=== PATIENT | male | born 1935 | race Caucasian/White ===

== ENCOUNTER 2017-02-03 14:49 | Inpatient (IN) | payer BC, OTHER ==
[~2017-02-03] VITALS: Ht 185.4 cm; Wt 78.0 kg
[2017-02-03] MEDS ORDERED: SODIUM CHLORIDE 0.9% 1000ML 1,000 ML IV STA (15:39)
[2017-02-03] MEDS ORDERED: SODIUM CHLORIDE 0.9% 500ML 500 ML IV STA (15:39)
[2017-02-03] MEDS ORDERED: SIMV20TA2 PO (16:30)
[2017-02-03] MEDS ORDERED: DABI150C PO (16:30)
[2017-02-03] MEDS ORDERED: ASPI-232 PO (16:30)
--- NOTE | 2017-02-03 16:38 | EMERGENCY ROOM VISIT NOTE ---
History Report prepared by David: Cee Caban Under the Supervision of: Dr. Meek Rodrigez M.D. First contact with patient: 15:35 Chief Complaint: RECTAL BLEEDING Stated Complaint: NEED REHYDRATION; Nursing Triage Summary: having rectal bleeding for the past 2 months. sent here from dr pettit's office for hydration History of Present Illness The patient is a 81 year old male who presents to the Emergency Room with complaints of persistent rectal bleeding which started 2 months ago. He reports that it is a small amount when he passes gas and with each bowel movement. The blood comes separately from the stool and is present on the toilet tissue. He has been experiencing occasional abdominal pain. He denies any pain with bowel movement, fever, cough, nausea, or vomiting. He has lost 4-5 pounds in the last couple of months, which he attributes to decreased food intake. He denies any history of abdominal surgery. He is on Pradaxa. He was referred to the ED after blood work showed that he has a high calcium level and might be dehydrated. Source of History: patient Onset: 2 months ago Position: other (rectum) Quality: other (bleeding) Timing: other (persistent) Associated Symptoms: No cough, No fevers, No nausea, No vomiting Note: He denies any pain with bowel movements. Review of Systems See HPI for pertinent positives & negatives. A total of 10 systems reviewed and were otherwise negative. Past Medical & Surgical Medical Problems: (1) ATRIAL FIBRILLATION (2) DIAB OBDULIA WO COMPL, TYPE II OR UNSPEC TYPE, NOT UNCNTRLD (3) DIVERTICULOSIS COLON (W/O MENT OF HEMORRHAGE) (4) Gout (5) Hypercalcemia (6) HYPERLIPIDEMIA NEC/NOS (7) HYPERPLASIA OF PROSTATE Family History Noncontributory secondary to age. Social History Smoking Status: Never Smoker Alcohol Use: none Marital Status: Occupation Status: retired Current/Historical Medications Scheduled Aspirin (Aspir-81), 1 TAB PO DAILY Dabigatran Etexilate Mesylate (Pradaxa), 150 MG PO BID Metoprolol Succinate (Toprol Xl), 50 MG PO DAILY Simvastatin (Zocor), 20 MG PO QPM Allergies Coded Allergies: No Known Allergies (Verified , 02/03/17) Physical Exam Vital Signs Date Time Temp Pulse Resp B/P Pulse Ox O2 Delivery O2 Flow Rate FiO2 02/03/17 17:07 92 18 120/78 100 Room Air 02/03/17 14:53 95 18 122/82 100 Room Air Physical Exam GENERAL: Patient is in no acute distress. HEENT: No acute trauma, normocephalic atraumatic, mucous membranes moist, no nasal congestion, no scleral icterus. NECK: No stridor, no adenopathy, no meningismus, trachea is midline. LUNGS: Clear to auscultation bilaterally, no wheeze, no rhonchi, breath sounds equal. HEART: Without murmurs gallops or rubs, regular rate and rhythm. ABDOMEN: Soft, slightly tender left lower quadrant, bowel sounds positive, no hernias, no peritonitis. EXTREMITIES: No cyanosis or edema, full range of motion of all the joints without pain or difficulty, no signs for acute trauma. NEUROLOGIC: Oriented x 3, no acute motor or sensory deficits, no focal weakness. SKIN: No rash, no jaundice, no diaphoresis. RECTAL: Brown stool. No external source for bleeding. Digital exam reveals no mass. Stool tests heme positive. Medical Decision & Procedures ER Provider Diagnostic Interpretation: X ray results and stated below per my interpretation and radiologist interpretation. CT chest and CT abd/pelvis are pending. CHEST ONE VIEW PORTABLE HISTORY: Short of breath. COMPARISON: None. FINDINGS: The heart is top normal in size. Linear densities the left lung base favor subsegmental atelectasis or scarring. No focal lung consolidations to suggest pneumonia. No evidence for pulmonary edema. Small linear density within the right upper lobe. IMPRESSION: 1. Left basilar linear densities favor subsegmental atelectasis or scarring. 2. No acute process within the chest. 3. Small linear density within the right upper lobe may also represent an area of scarring. Electronically signed by: Masood Dupree M.D. 02/03/2017 4:36 PM Dictated Date/Time: 02/03/2017 4:34 PM Laboratory Results Test 02/03/17 15:55 02/03/17 16:20 02/03/17 16:40 02/03/17 17:16 Urine Color YELLOW Urine Appearance CLEAR (CLEAR) Urine pH 6.0 (4.5-7.5) Urine Specific [place] 1.012 (1.000-1.030) Urine Protein NEG (NEG) Urine Glucose (UA) NEG (NEG) Urine Ketones NEG (NEG) Urine Occult Blood NEG (NEG) Urine Nitrite NEG (NEG) Urine Bilirubin NEG (NEG) Urine Urobilinogen NEG (NEG) Urine Leukocyte Esterase NEG (NEG) Prothrombin Time 12.8 SECONDS (9.0-12.0) Prothromb Time International Ratio 1.2 (0.9-1.1) Activated Partial Thromboplast Time 34.3 SECONDS (21.0-31.0) Partial Thromboplastin Ratio 1.3 Calcium Level 13.3 mg/dl (8.5-10.1) Magnesium Level 2.2 mg/dl (1.8-2.4) Thyroid Stimulating Hormone (TSH) 2.630 uIu/ml (0.300-4.500) Ionized Calcium 1.76 mmol/l (1.12-1.32) Laboratory results reviewed by me. Medications Administered Medications (Trade) Dose Ordered Sig/Estevan Route Start Time Stop Time Status Last Admin Dose Admin Sodium Chloride 500 ml @ 999 mls/hr Q31M STAT IV 02/03/17 15:39 02/03/17 16:09 DC 02/03/17 16:05 999 MLS/HR Sodium Chloride (Nss 1000ml) 1,000 ml @ 200 mls/hr Q5H STAT IV 02/03/17 15:39 02/03/17 20:38 02/03/17 16:05 200 MLS/HR ECG Indication: other (hypercalcemia) Rate (beats per minute): 70 Rhythm: atrial fibrillation Findings: RBBB, no acute ischemic change, no ectopy ED Course 1538: The patient was evaluated in room C8. A complete history and physical exam was performed. 1539: NSS 1000 ml @ 200 mls/hr IV, NSS 500 ml @ 999 mls/hr IV. 1641: I discussed the patient's case with Dr. Matute, [facility] - hospitalist. He will be evaluated for further management. 1643: I discussed the results and treatment plan with him. He verbalized understanding and agreement. He will be evaluated for further management. Medical Decision Differential diagnoses: diverticulitis, malignancy, anemia, renal failure, electrolyte imbalance, infection, dehydration. I was able to review the laboratory values from earlier today. There was no leukocytosis or concerning anemia. Calcium was high at just over 13. No other significant electrolyte abnormality. His creatinine was elevated at 1.8, consistent with dehydration or mild acute renal failure. While here in the emergency room, some additional laboratory testing was ordered. His magnesium was normal. His thyroid appeared to be functioning normally. INR was mildly elevated at 1.2, likely from his Pradaxa. Urinalysis did not show evidence for infection. Chest x-ray did not show any obvious pneumonia or mass. EKG showed an A. fib with a right bundle branch block, no acute ischemia. Chest CT and abdominal and pelvis CT results are presently pending. The patient received IV saline. With the hypercalcemia, his renal failure and my concern for malignancy, I did think workup in the hospital was warranted. Of note, I did perform a rectal exam, the stool was dark brown in color and heme positive. No external source for bleeding was seen. I discussed my findings with the patient and case management. The on-call hospitalist was consulted. Consults Time Called: 1636 Consulting Physician: Dr. Matute, [facility] - hospitalist Returned Call: 1641 I discussed the patient's case with him. He will be evaluated for further management. Impression Primary Impression: Hypercalcemia Additional Impressions: GI bleeding Dehydration Scribe Attestation The scribe's documentation has been prepared under my direction and personally reviewed by me in its entirety. I confirm that the note above accurately reflects all work, treatment, procedures, and medical decision making performed by me. Departure Information Dispostion Being Evaluated By Hospitalist Referrals Juan Daniel Pettit M.D. (PCP) Patient Instructions My [facility] Problem Qualifiers
[2017-02-03 16:48] LABS: INR 1.2 (0.9-1.1); PARTIAL THROMBOPLASTIN RATIO 1.3; PROTHROMBIN TIME (PATIENT) 12.8 SECONDS (9.0-12.0)
[2017-02-03 16:53] LABS: URINE APPEARANCE CLEAR (CLEAR); URINE BILIRUBIN NEG (NEG); URINE COLOR YELLOW; URINE NITRITE NEG (NEG); URINE SPECIFIC GRAVITY 1.012 (1.000-1.030); UROBILINOGEN NEG (NEG)
[2017-02-03 17:04] LABS: MANUAL MICROSCOPIC REQUIRED? NO; REVIEW REQ? NO
[2017-02-03 17:06] LABS: CALCIUM 13.3 mg/dl (8.5-10.1); MAGNESIUM 2.2 mg/dl (1.8-2.4); THYROID STIMULATING HORMONE 2.63 uIu/ml (0.300-4.500)
[2017-02-03] MEDS: SODIUM CHLORIDE 0.9% 1000ML 1,000 ML IV SCH (17:16)
[2017-02-03] MEDS ORDERED: ACETAMINOPHEN 325 MG TAB PO PRN (17:30)
--- NOTE | 2017-02-03 17:47 | DIAGNOSTIC IMAGING REPORT ---
CT OF THE CHEST WITHOUT IV CONTRAST CLINICAL HISTORY: Possible mass. COMPARISON STUDY: Chest radiograph February 03, 2017. CT DOSE: 452.45 mGy.cm TECHNIQUE: Axial images of the chest were obtained without IV contrast. Images were reviewed in the axial, sagittal, and coronal planes. IV contrast was not administered for this examination. FINDINGS: The size of the heart is normal. There is no pericardial effusion. Note is made of a small hiatal hernia. There is also an enlarged distal paraesophageal lymph node that measures 2.1 x 1.3 cm. The central airways are patent. There is no consolidation to suggest pneumonia. Linear and groundglass opacities favor atelectasis. No suspicious osseous lesions are present. No suspicious pulmonary nodules are present. No significant abnormalities are identified within visualized portions of the upper abdomen with exception of mild left collecting system dilatation. This can be assessed on the abdominal CT. IMPRESSION: 1. Mildly enlarged distal paraesophageal lymph node. This lymph node is indeterminate and pathologically enlarged. Correlation with history of malignancy is recommended. 2. No consolidation to suggest pneumonia. 3. Mild left collecting system dilatation, partially imaged on this exam. 4. Small hiatal hernia. Electronically signed by: Luciano Owusu M.D. 02/03/2017 5:45 PM Dictated Date/Time: 02/03/2017 5:31 PM
--- NOTE | 2017-02-03 17:51 | History and Physical ---
History & Physical Date & Time of Service: Feb 03, 2017 at 17:24 Chief Complaint: Need Rehydration; Primary Care Physician: Juan Daniel Pettit M.D. History of Present Illness Source: patient, family This is a 81 yo M with PMHx of atrial fibrillation on pradaxa, HTN, DM, diverticulosis, recent GI bleed, gout and hyperlipidemia who has routine labs drawn and was sent to the ED for hypecalcemia and elevated creatinine. The patient reports he does not feel any different than normal. His is present with him today and notes that he has seemed a little more confused lately, stating he was unable to count cards the other day. His oral intake has been good, with about 6 cups of water daily, and drinks no caffeine. Pt reports intermittent rectal bleeding which started in November, and has been being worked up by his PCP. He is currently still on an anticoagulant for afib. He denies seeing [facility] recently, no black or tarry stools. Pt does complain of swelling in his lower legs x past 6 weeks, and recently had an ultrasound on 01/22 which was negative for DVT, he also had an echocardiogram done recently by Dr. Hope which was fairly normal per pt report. He admits to sob on exertion , but denies dyspnea at rest or orthopnea. Outpatient labs include hypercalcemia, Ca+ = 13.3, ANTONIA with Cr. 1.8. Checking a calcium, TSH, angiotensin converting enzyme, and Vit D 25 here now. EKG completed showing afib with RBBB. Past Medical/Surgical History Medical Problems: (1) ATRIAL FIBRILLATION Status: Chronic (2) DIAB OBDULIA WO COMPL, TYPE II OR UNSPEC TYPE, NOT UNCNTRLD Status: Chronic (3) DIVERTICULOSIS COLON (W/O MENT OF HEMORRHAGE) Status: Chronic (4) Gout Status: Chronic (5) HYPERLIPIDEMIA NEC/NOS Status: Chronic (6) HYPERPLASIA OF PROSTATE Status: Chronic Social History Smoking Status: Never Smoker Smokeless Tobacco Use: No Alcohol Use: none Drug Use: none Marital Status: Housing status: lives with significant other Occupational Status: retired Multi-Drug Resistant Organisms History of MDRO: No Allergies Coded Allergies: No Known Allergies (Verified , 02/03/17) Home Medications Scheduled Aspirin (Aspir-81), 1 TAB PO DAILY Dabigatran Etexilate Mesylate (Pradaxa), 150 MG PO BID Metoprolol Succinate (Toprol Xl), 50 MG PO DAILY Simvastatin (Zocor), 20 MG PO QPM Review of Systems Constitutional: + fatigue, No chills, No fever, No sweats Eyes: No problem reported ENT: No problem reported Respiratory: + dyspnea on exertion, + shortness of breath, No cough, No dyspnea at rest, No hemoptysis, No sputum Cardiovascular: No chest pain, No orthopnea, No palpitations Abdomen: + GI bleeding, No constipation, No diarrhea, No nausea, No pain, No vomiting Musculoskeletal: + swelling, No calf pain, No joint pain Genitourinary - Male: + urinary frequency, No dysuria, No hematuria, No urinary urgency Neurologic: No balance problems, No numbness/tingling, No paralysis Endocrine: + fatigue Integumentary: No itch, No rash Physical Exam Vital Signs Date Time Temp Pulse Resp B/P Pulse Ox O2 Delivery O2 Flow Rate FiO2 02/03/17 17:07 92 18 120/78 100 Room Air 02/03/17 14:53 95 18 122/82 100 Room Air General Appearance: WD/WN, no apparent distress, + thin Head: normocephalic, atraumatic Eyes: PERRL, EOMI ENT: hearing grossly normal, pharynx normal Neck: supple, no JVD Respiratory/Chest: chest non-tender, lungs clear, normal breath sounds, no respiratory distress, no accessory muscle use Cardiovascular: no JVD, normal peripheral pulses, + systolic murmur, + irregularly irregular Abdomen/GI: normal bowel sounds, non tender, soft, no organomegaly Back: normal inspection Extremities/Musculoskelatal: no calf tenderness, + pertinent finding (LLE: + pedal edema, cool skin to touch, dusky colored. RLE without edema or color changes, warm to touch. ) Neurologic/Psych: no motor/sensory deficits, alert, oriented x 3 Skin: normal color, warm/dry Diagnostics Laboratory Results Results Past 24 Hours Test 02/03/17 15:55 02/03/17 16:20 02/03/17 16:40 02/03/17 17:16 Range/Units Urine Color YELLOW Urine Appearance CLEAR CLEAR Urine pH 6.0 4.5-7.5 Urine Specific [place] 1.012 1.000-1.030 Urine Protein NEG NEG Urine Glucose (UA) NEG NEG Urine Ketones NEG NEG Urine Occult Blood NEG NEG Urine Nitrite NEG NEG Urine Bilirubin NEG NEG Urine Urobilinogen NEG NEG Urine Leukocyte Esterase NEG NEG Prothrombin Time 12.8 9.0-12.0 SECONDS Prothromb Time International Ratio 1.2 0.9-1.1 Activated Partial Thromboplast Time 34.3 21.0-31.0 SECONDS Partial Thromboplastin Ratio 1.3 Calcium Level 13.3 8.5-10.1 mg/dl Magnesium Level 2.2 1.8-2.4 mg/dl Thyroid Stimulating Hormone (TSH) 2.630 0.300-4.500 uIu/ml Ionized Calcium 1.76 1.12-1.32 mmol/l Diagnostic Radiology CHEST ONE VIEW PORTABLE HISTORY: Short of breath. COMPARISON: None. FINDINGS: The heart is top normal in size. Linear densities the left lung base favor subsegmental atelectasis or scarring. No focal lung consolidations to suggest pneumonia. No evidence for pulmonary edema. Small linear density within the right upper lobe. IMPRESSION: 1. Left basilar linear densities favor subsegmental atelectasis or scarring. 2. No acute process within the chest. 3. Small linear density within the right upper lobe may also represent an area of scarring. Electronically signed by: Masood Dupree M.D. 02/03/2017 4:36 PM Dictated Date/Time: 02/03/2017 4:34 PM The status of this report is Signed. EKG Vent. rate 70 BPM GA interval * ms QRS duration 140 ms QT/QTc 418/451 ms P-R-T axes * -64 -6 Atrial fibrillation with Right bundle branch block Impression Assessment and Plan This is a 81 yo M with PMHx of atrial fibrillation on pradaxa, HTN, DM, diverticulosis, recent GI bleed, gout and hyperlipidemia who has routine labs drawn and was sent to the ED for hypecalcemia and elevated creatinine. Hypercalcemia - Admit to tele - Rechecking TSH, Vit D-25, MARIANN, parathyroid hormone, - Checking CT chest to r/o any primary hormone secreting tumor with hypercalcemia, possible other diagnosis could include sarcoidosis. - Will administer NSS at 100 mL/hr - Give pamidronate 60 mg IV x 1 to reduce calcium - Follow am labs ANTONIA on CKD stage III - Cr. 1.8 with baseline of 1.3 - 1.4 - Continue IVFs as above - Hold nephrotoxins and nsaids - Follow PRP Atrial fibrillation - Cont anticoagulation on pradaxa - Recent ECHO completed on 01/28/17 with EF of 50-55%. right ventricle mild to moderate dilation, moderate MR, left atrium mildly dilated, mild to moderate TR , elavated ventricular systolic pressure at 40-5- mmHg. - DVT ultrasound was completed on 01/22 and negative. Will repeat with increased swelling and dusky red appearance of the LLE. - Has outpatient f/u with Dr. Macdonald scheduled on 02/20. Hyperlipidemia GI bleed - No current bleed, hemmocult in the ED negative. - Hgb stable at , VSS - Continue pradaxa for afib as above. DVT ppx: Teds, SCDs, cont pradaxa, no other chemical anticoagulation needed. Disposition: From home, discharge when medically stable. Level of Care Telemetry Resuscitation Status FULL RESUSCITATION VTE Prophylaxis VTE Risk Assessment Done? Y/N: Yes Risk Level: Low Given or contraindicated: T.EMarry Stockings, SCD's Assessment and Plan Attending Addendum: I have physically seen and examined this patient, have directed their medical care, have supervised the PA's activity, and agree with the H&P as noted above, with the following changes: The patient is awake, alert and oriented 3, appears thin, mildly renetta complexion, normocephalic and atraumatic, lying in bed and in no acute distress. HEENT--PERRL, EOMI, mucous membranes and oropharynx dry. Neck--supple, no JVD or bruits, thyroid normal, trachea midline, no adenopathy. Heart--irregularly irregular, systolic murmur, no rubs or gallops. Lungs--clear bilaterally with good air movement, no respiratory distress, no accessory muscle use. Abdomen--normal bowel sounds and soft, nontender and nondistended, no hernias or masses, no organomegaly. Extremities--left lower extremity-no cyanosis, clubbing or edema. There are good distal pulses b/l. Right lower extremity with 1+ edema and mildly red. Dermatologic--normal skin turgor, normal color, warm and dry, no abnormal lymph nodes, no rash. Changes as noted above. Neurologic--cranial nerves II through XII grossly intact, motor and sensory examination normal. Rheumatologic--normal range of motion, nontender, muscles and joints. Psychiatric--normal affect. Hypercalcemia--calcium upon entry labs was 13.3. Workup to include 25-hydroxy vitamin D level, ionized PTH, MARIANN level, CT of the chest and abdomen to look for possible malignancy. --Give a single dose of pamidronate 60 mg IV and follow serial laboratories. Acute on chronic renal insufficiency--creatinine upon entry labs was 1.8, with baseline in the 1.3-1.[address] on normal saline at 100 mils per hour, and repeat BMP serially. Atrial fibrillation/hypertension--continue metoprolol succinate 50 mg by mouth daily, aspirin 81 mg by mouth daily, and Pradaxa 100 mg by mouth twice a day. Hypercholesterolemia--continue simvastatin 20 mg by mouth every evening. Right lower extremity swelling--repeat venous Doppler.
[2017-02-03 18:20] VITALS: BP 143/83; PULSE 78; TEMP 36.6; O2SAT 97
[2017-02-03 18:27] VITALS: Ht 185.4 cm; Wt 78.0 kg
[2017-02-03] MEDS ORDERED: PAMIDRONATE DISODIUM IV INJ 60 MG in SODIUM CHLORIDE 0.9% 1000ML 1,000 ML IV SCH (18:30)
--- NOTE | 2017-02-03 18:43 | DIAGNOSTIC IMAGING REPORT ---
CT OF THE ABDOMEN AND PELVIS WITH ORAL CONTRAST ONLY CT DOSE: 366.30 mGy.cm CLINICAL HISTORY: Abdominal pain. TECHNIQUE: Axial images of the abdomen and pelvis were obtained without IV contrast. Oral contrast was administered. COMPARISON STUDY: None. FINDINGS: Note is made of a mildly enlarged distal paraesophageal lymph node that measures 2.3 x 1.2 cm. Evaluation of the abdomen and pelvis is suboptimal given the lack of IV contrast. Unenhanced images of liver, spleen, adrenal glands and pancreas are normal. There is a large suspected diverticulum arising from the second portion of the duodenum. There is no evidence for a bowel structure. This extensive left colon diverticulosis. There is mild pericolonic infiltration without convincing evidence for acute diverticulitis. There is mild left collecting system dilatation as well as dilatation of the left ureter to the level of the left ureterovesical junction. Note is made of numerous moderately enlarged para-aortic and bilateral iliac chain lymph nodes as well as left pelvic sidewall lymphadenopathy. There is also a left perirectal mass that measures approximately 7.3 x 4.8 cm. There is associated rectal wall thickening. Suspected adenopathy extends to the left ureterovesical junction. An index left external iliac lymph node measures 3.1 x 2.1 cm. An index left para-aortic conglomerate node measures 4.4 x 3 cm. There is mild bladder wall thickening. No suspicious osseous lesions are present. There is focal dilatation of the bilateral common iliac veins, left greater than right. IMPRESSION: 1. Extensive paraaortic, bilateral iliac chain and left pelvic sidewall lymphadenopathy in addition to a left perirectal mass with associated rectal wall thickening. Overall, the findings strongly suggest lymphoma. A rectal adenocarcinoma could appear similar although is considered much less likely. 2. Extensive left colon diverticulosis without convincing evidence for acute diverticulitis. 3. Mild left hydroureteronephrosis likely due to mass effect upon the distal left ureter by lymphadenopathy which extends to the left ureterovesical junction. Electronically signed by: Luciano Owusu M.D. 02/03/2017 6:41 PM Dictated Date/Time: 02/03/2017 6:31 PM
[2017-02-03] MEDS: DABIGATRAN ELEXILATE 75 MG CAP PO SCH (20:29)
[2017-02-03] MEDS: SIMVASTATIN 20 MG TAB PO SCH (20:29)
[2017-02-03 23:57] VITALS: BP 116/65; PULSE 72; TEMP 36.7; O2SAT 97
[2017-02-04] VITALS (8 sets, daily range): BP systolic 93–125; BP diastolic 55–82; PULSE 54–74; TEMP 36.5–37; O2SAT 91–97
--- NOTE | 2017-02-04 00:55 | Progress Note ---
Progress Note Date of Service Feb 04, 2017. Progress Note Called by JAMAR Oliva that pt has a DVT which is nonocclusive and in the common femoral and superficial femoral vein On r/v of records, pt is on Pradaxa and has been for a while. Received most recent dose at 8pm today. At this stage, am unable to tell if he has been noncompliant, but would have risk factors for bleeding if i gave him further anticoagulation, so will hold off for now Discussed with pharmacist as well Resident Tracking Resident Involvement: Operator Coverage Note Care Provided: Adult Hospital Medicine
[2017-02-04] MEDS: SODIUM CHLORIDE 0.9% 1000ML 1,000 ML IV SCH ×2 (05:45→13:17)
--- NOTE | 2017-02-04 06:20 | DIAGNOSTIC IMAGING REPORT ---
Venous Doppler left leg LEFT VENOUS DOPP LOWER EXT UNILAT CLINICAL HISTORY: R/o DVT pain. Edema. TECHNIQUE: Venous Doppler COMPARISON STUDY: None FINDINGS: Study is positive for acute deep venous thrombosis involving the left common femoral vein as well as proximal superficial femoral vein. Compressibility is compromise. IMPRESSION: Acute deep venous thrombosis involving the left leg involving the left common and superficial femoral veins Electronically signed by: Dillon Serrato M.D. 02/04/2017 6:18 AM Dictated Date/Time: 02/04/2017 6:17 AM
[2017-02-04 06:27] LABS: BASO % 0.6 %; BASO ABS # 0.03 K/uL (0-0.2); COMPLETE YES; IG% 0.2 %; LYMPH % 19.4 %; LYMPH ABS # 0.98 K/uL (1.2-3.4); MEAN CORPUSCULAR HEMOGLOBIN 28.9 pg (25-34); MEAN CORPUSCULAR HGB CONC 33.9 g/dl (32-36); MEAN PLATELET VOLUME 9.2 fL (7.4-10.4); MONO % 12.9 %; NEUT % 64.9 %; PLATELET COUNT 254 K/uL (130-400); RED BLOOD COUNT 4.47 M/uL (4.7-6.1); WHITE BLOOD COUNT 5.04 K/uL (4.8-10.8)
[2017-02-04 07:00] LABS: BUN/CREATININE RATIO 15.9 (10-20); CALCIUM 12.3 mg/dl (8.5-10.1); CREATININE 1.8 mg/dl (0.60-1.40)
[2017-02-04] MEDS: METOPROLOL SUCC 50MG EXT REL TAB PO SCH (07:39)
[2017-02-04] MEDS: DABIGATRAN ELEXILATE 75 MG CAP PO SCH (07:39)
[2017-02-04] MEDS ORDERED: ASPIRIN 81 MG ECTAB PO SCH (09:00)
--- NOTE | 2017-02-04 09:48 | Clinical Documentation Query ---
ROSE Staton : Please Document Present on Admission Status for - Acute deep venous thrombosis involving the left leg involving the left common and superficial femoral veins. Patient is an 81 year old male admitted for evaluation and treatment of hypercalcemia and ANTONIA on CKD stage 3. Ultrasound performed after admission demonstrated "Acute deep venous thrombosis involving the left leg involving the left common and superficial femoral veins". In order to eliminate electrical engineer uncertainty at time of discharge, please explicitly specify the present on admission status (POA) as appropriate. Thank you. ( x ) Acute deep venous thrombosis involving the left leg involving the left common and superficial femoral veins, POA ( ) Acute deep venous thrombosis involving the left leg involving the left common and superficial femoral veins, not POA Thank You, Roverto Cárdenas, RN [phone]
[2017-02-04 12:38] LABS: INR 1.4 (0.9-1.1); PARTIAL THROMBOPLASTIN RATIO 1.6; PROTHROMBIN TIME (PATIENT) 15.6 SECONDS (9.0-12.0)
--- NOTE | 2017-02-04 12:49 | Hospitalist Progress Note ---
Hospitalist Progress Note Date of Service Feb 04, 2017. (Mariam Centeno ., PA-C) Subjective Pt evaluation today including: conversation w/ patient, physical exam, chart review, lab review, review of studies, conversation w/ data virtualization consultant (spoke with Dr. Chávez and Dr. Ca), review of inpatient medication list Pain: None PO Intake: Tolerating PO diet, decreased appetite Voiding: no voiding problems The patient states that he has been feeling weak and fatigued for the last 4-5 weeks. He has not had much of an appetite or been sleeping well during this time. He reports a 2/10 dull pain in the lower abdomen that occurs after eating. He states that the duration of this pain varies, and this first started occurring about one week ago. He has had intermittent bright red blood per rectum since November. He states that this does not always occur just with bowel movements, but sometimes even passing gas will result in bright red blood. He has also been more constipated in the last week or so than normal. He reports seeing some blood this morning after passing gas. Per nursing, he later had a bloody bowel movement. The patient denies fevers, chills, sweats, chest pain, palpitations, claudication, cough, wheezing, shortness of breath, nausea, vomiting, dysuria, hematuria, urinary retention, paralysis, weakness, numbness and tingling. Additional Comments: See HPI for pertinent positives and negatives. All other systems reviewed and negative. (Mariam Centeno ., PA-C) Objective Vital Signs Date Time Temp Pulse Resp B/P Pulse Ox O2 Delivery O2 Flow Rate FiO2 02/04/17 11:28 36.5 66 16 108/63 95 02/04/17 08:00 Room Air 02/04/17 07:27 36.7 71 18 110/68 96 02/04/17 04:00 Room Air 02/04/17 03:41 36.8 74 18 125/82 96 Room Air 02/04/17 00:01 97 Room Air 02/03/17 23:57 36.7 72 18 116/65 97 Room Air 02/03/17 20:00 Room Air 02/03/17 18:27 Room Air 02/03/17 18:20 36.6 78 18 143/83 97 Room Air 02/03/17 17:57 36.6 92 18 120/78 100 02/03/17 17:56 92 18 120/78 100 Room Air 02/03/17 17:07 92 18 120/78 100 Room Air 02/03/17 14:53 95 18 122/82 100 Room Air (Mariam Centeno ., PA-C) Physical Exam General Appearance: WD/WN, no apparent distress Eyes: normal inspection, PERRL, EOMI ENT: normal ENT inspection, hearing grossly normal, pharynx normal Neck: supple, no JVD, trachea midline Respiratory/Chest: normal breath sounds, no respiratory distress, + decreased breath sounds (bases bilaterally), + crackles (right base) Cardiovascular: no gallop, no murmur, + irregularly irregular (rate controlled) Abdomen: normal bowel sounds, soft, + guarding (with palpation of suprapubic area), + tenderness (suprapubic area TTP), + mass (hard, bumpy mass felt in suprapubic area) Extremities: non-tender, + swelling (trace edema LLE), + pertinent finding ( LLE dusky) 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: alert, normal mood/affect, oriented x 3 Skin: normal color, warm/dry, no rash (Mariam Centeno ., PA-C) Laboratory Results Last 24 Hours Test 02/03/17 15:55 02/03/17 16:20 02/03/17 16:40 02/03/17 17:52 Urine Color YELLOW Urine Appearance CLEAR Urine pH 6.0 Urine Specific Marvell 1.012 Urine Protein NEG Urine Glucose (UA) NEG Urine Ketones NEG Urine Occult Blood NEG Urine Nitrite NEG Urine Bilirubin NEG Urine Urobilinogen NEG Urine Leukocyte Esterase NEG 25-Hydroxy Vitamin D Total 18.9 ng/ml Prothrombin Time 12.8 SECONDS Prothromb Time International Ratio 1.2 Activated Partial Thromboplast Time 34.3 SECONDS Partial Thromboplastin Ratio 1.3 Calcium Level 13.3 mg/dl Magnesium Level 2.2 mg/dl Thyroid Stimulating Hormone (TSH) 2.630 uIu/ml Ionized Calcium 1.76 mmol/l Parathyroid Hormone (Intact) < 5.5 pg/mL Test 02/04/17 06:19 02/04/17 12:02 White Blood Count 5.04 K/uL Red Blood Count 4.47 M/uL Hemoglobin 12.9 g/dL Hematocrit 38.0 % Mean Corpuscular Volume 85.0 fL Mean Corpuscular Hemoglobin 28.9 pg Mean Corpuscular Hemoglobin Concent 33.9 g/dl Platelet Count 254 K/uL Mean Platelet Volume 9.2 fL Neutrophils (%) (Auto) 64.9 % Lymphocytes (%) (Auto) 19.4 % Monocytes (%) (Auto) 12.9 % Eosinophils (%) (Auto) 2.0 % Basophils (%) (Auto) 0.6 % Neutrophils # (Auto) 3.27 K/uL Lymphocytes # (Auto) 0.98 K/uL Monocytes # (Auto) 0.65 K/uL Eosinophils # (Auto) 0.10 K/uL Basophils # (Auto) 0.03 K/uL RDW Standard Deviation 41.2 fL RDW Coefficient of Variation 13.5 % Immature Granulocyte % (Auto) 0.2 % Immature Granulocyte # (Auto) 0.01 K/uL Sodium Level 141 mmol/L Potassium Level 4.0 mmol/L Chloride Level 102 mmol/L Carbon Dioxide Level 29 mmol/L Anion Gap 10.0 mmol/L Blood Urea Nitrogen 29 mg/dl Creatinine 1.80 mg/dl Est Creatinine Clear Calc Drug Dose 32.4 ml/min Estimated GFR () 39.5 Estimated GFR (Non- 34.0 BUN/Creatinine Ratio 15.9 Random Glucose 102 mg/dl Calcium Level 12.3 mg/dl (Mariam Centeno PA-C) Diagnostic Results Reviewed the following studies and agree with interpretation as follows: Patient Name: ATTILA FIELD Unit Number: [id number] Dictated: 02/03/171830 Transcribed: 02/03/171830 JUDE Printed Date/Time: [~ rep prt dt]/[~ rep prt tm] [~ rep ct labl] - [~ rep ct ivnm] [facility] [place] [address] Dictated: 02/03/171830 Transcribed: 02/03/171830 JUDE Printed Date/Time: [~ rep prt dt]/[~ rep prt tm] [~ rep ct labl] - [~ rep ct ivnm] Patient: ATTILA FIELD Address1: [address] [place] [address] [address] Casarez Rec: [id number] Address2: Acct ID: [id number] [facility] Zip: [place] [address] Date: 1935 Sex: M Room/Bed: E217-1 Ref Phy: Juan Daniel Pettit M.D. SC: C.2T Att Phy: Bertin Matute M.D. Report #: [id number] Amy Phy: Juan Daniel Pettit M.D. Test: APWOR Admit Phy: Bertin Matute M.D. Collision Repairer: [email or web address] Interpreting Phy: Luciano Owusu MD Diagnosis: HYPERCALCEMIA Ordering Phy: Meek Rodrigez M.D. Service Date: 02/03/17 Admit Date: 02/03/1703/13/17 MNE: PWRSCRIBE CONF: DICTATED BY: Luciano Owusu MD]] CC: Meek Rodrigez M.D. Pasquariello, Rick D M.D. Pro, Jeffrey W., M.D. Endcc: [~ rep ct add3]] CT OF THE ABDOMEN AND PELVIS WITH ORAL CONTRAST ONLY CT DOSE: 366.30 mGy.cm CLINICAL HISTORY: Abdominal pain. TECHNIQUE: Axial images of the abdomen and pelvis were obtained without IV contrast. Oral contrast was administered. COMPARISON STUDY: None. FINDINGS: Note is made of a mildly enlarged distal paraesophageal lymph node that measures 2.3 x 1.2 cm. Evaluation of the abdomen and pelvis is suboptimal given the lack of IV contrast. Unenhanced images of liver, spleen, adrenal glands and pancreas are normal. There is a large suspected diverticulum arising from the second portion of the duodenum. There is no evidence for a bowel structure. This extensive left colon diverticulosis. There is mild pericolonic infiltration without convincing evidence for acute diverticulitis. There is mild left collecting system dilatation as well as dilatation of the left ureter to the level of the left ureterovesical junction. Note is made of numerous moderately enlarged para-aortic and bilateral iliac chain lymph nodes as well as left pelvic sidewall lymphadenopathy. There is also a left perirectal mass that measures approximately 7.3 x 4.8 cm. There is associated rectal wall thickening. Suspected adenopathy extends to the left ureterovesical junction. An index left external iliac lymph node measures 3.1 x 2.1 cm. An index left para-aortic conglomerate node measures 4.4 x 3 cm. There is mild bladder wall thickening. No suspicious osseous lesions are present. There is focal dilatation of the bilateral common iliac veins, left greater than right. IMPRESSION: 1. Extensive paraaortic, bilateral iliac chain and left pelvic sidewall lymphadenopathy in addition to a left perirectal mass with associated rectal wall thickening. Overall, the findings strongly suggest lymphoma. A rectal adenocarcinoma could appear similar although is considered much less likely. 2. Extensive left colon diverticulosis without convincing evidence for acute diverticulitis. 3. Mild left hydroureteronephrosis likely due to mass effect upon the distal left ureter by lymphadenopathy which extends to the left ureterovesical junction. Electronically signed by: Luciano Owusu M.D. 02/03/2017 6:41 PM Dictated Date/Time: 02/03/2017 6:31 PM The status of this report is Signed. Draft = Not yet reviewed or approved by Radiologist. Signed = Reviewed and approved by Radiologist. <AttendingPhy>Bertin Matute M.D.</AttendingPhy> <FamilyPhy>Juan Daniel Pettit M.D.</FamilyPhy> <PrimaryPhy>Juan Daniel Pettit M.D.</PrimaryPhy> <UnitNumber> [id number]</UnitNumber> <VisitNumber>[id number]</VisitNumber> <PatientName> ATTILA FIELD</PatientName> <DateOfBirth>1935</DateOfBirth> <Location> C.2T</Location> <ServiceDate>02/03/17</ServiceDate> <MNE>ESINDI</MNE> < OrderingPhy>Meek Rodrigez M.D.</OrderingPhy> <OrderingPhyMNE>f rep ord dr arce</ OrderingPhyMNE> <DictatingPhyMNE>f rep dict dr arce</DictatingPhyMNE> <CCListMNE> f rep ct claude</CCListMNE> <AdmittingPhyMNE>f pt admit dr arce</AdmittingPhyMNE> < AttendingPhyMNE>f pt attend dr arce</AttendingPhyMNE> <ConsultingPhyMNE>f pt consult dr arce</ConsultingPhyMNE> <FamilyPhyMNE>f pt fam dr arce</FamilyPhyMNE> <OtherPhyMNE>f pt other dr arce</OtherPhyMNE> < PrimaryPhyMNE>f pt prim care dr arce</PrimaryPhyMNE> <ReferringPhyMNE>f pt referring dr arce</ReferringPhyMNE> Patient Name: ATTILA FIELD Unit Number: [id number] Dictated: 02/03/171730 Transcribed: 02/03/171739 Printed Date/Time: [~ rep prt dt]/[~ rep prt tm] [~ rep ct labl] - [~ rep ct ivnm] [facility] [place] [address] Dictated: 02/03/171730 Transcribed: 02/03/171739 JA Printed Date/Time: [~ rep prt dt]/[~ rep prt tm] [~ rep ct labl] - [~ rep ct ivnm] Patient: ATTILA FIELD Address1: [address] [place] [address] Med Rec: [id number] Address2: Acct ID: [id number] [facility] Zip: [place] [address] Date: 1935 Sex: M Room/Bed: Ref Phy: Juan Daniel Pettit M.D. SC: GUIDO Att Phy: Report #: [id number] Amy Phy: Juan Daniel Pettit M.D. Test: CXWO Admit Phy: Collision Repairer: ROCAEL Interpreting Phy: Luciano Owusu MD Diagnosis: NEED REHYDRATION; Ordering Phy: Meek Rodrigez M.D. Service Date: 02/03/17 Admit Date: 02/03/17 MNE: PWRSCRIBE CONF: DICTATED BY: Luciano Owusu MD]] CC: Meek Rodrigez M.D. Pro, Jeffrey W., M.D. Endcc: [~ rep ct add3]] CT OF THE CHEST WITHOUT IV CONTRAST CLINICAL HISTORY: Possible mass. COMPARISON STUDY: Chest radiograph February 03, 2017. CT DOSE: 452.45 mGy.cm TECHNIQUE: Axial images of the chest were obtained without IV contrast. Images were reviewed in the axial, sagittal, and coronal planes. IV contrast was not administered for this examination. FINDINGS: The size of the heart is normal. There is no pericardial effusion. Note is made of a small hiatal hernia. There is also an enlarged distal paraesophageal lymph node that measures 2.1 x 1.3 cm. The central airways are patent. There is no consolidation to suggest pneumonia. Linear and groundglass opacities favor atelectasis. No suspicious osseous lesions are present. No suspicious pulmonary nodules are present. No significant abnormalities are identified within visualized portions of the upper abdomen with exception of mild left collecting system dilatation. This can be assessed on the abdominal CT. IMPRESSION: 1. Mildly enlarged distal paraesophageal lymph node. This lymph node is indeterminate and pathologically enlarged. Correlation with history of malignancy is recommended. 2. No consolidation to suggest pneumonia. 3. Mild left collecting system dilatation, partially imaged on this exam. 4. Small hiatal hernia. Electronically signed by: Luciano Owusu M.D. 02/03/2017 5:45 PM Dictated Date/Time: 02/03/2017 5:31 PM The status of this report is Signed. Draft = Not yet reviewed or approved by Radiologist. Signed = Reviewed and approved by Radiologist. <AttendingPhy></AttendingPhy> <FamilyPhy>Juan Daniel Pettit M.D.</FamilyPhy> < PrimaryPhy>Juan Daniel Pettit M.D.</PrimaryPhy> <UnitNumber>[id number]</UnitNumber > <VisitNumber>[id number]</VisitNumber> <PatientName>ATTILA FIELD</ PatientName> <DateOfBirth>1935</DateOfBirth> <Location>C.EDC</Location> < ServiceDate>02/03/17</ServiceDate> <MNE>ESINDI</MNE> <OrderingPhy>Meek Rodrigez M.D.</OrderingPhy> <OrderingPhyMNE>f rep ord dr arce</OrderingPhyMNE> < DictatingPhyMNE>f rep dict dr arce</DictatingPhyMNE> <CCListMNE>f rep ct mne</ CCListMNE> <AdmittingPhyMNE>f pt admit dr arce</AdmittingPhyMNE> <AttendingPhyMNE >f pt attend dr arce</AttendingPhyMNE> <ConsultingPhyMNE>f pt consult dr arce</ConsultingPhyMNE> <FamilyPhyMNE>f pt fam dr arce</FamilyPhyMNE> <OtherPhyMNE>f pt other dr arce</OtherPhyMNE> < PrimaryPhyMNE>f pt prim care dr arce</PrimaryPhyMNE> <ReferringPhyMNE>f pt referring dr arce</ReferringPhyMNE> Patient Name: ATTILA FIELD Unit Number: [id number] Dictated: 02/04/17616 Transcribed: 02/04/17616 MS Printed Date/Time: [~ rep prt dt]/[~ rep prt tm] [~ rep ct labl] - [~ rep ct ivnm] [facility] [place] [address] Dictated: 02/04/17616 Transcribed: 02/04/17616 MS Printed Date/Time: [~ rep prt dt]/[~ rep prt tm] [~ rep ct labl] - [~ rep ct ivnm] Patient: ATTILA FIELD Address1: [address] [place] [address] [facility] Rec: [id number] Address2: Acct ID: [id number] [facility] Zip: [place] [address] Date: 1935 Sex: M Room/Bed: [facility] Ref Phy: Juan Daniel Pettit M.D. SC: MaikT Att Phy: Bertin Matute M.D. Report #: [id number] Amy Phy: Juan Daniel Pettit M.D. Test: VDLEU Admit Phy: Bertin Matute M.D. Collision Repairer: ERICKA Interpreting Phy: Dillon Serrato M.D. Diagnosis: HYPERCALCEMIA Ordering Phy: Sherly Patel PA-C Service Date: 02/03/17 Admit Date: 02/03/1703/13/17 MNE: PWRSCRIBE CONF: DICTATED BY: Dillon Serrato M.D.]] CC: Sherly Patel PA-C Pasquariello, Rick D M.D. Pro, Jeffrey W., M.D. Endcc: [~ rep ct add3]] Venous Doppler left leg LEFT VENOUS DOPP LOWER EXT UNILAT CLINICAL HISTORY: R/o DVT pain. Edema. TECHNIQUE: Venous Doppler COMPARISON STUDY: None FINDINGS: Study is positive for acute deep venous thrombosis involving the left common femoral vein as well as proximal superficial femoral vein. Compressibility is compromise. IMPRESSION: Acute deep venous thrombosis involving the left leg involving the left common and superficial femoral veins Electronically signed by: Dillon Serrato M.D. 02/04/2017 6:18 AM Dictated Date/Time: 02/04/2017 6:17 AM The status of this report is Signed. Draft = Not yet reviewed or approved by Radiologist. Signed = Reviewed and approved by Radiologist. <AttendingPhy>Bertin Matute M.D.</AttendingPhy> <FamilyPhy>Juan Daniel Pettit M.D.</FamilyPhy> <PrimaryPhy>Juan Daniel Pettit M.D.</PrimaryPhy> <UnitNumber> [id number]</UnitNumber> <VisitNumber>[id number]</VisitNumber> <PatientName> ATTILA FIELD</PatientName> <DateOfBirth>1935</DateOfBirth> <Location> C.2T</Location> <ServiceDate>02/03/17</ServiceDate> <MNE>ESINDI</MNE> < OrderingPhy>Sherly Patel PA-C</OrderingPhy> <OrderingPhyMNE>f rep ord dr arce</OrderingPhyMNE> <DictatingPhyMNE>f rep dict dr arce</DictatingPhyMNE > <CCListMNE>f rep ct mne</CCListMNE> <AdmittingPhyMNE>f pt admit dr arce</ AdmittingPhyMNE> <AttendingPhyMNE>f pt attend dr arce</AttendingPhyMNE> <ConsultingPhyMNE>f pt consult dr arce</ConsultingPhyMNE> <FamilyPhyMNE>f pt fam dr arce</FamilyPhyMNE> <OtherPhyMNE>f pt other dr arce</OtherPhyMNE> < PrimaryPhyMNE>f pt prim care dr arce</PrimaryPhyMNE> <ReferringPhyMNE>f pt referring dr arce</ReferringPhyMNE> (Mariam Centeno ., CARL) Assessment and Plan 81 y/o male with a history of a-fib (on Pradaxa), HTN, DM II (managed off medications), CKD stage III, HLD, and recent GI bleeding who presents to ED after being found to be hypercalcemic in routine labs from his PCP. Pt also found to be in ANTONIA with elevated creatinine above baseline. Hypercalcemia--improving. Likely secondary to presumed malignancy. Radiology favors lymphoma over rectal adenocarcinoma, however given GI bleeding as below, this may represent invasion of adenocarcinoma -Admit to tele -Abdomen/pelvis CT: extensive paraaortic, bilateral iliac chain and left pelvic sidewall LAD, left 7.3 x 4.8 cm perirectal mass. Mild left hydroureteronephrosis likely due to mass effect of LAD. -CT of chest significant for enlarged, 2.1 x 1.3 cm distal paraesophageal lymph node -TSH within normal limits, PTH appropriately low at 5.5, vitamin D low at 18.9, MARIANN pending -Calcium improved to 12.3 this morning, will recheck with PRP at 1400 -Continue NSS at 100 mL/hr -Given pamidronate 60 mg IV x 1 to reduce calcium on 02/03 -Continue to monitor Active lower GI bleeding--patient had bloody bowel movement earlier this morning -Hemoglobin 12.9 upon arrival, with baseline around 14 -Recheck CBC at 1400 -GI consulted, spoke with Case: Colonoscopy with perirectal mass biopsy on 02/06 as there is concern of the mass invading into the rectal mucosa causing the bleeding. Patient will be kept on clear liquid diet today with bowel prep tomorrow. -Spoke with Dr. Ca regarding anticoagulation prior to procedure given a- fib and acute DVT: DC Pradaxa. Recommend holding off colonoscopy and biopsy until patient has held 4 doses of Pradaxa, which he received this morning. Recommend starting a weight-based low-dose [facility] to treat D[facility]. Stop heparin 2 hours prior to procedure. May resume heparin 4 hours after procedure if okay with Dr. Chávez depending on his findings. Given presumed malignancy, patient is not a good candidate for continued Pradaxa use in the long-term. Recommend long-term Lovenox or warfarin. -Pradaxa and ASA d/c'd Acute DVT in left lower extremity -LLE Doppler U/S positive for DVT in the left common femoral vein and proximal superficial femoral vein -Start low-dose heparin without bolus at [address] Ca's recommendations Left hydroureteronephrosis likely secondary to mass effect of extensive LAD -Consult urology for possible stent placement, especially given ANTONIA ANTONIA on CKD stage III--ongoing -Cr. 1.8 on arrival with baseline of 1.3 - 1.4 -Continue IVFs as above -Hold nephrotoxins and nsaids -PRP at 1400 Atrial fibrillation--rate controlled -No acute events overnight on telemetry. Patient remained in rate controlled A. fib with occasional PVCs. HR in 70s-80s -D/C Pradaxa -Recent ECHO (01/28/17) with EF of 50-55%. Right ventricle mild to moderate dilation, moderate MR, left atrium mildly dilated, mild to moderate TR, elevated ventricular systolic pressure at 40-50 mmHg. -Has outpatient f/u with Dr. Macdonald scheduled on 02/20 Hyperlipidemia -Continue simvastatin 20 mg PO qd Code Status -Level I, FULL RESUSCITATION STATUS (Mariam Centeno ., CARL) Reviewed: Pt Seen/Exam by Me (Ruth Denis MD) History Physician Sr. Payroll Manager Supervision Note: I interviewed and examined the patient. Discussed with LEONILA Centeno and agree with findings and plan as documented in the note. Any exceptions or clarifications are listed here: Pt with 5 lb weight loss over the last month, no night sweats, with fatigue, intermittent small amounts of rectal bleeding. Last colonoscopy in 2005. Repeat PRP shows radiological equipment specialist 1.9, Ca++ reduced further to 11.4, Hgb dropped slightly to 11.5 from 12.9. Reduced IVFs to 75. Vitals reviewed NAD, AAOx3 Irreg irreg no mgr CTAB no wcr breathing unlabored Abd +BS, soft, +TTP lower abd without guarding or rebound, rectal exam deferred Ext 1+ pitting edema left leg, 2+ DP pulses bilat Skin no rashes, left leg with slightly prominent venous stasis changes 81 yo male with hypercalcemia, extensive abd/pelvic and paraesophageal SONJA, rectal bleeding, perirectal mass, Acute LLE proximal DVT, and permanent A-fib. Plan outlined as per PA note and I personally spoke to GI Case as well about plan. -reduce IVFs to 75 mls/hr, follow calcium levels, renal function Renal function may be decreased due to left hydrpnephrosis from compressive SONJA- -> consult Urology to see if needs stent placement -heparin gtt to start tonight and watch carefully for bleeding -colonoscopy with hopeful for biopsy for Documented By: Ruth Denis (Ruth Denis MD)
[2017-02-04 14:15] LABS: HEMATOCRIT 34.5 % (42-52); MEAN CELL VOLUME 85.2 fL (80-100); MEAN CORPUSCULAR HEMOGLOBIN 28.4 pg (25-34); MEAN CORPUSCULAR HGB CONC 33.3 g/dl (32-36); MEAN PLATELET VOLUME 9.7 fL (7.4-10.4); PLATELET COUNT 250 K/uL (130-400); RED BLOOD COUNT 4.05 M/uL (4.7-6.1)
[2017-02-04 14:33] LABS: BUN/CREATININE RATIO 15.2 (10-20); CALCIUM 11.4 mg/dl (8.5-10.1); CREATININE 1.9 mg/dl (0.60-1.40); POTASSIUM 3.6 mmol/L (3.5-5.1)
[2017-02-04] MEDS: HEPARIN 25,000 UNIT/500ML D5W 500 ML IV PRN (21:58)
[2017-02-04] MEDS ORDERED: HEPARIN IV LOW DOSE NO BOLUS SCH (22:00)
[2017-02-04] MEDS: SIMVASTATIN 20 MG TAB PO SCH (22:03)
--- NOTE | 2017-02-04 22:55 | GASTROINTESTINAL CONSULTATION ---
DATE OF CONSULTATION: 02/04/2017 ATTENDING PHYSICIAN: Dr. Denis. CONSULTING PHYSICIAN: Dr. Chávez. REASON FOR CONSULTATION: Bright red blood per rectum and perirectal mass on CT scan. HISTORY OF PRESENT ILLNESS: Radha Reeder is an 81-year-old male who presented to the Department of Emergency Medicine on 02/03/2017 at the advice of his primary care physician after he was noted to have elevated calcium levels on an outpatient testing. He was also noted to have bright red blood per rectum on several occasions over the past 2 months and occasional abdominal pain for which he subsequently presented to the ER. Upon arrival to the Department of Emergency Medicine, he was noted to have an H\T\H of 12.9 and 38.0, his PT and INR were 12.8 and 1.0 respectively and his calcium level was noted to be 12.3, his PTH level was noted to be low at 5.5 and he was subsequently admitted. He did undergo imaging studies including an abdomen and pelvis CT at which time he was noted to have extensive periaortic bilateral iliac chain and left pelvic side wall lymphadenopathy in addition to a left perirectal mass with associated rectal wall thickening. The overall findings as read by Dr. Owusu, strongly suggested a lymphoma. He also had extensive left colon diverticulosis without evidence of diverticulitis and mild left hydroureteronephrosis, likely due to mass effect upon the left ureter by lymphadenopathy. A chest x-ray revealed a left basilar linear densities favoring subsegmental atelectasis. There was no acute process within the chest. I was consulted by Dr. Denis to see the patient. At the time that I saw the patient, he stated that he has undergone multiple colonoscopies in the past, though he states his colonoscopies were performed at [facility], I do not see any evidence of records in our EHR. When pressed for further details, he was unable to provide these. He does admit to having rectal bleeding occurring with each bowel movement over the past 2-3 months. He denies any abdominal pain, though he does have some increased gas and bloating. He states that he has not had any hematemesis nor melena and denies any fevers, chills, nausea, vomiting or history of jaundice, acholic stools, dark urine, or pruritus. He denies any family history of colorectal cancer and does state that he has had some recent weight loss, though he cannot give me an exact amount or timeframe. He denies any further complaints. PAST MEDICAL HISTORY: Significant for atrial fibrillation, hyperlipidemia, GI bleeding, chronic kidney disease stage III, hypercalcemia, diverticulosis, type 2 diabetes and benign prostatic hypertrophy. PAST SURGICAL HISTORY: None. ALLERGIES: None. MEDICATIONS: At present include metoprolol 50 mg p.o. daily, simvastatin 20 mg p.o. q.p.m., Tylenol 650 p.o. q. 4 p.r.n. pain or fever. He did receive pamidronate 60 mg IV x1. He had his Pradaxa and Ecotrin held. SOCIAL HISTORY: He denies any tobacco, alcohol or illicit drug use. He is and lives with his . FAMILY HISTORY: Negative for GI malignancy or inflammatory bowel disease or peptic ulcer disease. REVIEW OF SYSTEMS: Negative x12 system review other than pertinent positives listed in the HPI. PHYSICAL EXAMINATION: VITAL SIGNS: Temperature 36.7, pulse 71, respirations 18, blood pressure 110/68, pulse ox 96% on room air. GENERAL: He is awake, cooperative, chronic ill appearing, in no acute distress. HEAD: Normocephalic, atraumatic. EYES: Pupils equally round. Extraocular muscles are intact. ENT: External evaluation of ears and nose are normal. Oropharynx is clear. NECK: Soft and supple. CHEST: Decreased breath sounds at bilateral bases. CARDIOVASCULAR SYSTEM: He was noted to have an irregularly irregular rhythm with a systolic murmur. ABDOMEN: Soft, nontender, nondistended. Positive bowel sounds. EXTREMITIES: The left lower extremity was slightly larger than the right lower extremity with minimal edema. SKIN: Soft, pink. Good turgor. LABORATORY STUDIES AND RADIOGRAPHIC STUDIES: Were reviewed in the HPI. IMPRESSION: An 81-year-old male with history of atrial fibrillation, on Pradaxa and aspirin, who presented to the Emergency Room with hypercalcemia and acute blood loss anemia secondary to lower gastrointestinal bleeding with abnormal CT scan showing perirectal mass. PLAN: I discussed the case in detail with Dr. Denis. Decision was made to hold the patient's Pradaxa and aspirin therapy for at least 4 doses after she discussed the case in detail with Dr. Whitley. The patient was placed on a heparin drip. He will undergo a colonoscopy in 2 days' time following a bowel prep. The heparin will be stopped 2 hours prior to his colonoscopy and can be restarted 4 hours post-colonoscopy if biopsies are performed. The intention is obviously to try and get a tissue diagnosis, in regards to his abnormal CT findings. In the interim, he will be on a clear liquid diet, consideration could be given to performing a gastrin level as Charlotte-Rucker syndrome can present with hypercalcemia as well though much less likely and I would hold on this until all other more obvious sources of hypercalcemia are ruled out. If you have any further questions, please do not hesitate in contacting me. Once again, thank you for allowing me to participate in the care of this patient.
[2017-02-05] VITALS (7 sets, daily range): BP systolic 109–130; BP diastolic 64–82; PULSE 52–97; TEMP 36.7–37.1; O2SAT 94–97
[2017-02-05] MEDS: SODIUM CHLORIDE 0.9% 1000ML 1,000 ML IV SCH ×2 (00:45→13:24)
[2017-02-05 03:56] LABS: BASO % 0.9 %; BASO ABS # 0.03 K/uL (0-0.2); COMPLETE YES; EOS % 2.8 %; HEMATOCRIT 34.1 % (42-52); IG% 0.3 %; LYMPH % 21.4 %; LYMPH ABS # 0.75 K/uL (1.2-3.4); MEAN CELL VOLUME 83.2 fL (80-100); MEAN CORPUSCULAR HEMOGLOBIN 27.6 pg (25-34); MEAN CORPUSCULAR HGB CONC 33.1 g/dl (32-36); MEAN PLATELET VOLUME 9.3 fL (7.4-10.4); MONO % 13.1 %; NEUT % 61.5 %; PLATELET COUNT 246 K/uL (130-400); WHITE BLOOD COUNT 3.51 K/uL (4.8-10.8)
[2017-02-05 04:13] LABS: BUN/CREATININE RATIO 14.6 (10-20); CALCIUM 10.3 mg/dl (8.5-10.1); CREATININE 1.7 mg/dl (0.60-1.40); POTASSIUM 3.8 mmol/L (3.5-5.1)
[2017-02-05 04:18] LABS: PARTIAL THROMBOPLASTIN RATIO 2.1
--- NOTE | 2017-02-05 07:29 | Urology Consultation ---
History General Date of Service: Feb 05, 2017. Chief Complaint: ANTONIA, left hydro Primary Care Physician: Juan Daniel Pettit M.D. Pt seen a urologist before?: No History of Present Illness 81 yo male admitted to [facility] for hypercalcemia and elevated Cr. consulted for incidental finding of left hydro secondary to mass effect on the ureter. Pt with suspected lymphoma. He denies pain or n/v this morning. He does report some intermittent gross hematuria over the past few days. Denies dysuria. He has not seen a urologist in the past. Cr noted to be 1.7 this morning. Baseline of 1.4 last year. Imaging Imaging: CT Laboratory Last 24 Hours Test 02/04/17 12:16 02/04/17 13:53 02/05/17 03:45 02/05/17 07:09 Prothrombin Time 15.6 SECONDS Prothromb Time International Ratio 1.4 Activated Partial Thromboplast Time 42.7 SECONDS 54.4 SECONDS Partial Thromboplastin Ratio 1.6 2.1 White Blood Count 3.80 K/uL 3.51 K/uL Red Blood Count 4.05 M/uL 4.10 M/uL Hemoglobin 11.5 g/dL 11.3 g/dL Hematocrit 34.5 % 34.1 % Mean Corpuscular Volume 85.2 fL 83.2 fL Mean Corpuscular Hemoglobin 28.4 pg 27.6 pg Mean Corpuscular Hemoglobin Concent 33.3 g/dl 33.1 g/dl RDW Standard Deviation 42.2 fL 41.1 fL RDW Coefficient of Variation 13.6 % 13.5 % Platelet Count 250 K/uL 246 K/uL Mean Platelet Volume 9.7 fL 9.3 fL Sodium Level 141 mmol/L 140 mmol/L Potassium Level 3.6 mmol/L 3.8 mmol/L Chloride Level 103 mmol/L 105 mmol/L Carbon Dioxide Level 29 mmol/L 29 mmol/L Anion Gap 9.0 mmol/L 6.0 mmol/L Blood Urea Nitrogen 29 mg/dl 25 mg/dl Creatinine 1.90 mg/dl 1.70 mg/dl Est Creatinine Clear Calc Drug Dose 30.7 ml/min 34.3 ml/min Estimated GFR () 37.0 42.3 Estimated GFR (Non- 31.9 36.5 BUN/Creatinine Ratio 15.2 14.6 Random Glucose 154 mg/dl 96 mg/dl Calcium Level 11.4 mg/dl 10.3 mg/dl Neutrophils (%) (Auto) 61.5 % Lymphocytes (%) (Auto) 21.4 % Monocytes (%) (Auto) 13.1 % Eosinophils (%) (Auto) 2.8 % Basophils (%) (Auto) 0.9 % Neutrophils # (Auto) 2.16 K/uL Lymphocytes # (Auto) 0.75 K/uL Monocytes # (Auto) 0.46 K/uL Eosinophils # (Auto) 0.10 K/uL Basophils # (Auto) 0.03 K/uL Immature Granulocyte % (Auto) 0.3 % Immature Granulocyte # (Auto) 0.01 K/uL Problem List Medical Problems: (1) Dehydration Status: Acute (2) GI bleeding Status: Acute Past History A Fib, BPH, diabetes, diverticulosis, gout, high cholesterol Past Surgical History: no surgical history Family History Non-contributory Social History Hx Tobacco Use In Past Year?: No Smoking: non-smoker Alcohol: never Drug use: none Marital status: Housing status: lives with significant other Occupation status: retired History of MDRO No Allergies Coded Allergies: No Known Allergies (Verified , 02/03/17) Medications Home Medications: Home Meds and Scripts Medications Dose Route/Sig Max Daily Dose Days Date Category Zocor (Simvastatin) 20 Mg Tab 20 Mg PO QPM 02/03/17 Reported Toprol Xl (Metoprolol Succinate) 50 Mg Tabcr 50 Mg PO DAILY 02/03/17 Reported Pradaxa (Dabigatran Etexilate Mesylate) 150 Mg Cap 150 Mg PO BID 02/03/17 Reported Aspir-81 (Aspirin) 81 Mg Tab 1 Tab PO DAILY 02/03/17 Reported Inpatient Medications: Current Inpatient Medications Medications (Trade) Dose Ordered Sig/Estevan Route Start Time Stop Time Status Last Admin Dose Admin Sodium Chloride (Nss 1000ml) 1,000 ml @ 75 mls/hr [id number] IV 02/03/17 17:16 03/05/17 17:15 02/05/17 00:45 75 MLS/HR Acetaminophen (Tylenol Tab) 650 mg Q4H PRN PO 02/03/17 17:30 03/05/17 17:29 Metoprolol Succinate (Toprol Xl Tab) 50 mg DAILY PO 02/04/17 09:00 03/06/17 08:59 02/04/17 07:39 50 MG Simvastatin 20 mg 20 mg QPM PO 02/03/17 21:00 03/05/17 20:59 02/04/17 22:03 20 MG Heparin Sodium/ Dextrose (Heparin 25,000 Unit/500ml D5W) 500 ml @ 18 mls/hr Q24H PRN IV 02/04/17 22:00 03/06/17 21:59 02/04/17 21:58 18 MLS/HR Review of Systems Review of Systems Constitutional: No chills, No fever Eyes: No double vision Neurological: No dizzy Endocrine: No excessive thirst Gastrointestinal: No abdominal pain, No nausea, No vomiting Cardiovascular: No chest pain Respiratory: No shortness of breath Skin: No rash Musculoskeletal: + arthritis Male : + blood in urine, No painful urination Physical Exam Vital Signs: Vital Signs Past 12 Hours Date Time Temp Pulse Resp B/P Pulse Ox O2 Delivery O2 Flow Rate FiO2 02/05/17 04:00 Room Air 02/05/17 03:46 37.1 64 18 109/64 94 Room Air 02/04/17 23:59 Room Air 02/04/17 23:45 102/67 02/04/17 23:31 37.0 54 18 93/55 91 Room Air 02/04/17 20:00 Room Air 02/04/17 20:00 96 Room Air 02/04/17 19:21 37.0 60 18 125/70 96 Room Air Physical Exam: General Appearance: no apparent distress Eyes: bilateral eyes normal inspection ENT: hearing grossly normal Neck: no JVD Respiratory/Chest: no respiratory distress, no accessory muscle use Cardiovascular: no JVD Extremities: normal inspection 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: alert, normal mood/affect, oriented x 3 Skin: normal color Assessment & Plan Assessment & Plan Treatment Planned: cystoscopy w/ stent A/P: Left hydronephrosis secondary to mass effect, ANTONIA, hx of gross hematuria AFVSS. CT film reviewed with Dr. Patel this morning. Will tentatively plan for a cysto and left ureteral stent placement later this evening. Risks and benefits of the procedure discussed with the pt. All questions answered. Pt agrees to the procedure at this this time. Consent obtained. Will also check a UC&S and cytology d/t gross hematuria. Will provide him with breakfast this morning, and then he will be made NPO after for stent placement later today. Will also check bladder scans qshift to ensure his bladder is emptying appropriately. Thanks for the consult. Will continue to follow along with primary service at this time.
[2017-02-05] MEDS: METOPROLOL SUCC 50MG EXT REL TAB PO SCH (08:23)
--- NOTE | 2017-02-05 10:09 | Gastroenterology Progress Note ---
Progress Note Date of Service: Feb 05, 2017 Subjective Pt evaluation today including: conversation w/ patient, physical exam, chart review, lab review, review of inpatient medication list Patient remains NPO at present in anticipation for a cysto with left ureteral stent by urology later today. He denies any nausea or vomiting, abdominal pain or rectal bleeding overnight. CT imaging with suggestion of possible perirectal mass. Dr. Chávez discussed colonoscopy with the patient for tomorrow. He is agreeable to proceed with testing. Dr. Chávez would like to hold the patient's Heparin two hours prior to the procedure. He remains hemodynamically stable at present. Review of Systems Constitutional: No chills, No fever Respiratory: No problem reported Cardiac: No problem reported Abdomen: + see HPI Neuro: No problem reported Psych: No problem reported Medications Current Inpatient Medications Medications (Trade) Dose Ordered Sig/Estevan Route Start Time Stop Time Status Last Admin Dose Admin Sodium Chloride (Nss 1000ml) 1,000 ml @ 75 mls/hr [id number] IV 02/03/17 17:16 03/05/17 17:15 02/05/17 00:45 75 MLS/HR Acetaminophen (Tylenol Tab) 650 mg Q4H PRN PO 02/03/17 17:30 03/05/17 17:29 Metoprolol Succinate (Toprol Xl Tab) 50 mg DAILY PO 02/04/17 09:00 03/06/17 08:59 02/05/17 08:23 50 MG Simvastatin 20 mg 20 mg QPM PO 02/03/17 21:00 03/05/17 20:59 02/04/17 22:03 20 MG Heparin Sodium/ Dextrose (Heparin 25,000 Unit/500ml D5W) 500 ml @ 18 mls/hr Q24H PRN IV 02/04/17 22:00 03/06/17 21:59 02/04/17 21:58 18 MLS/HR Ciprofloxacin/ Dextrose (Cipro / D5w) 200 mg 1700 IV 02/05/17 17:00 02/06/17 09:00 Objective Vital Signs Date Time Temp Pulse Resp B/P Pulse Ox O2 Delivery O2 Flow Rate FiO2 02/05/17 08:29 62 02/05/17 08:00 Room Air 02/05/17 07:50 36.9 52 16 123/72 95 Room Air 02/05/17 04:00 Room Air 02/05/17 03:46 37.1 64 18 109/64 94 Room Air 02/04/17 23:59 Room Air 02/04/17 23:45 102/67 02/04/17 23:31 37.0 54 18 93/55 91 Room Air 02/04/17 20:00 Room Air 02/04/17 20:00 96 Room Air 02/04/17 19:21 37.0 60 18 125/70 96 Room Air 02/04/17 16:00 Room Air 02/04/17 12:20 Room Air 02/04/17 11:28 36.5 66 16 108/63 95 Physical Exam General Appearance: no apparent distress Eyes: EOMI ENT: hearing grossly normal Neck: supple Respiratory/Chest: lungs clear, normal breath sounds, no respiratory distress Cardiovascular: regular rate, rhythm, no gallop, no murmur Abdomen: normal bowel sounds, soft, + tenderness (bilateral lower quadrants) Extremities: no pedal edema Neurologic/Psych: alert, normal mood/affect, oriented x 3 Skin: warm/dry Laboratory Results Last 24 Hours Test 02/04/17 12:16 02/04/17 13:53 02/05/17 03:45 Prothrombin Time 15.6 SECONDS Prothromb Time International Ratio 1.4 Activated Partial Thromboplast Time 42.7 SECONDS 54.4 SECONDS Partial Thromboplastin Ratio 1.6 2.1 White Blood Count 3.80 K/uL 3.51 K/uL Red Blood Count 4.05 M/uL 4.10 M/uL Hemoglobin 11.5 g/dL 11.3 g/dL Hematocrit 34.5 % 34.1 % Mean Corpuscular Volume 85.2 fL 83.2 fL Mean Corpuscular Hemoglobin 28.4 pg 27.6 pg Mean Corpuscular Hemoglobin Concent 33.3 g/dl 33.1 g/dl RDW Standard Deviation 42.2 fL 41.1 fL RDW Coefficient of Variation 13.6 % 13.5 % Platelet Count 250 K/uL 246 K/uL Mean Platelet Volume 9.7 fL 9.3 fL Sodium Level 141 mmol/L 140 mmol/L Potassium Level 3.6 mmol/L 3.8 mmol/L Chloride Level 103 mmol/L 105 mmol/L Carbon Dioxide Level 29 mmol/L 29 mmol/L Anion Gap 9.0 mmol/L 6.0 mmol/L Blood Urea Nitrogen 29 mg/dl 25 mg/dl Creatinine 1.90 mg/dl 1.70 mg/dl Est Creatinine Clear Calc Drug Dose 30.7 ml/min 34.3 ml/min Estimated GFR () 37.0 42.3 Estimated GFR (Non- 31.9 36.5 BUN/Creatinine Ratio 15.2 14.6 Random Glucose 154 mg/dl 96 mg/dl Calcium Level 11.4 mg/dl 10.3 mg/dl Neutrophils (%) (Auto) 61.5 % Lymphocytes (%) (Auto) 21.4 % Monocytes (%) (Auto) 13.1 % Eosinophils (%) (Auto) 2.8 % Basophils (%) (Auto) 0.9 % Neutrophils # (Auto) 2.16 K/uL Lymphocytes # (Auto) 0.75 K/uL Monocytes # (Auto) 0.46 K/uL Eosinophils # (Auto) 0.10 K/uL Basophils # (Auto) 0.03 K/uL Immature Granulocyte % (Auto) 0.3 % Immature Granulocyte # (Auto) 0.01 K/uL Total Bilirubin 0.4 mg/dl Direct Bilirubin 0.1 mg/dl Aspartate Amino Transf (AST/SGOT) 37 U/L Alanine Aminotransferase (ALT/SGPT) 13 U/L Alkaline Phosphatase 65 U/L Total Protein 5.3 gm/dl Albumin 2.2 gm/dl Assessment and Plan Patient is a 81 year-old male admitted with hypercalcemia as well as acute blood loss anemia and abnormal CT imaging suggestive of perirectal mass. 1. GoLytely bowel prep to start this evening after urologic procedures when he able to take PO again. [place] to start the medication by 1999. 2. Clear liquid diet this evening after cysto. 3. NPO after completion of bowel prep. 4. Hold Heparin ggt 2 hours prior to procedure. 5. Colonoscopy with Dr. Chávez tomorrow at noon. 6. Additional recommendations pending results of testing. Agree with JUDY Escalona as above Abd: Soft, NT, ND, +BS Colonoscopy in the AM
--- NOTE | 2017-02-05 12:45 | Hospitalist Progress Note ---
Hospitalist Progress Note Date of Service Feb 05, 2017. (Mariam Centeno ., SAADIAC) Subjective Pt evaluation today including: conversation w/ patient, physical exam, chart review, lab review, review of inpatient medication list Pain: None PO Intake: NPO for cystoscopy this evening Voiding: no voiding problems Patient reports feeling well. He denies having any bloody bowel movements today. He states that he did pass some gas early this morning, which resulted in a small amount of bright red blood. He denies any abdominal pain today, even after eating breakfast. The patient is being kept NPO following breakfast for a cystoscopy later this evening. Patient is urinating without any difficulties. The patient denies fevers, chills, sweats, chest pain, palpitations, claudication, cough, wheezing, shortness of breath, nausea, vomiting, abdominal pain, dysuria, hematuria, urinary retention, paralysis, weakness, numbness and tingling. Additional Comments: See HPI for pertinent positives and negatives. All other systems reviewed and negative. (Mariam Centeno ., LEONILA-C) Objective Vital Signs Date Time Temp Pulse Resp B/P Pulse Ox O2 Delivery O2 Flow Rate FiO2 02/05/17 11:19 Room Air 02/05/17 10:32 36.8 64 16 119/72 96 Room Air 02/05/17 08:29 62 02/05/17 08:00 Room Air 02/05/17 07:50 36.9 52 16 123/72 95 Room Air 02/05/17 04:00 Room Air 02/05/17 03:46 37.1 64 18 109/64 94 Room Air 02/04/17 23:59 Room Air 02/04/17 23:45 102/67 02/04/17 23:31 37.0 54 18 93/55 91 Room Air 02/04/17 20:00 Room Air 02/04/17 20:00 96 Room Air 02/04/17 19:21 37.0 60 18 125/70 96 Room Air 02/04/17 16:00 Room Air 02/04/17 12:20 Room Air (Mariam Centeno, LEONILA-C) Physical Exam General Appearance: WD/WN, no apparent distress Eyes: normal inspection, PERRL, EOMI ENT: normal ENT inspection, hearing grossly normal, pharynx normal Neck: supple, no JVD, trachea midline Respiratory/Chest: lungs clear, normal breath sounds, no respiratory distress, + decreased breath sounds (bases bilaterally) Cardiovascular: no gallop, no murmur, + irregularly irregular (rate controlled) Abdomen: normal bowel sounds, soft (abdomen much softer today), + tenderness ( mild suprapubic tenderness without guarding), + mass (suprapubic area) Extremities: normal range of motion, + calf tenderness (LLE), + swelling (2+ pitting edema LLE), + pertinent finding (LLE dusky, varicose veins) 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: alert, normal mood/affect, oriented x 3 Skin: normal color, warm/dry, no rash (Mariam Centeno, CARL) Laboratory Results Last 24 Hours Test 02/04/17 13:53 02/05/17 03:45 White Blood Count 3.80 K/uL 3.51 K/uL Red Blood Count 4.05 M/uL 4.10 M/uL Hemoglobin 11.5 g/dL 11.3 g/dL Hematocrit 34.5 % 34.1 % Mean Corpuscular Volume 85.2 fL 83.2 fL Mean Corpuscular Hemoglobin 28.4 pg 27.6 pg Mean Corpuscular Hemoglobin Concent 33.3 g/dl 33.1 g/dl RDW Standard Deviation 42.2 fL 41.1 fL RDW Coefficient of Variation 13.6 % 13.5 % Platelet Count 250 K/uL 246 K/uL Mean Platelet Volume 9.7 fL 9.3 fL Sodium Level 141 mmol/L 140 mmol/L Potassium Level 3.6 mmol/L 3.8 mmol/L Chloride Level 103 mmol/L 105 mmol/L Carbon Dioxide Level 29 mmol/L 29 mmol/L Anion Gap 9.0 mmol/L 6.0 mmol/L Blood Urea Nitrogen 29 mg/dl 25 mg/dl Creatinine 1.90 mg/dl 1.70 mg/dl Est Creatinine Clear Calc Drug Dose 30.7 ml/min 34.3 ml/min Estimated GFR () 37.0 42.3 Estimated GFR (Non- 31.9 36.5 BUN/Creatinine Ratio 15.2 14.6 Random Glucose 154 mg/dl 96 mg/dl Calcium Level 11.4 mg/dl 10.3 mg/dl Neutrophils (%) (Auto) 61.5 % Lymphocytes (%) (Auto) 21.4 % Monocytes (%) (Auto) 13.1 % Eosinophils (%) (Auto) 2.8 % Basophils (%) (Auto) 0.9 % Neutrophils # (Auto) 2.16 K/uL Lymphocytes # (Auto) 0.75 K/uL Monocytes # (Auto) 0.46 K/uL Eosinophils # (Auto) 0.10 K/uL Basophils # (Auto) 0.03 K/uL Immature Granulocyte % (Auto) 0.3 % Immature Granulocyte # (Auto) 0.01 K/uL Activated Partial Thromboplast Time 54.4 SECONDS Partial Thromboplastin Ratio 2.1 Total Bilirubin 0.4 mg/dl Direct Bilirubin 0.1 mg/dl Aspartate Amino Transf (AST/SGOT) 37 U/L Alanine Aminotransferase (ALT/SGPT) 13 U/L Alkaline Phosphatase 65 U/L Total Protein 5.3 gm/dl Albumin 2.2 gm/dl (Mariam Centeno, CARL) Assessment and Plan 81 y/o male with a history of a-fib (on Pradaxa), HTN, DM II (managed off medications), CKD stage III, HLD, and recent GI bleeding who presents to ED after being found to be hypercalcemic in routine labs from his PCP. Pt also found to be in ANTONIA with elevated creatinine above baseline. Hypercalcemia--improving. Likely secondary to presumed malignancy. Radiology favors lymphoma over rectal adenocarcinoma, however given GI bleeding as below, this may represent invasion of adenocarcinoma -Admit to tele -Abdomen/pelvis CT: extensive paraaortic, bilateral iliac chain and left pelvic sidewall LAD, left 7.3 x 4.8 cm perirectal mass. Mild left hydroureteronephrosis likely due to mass effect of LAD. -CT of chest significant for enlarged, 2.1 x 1.3 cm distal paraesophageal lymph node -TSH within normal limits, PTH appropriately low at 5.5, vitamin D low at 18.9, MARIANN pending -Serum calcium improved to 10.3, however albumin low at 2.2. Corrected calcium 11.74. -Decrease NSS to 75 mL/hr -Given pamidronate 60 mg IV x 1 to reduce calcium on 02/03 -Continue to monitor Active lower GI bleeding--patient had bloody bowel movement earlier this morning -Hemoglobin 12.9 upon arrival, with baseline around 14 -Hgb 11.3 on 02/05, dilutional effect likely contributing, decrease IVF as above -GI consulted, appreciate recs: Colonoscopy with perirectal mass biopsy on as there is concern of the mass invading into the rectal mucosa causing the bleeding. Patient will start bowel prep after cystoscopy this evening, preferably start by 2000. NPO after completing bowel prep. Stop heparin 2 hours prior to colonoscopy. -Spoke with Dr. Ca regarding anticoagulation prior to procedure given a- fib and acute DVT: DC Pradaxa. Recommend holding off colonoscopy and biopsy until patient has held 4 doses of Pradaxa, which he received morning of 02/04. Recommend starting a weight-based low-dose heparin without bolus at 2200 tonight 02/04 to treat DVT. Stop heparin 2 hours prior to procedure. May resume heparin 4 hours after procedure if okay with Dr. Chávez depending on his findings. Given presumed malignancy, patient is not a good candidate for continued Pradaxa use in the long-term. Recommend long-term Lovenox or warfarin. -Pradaxa and ASA d/c'd Acute DVT in left lower extremity--present on admission -LLE Doppler U/S positive for DVT in the left common femoral vein and proximal superficial femoral vein -Continue low-dose heparin per protocol Left hydroureteronephrosis likely secondary to mass effect of extensive LAD -Consult urology, appreciate recs: patient will go for cystoscopy and left ureteral stent placement this evening at 1745. Check urine culture and sensitivities as well as urine cytology. Patient to be kept nothing by mouth after breakfast -Stop heparin drip 2 hours prior to procedure ANTONIA on CKD stage III--ongoing -Cr. 1.8 on arrival with baseline of 1.3 - 1.4 -Creatinine 1.7 on 02/05 -Continue IVFs as above -Hold nephrotoxins and nsaids Atrial fibrillation--rate controlled -No acute events overnight on telemetry. Patient remained in rate controlled A. fib with occasional PVCs. HR in 70s-80s -D/C Pradaxa -Recent ECHO (01/28/17) with EF of 50-55%. Right ventricle mild to moderate dilation, moderate MR, left atrium mildly dilated, mild to moderate TR, elevated ventricular systolic pressure at 40-50 mmHg. -Has outpatient f/u with Dr. Macdonald scheduled on 3/30 Hyperlipidemia -Continue simvastatin 20 mg PO qd Code Status -Level I, FULL RESUSCITATION STATUS (Mariam Centeno ., CARL) Reviewed: Pt Seen/Exam by Me (Ruth Denis MD) History Physician Line Maintenance Technician Supervision Note: I interviewed and examined the patient. Discussed with LEONILA Centeno and agree with findings and plan as documented in the note. Any exceptions or clarifications are listed here: Pt feels ok, had some blood per rectum today. Awaiting stent placement in ureter. Has c/o itchy rash on upper back today Vitals reviewed NAD, AAOx3 Irreg irreg no mgr CTAB no wcr breathing unlabored Abd +BS, soft, +TTP lower abd without guarding or rebound, rectal exam deferred Ext 1+ pitting edema left leg, 2+ DP pulses bilat Skin erythematous maculopapular rash upper mid back; left leg with slightly prominent venous stasis changes 81 yo male with hypercalcemia, extensive abd/pelvic and paraesophageal SONJA, rectal bleeding, perirectal mass, Acute LLE proximal DVT POA, and permanent A- fib. -Ureteral stent today for left hydronephrosis from compressive SONJA -continue IVFs to 75 mls/hr, follow calcium levels, renal function Renal function decreased due to left hydrpnephrosis --> hopefully will improve once stent placed -hold heparin gtt before procedure and restart 4 hrs later after ureteral stent and before/after colonoscopy tomorrow -rash could be from detergent on bedsheets/contact derm--> HC cream and prn benadryl Documented By: Ruth Denis (Ruth Denis MD)
[2017-02-05] MEDS ORDERED: HYDROCORTISONE 1% CR 30 GM TUBE EXT ONE (15:48)
[2017-02-05] MEDS ORDERED: LAVAGE SOLUTION 4000ML PO SCH (17:00)
[2017-02-05] MEDS ORDERED: CIPROFLOXACIN 200 MG / 100ML D5W IV SCH (17:00)
[2017-02-05] MEDS ORDERED: FENTANYL CITRATE INJ 50 MCG/1 ML 2 ML VIAL ONE (17:59)
[2017-02-05] MEDS ORDERED: LIDOCAINE HCL 2% 2 ML VIAL (20MG/ML) ONE (18:21)
[2017-02-05] MEDS ORDERED: PROPOFOL IV EMULSION 10 MG/ML 20 ML VIAL IV ONE (18:21)
[2017-02-05] MEDS ORDERED: BELLADONNA/OPIUM SUPP 60 MG SUPP PR ONE (18:30)
[2017-02-05] MEDS ORDERED: CONRAY 30% 150ML BOTTLE INSTIL ONE (18:46)
[2017-02-05] MEDS ORDERED: BELLADONNA/OPIUM 60 MG SUPP PR ONE (18:47)
--- NOTE | 2017-02-05 18:48 | [facility] Post Operative Brief Note ---
Immediate Operative Summary Operative Date Feb 05, 2017. Pre-Operative Diagnosis Left hydroneprosis, secondary to obstructing mass Post-Operative Diagnosis Same plus bladder outlet obstruction from prostate enlargement, bloody stool with rectal exam Procedure(s) Performed Cystoscopy, Retrograde pyleography, ureteral stent placement,Left Left bladder biospy and fulgeration , Bimanual exam under anesthesia Surgeon Dr Geovanna Patel Youth Care Professional Surgeon(s) none Estimated Blood Loss 5 ml Findings Moderate left hydro due to distal ureteral obstruction, no bladder masses, edematous L bladder / trigonal mucosa biopsied, stent in good position after completion, dense obstructive tissue at the level of distal ureter, palpable L pelvic mass on bimanual exam appears extrinsic to bladder and rectum, mobile, + grossly bloody stool on rectal exam Specimens A. Pre- ureteral biopsy left Drains 6 fr L multilength stent in place, 18 fr fatima 10 CC H2O Anesthesia GALMA Complication(s) None Disposition Recovery Room / PACU
--- NOTE | 2017-02-05 19:17 | OPERATIVE REPORT ---
DATE OF OPERATION: 02/05/2017 PREOPERATIVE DIAGNOSIS: Mild left-sided hydronephrosis with obstructing left pelvic mass. POSTOPERATIVE DIAGNOSIS: Moderate left-sided hydronephrosis with obstructing left pelvic mass, mobile on bimanual examination, bladder outlet obstruction at the level of the prostate. PROCEDURE: Cystoscopy, left retrograde pyelography, left ureteral stent placement, left-sided trigonal bladder biopsy and fulguration, bimanual examination under anesthesia. SURGEON: Dr. Osmar Patel. AIR CONDITIONING INSTALLER SUPERVISOR: None. ANESTHESIA: General anesthesia with laryngeal mask. COMPLICATIONS: Possible small retained guidewire fragment within the stent, not significant. SPECIMENS SENT TO PATHOLOGY: Left cold cup bladder biopsies x2. DRAINS LEFT IN PLACE: Include a 6-Italian multilength ureteral stent on the left hand side and an 18 Italian Valdez catheter to gravity drainage. FINDINGS: Left moderate hydronephrosis on retrograde pyelography with dense distal obstructing tissue, no evidence of bladder masses, mobile left pelvic mass palpable on bimanual exam and apparently extrinsic bladder and rectum, grossly bloody stool on examining rectal finger, edematous tissue at the level of the left ureteral orifice biopsied. ESTIMATED BLOOD LOSS: 5 mL. BRIEF HISTORY: Mr. Reeder is a pleasant 81-year-old male admitted for hypercalcemia and renal insufficiency, undergoing evaluation for suspected lymphoma. His renal function remains elevated above his baseline from last year and hydronephrosis was present on his CT scan. Stent is therefore planned acutely in the operating room today. Please see urology consultation for further details. Due to the possibility of bladder involvement of his disease process, possible bladder biopsy is also consented. Preoperative ciprofloxacin provided for antibiotic coverage. Informed consent reviewed in the chart with the patient today. SCDs used for DVT prophylaxis. PROCEDURE: The patient was properly identified and brought to the operative suite after identification of appropriate consent on the chart, general anesthesia with laryngeal mask was initiated. The patient was prepped and draped in standard fashion for this procedure. multimedia services coordinator-out procedure was followed. A 22-Italian rigid cystoscope was passed into the bladder under direct visualization. An obstructive and somewhat friable prostate gland with lateral lobe hypertrophy was appreciated and minimal median lobe enlargement. This was felt to be consistent with a relatively typical BPH. Grade 2-3 trabeculation of the bladder with early cellules was noted. No evidence of intravesical masses, papillary lesions or significant mucosal abnormalities suspicious for transitional cell malignancy was appreciated. Ureteral orifices were noted to be in relatively close location of the bladder neck. Left-sided ureteral orifice was cannulated using an open-ended catheter and retrograde pyelography was performed. This demonstrated moderate hydroureteronephrosis down to the level of the distal ureter with some mild J hooking. A sensor tip wire was advanced up to the level of the renal pelvis and with some difficulty in torquing a 6-Italian multilength ureteral stent was advanced with redundant coil present within the bladder and a full loop of coil present within the distal ureter. A nonnegligible amount of pushing was required to advance the stent in good position and an apparent small piece of the glide portion of the distal guidewire appeared to be lodged within the distal orifice of the ureteral stent. However, this was not sufficient to obstruct the distal portion of the stent, although it was felt to be well secured in place. Seeing the difficulties with stent passage this was not felt to be overly worrisome and left in place. The edematous tissue around the ureter was noted to be somewhat friable and bleeding. This was felt to be sufficiently abnormal seeing the patient's CT scan findings the 2 cold cup biopsies were taken of solar sales representative and assessor areas. Bugbee cautery was then used to obtain hemostasis at the at the level of the bleeding from the left trigone. Minimal prostatic bleeding and fulguration was required. Bladder was partially distended and cystoscope was removed. A 18-Italian Italian Valdez was in place with return of clear irrigant and 10 mL of sterile water in the balloon. Bimanual examination was performed under anesthesia. Left-sided pelvic mass was palpable. Prostate was noted to be nonindurated and not suspicious for malignancy. The patient's pelvic mass was noted to be somewhat mobile and did not appear to be clearly involving the bladder on cystoscopy or the rectum on exam. Bloody stool was appreciated on removal of the rectal finger. Belladonna and opium suppository was also provided for postoperative analgesia. Anesthesia was reversed. The patient was transferred to recovery room in stable condition. FOLLOW-UP CARE: The patient will be readmitted to the floor to continue his evaluation. My understanding is that he is pending colonoscopy tomorrow which certainly seems reasonable. Consider coverage with ciprofloxacin in the postoperative period depending on requirements of the primary service. Valdez catheter left in place seeing a history of renal insufficiency and evidence of bladder outlet obstruction. Trial of void can be attempted per the primary service when deemed appropriate. I attest to the content of the Intraoperative Record and any orders documented therein. Any exceptio ns are noted below.
--- NOTE | 2017-02-05 20:06 | Anesthesiology Progress Note ---
Anesthesia Post Op Note Date & Time Feb 05, 2017 at 20:06 Vital Signs Pain Intensity: 0 Vital Signs Past 12 Hours Date Time Temp Pulse Resp B/P Pulse Ox O2 Delivery O2 Flow Rate FiO2 02/05/17 19:25 36.4 61 16 126/81 93 Room Air 02/05/17 19:15 63 16 123/76 93 Room Air 02/05/17 19:05 64 20 135/87 99 Mask 10 02/05/17 18:55 70 20 128/74 99 Mask 10 02/05/17 18:46 37. 66 18 136/76 99 Mask 10 02/05/17 15:57 Room Air 02/05/17 15:40 36.8 65 16 125/75 96 Room Air 02/05/17 11:19 Room Air 02/05/17 10:32 36.8 64 16 119/72 96 Room Air 02/05/17 08:29 62 Notes Mental Status: alert / awake / arousable, participated in evaluation Pt Amnestic to Procedure: Yes Nausea / Vomiting: adequately controlled Pain: adequately controlled Airway Patency, RR, SpO2: stable & adequate BP & HR: stable & adequate Hydration State: stable & adequate Anesthetic Complications: no major complications apparent
[2017-02-05] MEDS ORDERED: EpHEDrine SULFATE INJ 50 MG/ML AMP IV PRN (20:15)
[2017-02-05] MEDS ORDERED: NURSING VERBAL MED ORDER STA (20:15)
[2017-02-05] MEDS ORDERED: ATROPINE SULFATE 0.1 MG/ML 5ML SYR IV PRN (20:15)
--- NOTE | 2017-02-05 20:43 | DIAGNOSTIC IMAGING REPORT ---
RETROGRADE INCLUDES KUB HISTORY: LT CYSTO/STENT FLUOROSCOPY TIME: 97 seconds. FINDINGS: 4 fluoroscopic spot images were submitted for review. Initial images demonstrate contrast injected into the dilated left ureter in a retrograde fashion. This is followed by placement of a left ureteral stent. Only the proximal portion is visualized. IMPRESSION: Fluoroscopy provided for left ureteral stent placement.. Electronically signed by: Masood Dupree M.D. 02/05/2017 8:41 PM Dictated Date/Time: 02/05/2017 8:41 PM
[2017-02-05] MEDS: SIMVASTATIN 20 MG TAB PO SCH (20:50)
[2017-02-05] MEDS: HYDROCORTISONE 1% CR 30 GM TUBE EXT SCH (20:51)
[2017-02-06] VITALS (12 sets, daily range): BP systolic 108–131; BP diastolic 55–84; PULSE 60–98; TEMP 36.3–36.9; O2SAT 93–96
[2017-02-06] MEDS: SODIUM CHLORIDE 0.9% 1000ML 1,000 ML IV SCH ×2 (04:20→16:08)
[2017-02-06 06:41] LABS: BASO % 0.3 %; BASO ABS # 0.02 K/uL (0-0.2); COMPLETE YES; EOS % 0.5 %; HEMATOCRIT 36.4 % (42-52); IG% 0.2 %; LYMPH % 12.4 %; LYMPH ABS # 0.74 K/uL (1.2-3.4); MEAN CELL VOLUME 83.9 fL (80-100); MEAN CORPUSCULAR HEMOGLOBIN 28.1 pg (25-34); MEAN CORPUSCULAR HGB CONC 33.5 g/dl (32-36); MEAN PLATELET VOLUME 9.5 fL (7.4-10.4); MONO % 10.9 %; NEUT % 75.7 %; PLATELET COUNT 262 K/uL (130-400); RED BLOOD COUNT 4.34 M/uL (4.7-6.1); WHITE BLOOD COUNT 5.95 K/uL (4.8-10.8)
[2017-02-06 06:52] LABS: PARTIAL THROMBOPLASTIN RATIO 1.7
[2017-02-06 07:12] LABS: BUN/CREATININE RATIO 14.9 (10-20); CALCIUM 9.7 mg/dl (8.5-10.1); CREATININE 1.4 mg/dl (0.60-1.40); POTASSIUM 3.5 mmol/L (3.5-5.1)
[2017-02-06] MEDS ORDERED: HEPARIN IV BOLUS 3,000 UNIT in SYRINGE 0 ML IV ONE (08:00)
[2017-02-06] MEDS: HYDROCORTISONE 1% CR 30 GM TUBE EXT SCH ×3 (09:00→20:02)
[2017-02-06] MEDS ORDERED: [UNRECOGNIZED DRUG - REMARK] ONE (10:00)
--- NOTE | 2017-02-06 10:29 | Anesthesiology Progress Note ---
Anesthesia Post Op Note Date & Time Feb 06, 2017 at 10:29 Vital Signs Vital Signs Past 12 Hours Date Time Temp Pulse Resp B/P Pulse Ox O2 Delivery O2 Flow Rate FiO2 02/06/17 08:42 36.8 81 18 119/70 95 Room Air 02/06/17 08:00 36.8 81 18 119/70 95 Room Air 02/06/17 08:00 Room Air 02/06/17 04:00 Room Air 02/06/17 03:43 36.3 82 18 125/78 95 Room Air 02/06/17 00:08 36.4 60 20 131/76 95 Room Air 02/06/17 00:00 95 Room Air Notes Mental Status: alert / awake / arousable, participated in evaluation Pt Amnestic to Procedure: Yes Nausea / Vomiting: adequately controlled Pain: adequately controlled Airway Patency, RR, SpO2: stable & adequate BP & HR: stable & adequate Hydration State: stable & adequate Anesthetic Complications: no major complications apparent
[2017-02-06] MEDS ORDERED: PROPOFOL IV EMULSION 10 MG/ML 20 ML VIAL IV ONE (12:12)
[2017-02-06] MEDS ORDERED: LIDOCAINE HCL 2% 2 ML VIAL (20MG/ML) ONE (12:12)
[2017-02-06] MEDS ORDERED: FENTANYL CITRATE INJ 50 MCG/1 ML 2 ML VIAL ONE (12:13)
--- NOTE | 2017-02-06 12:45 | GI REPORT ---
Procedure Date: 02/06/2017 12:14 PM Procedure: Colonoscopy Indications: Rectal bleeding, Abnormal CT of the GI tract Medicines: Monitored Anesthesia Care Complications: No immediate complications. Estimated Blood Loss: Estimated blood loss: none. Procedure: Pre-Anesthesia Assessment: - Prior to the procedure, a History and Physical was performed, and patient medications and allergies were reviewed. The patient's tolerance of previous anesthesia was also reviewed. The risks and benefits of the procedure and the sedation options and risks were discussed with the patient. All questions were answered, and informed consent was obtained. Prior Anticoagulants: The patient last took aspirin 4 days and Pradaxa (dabigatran) 4 days prior to the procedure and last took heparin on the day of the procedure. ASA Grade Assessment: III - A patient with severe systemic disease. After reviewing the risks and benefits, the patient was deemed in satisfactory condition to undergo the procedure. After I obtained informed consent, the scope was passed under direct vision. Throughout the procedure, the patient's blood pressure, pulse, and oxygen saturations were monitored continuously. The Scope was introduced through the anus and advanced to the cecum, identified by appendiceal orifice and ileocecal valve. The colonoscopy was performed without difficulty. The patient tolerated the procedure well. The quality of the bowel preparation was good. The ileocecal valve, appendiceal orifice, and rectum were photographed. Findings: Two sessile polyps were found in the cecum. The polyps were 5 to 8 mm in size. These polyps were removed with a hot snare. Resection and retrieval were complete. Scattered small-mouthed diverticula were found in the entire colon. An infiltrative and ulcerated non-obstructing large mass was found in the rectum. The mass was non-circumferential. The mass measured five cm in length. In addition, its diameter measured twenty-one mm. Oozing was present. This was biopsied with a cold forceps for histology. Impression: - Two 5 to 8 mm polyps in the cecum, removed with a hot snare. Resected and retrieved. - Diverticulosis in the entire examined colon. 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 Biopsied. Recommendation: - Return patient to [facility] for ongoing care. - Advance diet as tolerated. - Resume heparin at prior dose today. Refer to [facility] for further adjustment of therapy. - Await pathology results. Joselito Chávez DO 02/06/2017 12:44:41 PM This report has been signed electronically. Note Initiated On: 02/06/2017 12:14 PM I attest to the content of the Intraoperative Record and orders documented therein, exceptions below
--- NOTE | 2017-02-06 13:04 | Anesthesiology Progress Note ---
Anesthesia Post Op Note Date & Time Feb 06, 2017 at 13:04 Vital Signs Pain Intensity: 0.0 Vital Signs Past 12 Hours Date Time Temp Pulse Resp B/P Pulse Ox O2 Delivery O2 Flow Rate FiO2 02/06/17 13:00 82 16 115/65 93 Room Air 02/06/17 12:44 16 108/60 95 Room Air 02/06/17 11:50 37 81 20 129/79 96 Room Air 02/06/17 11:16 Room Air 02/06/17 08:42 36.8 81 18 119/70 95 Room Air 02/06/17 08:00 36.8 81 18 119/70 95 Room Air 02/06/17 08:00 Room Air 02/06/17 04:00 Room Air 02/06/17 03:43 36.3 82 18 125/78 95 Room Air Notes Mental Status: alert / awake / arousable, participated in evaluation Pt Amnestic to Procedure: Yes Nausea / Vomiting: adequately controlled Pain: adequately controlled Airway Patency, RR, SpO2: stable & adequate BP & HR: stable & adequate Hydration State: stable & adequate Anesthetic Complications: no major complications apparent
[2017-02-06] MEDS ORDERED: NURSING VERBAL MED ORDER ONE (13:45)
--- NOTE | 2017-02-06 13:48 | Hospitalist Progress Note ---
Hospitalist Progress Note Date of Service Feb 06, 2017. (Mariam Centeno ., PA-C) Subjective Pt evaluation today including: conversation w/ patient, physical exam, chart review, lab review, review of inpatient medication list Pain: None PO Intake: NPO for colonoscopy Voiding: no voiding problems Patient reports feeling well. He states that he does not have any abdominal pain this morning. He did note blood in his urine following his cystoscopy last evening. He denies any bowel movements today. He has not noticed much blood per rectum. He reports feeling weak and fatigued. The patient is being kept nothing by mouth for colonoscopy later today. The patient denies fevers, chills, sweats, chest pain, palpitations, claudication, cough, wheezing, shortness of breath, nausea, vomiting, abdominal pain, dysuria, hematuria, urinary retention, paralysis, numbness and tingling. Additional Comments: See HPI for pertinent positives and negatives. All other systems reviewed and negative. (Mariam Centeno ., PA-C) Objective Vital Signs Date Time Temp Pulse Resp B/P Pulse Ox O2 Delivery O2 Flow Rate FiO2 02/06/17 11:16 Room Air 02/06/17 08:42 36.8 81 18 119/70 95 Room Air 02/06/17 08:00 36.8 81 18 119/70 95 Room Air 02/06/17 08:00 Room Air 02/06/17 04:00 Room Air 02/06/17 03:43 36.3 82 18 125/78 95 Room Air 02/06/17 00:08 36.4 60 20 131/76 95 Room Air 02/06/17 00:00 95 Room Air 02/05/17 20:00 37.1 69 18 121/80 97 Room Air 02/05/17 20:00 97 Room Air 02/05/17 19:45 36.7 97 18 130/82 95 Room Air 02/05/17 19:25 36.4 61 16 126/81 93 Room Air 02/05/17 19:15 63 16 123/76 93 Room Air 02/05/17 19:05 64 20 135/87 99 Mask 10 02/05/17 18:55 70 20 128/74 99 Mask 10 02/05/17 18:46 37. 66 18 136/76 99 Mask 10 02/05/17 15:57 Room Air 02/05/17 15:40 36.8 65 16 125/75 96 Room Air (Mariam Centeno ., PA-C) Physical Exam General Appearance: WD/WN, no apparent distress Eyes: normal inspection, PERRL, EOMI ENT: normal ENT inspection, hearing grossly normal, pharynx normal Neck: supple, no JVD, trachea midline Respiratory/Chest: normal breath sounds, no respiratory distress, + decreased breath sounds Cardiovascular: no gallop, no murmur, + irregularly irregular (rate controlled) Abdomen: normal bowel sounds, non tender (no tenderness with palpation today), soft Extremities: normal range of motion, + swelling (1+ pitting edema LLE), + pertinent finding (L calf tenderness improved. LLE dusky, varicose veins.) 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: alert, normal mood/affect, oriented x 3 Skin: normal color, warm/dry, no rash (Mariam Centeno ., PA-C) Laboratory Results Last 24 Hours Test 02/06/17 06:20 White Blood Count 5.95 K/uL Red Blood Count 4.34 M/uL Hemoglobin 12.2 g/dL Hematocrit 36.4 % Mean Corpuscular Volume 83.9 fL Mean Corpuscular Hemoglobin 28.1 pg Mean Corpuscular Hemoglobin Concent 33.5 g/dl Platelet Count 262 K/uL Mean Platelet Volume 9.5 fL Neutrophils (%) (Auto) 75.7 % Lymphocytes (%) (Auto) 12.4 % Monocytes (%) (Auto) 10.9 % Eosinophils (%) (Auto) 0.5 % Basophils (%) (Auto) 0.3 % Neutrophils # (Auto) 4.50 K/uL Lymphocytes # (Auto) 0.74 K/uL Monocytes # (Auto) 0.65 K/uL Eosinophils # (Auto) 0.03 K/uL Basophils # (Auto) 0.02 K/uL RDW Standard Deviation 40.8 fL RDW Coefficient of Variation 13.4 % Immature Granulocyte % (Auto) 0.2 % Immature Granulocyte # (Auto) 0.01 K/uL Activated Partial Thromboplast Time 45.0 SECONDS Partial Thromboplastin Ratio 1.7 Sodium Level 141 mmol/L Potassium Level 3.5 mmol/L Chloride Level 104 mmol/L Carbon Dioxide Level 26 mmol/L Anion Gap 11.0 mmol/L Blood Urea Nitrogen 21 mg/dl Creatinine 1.40 mg/dl Est Creatinine Clear Calc Drug Dose 44.8 ml/min Estimated GFR () 53.5 Estimated GFR (Non- 46.1 BUN/Creatinine Ratio 14.9 Random Glucose 98 mg/dl Calcium Level 9.7 mg/dl (Mariam Centeno ., CARL) Assessment and Plan 81 y/o male with a history of a-fib (on Pradaxa), HTN, DM II (managed off medications), CKD stage III, HLD, and recent GI bleeding who presents to ED after being found to be hypercalcemic in routine labs from his PCP. Pt also found to be in ANTONIA with elevated creatinine above baseline. Hypercalcemia--improving. Likely secondary to presumed malignancy. Radiology favors lymphoma over rectal adenocarcinoma, however given GI bleeding as below, this may represent invasion of adenocarcinoma -Admit to tele -Abdomen/pelvis CT: extensive paraaortic, bilateral iliac chain and left pelvic sidewall LAD, left 7.3 x 4.8 cm perirectal mass. Mild left hydroureteronephrosis likely due to mass effect of LAD. -CT of chest significant for enlarged, 2.1 x 1.3 cm distal paraesophageal lymph node -TSH within normal limits, PTH appropriately low at 5.5, vitamin D low at 18.9, MARIANN pending -Serum calcium improved to 9.7, however albumin low at 2.5. Corrected calcium 10.90. -Decrease NSS to 75 mL/hr -Given pamidronate 60 mg IV x 1 to reduce calcium on 02/03 -Continue to monitor along with daily albumin Active lower GI bleeding--patient had bloody bowel movement earlier this morning -Hemoglobin 12.9 upon arrival, with baseline around 14 -Hgb 11.3 on 02/05, dilutional effect likely contributing, decreased IVF as above. Improved to 12.2 on 02/06 -GI consulted, appreciate recs: Colonoscopy with perirectal mass biopsy on as there is concern of the mass invading into the rectal mucosa causing the bleeding. Patient for colonoscopy today at 1200. -Spoke with Dr. Ca regarding anticoagulation prior to procedure given a- fib and acute DVT: DC Pradaxa. Recommend holding off colonoscopy and biopsy until patient has held 4 doses of Pradaxa, which he received morning of 02/04. Recommend starting a weight-based low-dose heparin without bolus at 2200 tonight 02/04 to treat DVT. Stop heparin 2 hours prior to procedure. May resume heparin 4 hours after procedure if okay with Dr. Chávez depending on his findings. Given presumed malignancy, patient is not a good candidate for continued Pradaxa use in the long-term. Recommend long-term Lovenox or warfarin. -Pradaxa and ASA d/c'd Acute DVT in left lower extremity--present on admission -LLE Doppler U/S positive for DVT in the left common femoral vein and proximal superficial femoral vein -Continue low-dose heparin per protocol Left hydroureteronephrosis likely secondary to mass effect of extensive LAD -Urology on board -Cystoscopy with left ureter stent placement on 02/05. Biopsy of bladder taken at the left ureteral orifice. Mobile left pelvic mass found on bimanual exam. Grossly bloody stool on rectal exam ANTONIA on CKD stage III--resolved -Cr. 1.8 on arrival with baseline of 1.3 - 1.4 -Creatinine 1.4 on 02/06 following stent placement -Continue IVFs as above -Hold nephrotoxins and nsaids Atrial fibrillation--rate controlled -No acute events overnight on telemetry. Patient has remained in a-fib with HR in 60s-70s -D/C Pradaxa -Recent ECHO (01/28/17) with EF of 50-55%. Right ventricle mild to moderate dilation, moderate MR, left atrium mildly dilated, mild to moderate TR, elevated ventricular systolic pressure at 40-50 mmHg. -Has outpatient f/u with Dr. Macdonald scheduled on 02/20 Hyperlipidemia -Continue simvastatin 20 mg PO qd Code Status -Level I, FULL RESUSCITATION STATUS (Mariam Centeno, CRAL) Reviewed: Pt Seen/Exam by Me (Ruth Denis MD) History Physician Sample Body Builder Supervision Note: I interviewed and examined the patient. Discussed with LEONILA Centeno and agree with findings and plan as documented in the note. Any exceptions or clarifications are listed here: Had colonoscopy today, some hematuria in Tam bag, otherwise feels ok. Ate and john food. Vitals reviewed NAD, AAOx3 Irreg irreg no mgr CTAB no wcr breathing unlabored Abd +BS, soft, +TTP lower abd without guarding or rebound, rectal exam deferred Ext 1+ pitting edema left leg, 2+ DP pulses bilat Skin erythematous maculopapular rash upper mid back; left leg with slightly prominent venous stasis changes 81 yo male with hypercalcemia, extensive abd/pelvic and paraesophageal SONJA, rectal bleeding, perirectal mass, Acute LLE proximal DVT POA, and permanent A- fib. urine cytology with atypical urothelial cells -Ureteral stent placed for left hydronephrosis from compressive SONJA and ANTONIA resolving -Calcium improving -continue IVFs to 75 mls/hr, follow calcium levels, renal function -continue heparin gtt and transition to Lovenox if bleeding stablized -await Pathology results from bladder and rectal biopsies Documented By: Ruth Denis (Ruth Denis MD)
[2017-02-06] MEDS: METOPROLOL SUCC 50MG EXT REL TAB PO SCH (16:08)
--- NOTE | 2017-02-06 17:17 | Progress Note ---
Subjective Date of Service: Feb 06, 2017. Subjective Pt evaluation today including: conversation w/ patient, chart review, lab review Voiding: fatima catheter in place (patent, draining dark, red urine) 81 yo male s/p left ureteral stent placement for left pelvic mass and hydro. Pt denies pain this afternoon. Denies n/v. Urine is dark red in drainage bag. H&H is stable at 12.2 and 36.4. Cr has improved to 1.4 today. UC&S is negative. Bladder biopsies pending. Problem List Medical Problems: (1) Dehydration Status: Acute (2) GI bleeding Status: Acute Review of Systems Constitutional: No chills, No fever Respiratory: No shortness of breath Cardiac: No chest pain Abdomen: No nausea, No pain, No vomiting Male : + hematuria Objective Vital Signs Date Time Temp Pulse Resp B/P Pulse Ox O2 Delivery O2 Flow Rate FiO2 02/06/17 16:00 Room Air 02/06/17 15:54 36.9 76 16 115/63 96 02/06/17 14:13 36.9 81 18 130/79 93 Room Air 02/06/17 13:17 82 18 119/69 94 Room Air 02/06/17 13:00 82 16 115/65 93 Room Air 02/06/17 12:44 16 108/60 95 Room Air 02/06/17 11:50 37 81 20 129/79 96 Room Air 02/06/17 11:16 Room Air 02/06/17 08:42 36.8 81 18 119/70 95 Room Air 02/06/17 08:00 36.8 81 18 119/70 95 Room Air 02/06/17 08:00 Room Air 02/06/17 04:00 Room Air 02/06/17 03:43 36.3 82 18 125/78 95 Room Air 02/06/17 00:08 36.4 60 20 131/76 95 Room Air 02/06/17 00:00 95 Room Air 02/05/17 20:00 37.1 69 18 121/80 97 Room Air 02/05/17 20:00 97 Room Air 02/05/17 19:45 36.7 97 18 130/82 95 Room Air 02/05/17 19:25 36.4 61 16 126/81 93 Room Air 02/05/17 19:15 63 16 123/76 93 Room Air 02/05/17 19:05 64 20 135/87 99 Mask 10 02/05/17 18:55 70 20 128/74 99 Mask 10 02/05/17 18:46 37. 66 18 136/76 99 Mask 10 Physical Exam General Appearance: no apparent distress Eyes: normal inspection ENT: hearing grossly normal Neck: no JVD Respiratory/Chest: no respiratory distress, no accessory muscle use Cardiovascular: no JVD Extremities: normal inspection 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: alert, normal mood/affect, oriented x 3 Skin: normal color Laboratory Results Last 24 Hours Test 02/06/17 06:20 White Blood Count 5.95 K/uL Red Blood Count 4.34 M/uL Hemoglobin 12.2 g/dL Hematocrit 36.4 % Mean Corpuscular Volume 83.9 fL Mean Corpuscular Hemoglobin 28.1 pg Mean Corpuscular Hemoglobin Concent 33.5 g/dl Platelet Count 262 K/uL Mean Platelet Volume 9.5 fL Neutrophils (%) (Auto) 75.7 % Lymphocytes (%) (Auto) 12.4 % Monocytes (%) (Auto) 10.9 % Eosinophils (%) (Auto) 0.5 % Basophils (%) (Auto) 0.3 % Neutrophils # (Auto) 4.50 K/uL Lymphocytes # (Auto) 0.74 K/uL Monocytes # (Auto) 0.65 K/uL Eosinophils # (Auto) 0.03 K/uL Basophils # (Auto) 0.02 K/uL RDW Standard Deviation 40.8 fL RDW Coefficient of Variation 13.4 % Immature Granulocyte % (Auto) 0.2 % Immature Granulocyte # (Auto) 0.01 K/uL Activated Partial Thromboplast Time 45.0 SECONDS Partial Thromboplastin Ratio 1.7 Sodium Level 141 mmol/L Potassium Level 3.5 mmol/L Chloride Level 104 mmol/L Carbon Dioxide Level 26 mmol/L Anion Gap 11.0 mmol/L Blood Urea Nitrogen 21 mg/dl Creatinine 1.40 mg/dl Est Creatinine Clear Calc Drug Dose 44.8 ml/min Estimated GFR () 53.5 Estimated GFR (Non- 46.1 BUN/Creatinine Ratio 14.9 Random Glucose 98 mg/dl Calcium Level 9.7 mg/dl Albumin 2.5 gm/dl Assessment and Plan A/P: Left hydro and ARF secondary to left pelvic mass; suspected lymphoma. POD # 1 s/p left ureteral stent placement AFVSS. Pt with BPH and incomplete bladder emptying noted during cysto. Will initiate Flomax and finasteride while inpatient. Will check for orthostasis while on Flomax. Trial of void per primary service prior to discharge. Suspect he will not need his stent correction if successfully treated for lymphoma. Will plan for outpatient f/u with Dr. Patel in 2 weeks. Will continue to follow along with primary service at this time.
[2017-02-06] MEDS: HEPARIN 25,000 UNIT/500ML D5W 500 ML IV PRN ×2 (17:51→20:54)
[2017-02-06] MEDS: SIMVASTATIN 20 MG TAB PO SCH (19:39)
[2017-02-06] MEDS: TAMSULOSIN HCL 0.4 MG CAP PO SCH (19:40)
[2017-02-07 00:05] LABS: PARTIAL THROMBOPLASTIN RATIO 1.9
[2017-02-07] MEDS: HEPARIN 25,000 UNIT/500ML D5W 500 ML IV PRN ×2 (01:06→07:06)
[2017-02-07 04:20] VITALS: BP 109/61; PULSE 70; TEMP 36.7; O2SAT 95
[2017-02-07 05:40] LABS: HEMATOCRIT 32.3 % (42-52); MEAN CELL VOLUME 84.8 fL (80-100); MEAN CORPUSCULAR HEMOGLOBIN 28.9 pg (25-34); MEAN CORPUSCULAR HGB CONC 34.1 g/dl (32-36); MEAN PLATELET VOLUME 9.1 fL (7.4-10.4); PLATELET COUNT 218 K/uL (130-400); RED BLOOD COUNT 3.81 M/uL (4.7-6.1); WHITE BLOOD COUNT 3.99 K/uL (4.8-10.8)
[2017-02-07 05:57] LABS: PARTIAL THROMBOPLASTIN RATIO 1.9
[2017-02-07 06:20] LABS: BUN/CREATININE RATIO 13.3 (10-20); CALCIUM 8.5 mg/dl (8.5-10.1); CREATININE 1.5 mg/dl (0.60-1.40); POTASSIUM 3.1 mmol/L (3.5-5.1)
[2017-02-07] MEDS ORDERED: POTASSIUM CHLORIDE 20 MEQ TABCR PO ONE (07:30)
[2017-02-07 07:53] VITALS: BP 118/96; PULSE 77; TEMP 36.8; O2SAT 95
[2017-02-07] MEDS: FINASTERIDE 5 MG TAB PO SCH (08:27)
[2017-02-07] MEDS: HYDROCORTISONE 1% CR 30 GM TUBE EXT SCH ×2 (08:27→20:38)
[2017-02-07] MEDS: SODIUM CHLORIDE 0.9% 1000ML 1,000 ML IV SCH (08:27)
[2017-02-07] MEDS: METOPROLOL SUCC 50MG EXT REL TAB PO SCH (08:27)
--- NOTE | 2017-02-07 09:49 | Gastroenterology Progress Note ---
Progress Note Date of Service: Feb 07, 2017 Subjective Pt evaluation today including: conversation w/ patient, physical exam, chart review, lab review, review of studies, review of inpatient medication list Patient reports resolved abdominal pain after colonoscopy yesterday. Findings of ulcerated rectal mass. Histology is pending. H&H remains stable. Denies any bleeding post procedure. His only complaint at present is burning with urination. He is also status post cysto with left ureteral stent placement. Review of Systems Constitutional: No chills, No fever Abdomen: + see HPI Male : + see HPI Psych: No problem reported Medications Current Inpatient Medications Medications (Trade) Dose Ordered Sig/Estevan Route Start Time Stop Time Status Last Admin Dose Admin Sodium Chloride (Nss 1000ml) 1,000 ml @ 75 mls/hr [id number] IV 02/03/17 17:16 03/05/17 17:15 02/07/17 08:27 75 MLS/HR Acetaminophen (Tylenol Tab) 650 mg Q4H PRN PO 02/03/17 17:30 03/05/17 17:29 Metoprolol Succinate (Toprol Xl Tab) 50 mg DAILY PO 02/04/17 09:00 03/06/17 08:59 02/07/17 08:27 50 MG Simvastatin 20 mg 20 mg QPM PO 02/03/17 21:00 03/05/17 20:59 02/06/17 19:39 20 MG Heparin Sodium/ Dextrose (Heparin 25,000 Unit/500ml D5W) 500 ml @ 19 mls/hr Q24H PRN IV 02/04/17 22:00 03/06/17 21:59 Future hold 02/07/17 07:06 19 MLS/HR Hydrocortisone (Hydrocortisone 1% Crm) 1 appln BID EXT 02/05/17 21:00 03/07/17 20:59 02/07/17 08:27 1 APPLN Diphenhydramine HCl (Benadryl Cap) 25 mg Q6H PRN PO 02/05/17 16:00 03/07/17 15:59 Tamsulosin HCl (Flomax Cap) 0.4 mg HS PO 02/06/17 21:00 03/08/17 20:59 02/06/17 19:40 0.4 MG Finasteride (Proscar Tab) 5 mg QAM PO 02/07/17 09:00 03/09/17 08:59 02/07/17 08:27 5 MG Objective Vital Signs Date Time Temp Pulse Resp B/P Pulse Ox O2 Delivery O2 Flow Rate FiO2 02/07/17 08:20 Room Air 02/07/17 07:53 36.8 77 18 118/96 95 02/07/17 04:20 36.7 70 16 109/61 95 Room Air 02/07/17 04:00 Room Air 02/07/17 00:00 Room Air 02/06/17 23:50 36.7 67 16 108/55 93 Room Air 02/06/17 20:47 73 18 131/67 96 02/06/17 20:46 85 18 123/84 93 02/06/17 20:45 98 18 115/68 93 02/06/17 20:00 Room Air 02/06/17 19:47 36.8 72 18 108/65 96 02/06/17 16:00 Room Air 02/06/17 15:54 36.9 76 16 115/63 96 02/06/17 14:13 36.9 81 18 130/79 93 Room Air 02/06/17 13:17 82 18 119/69 94 Room Air 02/06/17 13:00 82 16 115/65 93 Room Air 02/06/17 12:44 16 108/60 95 Room Air 02/06/17 11:50 37 81 20 129/79 96 Room Air 02/06/17 11:16 Room Air Physical Exam General Appearance: no apparent distress Eyes: EOMI Respiratory/Chest: lungs clear, normal breath sounds, no respiratory distress Cardiovascular: regular rate, rhythm, no gallop, no murmur Abdomen: normal bowel sounds, non tender, soft Neurologic/Psych: alert, normal mood/affect, oriented x 3 Laboratory Results Last 24 Hours Test 02/06/17 23:30 02/07/17 05:20 Activated Partial Thromboplast Time 49.1 SECONDS 49.0 SECONDS Partial Thromboplastin Ratio 1.9 1.9 White Blood Count 3.99 K/uL Red Blood Count 3.81 M/uL Hemoglobin 11.0 g/dL Hematocrit 32.3 % Mean Corpuscular Volume 84.8 fL Mean Corpuscular Hemoglobin 28.9 pg Mean Corpuscular Hemoglobin Concent 34.1 g/dl RDW Standard Deviation 42.1 fL RDW Coefficient of Variation 13.8 % Platelet Count 218 K/uL Mean Platelet Volume 9.1 fL Sodium Level 141 mmol/L Potassium Level 3.1 mmol/L Chloride Level 104 mmol/L Carbon Dioxide Level 28 mmol/L Anion Gap 9.0 mmol/L Blood Urea Nitrogen 20 mg/dl Creatinine 1.50 mg/dl Est Creatinine Clear Calc Drug Dose 41.2 ml/min Estimated GFR () 49.2 Estimated GFR (Non- 42.4 BUN/Creatinine Ratio 13.3 Random Glucose 87 mg/dl Calcium Level 8.5 mg/dl Albumin 2.1 gm/dl Assessment and Plan Patient is a 81 year-old male admitted with hypercalcemia as well as acute blood loss anemia and abnormal CT imaging status post colonoscopy yesterday with confirmed ulcerated rectal mass. 1. Await histology as pending. 2. Supportive care per primary team. 3. Additional recommendations pending pathology results. Agree with JUDY Escalona as above Abd: Soft, NT, ND, +BS Continue supportive care Rectal mass with biopsies 02/06
--- NOTE | 2017-02-07 10:06 | Progress Note ---
Subjective Date of Service: Feb 07, 2017. Subjective Pt evaluation today including: conversation w/ patient, physical exam, chart review, lab review Voiding: fatima catheter in place 81 yo male s/p cysto and left stent placement for left sided hydro d/t ureteral mass. Cysto revealed KRAMER also had left sided trigonal bladder bx and fulguration. Fatima intact draining navarro colored urine. On heparin drip and has stent so this can be expected. C/O of some bladder discomfort- most likely d/t recent cysto, stent and fatima. Underwent colonoscopy yesterday to find rectal mass. Slight drop noted in his hgb/hct now 11 and 32 Creatinine slight rise from 1.4 to 1.5. AFVSS Urine culture was negative. Problem List Medical Problems: (1) Dehydration Status: Acute (2) GI bleeding Status: Acute Review of Systems Constitutional: No chills, No fever Eyes: No worsening of vision ENT: No hearing loss Respiratory: + wheezing, No cough, No dyspnea on exertion, No shortness of breath Abdomen: + see HPI, No nausea, No vomiting Psychiatric: No depression symptoms Objective Vital Signs Date Time Temp Pulse Resp B/P Pulse Ox O2 Delivery O2 Flow Rate FiO2 02/07/17 08:20 Room Air 02/07/17 07:53 36.8 77 18 118/96 95 02/07/17 04:20 36.7 70 16 109/61 95 Room Air 02/07/17 04:00 Room Air 02/07/17 00:00 Room Air 02/06/17 23:50 36.7 67 16 108/55 93 Room Air 02/06/17 20:47 73 18 131/67 96 02/06/17 20:46 85 18 123/84 93 02/06/17 20:45 98 18 115/68 93 02/06/17 20:00 Room Air 02/06/17 19:47 36.8 72 18 108/65 96 02/06/17 16:00 Room Air 02/06/17 15:54 36.9 76 16 115/63 96 02/06/17 14:13 36.9 81 18 130/79 93 Room Air 02/06/17 13:17 82 18 119/69 94 Room Air 02/06/17 13:00 82 16 115/65 93 Room Air 02/06/17 12:44 16 108/60 95 Room Air 02/06/17 11:50 37 81 20 129/79 96 Room Air 02/06/17 11:16 Room Air Physical Exam General Appearance: WD/WN, no apparent distress ENT: TMs normal Respiratory/Chest: no respiratory distress, no accessory muscle use 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: alert, normal mood/affect, oriented x 3 Skin: normal color Laboratory Results Last 24 Hours Test 02/06/17 23:30 02/07/17 05:20 Activated Partial Thromboplast Time 49.1 SECONDS 49.0 SECONDS Partial Thromboplastin Ratio 1.9 1.9 White Blood Count 3.99 K/uL Red Blood Count 3.81 M/uL Hemoglobin 11.0 g/dL Hematocrit 32.3 % Mean Corpuscular Volume 84.8 fL Mean Corpuscular Hemoglobin 28.9 pg Mean Corpuscular Hemoglobin Concent 34.1 g/dl RDW Standard Deviation 42.1 fL RDW Coefficient of Variation 13.8 % Platelet Count 218 K/uL Mean Platelet Volume 9.1 fL Sodium Level 141 mmol/L Potassium Level 3.1 mmol/L Chloride Level 104 mmol/L Carbon Dioxide Level 28 mmol/L Anion Gap 9.0 mmol/L Blood Urea Nitrogen 20 mg/dl Creatinine 1.50 mg/dl Est Creatinine Clear Calc Drug Dose 41.2 ml/min Estimated GFR () 49.2 Estimated GFR (Non- 42.4 BUN/Creatinine Ratio 13.3 Random Glucose 87 mg/dl Calcium Level 8.5 mg/dl Albumin 2.1 gm/dl Assessment and Plan Gross Hematuria Left hydronephrosis d/t mass effect on ureter S/P cysto with left ureteral stent placement. Fatima intact draining navarro urine, no clots, On heparin drip. Hgb/Hct slight drop. TOV per primary service. Recommend keeping on flomax and finasteride given his bladder outlet obstruction. Will follow out pt in 2 weeks. Our office to call. No further management needed. Please recall prn.
[2017-02-07 11:04] VITALS: BP 109/63; PULSE 72; TEMP 36.5; O2SAT 98
--- NOTE | 2017-02-07 13:59 | Hospitalist Progress Note ---
Hospitalist Progress Note Date of Service Feb 07, 2017. (Mariam Centeno ., SAADIAC) Subjective Pt evaluation today including: conversation w/ patient, physical exam, chart review, lab review, review of inpatient medication list Pain: None PO Intake: Tolerating PO diet Voiding: tam catheter in place (gross hematuria) Patient reports feeling well. He states that has not had any bowel movements today and has not noticed any blood coming from the rectum. He does report some weakness and fatigue. He is tolerating a PO diet well. Tam catheter in place with gross hematuria. The patient denies fevers, chills, sweats, chest pain, palpitations, claudication, cough, wheezing, shortness of breath, nausea, vomiting, abdominal pain, dysuria, urinary retention, paralysis, weakness, numbness and tingling. Additional Comments: See HPI for pertinent positives and negatives. All other systems reviewed and negative. (Mariam Centeno ., SAADIAC) Objective Vital Signs Date Time Temp Pulse Resp B/P Pulse Ox O2 Delivery O2 Flow Rate FiO2 02/07/17 12:00 Room Air 02/07/17 11:04 36.5 72 18 109/63 98 02/07/17 08:20 Room Air 02/07/17 07:53 36.8 77 18 118/96 95 02/07/17 04:20 36.7 70 16 109/61 95 Room Air 02/07/17 04:00 Room Air 02/07/17 00:00 Room Air 02/06/17 23:50 36.7 67 16 108/55 93 Room Air 02/06/17 20:47 73 18 131/67 96 02/06/17 20:46 85 18 123/84 93 02/06/17 20:45 98 18 115/68 93 02/06/17 20:00 Room Air 02/06/17 19:47 36.8 72 18 108/65 96 02/06/17 16:00 Room Air 02/06/17 15:54 36.9 76 16 115/63 96 02/06/17 14:13 36.9 81 18 130/79 93 Room Air (Mariam Centeno ., LEONILA-C) Physical Exam General Appearance: WD/WN, no apparent distress Eyes: normal inspection, PERRL, EOMI ENT: normal ENT inspection, hearing grossly normal, pharynx normal Neck: supple, no JVD, trachea midline Respiratory/Chest: lungs clear, normal breath sounds, no respiratory distress Cardiovascular: no gallop, no murmur, + irregularly irregular Abdomen: normal bowel sounds, soft, + tenderness (mild suprapubic tenderness) Extremities: non-tender, + swelling (2+ pitting edema LLE, 1+ pitting edema RLE ), + pertinent finding (dusky appearance LLE) 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: alert, normal mood/affect, oriented x 3 Skin: normal color, warm/dry, no rash (Mariam Centeno ., LEONILA-C) Laboratory Results Last 24 Hours Test 02/06/17 23:30 02/07/17 05:20 Activated Partial Thromboplast Time 49.1 SECONDS 49.0 SECONDS Partial Thromboplastin Ratio 1.9 1.9 White Blood Count 3.99 K/uL Red Blood Count 3.81 M/uL Hemoglobin 11.0 g/dL Hematocrit 32.3 % Mean Corpuscular Volume 84.8 fL Mean Corpuscular Hemoglobin 28.9 pg Mean Corpuscular Hemoglobin Concent 34.1 g/dl RDW Standard Deviation 42.1 fL RDW Coefficient of Variation 13.8 % Platelet Count 218 K/uL Mean Platelet Volume 9.1 fL Sodium Level 141 mmol/L Potassium Level 3.1 mmol/L Chloride Level 104 mmol/L Carbon Dioxide Level 28 mmol/L Anion Gap 9.0 mmol/L Blood Urea Nitrogen 20 mg/dl Creatinine 1.50 mg/dl Est Creatinine Clear Calc Drug Dose 41.2 ml/min Estimated GFR () 49.2 Estimated GFR (Non- 42.4 BUN/Creatinine Ratio 13.3 Random Glucose 87 mg/dl Calcium Level 8.5 mg/dl Albumin 2.1 gm/dl (Mariam Centeno ., PA-C) Assessment and Plan 81 y/o male with a history of a-fib (on Pradaxa), HTN, DM II (managed off medications), CKD stage III, HLD, and recent GI bleeding who presents to ED after being found to be hypercalcemic in routine labs from his PCP. Pt also found to be in ANTONIA with elevated creatinine above baseline. Hypercalcemia--improving. Likely secondary to presumed malignancy. Radiology favors lymphoma over rectal adenocarcinoma, however given GI bleeding as below, this may represent invasion of adenocarcinoma -Admit to tele. Transfer to [facility]/surg 02/07 -Abdomen/pelvis CT: extensive paraaortic, bilateral iliac chain and left pelvic sidewall LAD, left 7.3 x 4.8 cm perirectal mass. Mild left hydroureteronephrosis likely due to mass effect of LAD. -CT of chest significant for enlarged, 2.1 x 1.3 cm distal paraesophageal lymph node -TSH within normal limits, PTH appropriately low at 5.5, vitamin D low at 18.9, MARIANN pending -Albumin 2.1, corrected calcium 10.02 on 02/07 -Decrease NSS to 75 mL/hr -Given pamidronate 60 mg IV x 1 to reduce calcium on 02/03 -Continue to monitor along with daily albumin Active lower GI bleeding--Stable. No bloody BM today -Hemoglobin 12.9 upon arrival, with baseline around 14 -Hgb 11.3 on 02/05, dilutional effect likely contributing, decreased IVF as above. Stable at 11.0 on 02/07 -GI consulted, appreciate recs: Colonoscopy showed 2 sessile polyps which were removed. Infiltrative and ulcerated non-obstructing large mass at rectum measuring 5 x 21 cm which was biopsied. Await pathology. -Spoke with Dr. Ca regarding anticoagulation prior to procedure given a- fib and acute DVT: DC Pradaxa. Recommend holding off colonoscopy and biopsy until patient has held 4 doses of Pradaxa, which he received morning of 02/04. Recommend starting a weight-based low-dose heparin without bolus at 2200 tonight 02/04 to treat DVT. Stop heparin 2 hours prior to procedure. May resume heparin 4 hours after procedure if okay with Dr. Chávez depending on his findings. Given presumed malignancy, patient is not a good candidate for continued Pradaxa use in the long-term. Recommend long-term Lovenox or warfarin. -Pradaxa and ASA d/c'd Acute DVT in left lower extremity--present on admission -LLE Doppler U/S positive for DVT in the left common femoral vein and proximal superficial femoral vein -Continue low-dose heparin per protocol Left hydroureteronephrosis likely secondary to mass effect of extensive LAD-- improving with stent placement -Cystoscopy with left ureter stent placement on 02/05. Biopsy of bladder taken at the left ureteral orifice. Mobile left pelvic mass found on bimanual exam. Grossly bloody stool on rectal exam -Urology consulted, appreciate recs: Start Flomax and finasteride. Remove Tam per primary team. Signing off. ANTONIA on CKD stage III--resolved -Cr. 1.8 on arrival with baseline of 1.3 - 1.4 -Creatinine 1.4 on 02/06 following stent placement. Creatinine remains stable at baseline. -D/C IVF as pt has baseline renal function and adequate PO intake -Hold nephrotoxins and nsaids Atrial fibrillation--rate controlled -No acute events overnight on telemetry. Patient has remained in a-fib with HR in 60s-70s -D/C Pradaxa -Recent ECHO (01/28/17) with EF of 50-55%. Right ventricle mild to moderate dilation, moderate MR, left atrium mildly dilated, mild to moderate TR, elevated ventricular systolic pressure at 40-50 mmHg. -Has outpatient f/u with Dr. Macdonald scheduled on 02/20 Hyperlipidemia -Continue simvastatin 20 mg PO qd Code Status -Level I, FULL RESUSCITATION STATUS (Mariam Centeno ., CARL) History Physician Astro Technician Supervision Note: I interviewed and examined the patient. Discussed with LEONILA Centeno and agree with findings and plan as documented in the note. Any exceptions or clarifications are listed here: Still with dark red urine in Tam bag, otherwise feels ok. Discussed results of pathology at length with pt and Vitals reviewed NAD, AAOx3 Irreg irreg no mgr CTAB no wcr breathing unlabored Abd +BS, soft, +TTP lower abd without guarding or rebound, rectal exam deferred Ext 1+ pitting edema left leg, 2+ DP pulses bilat Skin left leg with slightly prominent venous stasis changes 81 yo male with hypercalcemia, extensive abd/pelvic and paraesophageal SONJA, rectal bleeding, perirectal mass, Acute LLE proximal DVT POA, and permanent A- fib. 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 on path. Discussed case with Dr. Weber from Oncology and he will see pt in the office next week. Will need BM aspirate and PET scan as outpat for further staging -Ureteral stent placed for left hydronephrosis from compressive SONJA and ANTONIA resolving--> f/u Urol in 2 weeks, will likely need to keep stent in until lymphoma treatment completed -Calcium normal now and f/u as outpt -continue heparin gtt and transition to Lovenox tomorrow AM -d/c Tam in AM and trial of voiding, f/u Dr. Patel/Urology in 2 weeks -continue finasteride and Flomax -plan for dc to home tomorrow -f/u Oncology in 1 week Documented By: Ruth Denis (Ruth Denis MD)
[2017-02-07 15:00] VITALS: BP 109/63; PULSE 72; TEMP 36.5; O2SAT 98
[2017-02-07 15:35] VITALS: BP 105/72; PULSE 74; TEMP 36.7; O2SAT 95
[2017-02-07] MEDS ORDERED: LVNIS80 SQ (17:54)
[2017-02-07] MEDS ORDERED: PRS5 PO (17:54)
[2017-02-07] MEDS ORDERED: FLM4 PO (17:54)
[2017-02-07] MEDS ORDERED: HYDR1OIN EXT (17:54)
[2017-02-07] MEDS: TAMSULOSIN HCL 0.4 MG CAP PO SCH (20:38)
[2017-02-07] MEDS: SIMVASTATIN 20 MG TAB PO SCH (20:38)
[2017-02-08] VITALS (7 sets, daily range): BP systolic 105–130; BP diastolic 64–73; PULSE 73–88; TEMP 36.7–37.5; O2SAT 92–97
[2017-02-08] MEDS ORDERED: HEPARIN DRIP~STOP ORDER ONE (06:00)
[2017-02-08 06:43] LABS: HEMATOCRIT 33.2 % (42-52); MEAN CORPUSCULAR HEMOGLOBIN 27.9 pg (25-34); MEAN PLATELET VOLUME 9.2 fL (7.4-10.4); PLATELET COUNT 244 K/uL (130-400); RED BLOOD COUNT 4.05 M/uL (4.7-6.1); WHITE BLOOD COUNT 3.68 K/uL (4.8-10.8)
[2017-02-08] MEDS: ENOXAPARIN 80 MG/0.8 ML SYR SQ SCH ×2 (06:43→18:32)
[2017-02-08 06:53] LABS: PARTIAL THROMBOPLASTIN RATIO 1.3
[2017-02-08 07:15] LABS: BUN/CREATININE RATIO 15.8 (10-20); CALCIUM 8.4 mg/dl (8.5-10.1); CREATININE 1.3 mg/dl (0.60-1.40); POTASSIUM 3.5 mmol/L (3.5-5.1)
[2017-02-08] MEDS: METOPROLOL SUCC 50MG EXT REL TAB PO SCH (08:30)
[2017-02-08] MEDS: FINASTERIDE 5 MG TAB PO SCH (08:31)
[2017-02-08] MEDS: HYDROCORTISONE 1% CR 30 GM TUBE EXT SCH ×2 (08:31→20:44)
--- NOTE | 2017-02-08 12:21 | Discharge Instructions ---
Discharge Instructions Date of Service Feb 08, 2017. Admission Reason for Admission: Hypercalcemia Discharge Discharge Diagnosis / Problem: Diffuse Large B-Cell Lymphoma, Hypercalcemia, DVT Discharge Goals Goal(s): Improve disease control, Diagnostic testing, Therapeutic intervention Activity Recommendations Activity Limitations: as noted below Lifting Limitations: none Exercise/Sports Limitations: gradually increase as tolerated Shower/Bathe: no limitations . Instructions / Follow-Up Instructions / Follow-Up You were admitted because your calcium level was high. You were found to have enlarged lymph nodes a mass in your rectum causing rectal bleeding. A biopsy of this mass as well as from your bladder confirmed that you have Diffuse Large B- Cell Lymphoma which is a cancer of the lymph nodes. This is the cause of the elevated calcium level. Your calcium level came down to a normal level with medications and IV fluids. You need to follow up with the Oncologist Dr. Rolando Patterson within 1 week. Please call for this appointment on Friday. The oncologist will arrange for any further evaluation and treatment of your lymphoma. You were also found to have a Deep Venous Thrombosis (DVT or blood clot) in your left leg. This is related to your new diagnosis of lymphoma and needs to be treated with blood thinners. You will be discharged to home on Lovenox injections to be done twice daily. It is very important that you not skip any doses of this. If you are having worsening bleeding from the rectum, or from the urine, or are not able to urinate, please contact the Oncologist or the Urologist immediately. You should STOP taking the Pradaxa and the aspirin now that you are on Lovenox injections. You had a stent placed in your left ureter (tube between kidney and bladder) due to a blockage from the lymphoma pressing on the tube. The stent relieved the blockage and your kidney function is improved. You will need follow up with the Urologist in 2 weeks, but this stent will likely remain in place for at least a couple months. If you develop a fever at any time, please come to the ER right away. Please follow up with your PCP within 2 weeks as well. Current Hospital Diet Patient's current hospital diet: AHA Diet (Heart Healthy), Regular Diet Discharge Diet Recommended Diet: AHA Diet (Heart Healthy) Procedures Procedures Performed: Cystoscopy, Retrograde pyleography, ureteral stent placement,Left Left bladder biospy and fulgeration , Bimanual exam under anesthesia CT Chest/abdomen/pelvis Lower extremity Doppler Ultrasound Pending Studies Studies pending at discharge: yes List of pending studies: Further studies on your biopsy through Pathology Laboratory Results Hemoglobin A1c Test 02/03/17 08:01 Range/Units Estimated Average Glucose 128 mg/dl Hemoglobin A1c 6.1 H 4.5-5.6 % Lipid Panel Test 02/03/17 08:01 Range/Units Triglycerides Level 139 0-150 mg/dl Cholesterol Level 122 0-200 mg/dl HDL Cholesterol 32 mg/dl Cholesterol/HDL Ratio 3.8 LDL Cholesterol, Calculated 62 mg/dl Medical Emergencies . Who to Call and When: Medical Emergencies: If at any time you feel your situation is an emergency, please call 911 immediately. . Non-Emergent Contact Non-Emergency issues call your: Primary Care Provider, Oncologist, Urologist Call Non-Emergent contact if: temperature is above 101, you have any medication questions . . "Provider Documentation" section prepared by Ruth Denis. VTE Core Measure Inpt VTE Proph given/why not?: Enoxaparin (Lovenox)SQ, Unfractionated heparin SQ, T.E.D. Stockings, SCD's
--- NOTE | 2017-02-08 18:03 | Hospitalist Progress Note ---
Hospitalist Progress Note Date of Service Feb 08, 2017. Subjective Pt evaluation today including: conversation w/ patient, conversation w/ family , physical exam, lab review Pt doing well today, [place] out and voiding on own with pink tinge and a few small clots this morning, no more rectal bleeding. Has c/o feeling very unstable on his feet just with walking a few steps to the bathroom Constitutional: No fever Respiratory: No shortness of breath Cardiovascular: No chest pain Abdomen: No GI bleeding, No pain All Other Systems: Reviewed and Negative Objective Vital Signs Date Time Temp Pulse Resp B/P Pulse Ox O2 Delivery O2 Flow Rate FiO2 02/08/17 15:55 88 95 02/08/17 15:52 36.8 83 18 106/69 94 Room Air 02/08/17 08:00 93 Room Air 02/08/17 07:21 36.8 85 20 130/71 93 02/08/17 00:35 37.5 73 16 119/64 92 02/08/17 00:30 Room Air Physical Exam General Appearance: WD/WN, no apparent distress Eyes: normal inspection, sclerae normal ENT: hearing grossly normal Neck: trachea midline Respiratory/Chest: lungs clear, normal breath sounds, no respiratory distress, no accessory muscle use Cardiovascular: no murmur, + irregularly irregular (with normal rate), + pertinent finding (left leg with 1-2+ pitting edema, right leg normal) Abdomen: normal bowel sounds, non tender, soft 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: alert, normal mood/affect, oriented x 3 Skin: normal color, warm/dry Laboratory Results Last 24 Hours Test 02/08/17 06:23 White Blood Count 3.68 K/uL Red Blood Count 4.05 M/uL Hemoglobin 11.3 g/dL Hematocrit 33.2 % Mean Corpuscular Volume 82.0 fL Mean Corpuscular Hemoglobin 27.9 pg Mean Corpuscular Hemoglobin Concent 34.0 g/dl RDW Standard Deviation 41.2 fL RDW Coefficient of Variation 13.6 % Platelet Count 244 K/uL Mean Platelet Volume 9.2 fL Activated Partial Thromboplast Time 33.6 SECONDS Partial Thromboplastin Ratio 1.3 Sodium Level 141 mmol/L Potassium Level 3.5 mmol/L Chloride Level 105 mmol/L Carbon Dioxide Level 27 mmol/L Anion Gap 9.0 mmol/L Blood Urea Nitrogen 21 mg/dl Creatinine 1.30 mg/dl Est Creatinine Clear Calc Drug Dose 47.5 ml/min Estimated GFR () 58.5 Estimated GFR (Non- 50.5 BUN/Creatinine Ratio 15.8 Random Glucose 91 mg/dl Calcium Level 8.4 mg/dl Albumin 2.1 gm/dl Assessment and Plan 81 y/o male with a history of permanent a-fib (on Pradaxa), HTN, DM II (managed off medications), CKD stage III, HLD, and recent GI bleeding who presents to ED after being found to be hypercalcemic with a Ca++ of 13.3 in routine labs from his PCP. Pt also found to be in ANTONIA with elevated creatinine above baseline at 1.8. CT Chest/abd/pel on admission revealed presence of extensive lymphadenopathy and a perirectal mass, suspicious for lymphoma. Also found to have acute proximal DVT POA in left lower extremity. Hypercalcemia--now calcium back to normal after IVFs and one dose of pamidronate initially. It is secondary to malignancy. TSH within normal limits, PTH appropriately low at 5.5, vitamin D low at 18.9, MARIANN level normal at 51. Corrected calcium 9.9 on 02/08 -follow calcium level as outpatient and should resolve with treatment of lymphoma Diffuse Large B-Cell Lymphoma-with rectal bleeding x 2 months from invasion into rectum, minimal B symptoms, 5 lb weight loss, no night sweats -Chest/Abdomen/pelvis CT: extensive paraaortic, bilateral iliac chain and left pelvic sidewall LAD, left 7.3 x 4.8 cm perirectal mass. Mild left hydroureteronephrosis likely due to mass effect of LAD. Also enlarged, 2.1 x 1.3 cm distal paraesophageal lymph node Biopsy of rectal mass pathology with DLBCL, further path studies to follow but are a send out. Biopsy of left ureteral orifice during cystoscopy with the same pathology -only mild anemia at Hgb 11.3 secondary to rectal bleeding and mild hematuria -to f/u with Oncology as outpt next week-Dr. 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 Discontinued his home Pradaxa and ASA and delayed colonoscopy x 2 days. Started on heparin gtt for DV in the interim -Hemoglobin 12.9 upon arrival, with baseline around 14 -Stable at 11.3 -GI consulted, appreciate recs: Colonoscopy showed 2 sessile polyps which were removed. Infiltrative and ulcerated non-obstructing large mass at rectum measuring 5 x 21 cm which was biopsied--> DLBCL -sessile polyps were TAs -monitor for worsening bleeding on anticoagulation Acute proximal DVT in left lower extremity--present on admission -LLE Doppler U/S positive for DVT in the left common femoral vein and proximal superficial femoral vein -was on heparin gtt and now transitioned to Lovenox 80mg SQ bid to stay on indefinitely until lymphoma treated and at least 3-6 months Left moderate hydroureteronephrosis secondary to mass effect of extensive lymphadenopathy in pelvis, Hematuria--improved with left ureteral stent placement and cystoscopy on 02/05. Biopsy of bladder taken at the left ureteral orifice. Also found to have enlarged prostate. Hematuria persists secondary to bladder biopsy, stent placement, and anticoagulation on board. Not concerning to Urology as long as is able to void and hgb stable -Urology consulted, appreciate recs -Started Flomax and finasteride -f/u Urology Dr. Osmar Patel in 2 weeks -stent should remain in place until treatment of lymphoma completed ANTONIA on CKD stage III--resolved, was secondary to hydronephrosis from compression on left ureter -Cr. 1.8 on arrival with baseline of 1.3 - 1.4 -Creatinine 1.3 s/p ureteral stent placement -avoid nephrotoxins -renally dose meds Permanent Atrial fibrillation--rate controlled, no issues -D/C'd Pradaxa and will be on Lovenox -continue Toprol XL 50mg daily -Recent ECHO (01/28/17) with EF of 50-55%. Right ventricle mild to moderate dilation, moderate MR, left atrium mildly dilated, mild to moderate TR, elevated ventricular systolic pressure at 40-50 mmHg. -Has outpatient f/u with Dr. Macdonald/Cardiology scheduled on 02/20-should keep this appointment Hyperlipidemia-stable, no issues -Continue simvastatin 20 mg PO qd Code Status FULL RESUSCITATION STATUS Prophylaxis-Lovenox Dispo- PT/OT evals recommending SNF/Rehab for deconditioning due to hospitalization. Pt and would like to try for [facility], Discussed with CM but may not be able to be accepted until Friday
[2017-02-08] MEDS: SIMVASTATIN 20 MG TAB PO SCH (20:44)
[2017-02-08] MEDS: TAMSULOSIN HCL 0.4 MG CAP PO SCH (20:44)
[2017-02-09] MEDS: ENOXAPARIN 80 MG/0.8 ML SYR SQ SCH ×2 (06:17→17:48)
[2017-02-09 07:15] LABS: BASO % 0.6 %; BASO ABS # 0.02 K/uL (0-0.2); COMPLETE YES; EOS % 3.5 %; HEMATOCRIT 35.7 % (42-52); LYMPH % 23.5 %; LYMPH ABS # 0.81 K/uL (1.2-3.4); MEAN CELL VOLUME 83.4 fL (80-100); MEAN CORPUSCULAR HGB CONC 33.6 g/dl (32-36); MEAN PLATELET VOLUME 9.5 fL (7.4-10.4); MONO % 11.9 %; NEUT % 60.5 %; PLATELET COUNT 257 K/uL (130-400); RED BLOOD COUNT 4.28 M/uL (4.7-6.1); WHITE BLOOD COUNT 3.44 K/uL (4.8-10.8)
[2017-02-09 07:40] LABS: BUN/CREATININE RATIO 13.3 (10-20); CALCIUM 8.8 mg/dl (8.5-10.1); CREATININE 1.4 mg/dl (0.60-1.40); MAGNESIUM 1.6 mg/dl (1.8-2.4); POTASSIUM 3.5 mmol/L (3.5-5.1)
[2017-02-09 08:00] VITALS: O2SAT 96
[2017-02-09] MEDS: FINASTERIDE 5 MG TAB PO SCH (08:10)
[2017-02-09] MEDS: HYDROCORTISONE 1% CR 30 GM TUBE EXT SCH ×2 (08:10→21:13)
[2017-02-09] MEDS: METOPROLOL SUCC 50MG EXT REL TAB PO SCH (08:11)
[2017-02-09 08:22] VITALS: BP 122/72; PULSE 79; TEMP 36.3; O2SAT 96
[2017-02-09 15:55] VITALS: BP 109/71; PULSE 78; TEMP 36.5; O2SAT 95
--- NOTE | 2017-02-09 17:55 | Hospitalist Progress Note ---
Hospitalist Progress Note Date of Service Feb 09, 2017. Subjective Pt evaluation today including: conversation w/ patient Pt doing well, no rectal bleeding, has pink tinged urine. No problems, eating, was OOB to chair for 4 hrs today and wants to ambulate with assistance today All Other Systems: Reviewed and Negative Objective Vital Signs Date Time Temp Pulse Resp B/P Pulse Ox O2 Delivery O2 Flow Rate FiO2 02/09/17 15:55 36.5 78 20 109/71 95 Room Air 02/09/17 15:50 Room Air 02/09/17 08:22 36.3 79 20 122/72 96 02/09/17 08:00 96 Room Air 02/09/17 00:25 Room Air 02/08/17 23:31 36.7 81 16 120/73 97 Room Air Physical Exam General Appearance: WD/WN, no apparent distress Eyes: normal inspection, sclerae normal Neck: trachea midline Respiratory/Chest: lungs clear, normal breath sounds, no respiratory distress, no accessory muscle use Cardiovascular: no gallop, no murmur, + irregularly irregular (with normal rate ) Abdomen: normal bowel sounds, non tender, soft Extremities: no calf tenderness, + swelling (2+ pitting edema left leg) 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: alert, normal mood/affect, oriented x 3 Skin: normal color, warm/dry, no rash Laboratory Results Last 24 Hours Test 02/09/17 06:53 White Blood Count 3.44 K/uL Red Blood Count 4.28 M/uL Hemoglobin 12.0 g/dL Hematocrit 35.7 % Mean Corpuscular Volume 83.4 fL Mean Corpuscular Hemoglobin 28.0 pg Mean Corpuscular Hemoglobin Concent 33.6 g/dl Platelet Count 257 K/uL Mean Platelet Volume 9.5 fL Neutrophils (%) (Auto) 60.5 % Lymphocytes (%) (Auto) 23.5 % Monocytes (%) (Auto) 11.9 % Eosinophils (%) (Auto) 3.5 % Basophils (%) (Auto) 0.6 % Neutrophils # (Auto) 2.08 K/uL Lymphocytes # (Auto) 0.81 K/uL Monocytes # (Auto) 0.41 K/uL Eosinophils # (Auto) 0.12 K/uL Basophils # (Auto) 0.02 K/uL RDW Standard Deviation 41.2 fL RDW Coefficient of Variation 13.8 % Immature Granulocyte % (Auto) 0.0 % Immature Granulocyte # (Auto) 0.00 K/uL Sodium Level 140 mmol/L Potassium Level 3.5 mmol/L Chloride Level 104 mmol/L Carbon Dioxide Level 26 mmol/L Anion Gap 10.0 mmol/L Blood Urea Nitrogen 19 mg/dl Creatinine 1.40 mg/dl Est Creatinine Clear Calc Drug Dose 44.1 ml/min Estimated GFR () 53.5 Estimated GFR (Non- 46.1 BUN/Creatinine Ratio 13.3 Random Glucose 99 mg/dl Calcium Level 8.8 mg/dl Magnesium Level 1.6 mg/dl Assessment and Plan 81 y/o male with a history of permanent a-fib (on Pradaxa), HTN, DM II (managed off medications), CKD stage III, HLD, and recent GI bleeding who presents to ED after being found to be hypercalcemic with a Ca++ of 13.3 in routine labs from his PCP. Pt also found to be in ANTONIA with elevated creatinine above baseline at 1.8. CT Chest/abd/pel on admission revealed presence of extensive lymphadenopathy and a perirectal mass, suspicious for lymphoma. Also found to have acute proximal DVT POA in left lower extremity. Hypercalcemia--now calcium back to normal-mildly elevated after IVFs and one dose of pamidronate initially. It is secondary to malignancy. TSH within normal limits, PTH appropriately low at 5.5, vitamin D low at 18.9, MARIANN level normal at 51. 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 Stable -Chest/Abdomen/pelvis CT: extensive paraaortic, bilateral iliac chain and left pelvic sidewall LAD, left 7.3 x 4.8 cm perirectal mass. Mild left hydroureteronephrosis likely due to mass effect of LAD. Also enlarged, 2.1 x 1.3 cm distal paraesophageal lymph node Biopsy of rectal mass pathology with DLBCL, further path studies to follow but are a send out. Biopsy of left ureteral orifice during cystoscopy with the same pathology -only mild anemia at Hgb 11.3-12 secondary to rectal bleeding and mild hematuria -to f/u with Oncology as outpt this week after discharge-Dr. 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 Discontinued his home Pradaxa and ASA and delayed colonoscopy x 2 days. Started on heparin gtt for DV in the interim during procedures, now on Lovenox -Hemoglobin 12.9 upon arrival, with baseline around 14 -Stable at 11-12 -GI consulted, appreciate recs: Colonoscopy showed 2 sessile polyps which were removed. Infiltrative and ulcerated non-obstructing large mass at rectum measuring 5 x 21 cm which was biopsied--> DLBCL -sessile polyps were TAs -monitor for worsening bleeding on anticoagulation Acute proximal DVT in left lower extremity--present on admission, stable, no evidence of PE -LLE Doppler U/S positive for DVT in the left common femoral vein and proximal superficial femoral vein -was on heparin gtt and now transitioned to Lovenox 80mg SQ bid to stay on indefinitely until lymphoma treated and at least 3-6 months Left moderate hydroureteronephrosis secondary to mass effect of extensive lymphadenopathy in pelvis, Hematuria--improved with left ureteral stent placement and cystoscopy on 02/05. Biopsy of bladder taken at the left ureteral orifice. Also found to have enlarged prostate. Hematuria persists but is improved, is secondary to bladder biopsy, stent placement, and anticoagulation on board. Not concerning to Urology as long as is able to void and hgb stable -Urology consulted, appreciate recs -Started Flomax and finasteride -f/u Urology Dr. Osmar Patel in 2 weeks after stent placement -stent should remain in place until treatment of lymphoma completed ANTONIA on CKD stage III--resolved, was secondary to hydronephrosis from compression on left ureter -Cr. 1.8 on arrival with baseline of 1.3 - 1.4 -Creatinine back to baseline s/p ureteral stent placement -avoid nephrotoxins -renally dose meds Permanent Atrial fibrillation--rate controlled, no issues -D/C'd Pradaxa and will be on Lovenox -continue Toprol XL 50mg daily -Recent ECHO (01/28/17) with EF of 50-55%. Right ventricle mild to moderate dilation, moderate MR, left atrium mildly dilated, mild to moderate TR, elevated ventricular systolic pressure at 40-50 mmHg. -Has outpatient f/u with Dr. Macdonald/Cardiology scheduled on 02/20-should keep this appointment Hyperlipidemia-stable, no issues -Continue simvastatin 20 mg PO qd Code Status FULL RESUSCITATION STATUS Prophylaxis-Lovenox Dispo- PT/OT evals recommending SNF/Rehab for deconditioning due to hospitalization. Pt and would like to try for [email or web address] or [email or web address] [facility], Discussed with CM but may not be able to be accepted until Friday or
[2017-02-09] MEDS ORDERED: MAGNESIUM SULFATE 1GM / D5W 1 GM in PREMIXED IN D5W 100 ML IV ONE (18:30)
[2017-02-09] MEDS: TAMSULOSIN HCL 0.4 MG CAP PO SCH (21:13)
[2017-02-09] MEDS: SIMVASTATIN 20 MG TAB PO SCH (21:13)
[2017-02-10 00:45] VITALS: BP 108/64; PULSE 85; TEMP 36.6; O2SAT 98
[2017-02-10] MEDS: ENOXAPARIN 80 MG/0.8 ML SYR SQ SCH ×2 (05:49→17:25)
[2017-02-10 07:23] LABS: BASO % 0.9 %; BASO ABS # 0.03 K/uL (0-0.2); COMPLETE YES; EOS % 4.9 %; HEMATOCRIT 34.5 % (42-52); IG% 0.3 %; LYMPH ABS # 0.75 K/uL (1.2-3.4); MEAN CELL VOLUME 82.7 fL (80-100); MEAN CORPUSCULAR HEMOGLOBIN 28.5 pg (25-34); MEAN CORPUSCULAR HGB CONC 34.5 g/dl (32-36); MEAN PLATELET VOLUME 9.1 fL (7.4-10.4); MONO % 18.1 %; NEUT % 52.8 %; PLATELET COUNT 250 K/uL (130-400); RED BLOOD COUNT 4.17 M/uL (4.7-6.1); WHITE BLOOD COUNT 3.26 K/uL (4.8-10.8)
[2017-02-10 07:45] VITALS: BP_SYST 119; BP_SYST 122; BP_DIAS 76; BP_DIAS 81; PULSE 78; TEMP 36.5; O2SAT 95
[2017-02-10 07:50] LABS: BUN/CREATININE RATIO 13.5 (10-20); CALCIUM 8.3 mg/dl (8.5-10.1); CREATININE 1.3 mg/dl (0.60-1.40); POTASSIUM 3.7 mmol/L (3.5-5.1)
[2017-02-10 08:00] VITALS: O2SAT 98
[2017-02-10] MEDS: FINASTERIDE 5 MG TAB PO SCH (08:04)
[2017-02-10] MEDS: METOPROLOL SUCC 50MG EXT REL TAB PO SCH (08:04)
[2017-02-10] MEDS: HYDROCORTISONE 1% CR 30 GM TUBE EXT SCH ×2 (08:04→20:45)
[2017-02-10 09:45] VITALS: O2SAT 95
[2017-02-10 15:56] VITALS: BP 105/69; PULSE 86; TEMP 36.4; O2SAT 95
[2017-02-10 16:00] VITALS: O2SAT 98
--- NOTE | 2017-02-10 16:51 | Hospitalist Progress Note ---
Hospitalist Progress Note Date of Service Feb 10, 2017. Subjective Pt evaluation today including: conversation w/ patient, conversation w/ family , physical exam, chart review, lab review, review of inpatient medication list Patient feels better today. Swelling in left leg remains. Instucted to evavate as much as possible. Medications Medications (Trade) Dose Ordered Sig/Estevan Route Start Time Stop Time Status Last Admin Dose Admin Magnesium Sulfate/ Prmx (Magnesium Sulfate/Premixed D5W) 100 ml @ 100 mls/hr 1830 ONCE IV 02/09/17 18:30 02/09/17 19:29 DC 02/09/17 18:52 100 MLS/HR Objective Vital Signs Date Time Temp Pulse Resp B/P Pulse Ox O2 Delivery O2 Flow Rate FiO2 02/10/17 15:56 36.4 86 18 105/69 95 Room Air 02/10/17 09:45 95 Room Air 02/10/17 08:00 98 Room Air 02/10/17 07:45 36.5 78 18 119/76 95 Room Air 122/81 02/10/17 00:45 36.6 85 18 108/64 98 Room Air 02/09/17 20:00 Room Air Physical Exam General Appearance: WD/WN, no apparent distress Eyes: sclerae normal ENT: pharynx normal Neck: trachea midline Respiratory/Chest: chest non-tender, lungs clear Cardiovascular: regular rate, rhythm, no murmur Abdomen: normal bowel sounds, non tender, soft Extremities: + swelling (Left leg) 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: alert, normal mood/affect Laboratory Results Last 24 Hours Test 02/10/17 07:00 White Blood Count 3.26 K/uL Red Blood Count 4.17 M/uL Hemoglobin 11.9 g/dL Hematocrit 34.5 % Mean Corpuscular Volume 82.7 fL Mean Corpuscular Hemoglobin 28.5 pg Mean Corpuscular Hemoglobin Concent 34.5 g/dl Platelet Count 250 K/uL Mean Platelet Volume 9.1 fL Neutrophils (%) (Auto) 52.8 % Lymphocytes (%) (Auto) 23.0 % Monocytes (%) (Auto) 18.1 % Eosinophils (%) (Auto) 4.9 % Basophils (%) (Auto) 0.9 % Neutrophils # (Auto) 1.72 K/uL Lymphocytes # (Auto) 0.75 K/uL Monocytes # (Auto) 0.59 K/uL Eosinophils # (Auto) 0.16 K/uL Basophils # (Auto) 0.03 K/uL RDW Standard Deviation 41.7 fL RDW Coefficient of Variation 13.8 % Immature Granulocyte % (Auto) 0.3 % Immature Granulocyte # (Auto) 0.01 K/uL Sodium Level 140 mmol/L Potassium Level 3.7 mmol/L Chloride Level 105 mmol/L Carbon Dioxide Level 27 mmol/L Anion Gap 8.0 mmol/L Blood Urea Nitrogen 18 mg/dl Creatinine 1.30 mg/dl Est Creatinine Clear Calc Drug Dose 47.5 ml/min Estimated GFR () 58.5 Estimated GFR (Non- 50.5 BUN/Creatinine Ratio 13.5 Random Glucose 94 mg/dl Calcium Level 8.3 mg/dl Magnesium Level 2.0 mg/dl Total Bilirubin 0.4 mg/dl Direct Bilirubin 0.1 mg/dl Aspartate Amino Transf (AST/SGOT) 35 U/L Alanine Aminotransferase (ALT/SGPT) 17 U/L Alkaline Phosphatase 68 U/L Total Protein 5.3 gm/dl Albumin 2.2 gm/dl Assessment and Plan 81 y/o male with a history of permanent a-fib (on Pradaxa), HTN, DM II (managed off medications), CKD stage III, HLD, and recent GI bleeding who presents to ED after being found to be hypercalcemic with a Ca++ of 13.3 in routine labs from his PCP. Pt also found to be in ANTONIA with elevated creatinine above baseline at 1.8. CT Chest/abd/pel on admission revealed presence of extensive lymphadenopathy and a perirectal mass, suspicious for lymphoma. Also found to have acute proximal DVT POA in left lower extremity. Hypercalcemia--now calcium back to normal-mildly elevated after IVFs and one dose of pamidronate initially. It is secondary to malignancy. TSH within normal limits, PTH appropriately low at 5.5, vitamin D low at 18.9, MARIANN level normal at 51. Corrected calcium 9.9-10.3 now -follow calcium level as outpatient and should resolve with treatment of lymphoma. Lymphoma as the cause of the hypercalcemia was explained in detail to the patient and his . 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 Stable -Chest/Abdomen/pelvis CT: extensive paraaortic, bilateral iliac chain and left pelvic sidewall LAD, left 7.3 x 4.8 cm perirectal mass. Mild left hydroureteronephrosis likely due to mass effect of LAD. Also enlarged, 2.1 x 1.3 cm distal paraesophageal lymph node Biopsy of rectal mass pathology with DLBCL, further path studies to follow but are a send out. Biopsy of left ureteral orifice during cystoscopy with the same pathology -only mild anemia at Hgb 11.3-12 secondary to rectal bleeding and mild hematuria -to f/u with Oncology as outpt this week after discharge-Dr. Rolando Weber -will need BM aspirate and PET scan for staging Need for test results explained to the patient and his , prior to being able to start tx. 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 Discontinued his home Pradaxa and ASA and delayed colonoscopy x 2 days. Started on heparin gtt for DV in the interim during procedures, now on Lovenox -Hemoglobin 12.9 upon arrival, with baseline around 14 -Stable at 11-12 -GI consulted, appreciate recs: Colonoscopy showed 2 sessile polyps which were removed. Infiltrative and ulcerated non-obstructing large mass at rectum measuring 5 x 21 cm which was biopsied--> DLBCL -sessile polyps were TAs -monitor for worsening bleeding on anticoagulation Acute proximal DVT in left lower extremity--present on admission, stable, no evidence of PE -LLE Doppler U/S positive for DVT in the left common femoral vein and proximal superficial femoral vein -was on heparin gtt and now transitioned to Lovenox 80mg SQ bid to stay on indefinitely until lymphoma treated and at least 3-6 months. If gi bleeding occurs while on lovenox consideration of a filter is appropriate. Will continue to trend hemoglobin. Left moderate hydroureteronephrosis secondary to mass effect of extensive lymphadenopathy in pelvis, Hematuria--improved with left ureteral stent placement and cystoscopy on 02/05. Biopsy of bladder taken at the left ureteral orifice. Also found to have enlarged prostate. Hematuria persists but is improved, is secondary to bladder biopsy, stent placement, and anticoagulation on board. Not concerning to Urology as long as is able to void and hgb stable -Urology consulted, appreciate recs -Started Flomax and finasteride -f/u Urology Dr. Osmar Patel in 2 weeks after stent placement -stent should remain in place until treatment of lymphoma completed ANTONIA on CKD stage III--resolved, was secondary to hydronephrosis from compression on left ureter -Cr. 1.8 on arrival with baseline of 1.3 - 1.4 -Creatinine back to baseline s/p ureteral stent placement -avoid nephrotoxins -renally dose meds Permanent Atrial fibrillation--rate controlled, no issues -D/C'd Pradaxa and will be on Lovenox -continue Toprol XL 50mg daily -Recent ECHO (01/28/17) with EF of 50-55%. Right ventricle mild to moderate dilation, moderate MR, left atrium mildly dilated, mild to moderate TR, elevated ventricular systolic pressure at 40-50 mmHg. -Has outpatient f/u with Dr. Macdonald/Cardiology scheduled on 02/20-should keep this appointment Hyperlipidemia-stable, no issues -Continue simvastatin 20 mg PO qd Code Status FULL RESUSCITATION STATUS. Advanced care planning discussed in detail with the patient and his . The conversation project was recommended as a resource for further information. Prophylaxis-Lovenox Dispo- PT/OT evals recommending SNF/Rehab for deconditioning due to hospitalization. Pt and would like to try for [facility] or [email or web address] [facility], Discussed with CM but may not be able to be accepted until Friday or Discharge planning: detention facility (for rehab working on acceptance.)
[2017-02-10] MEDS: SIMVASTATIN 20 MG TAB PO SCH (20:44)
[2017-02-10] MEDS: TAMSULOSIN HCL 0.4 MG CAP PO SCH (20:45)
[2017-02-11 00:12] VITALS: BP 105/58; PULSE 87; TEMP 37.1; O2SAT 96
[2017-02-11] MEDS: ENOXAPARIN 80 MG/0.8 ML SYR SQ SCH ×2 (06:15→18:07)
[2017-02-11 08:00] VITALS: O2SAT 96
[2017-02-11 08:05] VITALS: BP 100/67; PULSE 86; TEMP 36.4; O2SAT 95
[2017-02-11] MEDS: METOPROLOL SUCC 50MG EXT REL TAB PO SCH (08:31)
[2017-02-11] MEDS: HYDROCORTISONE 1% CR 30 GM TUBE EXT SCH ×2 (08:31→21:04)
[2017-02-11] MEDS: FINASTERIDE 5 MG TAB PO SCH (08:31)
--- NOTE | 2017-02-11 09:24 | GASTROENTEROLOGY PROGRESS NOTE ---
DATE: 02/11/2017 DATE OF CONSULTATION: 02/11/2017. HISTORY OF PRESENT ILLNESS: I had the pleasure of seeing Radha Reeder at his bedside today. He states that his symptoms have greatly improved. He denies any abdominal pain. He further denies any fevers, chills, nausea, vomiting, hematemesis, melena or hematochezia. I did review pathology from his recent colonoscopy. He had 2 polyps removed from the cecum which were consistent with tubular adenomas and he also had biopsies of rectal mass which showed a diffuse large B cell lymphoma. He states that he was seen by Dr. Weber and will receive further oncology care here. He denied any further complaints. REVIEW OF SYSTEMS: Negative as per the HPI. PHYSICAL EXAMINATION: VITAL SIGNS: Temp 36.4, pulse 86, respirations 18, blood pressure 100/67, pulse ox 95% on room air. GENERAL EXAMINATION: Awake, cooperative in no acute distress. CHEST: Clear to auscultation bilaterally. CARDIOVASCULAR SYSTEM: Regular rate and rhythm. ABDOMEN: Soft, nontender, nondistended. Positive bowel sounds. EXTREMITIES: No clubbing, cyanosis, or edema. LABORATORY STUDIES: From today include a white blood cell count of 3.26, hemoglobin 11.9, hematocrit 34.5 and a platelet count of 250. His sodium is 140, potassium 3.7, chloride 105, bicarb 27, BUN 18, creatinine 1.3 and a blood glucose 94, calcium level was 8.3. IMPRESSION: This is an 81-year-old male with a diffuse B-cell lymphoma with positive rectal biopsies of the rectal mass. PLAN: At the present time, I would recommend continuing supportive care. He will receive oncologic care through Dr. Weber and we will sign off at this time and consideration could be made for a 1-year repeat colonoscopy if this is felt to be indicated. I will await input from oncology in this regard.
[2017-02-11 10:10] LABS: HEMATOCRIT 33.3 % (42-52); MEAN CELL VOLUME 81.4 fL (80-100); MEAN CORPUSCULAR HEMOGLOBIN 27.9 pg (25-34); MEAN PLATELET VOLUME 9.2 fL (7.4-10.4); PLATELET COUNT 265 K/uL (130-400); RED BLOOD COUNT 4.09 M/uL (4.7-6.1); WHITE BLOOD COUNT 3.98 K/uL (4.8-10.8)
[2017-02-11 10:28] LABS: MEAN CORPUSCULAR HGB CONC 34.2 g/dl (32-36)
--- NOTE | 2017-02-11 10:28 | Hospitalist Progress Note ---
Hospitalist Progress Note Date of Service Feb 11, 2017. Subjective Pt evaluation today including: conversation w/ patient Pain: 0 Objective Vital Signs Date Time Temp Pulse Resp B/P Pulse Ox O2 Delivery O2 Flow Rate FiO2 02/11/17 08:05 36.4 86 18 100/67 95 Room Air 02/11/17 00:12 37.1 87 16 105/58 96 Room Air 02/11/17 00:00 Room Air 02/10/17 20:00 Room Air 02/10/17 16:00 98 Room Air 02/10/17 15:56 36.4 86 18 105/69 95 Room Air Physical Exam General Appearance: WD/WN, no apparent distress Eyes: normal inspection Neck: no JVD, trachea midline Respiratory/Chest: chest non-tender Cardiovascular: regular rate, rhythm Abdomen: normal bowel sounds Extremities: normal range of motion Skin: normal color Laboratory Results Last 24 Hours Test 02/11/17 09:45 White Blood Count 3.98 K/uL Red Blood Count 4.09 M/uL Hemoglobin 11.4 g/dL Hematocrit 33.3 % Mean Corpuscular Volume 81.4 fL Mean Corpuscular Hemoglobin 27.9 pg RDW Standard Deviation 41.0 fL RDW Coefficient of Variation 13.7 % Platelet Count 265 K/uL Mean Platelet Volume 9.2 fL Assessment and Plan 81 y/o male with a history of permanent a-fib (on Pradaxa), HTN, DM II (managed off medications), CKD stage III, HLD, and recent GI bleeding who presents to ED after being found to be hypercalcemic with a Ca++ of 13.3 in routine labs from his PCP. Pt also found to be in ANTONIA with elevated creatinine above baseline at 1.8. CT Chest/abd/pel on admission revealed presence of extensive lymphadenopathy and a perirectal mass, suspicious for lymphoma. Also found to have acute proximal DVT POA in left lower extremity. 1. Hypercalcemia--now calcium back to normal-mildly elevated after IVFs and one dose of pamidronate initially. It is secondary to malignancy. TSH within normal limits, PTH appropriately low at 5.5, vitamin D low at 18.9, MARIANN level normal at 51. Corrected calcium 9.9-10.3 now -follow calcium level as outpatient and should resolve with treatment of lymphoma. Lymphoma as the cause of the hypercalcemia was explained in detail to the patient and his . 2. 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 Stable -Chest/Abdomen/pelvis CT: extensive paraaortic, bilateral iliac chain and left pelvic sidewall LAD, left 7.3 x 4.8 cm perirectal mass. Mild left hydroureteronephrosis likely due to mass effect of LAD. Also enlarged, 2.1 x 1.3 cm distal paraesophageal lymph node Biopsy of rectal mass pathology with DLBCL, further path studies to follow but are a send out. Biopsy of left ureteral orifice during cystoscopy with the same pathology -only mild anemia at Hgb 11.3-12 secondary to rectal bleeding and mild hematuria -to f/u with Oncology as outpt this week after discharge-Dr. Rolando Weber -will need BM aspirate and PET scan for staging Need for test results explained to the patient and his , prior to being able to start tx. 3. 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 Discontinued his home Pradaxa and ASA and delayed colonoscopy x 2 days. Started on heparin gtt for DV in the interim during procedures, now on Lovenox -Hemoglobin 12.9 upon arrival, with baseline around 14 -Stable at 11-12 -GI consulted, appreciate recs: Colonoscopy showed 2 sessile polyps which were removed. Infiltrative and ulcerated non-obstructing large mass at rectum measuring 5 x 21 cm which was biopsied--> DLBCL -sessile polyps were TAs -monitor for worsening bleeding on anticoagulation 4. Acute proximal DVT in left lower extremity--present on admission, stable, no evidence of PE -LLE Doppler U/S positive for DVT in the left common femoral vein and proximal superficial femoral vein -was on heparin gtt and now transitioned to Lovenox 80mg SQ bid to stay on indefinitely until lymphoma treated and at least 3-6 months. If gi bleeding occurs while on lovenox consideration of a filter is appropriate. Will continue to trend hemoglobin. 5. Left moderate hydroureteronephrosis secondary to mass effect of extensive lymphadenopathy in pelvis, Hematuria--improved with left ureteral stent placement and cystoscopy on 02/05. Biopsy of bladder taken at the left ureteral orifice. Also found to have enlarged prostate. Hematuria persists but is improved, is secondary to bladder biopsy, stent placement, and anticoagulation on board. Not concerning to Urology as long as is able to void and hgb stable -Urology consulted, appreciate recs -Started Flomax and finasteride -f/u Urology Dr. Osmar Patel in 2 weeks after stent placement -stent should remain in place until treatment of lymphoma completed 6. ANTONIA on CKD stage III--resolved, was secondary to hydronephrosis from compression on left ureter -Cr. 1.8 on arrival with baseline of 1.3 - 1.4 -Creatinine back to baseline s/p ureteral stent placement -avoid nephrotoxins -renally dose meds 7. Permanent Atrial fibrillation--rate controlled, no issues -D/C'd Pradaxa and will be on Lovenox -continue Toprol XL 50mg daily -Recent ECHO (01/28/17) with EF of 50-55%. Right ventricle mild to moderate dilation, moderate MR, left atrium mildly dilated, mild to moderate TR, elevated ventricular systolic pressure at 40-50 mmHg. -Has outpatient f/u with Dr. Macdonald/Cardiology scheduled on 02/20-should keep this appointment Hyperlipidemia-stable, no issues -Continue simvastatin 20 mg PO qd 7. Code Status FULL RESUSCITATION STATUS. Advanced care planning discussed in detail with the patient and his . The conversation project was recommended as a resource for further information. POLST form reviewed and discussed with the patient. Prophylaxis-Lovenox Dispo- PT/OT evals recommending SNF/Rehab for deconditioning due to hospitalization. Pt and would like to try for [facility] or [facility]. I discussed the case with [facility] outbound sales representative. Tx for lymphoma would start after rehab. Discharge planning: detention facility (for rehab)
[2017-02-11 15:45] VITALS: BP 106/67; PULSE 81; TEMP 36.6; O2SAT 96
[2017-02-11 16:00] VITALS: O2SAT 96
[2017-02-11] MEDS: TAMSULOSIN HCL 0.4 MG CAP PO SCH (21:04)
[2017-02-11] MEDS: SIMVASTATIN 20 MG TAB PO SCH (21:04)
[2017-02-12 00:04] VITALS: BP 105/68; PULSE 85; TEMP 37.5; O2SAT 98
[2017-02-12] MEDS: ENOXAPARIN 80 MG/0.8 ML SYR SQ SCH (06:18)
[2017-02-12 07:30] VITALS: O2SAT 97
[2017-02-12 07:44] VITALS: O2SAT 98
[2017-02-12] MEDS: FINASTERIDE 5 MG TAB PO SCH (08:14)
[2017-02-12] MEDS: METOPROLOL SUCC 50MG EXT REL TAB PO SCH (08:14)
[2017-02-12 08:18] VITALS: BP 113/76; PULSE 84; TEMP 36.4; O2SAT 97
[2017-02-12] MEDS: HYDROCORTISONE 1% CR 30 GM TUBE EXT SCH (08:18)
[2017-02-12 09:11] LABS: HEMATOCRIT 34.3 % (42-52); MEAN CELL VOLUME 82.9 fL (80-100); MEAN CORPUSCULAR HEMOGLOBIN 28.5 pg (25-34); MEAN CORPUSCULAR HGB CONC 34.4 g/dl (32-36); MEAN PLATELET VOLUME 9.3 fL (7.4-10.4); PLATELET COUNT 281 K/uL (130-400); RED BLOOD COUNT 4.14 M/uL (4.7-6.1); WHITE BLOOD COUNT 3.83 K/uL (4.8-10.8)
[2017-02-12 14:50] VITALS: BP 97/59; PULSE 82; TEMP 36.4; O2SAT 97
[2017-02-12 15:48] VITALS: BP 97/59; PULSE 82; TEMP 36.4; O2SAT 97
--- NOTE | 2017-02-24 04:34 | DISCHARGE SUMMARY ---
Please see dictated H\T\P for full details of his presentation. BRIEFLY: The patient is an 81-year-old with a history of atrial fibrillation who was on Pradaxa, hypertension, diabetes, diverticulosis, who presented for evaluation of hypercalcemia and acute renal failure. He had had a history of a recent GI bleed. His brought him in for increasing confusion. The patient reported intermittent rectal bleeding which started in November and was being worked up by his primary care physician. He was seeing bright red blood per rectum with no black or tarry stools. Ultrasound done January 22, was negative for DVT. His calcium level was 13.3 and creatinine was 1.8 and he was admitted for a workup of his hypercalcemia. Chest x-ray showed a left basilar linear density favoring subsegmental atelectasis or scarring. The patient was treated with pamidronate 60 mg IV x1 and normal saline for his acute kidney injury and chronic kidney disease stage III. He received IV fluids, nephrotoxins and NSAIDs were held and a CAT scan of his abdomen and pelvis were performed. CAT scan of his abdomen and pelvis showed extensive periaortic bilateral iliac chain and left pelvic side wall lymphadenopathy in addition to a left perirectal mass with associated rectal wall thickening. Overall, the findings are only suggests lymphoma. A rectal adenocarcinoma could appear similar, although it is considered much less likely. 2. Extensive left colon diverticulosis without convincing evidence for acute diverticulitis and 3 mild left hydroureteronephrosis, likely due to mass effect upon the distal left ureter by lymphadenopathy which extends to the left ureterovesicular junction. He also had a chest CT which showed no evidence of pneumonia, mildly enlarged distal periesophageal lymph note. This lymph node is indeterminate and pathologically enlarged. Correlation with a history of malignancy is recommended. A urology consultation was obtained with Dr. Osmar Patel. Gastroenterology consultation was obtained with Dr. Chávez. On February 05, the patient underwent a cystoscopy, retrograde pyelography and ureteral stent placement on the left, left bladder biopsy, fulguration and bimanual exam by Dr. Patel. Findings: Moderate left hydronephrosis due to distal ureteral obstruction. No bladder masses within his left bladder with a trigonal mucosal biopsy. The stent in good position after completion, dense obstructive tissue at the level of distal ureter, palpable left pelvic mass on bimanual examination appears extending to the bladder and rectum, mobile and grossly bloody stool on rectal exam. The patient also underwent a colonoscopy. There were 2 sessile polyps down in the cecum, polyps were 5-8 mm in size, these polyps were removed with a hot snare, resection and retrievable were complete. There was a scattered small amount of diverticula found in the entire colon. An infiltrative and ulcerated nonobstructing large mass was found on the rectum, the mass was noncircumferential, mass measured 5 cm in length, in addition the diameter measured 21 mm. Oozing was present; this was biopsied with cold forceps for histology. DISCHARGE RECOMMENDATIONS: To advance diet as tolerated and resume heparin at prior dose and await pathology results. The patient was discovered to have an acute DVT in the left lower extremity, which was present on admission. Ultimate decision was made to treat the patient with Lovenox. 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 His hemoglobin was 11.8 on the date of discharge February 12 with a platelet count of 281 and a white count of 3.83. His creatinine was 1.3 on February 10, which was down from 1.5 on the . Albumin level was 2.2. DISCHARGE DIAGNOSES: 1. Hypercalcemia secondary to lymphoma. 2. Diffuse large B cell lymphoma. The patient will proceed treatment with Dr. Rolando Weber. He will need a bone marrow aspirate and PET scan for staging. 3. Rectal bleeding secondary to rectal lymphoma. 4. Acute proximal deep vein thrombosis in the left lower extremity which was present on admission. Lovenox 80 mg subQ twice a day 5. Left moderate hydronephrosis secondary to extension of lymphadenopathy. He is status post a ureteral stent by Dr. Osmar Patel. Followup in 2 weeks. 6. Acute kidney injury on chronic kidney disease stage III, has improved with hydration. Avoid nephrotoxins. 7. Atrial fibrillation, rate controlled. Pradaxa has been discontinued. The patient is on Lovenox and continue Toprol-XL. CODE STATUS: He is a full code. Advanced care planning was done with the patient and his . POLST form was reviewed and discussed with the patient and his . The patient's all questions were answered on the date of discharge to the patient's satisfaction. Time spent reviewing the chart and discussion with the patient on the day of discharge - 35 minutes.
[2017-03-17] MEDS ORDERED: POLY335019 PO (10:44)
[2017-03-17] MEDS ORDERED: LACT1TAB4 PO (10:44)
[2017-03-17] MEDS ORDERED: ALLO100T PO (10:44)
[2017-03-17] MEDS ORDERED: SODIENE PR (10:44)
[2017-03-17] MEDS ORDERED: BISA10SU38 PR (10:44)
[2017-03-17] MEDS ORDERED: MOML PO (10:44)
[2017-03-17] MEDS ORDERED: ACET325T96 PO (10:44)
[2017-03-17] MEDS ORDERED: FINA5TAB PO (10:44)
[2017-03-17] MEDS ORDERED: POTA10CA28 PO (10:44)
[2017-03-17] MEDS ORDERED: DOCU-94 PO (10:44)
[2017-03-17] MEDS ORDERED: METO1TAB31 PO (10:44)
[2017-03-17] MEDS ORDERED: TAMS0.4C38 PO (10:44)
[2017-03-31] MEDS ORDERED: HYDR-5688 PO (13:13)
[2017-04-30] MEDS ORDERED: NUTR-977 PO (13:14)
[2017-04-30] MEDS ORDERED: ACET-1311 PO (13:14)
[2017-05-15] MEDS ORDERED: SULF800T23 PO (12:54)
[2017-05-15] MEDS ORDERED: PHEN-939 PO (12:54)
== END 2017-02-12 17:30 | disposition home health service (06) | DRG 824 ==
LOC: ENRESERVTM → ENRESERVDT → C.EDB 14:51 → C.2T 17:23 → C.MS2W 02-07 15:30
PROVIDERS: ADMIT Hospitalist; ATTEND Internal Medicine
PROC: 0TBB8ZZ Excision of Bladder, Via Natural or Artificial Opening Endoscopic (ICD-10-PCS; principal; 2017-02-05 17:45)
PROC: 0T778DZ Dilation of Left Ureter with Intraluminal Device, Via Natural or Artificial Opening Endoscopic (ICD-10-PCS; principal; 2017-02-05 17:45)
PROC: 0DBP8ZX Excision of Rectum, Via Natural or Artificial Opening Endoscopic, Diagnostic (ICD-10-PCS; 2017-02-06)
PROC: 0DBH8ZX Excision of Cecum, Via Natural or Artificial Opening Endoscopic, Diagnostic (ICD-10-PCS; 2017-02-06)
DX: C83.36 Diffuse large B-cell lymphoma, intrapelvic lymph nodes (principal); K92.2 Gastrointestinal hemorrhage, unspecified; D62 Acute posthemorrhagic anemia; N17.9 Acute kidney failure, unspecified; I82.812 Embolism and thrombosis of superficial veins of left lower extremity; N18.3 Chronic kidney disease, stage 3 (moderate); E83.52 Hypercalcemia; I48.91 Unspecified atrial fibrillation; E11.9 Type 2 diabetes mellitus without complications; M10.9 Gout, unspecified; N40.1 Benign prostatic hyperplasia with lower urinary tract symptoms; R31.0 Gross hematuria; E78.5 Hyperlipidemia, unspecified; Z79.01 Long term (current) use of anticoagulants; Z79.82 Long term (current) use of aspirin; N32.0 Bladder-neck obstruction; R73.09 Other abnormal glucose

== ENCOUNTER → 2017-02-03 | Outpatient (CLI) | payer BC ==
[~2017-02-03] MED LIST: ACET-1311 PO; ACET325T96 PO; ALL100 PO; ALLO100T PO; AMOX1TAB43 PO; ASPI-232 PO; BISA10SU38 PR; CPR500 PO; DABI150C PO; DOCU-94 PO; ENOX60IN SQ; ENOX80IN SQ; FINA5TAB PO; FLM4 PO; HYDR-5688 PO; HYDR1OIN EXT; KFL500 PO; LACT1TAB4 PO; LCTX PO; LVNIS40 SQ; LVNIS80 SQ; METO-217 PO; METO1TAB31 PO; METO25TA56 PO; METO50TA7 PO; MOML PO; MRLP17 PO; NUTR-977 PO; OXYC-57 PO; PHEN-939 PO; POLY335019 PO; POTA10CA28 PO; PRD10 PO; PRD50 PO; PRS5 PO; SIMV20TA2 PO; SODIENE PR; SULF800T23 PO; TAMS0.4C38 PO; TPRSR25 PO; TRAM-10 PO; [UNRECOGNIZED DRUG - OTHER]
[2017-02-03 09:50] LABS: BASO % 0.9 %; BASO ABS # 0.05 K/uL (0-0.2); COMPLETE YES; EOS % 1.8 %; IG% 0.2 %; LYMPH % 29.9 %; MEAN CELL VOLUME 83.8 fL (80-100); MEAN CORPUSCULAR HEMOGLOBIN 28.7 pg (25-34); MEAN CORPUSCULAR HGB CONC 34.2 g/dl (32-36); MEAN PLATELET VOLUME 9.9 fL (7.4-10.4); MONO % 12.3 %; NEUT % 54.9 %; PLATELET COUNT 291 K/uL (130-400); RED BLOOD COUNT 5.13 M/uL (4.7-6.1); WHITE BLOOD COUNT 5.68 K/uL (4.8-10.8)
[2017-02-03 09:59] LABS: ALT/SGPT 15 U/L (12-78); AST/SGOT 32 U/L (15-37); BLOOD UREA NITROGEN 30 mg/dl (7-18); BUN/CREATININE RATIO 16.4 (10-20); CALCIUM 13.3 mg/dl (8.5-10.1); CARBON DIOXIDE 31 mmol/L (21-32); CHLORIDE 98 mmol/L (98-107); CHOLESTEROL 122 mg/dl (0-200); GLUCOSE 96 mg/dl (70-99); SODIUM 136 mmol/L (136-145)
[2017-02-03 10:00] LABS: CHOLESTEROL/HDL RATIO 3.8; HDL CHOLESTEROL 32 mg/dl; LDL CHOLESTEROL CALCULATED 62 mg/dl; TRIGLYCERIDES 139 mg/dl (0-150); VERY LOW DENSITY LIPOPROT CALC 28 mg/dl
[2017-02-03 10:29] LABS: ESTIMATED AVERAGE GLUCOSE 128 mg/dl; HA1C FLAG Normal (Normal)
== END | disposition home or self-care (01) ==
LOC: C.LAB1850 07:57
PROVIDERS: ATTEND Internal Medicine
DX: R73.09 Other abnormal glucose (principal); E78.5 Hyperlipidemia, unspecified; I48.91 Unspecified atrial fibrillation

== ENCOUNTER 2017-02-24 13:08 | Inpatient (IN) | payer BC, OTHER ==
[~2017-02-24] VITALS: Ht 185.4 cm; Wt 84.2 kg
[~2017-02-24 13:08] MED LIST changes: -ACET-1311 PO; -ACET325T96 PO; -ALL100 PO; -ALLO100T PO; -AMOX1TAB43 PO; -ASPI-232 PO; -BISA10SU38 PR; -CPR500 PO; -DABI150C PO; -DOCU-94 PO; -ENOX60IN SQ; -ENOX80IN SQ; -FINA5TAB PO; -HYDR-5688 PO; -KFL500 PO; -LACT1TAB4 PO; -LCTX PO; -LVNIS40 SQ; -METO-217 PO; -METO1TAB31 PO; -METO25TA56 PO; -METO50TA7 PO; -MOML PO; -MRLP17 PO; -NUTR-977 PO; -OXYC-57 PO; -PHEN-939 PO; -POLY335019 PO; -POTA10CA28 PO; -PRD10 PO; -PRD50 PO; -SODIENE PR; -SULF800T23 PO; -TAMS0.4C38 PO; -TPRSR25 PO; -TRAM-10 PO; -[UNRECOGNIZED DRUG - OTHER]
[2017-02-24] MEDS ORDERED: METO50TA7 PO (14:00)
[2017-02-24] MEDS ORDERED: TAMS0.4C38 PO (14:00)
[2017-02-24] MEDS ORDERED: FINA5TAB PO (14:00)
[2017-02-24] MEDS ORDERED: ENOX80IN SQ (14:00)
[2017-02-24] MEDS ORDERED: SODIUM CHLORIDE 0.9% 1000ML 1,000 ML IV STA ×2 (14:02→15:25)
[2017-02-24 14:49] LABS: HEMATOCRIT 31.2 % (42-52); MEAN CORPUSCULAR HEMOGLOBIN 28.6 pg (25-34); MEAN CORPUSCULAR HGB CONC 35.3 g/dl (32-36); MEAN PLATELET VOLUME 8.9 fL (7.4-10.4); PLATELET COUNT 357 K/uL (130-400); RED BLOOD COUNT 3.85 M/uL (4.7-6.1); WHITE BLOOD COUNT 4.36 K/uL (4.8-10.8)
[2017-02-24 14:57] LABS: INR 1.1 (0.9-1.1); PARTIAL THROMBOPLASTIN RATIO 1.3; PROTHROMBIN TIME (PATIENT) 11.7 SECONDS (9.0-12.0)
[2017-02-24 15:20] LABS: BASO % 0.2 %; BASO ABS # 0.01 K/uL (0-0.2); COMPLETE YES; EOS % 0.2 %; IG% 0.5 %; LYMPH % 12.8 %; LYMPH ABS # 0.56 K/uL (1.2-3.4); MONO % 10.6 %; NEUT % 75.7 %
[2017-02-24 15:22] LABS: BUN/CREATININE RATIO 19.2 (10-20); CALCIUM 12.2 mg/dl (8.5-10.1); CREATININE 2.2 mg/dl (0.60-1.40); POTASSIUM 4.1 mmol/L (3.5-5.1)
--- NOTE | 2017-02-24 16:18 | History and Physical ---
History & Physical Date & Time of Service: Feb 24, 2017 at 16:15 Chief Complaint: Rectal Bleeding & Fatigue Primary Care Physician: Juan Daniel Pettit M.D. History of Present Illness Source: patient, family pt presents with significant bright red blood per rectum, large clots and some minor left flank pain, persistent massive left lower extremity edema from acute DVT, has upcomming staging PET scan and follows with Dr Mann for possible chemo next week for B Cell Lymphoma. IN the er initially hypotensive, helped with IVf and HGB stable in the 11 range Past Medical/Surgical History Medical Problems: (1) ATRIAL FIBRILLATION Status: Chronic (2) DIAB OBDULIA WO COMPL, TYPE II OR UNSPEC TYPE, NOT UNCNTRLD Status: Chronic (3) DIVERTICULOSIS COLON (W/O MENT OF HEMORRHAGE) Status: Chronic (4) Gout Status: Chronic (5) HYPERLIPIDEMIA NEC/NOS Status: Chronic (6) HYPERPLASIA OF PROSTATE Status: Chronic Family History FH: cancer Social History Smoking Status: Never Smoker Drug Use: none Marital Status: Housing status: lives with significant other Occupational Status: retired Multi-Drug Resistant Organisms History of MDRO: No Allergies Coded Allergies: No Known Allergies (Verified , 02/24/17) Home Medications Scheduled Enoxaparin (Lovenox), 80 MG SQ Q12H Finasteride (Proscar), 5 MG PO DAILY Metoprolol Succ (Toprol Xl) (Toprol-Xl), 50 MG PO DAILY Tamsulosin Hcl (Flomax), 0.4 MG PO HS Review of Systems Constitutional: + fatigue, + weakness, No chills, No fever Eyes: No eye pain, No worsening of vision ENT: No nasal symptoms, No unusual epistaxis Respiratory: No sputum, No wheezing Cardiovascular: No chest pain, No orthopnea Abdomen: + GI bleeding, + diarrhea (clots), + pain, No constipation, No nausea , No vomiting Musculoskeletal: + calf pain, + joint pain, + problem reported (left leg swelling), + swelling Genitourinary - Male: No dysuria, No hematuria Neurologic: No memory loss, No paralysis Psychiatric: No depression symptoms Endocrine: + fatigue, No excessive thirst Hematologic / Lymphatic: + abnormal bleeding/bruising, + clotting problems Integumentary: No itch, No rash Physical Exam Vital Signs Date Time Temp Pulse Resp B/P Pulse Ox O2 Delivery O2 Flow Rate FiO2 02/24/17 14:56 104/64 02/24/17 14:37 86 02/24/17 14:32 76 18 88/59 92 Room Air 02/24/17 14:32 96 Room Air 02/24/17 13:17 91 16 109/65 93 Room Air General Appearance: WD/WN, + mild distress Head: normocephalic, atraumatic Eyes: PERRL, EOMI ENT: hearing grossly normal, pharynx normal Neck: supple, no JVD Respiratory/Chest: chest non-tender, lungs clear, normal breath sounds Cardiovascular: no murmur, + irregularly irregular Abdomen/GI: normal bowel sounds, non tender, soft Back: normal inspection, no CVA tenderness Extremities/Musculoskelatal: + pedal edema, + swelling (large left leg swelling and pain to exam) Neurologic/Psych: alert, oriented x 3 Diagnostics Laboratory Results Results Past 24 Hours Test 02/24/17 14:20 02/24/17 14:27 Range/Units White Blood Count 4.36 4.8-10.8 K/uL Red Blood Count 3.85 4.7-6.1 M/uL Hemoglobin 11.0 14.0-18.0 g/dL Hematocrit 31.2 42-52 % Mean Corpuscular Volume 81.0 80-100 fL Mean Corpuscular Hemoglobin 28.6 25-34 pg Mean Corpuscular Hemoglobin Concent 35.3 32-36 g/dl Platelet Count 357 130-400 K/uL Mean Platelet Volume 8.9 7.4-10.4 fL Neutrophils (%) (Auto) 75.7 % Lymphocytes (%) (Auto) 12.8 % Monocytes (%) (Auto) 10.6 % Eosinophils (%) (Auto) 0.2 % Basophils (%) (Auto) 0.2 % Neutrophils # (Auto) 3.30 1.4-6.5 K/uL Lymphocytes # (Auto) 0.56 1.2-3.4 K/uL Monocytes # (Auto) 0.46 0.11-0.59 K/uL Eosinophils # (Auto) 0.01 0-0.5 K/uL Basophils # (Auto) 0.01 0-0.2 K/uL RDW Standard Deviation 43.5 36.4-46.3 fL RDW Coefficient of Variation 14.9 11.5-14.5 % Immature Granulocyte % (Auto) 0.5 % Immature Granulocyte # (Auto) 0.02 0.00-0.02 K/uL Prothrombin Time 11.7 9.0-12.0 SECONDS Prothromb Time International Ratio 1.1 0.9-1.1 Activated Partial Thromboplast Time 33.6 21.0-31.0 SECONDS Partial Thromboplastin Ratio 1.3 Sodium Level 131 136-145 mmol/L Potassium Level 4.1 3.5-5.1 mmol/L Chloride Level 93 98-107 mmol/L Carbon Dioxide Level 26 21-32 mmol/L Anion Gap 12.0 3-11 mmol/L Blood Urea Nitrogen 42 7-18 mg/dl Creatinine 2.20 0.60-1.40 mg/dl Est Creatinine Clear Calc Drug Dose 27.0 ml/min Estimated GFR () 31.0 Estimated GFR (Non- 26.7 BUN/Creatinine Ratio 19.2 10-20 Random Glucose 103 70-99 mg/dl Calcium Level 12.2 8.5-10.1 mg/dl Total Bilirubin 0.5 0.2-1 mg/dl Direct Bilirubin 0.2 0-0.2 mg/dl Aspartate Amino Transf (AST/SGOT) 48 15-37 U/L Alanine Aminotransferase (ALT/SGPT) 21 12-78 U/L Alkaline Phosphatase 78 45-117 U/L Total Protein 5.9 6.4-8.2 gm/dl Albumin 2.6 3.4-5.0 gm/dl Lipase 73 73-393 U/L Diagnostic Radiology pending CT abd/pelvis on admission CXR normal other (afib) Impression Assessment and Plan 81 y/o male with a history of permanent a-fib, recent DVT on therapeutic lovenox , , HTN, DM II (managed off medications), CKD stage III, HLD, and recent GI bleeding from rectal invasion of Lymphoma. has acute on chronic renal failure with recent stenting of left hydroureter that was caused by bulky pelvic lymphadenopathy Rectal bleeding secondary to rectal lymphoma-mild, hgb stable. will stop lovenox , discussion if adjuvant treatment is needed locally such as XRT or begin chemo , will treat with supportive care at this point. Last admission did have colonoscopy with 2 sessile polyps which were removed. Infiltrative and ulcerated non-obstructing large mass at rectum measuring 5 x 21 cm which was biopsied and showed lymphoma Acute proximal DVT in left lower extremity--present on admission, stable, no evidence of PE -LLE Doppler U/S positive for DVT in the left common femoral vein and proximal superficial femoral vein transitioned to Lovenox 80mg SQ bid will hold and evaluate for filter 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 Mild left hydroureteronephrosis likely due to mass effect of LAD. Also enlarged, 2.1 x 1.3 cm distal paraesophageal lymph node, consult Dr Mann as coordination of treatment of this and Hypercalcemia-- one dose of pamidronate last admission, hydrate and discuss with oncology if additional dose, secondary to malignancy. Acute on chronic renal failure, h/o Left moderate hydroureteronephrosis secondary to mass effect of extensive lymphadenopathy in pelvis,--s/p left ureteral stent placement and cystoscopy on 02/05. Will review CT on admission and consider if urology is needed after hydration Flomax and finasteride Permanent Atrial fibrillation--rate controlled, Toprol XL 50mg daily ECHO (01/28/17) with EF of 50-55%. Right ventricle mild to moderate dilation, moderate MR Code Status FULL RESUSCITATION STATUS VTE Prophylaxis VTE Risk Assessment Done? Y/N: Yes Risk Level: High
[2017-02-24] MEDS ORDERED: METO-217 PO (16:30)
--- NOTE | 2017-02-24 17:55 | EMERGENCY ROOM VISIT NOTE ---
History Report prepared by David: Moris Candelario Under the Supervision of: Dr. Jad Mauricio D.O. First contact with patient: 14:00 Chief Complaint: RECTAL BLEEDING Stated Complaint: RECTAL BLEEDING & FATIGUE Nursing Triage Summary: Pt with . Reports rectal bleding and fatigue. "a little bit since this Lymhoma started. It's been happening more. the visiting nurse said it needs to be looked at today". Pt is on Lovenox, took this morning. Pt easily fatigues, per patel to be lowered to floor yesterday, but denies fall. pt reports some discomfort History of Present Illness The patient is an 81 year old male who presents to the Emergency Room with complaints of worsening rectal bleeding for the past 3-4 days. The patient states that he has had bleeding since January 22, though it has gotten worse. The patient states that the bleeding is a bright red, and when he has a bowel movement, the stool is a black color. The states that the patient has a mass around and in the rectum. She additionally states that he is taking Lovenox for a blood clot in his leg. The patient states that he still has a stent in, and he has a history of A-fib. He additionally states that he has been having some weakness, and he denies any confusion. Pt denies headache, change in vision, fevers, chest pain, shortness of breath, nausea, vomiting, diarrhea, and pain with urination. Source of History: patient Onset: 3-4 days ago Position: other (rectum) Quality: other (bleeding) Timing: worsening Associated Symptoms: + melena, + weakness Review of Systems See HPI for pertinent positives & negatives. A total of 10 systems reviewed and were otherwise negative. Past Medical & Surgical Medical Problems: (1) ATRIAL FIBRILLATION (2) DIAB OBDULIA WO COMPL, TYPE II OR UNSPEC TYPE, NOT UNCNTRLD (3) DIVERTICULOSIS COLON (W/O MENT OF HEMORRHAGE) (4) Gout (5) Hypercalcemia (6) HYPERLIPIDEMIA NEC/NOS (7) HYPERPLASIA OF PROSTATE (8) Rectal bleed Family History FH: cancer Social History Smoking Status: Never Smoker Alcohol Use: none Drug Use: none Marital Status: Occupation Status: retired Current/Historical Medications Scheduled Enoxaparin (Lovenox), 80 MG SQ Q12H Finasteride (Proscar), 5 MG PO DAILY Metoprolol Succ (Toprol Xl) (Toprol-Xl), 50 MG PO DAILY Tamsulosin Hcl (Flomax), 0.4 MG PO HS Allergies Coded Allergies: No Known Allergies (Verified , 02/24/17) Physical Exam Vital Signs Date Time Temp Pulse Resp B/P Pulse Ox O2 Delivery O2 Flow Rate FiO2 02/24/17 16:36 81 20 129/75 98 Room Air 02/24/17 14:56 104/64 02/24/17 14:37 86 02/24/17 14:32 76 18 88/59 92 Room Air 02/24/17 14:32 96 Room Air 02/24/17 13:17 91 16 109/65 93 Room Air Physical Exam .GENERAL: Sitting up in bed, chronically ill appearing, no distress, non-toxic EYE EXAM: normal conjunctiva, PERRL and EOM's grossly intact OROPHARYNX: no exudate, no erythema, lips, buccal mucosa, and tongue normal and mucous membranes are moist NECK: supple, no nuchal rigidity, no adenopathy, non-tender LUNGS: Clear to auscultation. Normal chest wall mechanics HEART: no murmurs, S1 normal and S2 normal ABDOMEN: abdomen soft, non-tender, normo-active bowel sounds, no masses, no rebound or guarding. BACK: Back is symmetrical on inspection and there is no deformity, no midline tenderness, no CVA tenderness. RECTAL: gross blood present in Depends. No active bleeding. SKIN: no rashes and no bruising UPPER EXTREMITIES: upper extremities are grossly normal. LOWER EXTREMITIES: Right lower extremity smaller than left NEURO EXAM: Normal sensorium, cranial nerves II-XII grossly intact, normal speech, no gross weakness of arms, no gross weakness of legs. Medical Decision & Procedures Laboratory Results 02/24/17 14:27 Red Blood Count 3.85, Mean Corpuscular Volume 81.0, Mean Corpuscular Hemoglobin 28.6, Mean Corpuscular Hemoglobin Concent 35.3, Mean Platelet Volume 8.9, Neutrophils (%) (Auto) 75.7, Lymphocytes (%) (Auto) 12.8, Monocytes (%) (Auto) 10.6, Eosinophils (%) (Auto) 0.2, Basophils (%) (Auto) 0.2, Neutrophils # (Auto ) 3.30, Lymphocytes # (Auto) 0.56, Monocytes # (Auto) 0.46, Eosinophils # (Auto ) 0.01, Basophils # (Auto) 0.01 02/24/17 14:27 Test 02/24/17 14:20 02/24/17 14:27 Heparin Anti-Xa Act, Low Molec Wt 2.16 IU/ML (0 - <0.10) White Blood Count 4.36 K/uL (4.8-10.8) Red Blood Count 3.85 M/uL (4.7-6.1) Hemoglobin 11.0 g/dL (14.0-18.0) Hematocrit 31.2 % (42-52) Mean Corpuscular Volume 81.0 fL (80-100) Mean Corpuscular Hemoglobin 28.6 pg (25-34) Mean Corpuscular Hemoglobin Concent 35.3 g/dl (32-36) Platelet Count 357 K/uL (130-400) Mean Platelet Volume 8.9 fL (7.4-10.4) Neutrophils (%) (Auto) 75.7 % Lymphocytes (%) (Auto) 12.8 % Monocytes (%) (Auto) 10.6 % Eosinophils (%) (Auto) 0.2 % Basophils (%) (Auto) 0.2 % Neutrophils # (Auto) 3.30 K/uL (1.4-6.5) Lymphocytes # (Auto) 0.56 K/uL (1.2-3.4) Monocytes # (Auto) 0.46 K/uL (0.11-0.59) Eosinophils # (Auto) 0.01 K/uL (0-0.5) Basophils # (Auto) 0.01 K/uL (0-0.2) RDW Standard Deviation 43.5 fL (36.4-46.3) RDW Coefficient of Variation 14.9 % (11.5-14.5) Immature Granulocyte % (Auto) 0.5 % Immature Granulocyte # (Auto) 0.02 K/uL (0.00-0.02) Prothrombin Time 11.7 SECONDS (9.0-12.0) Prothromb Time International Ratio 1.1 (0.9-1.1) Activated Partial Thromboplast Time 33.6 SECONDS (21.0-31.0) Partial Thromboplastin Ratio 1.3 Anion Gap 12.0 mmol/L (3-11) Est Creatinine Clear Calc Drug Dose 27.0 ml/min Estimated GFR () 31.0 Estimated GFR (Non- 26.7 BUN/Creatinine Ratio 19.2 (10-20) Calcium Level 12.2 mg/dl (8.5-10.1) Total Bilirubin 0.5 mg/dl (0.2-1) Direct Bilirubin 0.2 mg/dl (0-0.2) Aspartate Amino Transf (AST/SGOT) 48 U/L (15-37) Alanine Aminotransferase (ALT/SGPT) 21 U/L (12-78) Alkaline Phosphatase 78 U/L (45-117) Total Protein 5.9 gm/dl (6.4-8.2) Albumin 2.6 gm/dl (3.4-5.0) Lipase 73 U/L (73-393) Laboratory results per my review. Medications Administered Medications (Trade) Dose Ordered Sig/Estevan Route Start Time Stop Time Status Last Admin Dose Admin Sodium Chloride 1,000 ml @ 999 mls/hr Q1H1M STAT IV 02/24/17 14:02 02/24/17 15:02 DC 02/24/17 14:02 999 MLS/HR Sodium Chloride (Nss 1000ml) 1,000 ml @ 999 mls/hr Q1H1M STAT IV 02/24/17 15:25 02/24/17 16:25 DC 02/24/17 16:35 999 MLS/HR ECG Indication: other (rectal bleeding) Rate (beats per minute): 88 Rhythm: atrial fibrillation Findings: PVC, RBBB, left axis deviation Comparison ECG Date: 02/03/17 Change: Left axis deviation is new. A-fib is old, and RBBB is old ED Course ED COURSE: Vital signs were reviewed and showed normal vitals The patients medical record was reviewed The above diagnostic studies were performed and reviewed. ED treatments and interventions as stated above. 1400: The patient was evaluated in room B9. A complete history and physical examination was performed. 1402: Sodium Chloride 1000 ml @ 999 mls/hr IV 1525: Sodium Chloride 1000 ml @ 999 mls/hr IV 1530: I discussed the patient's case with Dr. Milian. He is going to evaluate the patient for further treatment 1535: Upon reevaluation, the patient is resting.I discussed my findings with the patient and he understands and agrees with the treatment plan. Based on the patients age, coexisting illnesses, exam and lab findings the decision to treat as an inpatient was made. The patient remained stable while under my care. The patient will be evaluated for further management. 1545: I discussed the patient's case with Dr. Weber, Oncology, and we discussed the benefits of radiation for B9 Medical Decision Differential diagnosis includes etiologies such as diverticulosis, AVM, coagulopathy, colitis, inflammatory bowel disease, malignancy, Minal-Ewing tear, esophagitis, peptic ulcer disease, variceal bleed, gastritis, epistaxis, fissure, hemorrhoids, as well as others were entertained. Patient is an 81-year-old male who presents the ER for bright red blood per rectum. This is been present since November. He was scoped by GI within the past month which showed a rectal mass she is believed to be a lymphoma in combination with 2 polyps which were removed. This was performed by Dr. cosby. He has no abdominal pain today. Labs show a hemoglobin of 11 consistent with his previous. BMP shows an elevated creatinine of 2.2 off of a baseline of 1.2. BUN is elevated although I favor this is secondary to dehydration. Calcium is once again elevated at 12.2 secondary to the malignancy. PTT is slightly elevated at 33. 10 a is elevated at 2.1. Patient has not had any large bowel movements of blood while in the ER and consequently I did not elect to reverse him as he has DVTs and A. fib. I discussed this case with GI, hematology oncology and internal medicine. He is admitted to internal medicine for further workup. He was stable and vitals remained stable. Consults Time Called: 1525 Consulting Physician: Dr. Milian Returned Call: 1530 I discussed the patient's case with Dr. Milian. He is going to evaluate the patient for further treatment Additional Consults: Time Called: 1540 Consulted Physician: Dr. Weber Returned Call: 1545 Additional Comments: I discussed the patient's case with Dr. Weber, Oncology, and we discussed the benefits of radiation for B9 Impression Primary Impression: GI bleed Additional Impressions: Rectal mass Anemia ATRIAL FIBRILLATION Hypercalcemia Scribe Attestation The scribe's documentation has been prepared under my direction and personally reviewed by me in its entirety. I confirm that the note above accurately reflects all work, treatment, procedures, and medical decision making performed by me. Departure Information Dispostion Being Evaluated By Hospitalist Referrals ProJuan Daniel M.D. (PCP) Problem Qualifiers Primary Impression: GI bleed GI bleed type/associated pathology: unspecified gastrointestinal hemorrhage type Qualified Codes: K92.2 - Gastrointestinal hemorrhage, unspecified Additional Impressions: Anemia Anemia type: unspecified type Qualified Codes: D64.9 - Anemia, unspecified
[2017-02-24 18:08] VITALS: O2SAT 96; Ht 185.4 cm; Wt 84.2 kg
[2017-02-24 19:03] VITALS: BP 134/83; PULSE 96; TEMP 36.5; O2SAT 98
[2017-02-24] MEDS: SODIUM CHLORIDE 0.9% 1000ML 1,000 ML IV SCH (19:08)
--- NOTE | 2017-02-24 19:27 | DIAGNOSTIC IMAGING REPORT ---
CT OF THE ABDOMEN AND PELVIS WITH ORAL CONTRAST CT DOSE: 470.90 mGycm CLINICAL HISTORY: Lymphoma. Ureteral stent. Rectal bleeding. Fatigue. TECHNIQUE: Axial images of the abdomen and pelvis were obtained without IV contrast. Oral contrast was administered. COMPARISON STUDY: CT of the abdomen and pelvis February 03, 2017. FINDINGS: Visualized portions of the lower chest demonstrate a small right pleural effusion which has increased in size since prior CT of February 03, 2017. A right paraaortic lymph node located adjacent to the distal descending thoracic aorta has increased in size since prior exam. It now measures 3.1 x 2.3 cm. It previously measured 2.1 x 1.3 cm. Unenhanced images of liver, spleen, adrenal glands and pancreas are unremarkable. I wish of the abdomen and pelvis is suboptimal on this unenhanced exam. There has been interval placement of a left ureteral stent. Mild left hydronephrosis is slightly diminished. Bulky retroperitoneal lymphadenopathy has progressed since exam of February 03, 2017. An index left para-aortic lymph node located at the level the left renal vein measures 2.8 cm. It previously measured 2.2 cm. Extensive pelvic lymphadenopathy has also progressed. A left perirectal conglomerate mass measures 8.3 x 8 cm. It previously measured 7.5 x 7.1 cm. A left iliac chain node measures 3.6 x 2.6 cm. It previously measured 2.4 x 2.1 cm. Tumor extends along the left posterior lateral wall of the bladder at the ureteral insertion site. This has progressed. There is extensive pelvic lymphadenopathy. This has moderately progressed. Mass effect upon the rectum is noted with rightward displacement of the rectum and rectal wall thickening which suggests lymphomatous involvement of the rectum. Left thigh subcutaneous edema is noted. There is also left lower quadrant retroperitoneal edema. Extensive sigmoid diverticulosis without convincing evidence for acute diverticulitis. There is no pneumatosis, free air or portal venous gas. IMPRESSION: 1. Moderate progression of extensive abdominal, pelvic and lower thoracic lymphadenopathy since exam of February 03, 2017 consistent with progression of lymphoma. Large left perirectal conglomerate megan mass with rectal wall thickening which suggests lymphomatous involvement of the rectal wall. 2. Interval placement of a left ureteral stent. Persistent, but slightly improved, left hydroureteronephrosis. 3. Extensive left colon diverticulosis without convincing evidence for acute diverticulitis. Electronically signed by: Luciano Owusu M.D. 02/24/2017 7:26 PM Dictated Date/Time: 02/24/2017 7:16 PM
[2017-02-24 20:00] VITALS: O2SAT 98
[2017-02-24 20:22] VITALS: BP 108/70; PULSE 85; TEMP 36.4; O2SAT 98
[2017-02-24] MEDS: TAMSULOSIN HCL 0.4 MG CAP PO SCH (21:30)
[2017-02-24 23:59] VITALS: O2SAT 98
[2017-02-25] VITALS (12 sets, daily range): BP systolic 96–117; BP diastolic 56–70; PULSE 71–88; TEMP 36.4–37.2; O2SAT 93–99
[2017-02-25] MEDS: SODIUM CHLORIDE 0.9% 1000ML 1,000 ML IV SCH ×3 (00:11→16:07)
[2017-02-25 02:40] LABS: URINE APPEARANCE CLOUDY (CLEAR); URINE BILIRUBIN NEG (NEG); URINE COLOR YELLOW; URINE EPITHELIAL CELL AUTO >30 /lpf (0-5); URINE NITRITE NEG (NEG); URINE PH 5.5 (4.5-7.5); URINE SPECIFIC GRAVITY 1.013 (1.000-1.030); UROBILINOGEN NEG (NEG)
[2017-02-25 02:42] LABS: MANUAL MICROSCOPIC REQUIRED? NO; REVIEW REQ? YES
[2017-02-25 07:25] LABS: HEMATOCRIT 27.5 % (42-52); MEAN CELL VOLUME 81.8 fL (80-100); MEAN CORPUSCULAR HEMOGLOBIN 27.7 pg (25-34); MEAN CORPUSCULAR HGB CONC 33.8 g/dl (32-36); MEAN PLATELET VOLUME 8.5 fL (7.4-10.4); PLATELET COUNT 298 K/uL (130-400); RED BLOOD COUNT 3.36 M/uL (4.7-6.1); WHITE BLOOD COUNT 3.32 K/uL (4.8-10.8)
[2017-02-25 07:56] LABS: BUN/CREATININE RATIO 20.8 (10-20); CALCIUM 9.9 mg/dl (8.5-10.1); CREATININE 1.6 mg/dl (0.60-1.40); POTASSIUM 3.8 mmol/L (3.5-5.1)
--- NOTE | 2017-02-25 09:17 | Surgery Consultation ---
Consultation Date of Service Feb 25, 2017. (Ying Rodríguez PA-C) Chief Complaint DVT, lymphoma, rectal bleeding (Ying Rodríguez PA-C) History of Present Illness The patient is a 81 year old male with lymphoma, admitted d/t rectal bleeding and DVT, seen in consultation today for possible IVC filter insertion. Pt denies pain and states is feeling generally well. Denies JOY, fever, chills, chest pain, SOB, adb pain, N/V, rest pain, claudication, other complaints. (Ying Rodrgíuez PA-C) Vitals Vital Signs Past 12 Hours Date Time Temp Pulse Resp B/P Pulse Ox O2 Delivery O2 Flow Rate FiO2 02/25/17 08:17 36.5 73 18 101/63 96 Room Air 02/25/17 04:00 98 02/25/17 03:37 36.4 75 18 96/61 95 Room Air 02/25/17 00:18 36.8 77 17 108/68 97 Room Air 02/24/17 23:59 98 (Ying Rodríguez PA-C) Allergies Coded Allergies: No Known Allergies (Verified , 02/24/17) Home Medications Scheduled Enoxaparin (Lovenox), 80 MG SQ Q12H Finasteride (Proscar), 5 MG PO DAILY Metoprolol Succ (Toprol Xl) (Toprol-Xl), 50 MG PO DAILY Tamsulosin Hcl (Flomax), 0.4 MG PO HS Problem List Medical Problems: (1) ATRIAL FIBRILLATION (2) DIAB OBDULIA WO COMPL, TYPE II OR UNSPEC TYPE, NOT UNCNTRLD (3) DIVERTICULOSIS COLON (W/O MENT OF HEMORRHAGE) (4) Gout (5) Hypercalcemia (6) HYPERLIPIDEMIA NEC/NOS (7) HYPERPLASIA OF PROSTATE (8) Rectal bleed (Ying Rodríguez PA-C) Surgical / Medical History Hx Cardiac Surgery: No Hx Abdominal Surgery: No Hx Cancer Surgery: No Hx Thoracic Surgery: No Hx Orthopedic: No Hx Urinary Tract Surgery: No Past Medical/Surgical History: Cancer, Hypertension (Ying Rodríguez PA-C) Family History FH: cancer (Ying Rodríguez PA-C) FH: cancer (Taco Gupta M.D.) Social History Smoking Status: Never Smoker Hx Tobacco Use In Past Year?: No Hx Alcohol Use - Type & Amnt: No Hx Substance Use -Type & Amnt: No (Ying Rodríguez PA-C) Review of Systems Constitutional: + malaise, No chills, No fever Skin: No change in color Eyes: No visual changes ENMT: No sore throat Respiratory: No AGUILAR, No cough, No hemoptysis, No short of breath Cardiovascular: No chest pain, No edema, No intermittent claudication, No palpitations, No syncope Gastrointestinal: No abdominal pain, No diarrhea, No nausea Neurologic: No dizziness, No lethargy, No numbness, No tingling (Ying Rodríguez PA-C) Physical Exam Constitutional: General Apperance: well-nourished, well-developed Level of Distress: NAD, chronically ill Psychiatric: Mental Status: active & alert, normal mood, normal affect Orientation: oriented except where noted, to time, to place, to person Memory: recent memory normal, remote memory normal Head: normocephalic, atraumatic Eyes: EOM: EOMI ENMT: normal ENT inspection, hearing grossly normal Neck: supple, trachea midline Lungs: Respiratory effort: no dyspnea Auscultation: no rales/crackles, no rhonchi, decreased breath sounds Cardiovascular: Apical Impulse: not displaced Heart Auscultation: RRR, no murmurs, no rubs, no gallops Peripheral Pulses: Pulses: full and equal, in all extremities except if noted Bruits: none appreciated Carotid Pulse: normal on the left, normal on the right Brachial Pulses: normal on the left, normal on the right Radial Pulse: normal on the left, normal on the right Femoral Pulse: normal on the left, normal on the right Posterior Tibialis Pulse: decreased on the left, decreased on the right Dorsalis Pedis Pulse: decreased on the left, decreased on the right Abdomen: Bowel Sounds: normal Inspection & Palpation: soft, non-distended, no tenderness, guarding & rebound Musculoskeletal: normal strength (5/5 throughout), normal tone Extremities: Upper Right: no cyanosis, no edema, no varicosities Upper Left: no cyanosis, no edema, no varicosities Lower Right: no cyanosis, no varicosities, edema Lower Left: no cyanosis, no varicosities, edema Neurologic: Cranial Nerves: grossly intact Sensation: grossly intact (Ying Rodríguez, PA-C) Assessment and Plan ASSESSMENT and PLAN: DVT Lymphoma, rectal bleeding Pt discussed with Dr Gupta. Recommends IVC filter insertion later this morning. Procedure, risks, benefits, and alternatives discussed with pt, he expresses understanding and agreement. (Ying Rodríguez, PA-C) Patient was seen, examined, and chart reviewed. Agree with exam and treatment plan of the Vascular PA. I have discussed the risks options and benefits of the procedure with the patient. The patient understands the risks options and benefits and agrees to the procedure. (Taco Gupta M.D.)
[2017-02-25] MEDS: FINASTERIDE 5 MG TAB PO SCH (09:22)
[2017-02-25] MEDS ORDERED: CEFAZOLIN 1000MG/55 ML D5W 55 ML IV SCH (09:45)
--- NOTE | 2017-02-25 11:06 | Procedure Note ---
Pre-Mod Sedation Assessment General Date of Moderate Sedation: Feb 25, 2017. Vital Signs: Vital Signs Past 12 Hours Date Time Temp Pulse Resp B/P Pulse Ox O2 Delivery O2 Flow Rate FiO2 02/25/17 08:17 36.5 73 18 101/63 96 Room Air 02/25/17 08:00 98 Room Air 2.0 02/25/17 04:00 98 02/25/17 03:37 36.4 75 18 96/61 95 Room Air 02/25/17 00:18 36.8 77 17 108/68 97 Room Air 02/24/17 23:59 98 Pre-Sedation Airway Assessment Oral Cavity: WNL Smoking Status: Never Smoker Mallampati Classification: Class I ASA Classification: Class II Notes The planned sedation has been discussed with the patient and consent obtained. I have identified the patient, determined the appropriateness of sedation and have assessed the patient immediately prior to the procedure. All medicine(s) and interventions are by my order.
[2017-02-25] MEDS ORDERED: IODIXANOL (VISIPAQUE) 270 MG/ML 50ML FLUSH ONE (11:55)
[2017-02-25] MEDS ORDERED: LIDOCAINE HCL 1% 20 ML VIAL SQ ONE (11:55)
--- NOTE | 2017-02-25 11:58 | [facility] Post Operative Brief Note ---
Immediate Operative Summary Operative Date Feb 25, 2017. Pre-Operative Diagnosis Acute DVT, GI Bleed Post-Operative Diagnosis Same Procedure(s) Performed Insertion fo Vena Cava Filter, Right Femoral Approach, Ultrasound Localization of Right Femoral Vein, Fluoroscopy for positioning Surgeon Dr. Gupta Clutch Assembler Surgeon(s) Dr. Randi Lara Estimated Blood Loss 3 Findings tip upright in infrarenal cava, no cava lot seen Specimens None Anesthesia Local Complication(s) None Disposition
--- NOTE | 2017-02-25 12:22 | Progress Note ---
Subjective Date of Service: Feb 25, 2017. Subjective Pt evaluation today including: conversation w/ patient, physical exam, lab review, review of studies, conversation w/ senior market intelligence consultant, review of inpatient medication list Pain: no pain today PO Intake: NPO for filter Voiding: no voiding problems patient c/o weakness, fatigue, weight loss discussed CT findings of progressive lymphoma, no chem yet appreciate oncology note, going to get radiation oncology to see IVC filter placed today allow to eat now Problem List Medical Problems: (1) Anemia Status: Acute (2) Dehydration Status: Acute (3) GI bleed Status: Acute (4) GI bleeding Status: Acute (5) Rectal mass Status: Acute Review of Systems Constitutional: + fatigue, + weakness, + weight loss Abdomen: + GI bleeding (rectal) All Other Systems: Reviewed and Negative Medications Current Inpatient Medications Medications (Trade) Dose Ordered Sig/Estevan Route Start Time Stop Time Status Last Admin Dose Admin Sodium Chloride (Nss 1000ml) 1,000 ml @ 125 mls/hr Q8H IV 02/24/17 16:06 03/26/17 16:05 02/25/17 09:22 125 MLS/HR Finasteride (Proscar Tab) 5 mg DAILY PO 02/25/17 09:00 03/27/17 08:59 02/25/17 09:22 5 MG Tamsulosin HCl (Flomax Cap) 0.4 mg HS PO 02/24/17 21:00 03/26/17 20:59 02/24/17 21:30 0.4 MG Objective Vital Signs Date Time Temp Pulse Resp B/P Pulse Ox O2 Delivery O2 Flow Rate FiO2 02/25/17 12:00 99 Room Air 02/25/17 11:51 36.9 88 17 97/56 96 Room Air 02/25/17 11:22 78 20 96/65 93 Room Air 02/25/17 08:17 36.5 73 18 101/63 96 Room Air 02/25/17 08:00 98 Room Air 02/25/17 04:00 98 02/25/17 03:37 36.4 75 18 96/61 95 Room Air 02/25/17 00:18 36.8 77 17 108/68 97 Room Air 02/24/17 23:59 98 02/24/17 20:22 36.4 85 18 108/70 98 2.0 02/24/17 20:00 98 Nasal Cannula 2.0 02/24/17 19:03 36.5 96 18 134/83 98 Nasal Cannula 2.0 02/24/17 18:08 96 Nasal Cannula 2.0 02/24/17 16:36 81 20 129/75 98 Room Air 02/24/17 14:56 104/64 02/24/17 14:37 86 02/24/17 14:32 76 18 88/59 92 Room Air 02/24/17 14:32 96 Room Air 02/24/17 13:17 91 16 109/65 93 Room Air Physical Exam General Appearance: no apparent distress, + thin ENT: normal ENT inspection, hearing grossly normal, pharynx normal Neck: supple, no adenopathy, no JVD Respiratory/Chest: chest non-tender, lungs clear, normal breath sounds, no respiratory distress, no accessory muscle use Cardiovascular: regular rate, rhythm, no edema, no gallop, no JVD, no murmur Abdomen: normal bowel sounds, non tender, soft, no organomegaly Extremities: normal range of motion, non-tender, normal inspection, no calf tenderness, + pedal edema (pitting, bilateral) 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: coffee host II-XII nml as tested, no motor/sensory deficits, alert, normal mood/affect, oriented x 3 Skin: normal color, warm/dry, no rash Laboratory Results Last 24 Hours Test 02/24/17 14:20 02/24/17 14:27 02/24/17 20:56 02/25/17 00:00 Heparin Anti-Xa Act, Low Molec Wt 2.16 IU/ML White Blood Count 4.36 K/uL Red Blood Count 3.85 M/uL Hemoglobin 11.0 g/dL Hematocrit 31.2 % Mean Corpuscular Volume 81.0 fL Mean Corpuscular Hemoglobin 28.6 pg Mean Corpuscular Hemoglobin Concent 35.3 g/dl Platelet Count 357 K/uL Mean Platelet Volume 8.9 fL Neutrophils (%) (Auto) 75.7 % Lymphocytes (%) (Auto) 12.8 % Monocytes (%) (Auto) 10.6 % Eosinophils (%) (Auto) 0.2 % Basophils (%) (Auto) 0.2 % Neutrophils # (Auto) 3.30 K/uL Lymphocytes # (Auto) 0.56 K/uL Monocytes # (Auto) 0.46 K/uL Eosinophils # (Auto) 0.01 K/uL Basophils # (Auto) 0.01 K/uL RDW Standard Deviation 43.5 fL RDW Coefficient of Variation 14.9 % Immature Granulocyte % (Auto) 0.5 % Immature Granulocyte # (Auto) 0.02 K/uL Prothrombin Time 11.7 SECONDS Prothromb Time International Ratio 1.1 Activated Partial Thromboplast Time 33.6 SECONDS Partial Thromboplastin Ratio 1.3 Sodium Level 131 mmol/L Potassium Level 4.1 mmol/L Chloride Level 93 mmol/L Carbon Dioxide Level 26 mmol/L Anion Gap 12.0 mmol/L Blood Urea Nitrogen 42 mg/dl Creatinine 2.20 mg/dl Est Creatinine Clear Calc Drug Dose 27.0 ml/min Estimated GFR () 31.0 Estimated GFR (Non- 26.7 BUN/Creatinine Ratio 19.2 Random Glucose 103 mg/dl Calcium Level 12.2 mg/dl Total Bilirubin 0.5 mg/dl Direct Bilirubin 0.2 mg/dl Aspartate Amino Transf (AST/SGOT) 48 U/L Alanine Aminotransferase (ALT/SGPT) 21 U/L Alkaline Phosphatase 78 U/L Total Protein 5.9 gm/dl Albumin 2.6 gm/dl Lipase 73 U/L Bedside Glucose 100 mg/dl Urine Color YELLOW Urine Appearance CLOUDY Urine pH 5.5 Urine Specific [place] 1.013 Urine Protein TRACE Urine Glucose (UA) NEG Urine Ketones NEG Urine Occult Blood 3+ Urine Nitrite NEG Urine Bilirubin NEG Urine Urobilinogen NEG Urine Leukocyte Esterase LARGE Urine WBC (Auto) >30 /hpf Urine RBC (Auto) >30 /hpf Urine Hyaline Casts (Auto) 1-5 /lpf Urine Epithelial Cells (Auto) >30 /lpf Urine Bacteria (Auto) NEG Urine Renal Epithelial Cells /lpf Urine Yeast (Auto) Test 02/25/17 07:04 02/25/17 07:12 Bedside Glucose 87 mg/dl White Blood Count 3.32 K/uL Red Blood Count 3.36 M/uL Hemoglobin 9.3 g/dL Hematocrit 27.5 % Mean Corpuscular Volume 81.8 fL Mean Corpuscular Hemoglobin 27.7 pg Mean Corpuscular Hemoglobin Concent 33.8 g/dl RDW Standard Deviation 44.7 fL RDW Coefficient of Variation 15.1 % Platelet Count 298 K/uL Mean Platelet Volume 8.5 fL Sodium Level 134 mmol/L Potassium Level 3.8 mmol/L Chloride Level 100 mmol/L Carbon Dioxide Level 26 mmol/L Anion Gap 8.0 mmol/L Blood Urea Nitrogen 33 mg/dl Creatinine 1.60 mg/dl Est Creatinine Clear Calc Drug Dose 37.9 ml/min Estimated GFR () 45.5 Estimated GFR (Non- 39.3 BUN/Creatinine Ratio 20.8 Random Glucose 83 mg/dl Calcium Level 9.9 mg/dl Assessment and Plan 81 y/o male with a history of permanent a-fib, recent DVT on therapeutic lovenox , , HTN, DM II (managed off medications), CKD stage III, HLD, and recent GI bleeding from rectal invasion of Lymphoma. 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 Mild left hydroureteronephrosis likely due to mass effect of LAD. Also enlarged, 2.1 x 1.3 cm distal paraesophageal lymph node medical oncology consulted for recommendations, has not received chemo yet - Acute on chronic renal failure, h/o Left moderate hydroureteronephrosis secondary to mass effect of extensive lymphadenopathy in pelvis,--s/p left ureteral stent placement and cystoscopy on 02/05 Cr improved to 1.6 from 2.2, good urine output today repeat labs tomorrow - Permanent Atrial fibrillation--rate controlled, Toprol XL 50mg daily ECHO (01/28/17) with EF of 50-55%. Right ventricle mild to moderate dilation, moderate MR no anticoagulation due to bleeding Code Status FULL RESUSCITATION STATUS Plan: follow up radiation oncology recommendations, keep on tele in case his BP would drop further and have further bleeding
--- NOTE | 2017-02-25 13:12 | DIAGNOSTIC IMAGING REPORT ---
DATE OF PROCEDURE: 02/24/2017 PREOPERATIVE DIAGNOSIS: Acute deep venous thrombosis in the setting of gastrointestinal bleeding. POSTOPERATIVE DIAGNOSIS: Same. PROCEDURE: Inferior vena cava filter placement with Cook Celect filter via femoral access. SURGEON: Dr. Taco Gupta. INSTRUMENT LENS GRINDER: Dr. Randi Lara. ESTIMATED BLOOD LOSS: 3 mL. ANESTHESIA: Local. COMPLICATIONS: None apparent. FLUIDS: 300 mL. URINE OUTPUT: Not recorded. CONDITION: Stable to PACU. CONTRAST: 50 mL. MILLIGRAYS: 12 milligrays. FLUOROSCOPY TIME: 0.3 minutes. INDICATIONS: Mr. Radha Reeder is an 81-year-old gentleman with colorectal cancer, who is having active bleeding from his rectum. He unfortunately also has an acute left lower extremity DVT. Therefore, there is contraindication to anticoagulation. He was advised of the risks and benefits of obtaining an inferior vena cava filter. The patient agreed to undergo the IVC filter placement. PROCEDURE IN DETAIL: The patient was brought into the operative suite. He was prepped and draped in the usual fashion. A timeout occurred. Under ultrasound guidance, his right femoral vein was accessed. This was widely patent. A guidewire was then advanced into his inferior vena cava. A dilator was used to dilate the vein and then the sheath for the Cook Celect IVC filter was placed. A venogram was obtained. This showed that the IVC was widely patent with 2 patent renal arteries. The sheath was positioned and the IVC filter was placed with the sheath. Sheath was backed over the filter and the filter was deployed. The filter was in good position with good apposition. The sheaths and wires were removed and pressure was held until hemostasis was obtained. The patient tolerated the procedure well. Dr. Taco Gupta was present for the entirety of this case. [facility]
[2017-02-25 13:20] LABS: HEMATOCRIT 29.4 % (42-52)
--- NOTE | 2017-02-25 15:25 | Oncology Consultation ---
Oncology/Heme Consultation Date of Consultation: Feb 25, 2017. Attending Physician: Duke Jack D.O. Reason for Consultation: Diffuse large B cell lymphoma Rectal bleeding History of Present Illness Mr. Reeder is an 81 year old man who was recently admitted with rectal bleeding. During that stay, he was found to have a rectal mass that was biopsied , revealing large B cell lymphoma. I recently saw him in the office to discuss systemic treatment. We were in the process of completing his pre-treatment staging when he presented yesterday with worsening rectal bleeding. He does not describe a massive amount or any precipitous event, but was concerned enough to return. He has no pain or fevers. His performance status remains poor, with little activity at home or appetite. Past Medical/Surgical History Medical Problems: (1) Anemia Status: Acute (2) Dehydration Status: Acute (3) GI bleed Status: Acute (4) GI bleeding Status: Acute (5) Rectal mass Status: Acute Family History FH: cancer Social History Smoking Status: Never Smoker Drug Use: none Marital Status: Occupation Status: retired Allergies Coded Allergies: No Known Allergies (Verified , 02/24/17) Home Medications Scheduled Enoxaparin (Lovenox), 80 MG SQ Q12H Finasteride (Proscar), 5 MG PO DAILY Metoprolol Succ (Toprol Xl) (Toprol-Xl), 50 MG PO DAILY Tamsulosin Hcl (Flomax), 0.4 MG PO HS Current Inpatient Medications Current Inpatient Medications Medications (Trade) Dose Ordered Sig/Estevan Route Start Time Stop Time Status Last Admin Dose Admin Sodium Chloride (Nss 1000ml) 1,000 ml @ 125 mls/hr Q8H IV 02/24/17 16:06 03/26/17 16:05 02/25/17 09:22 125 MLS/HR Finasteride (Proscar Tab) 5 mg DAILY PO 02/25/17 09:00 03/27/17 08:59 02/25/17 09:22 5 MG Tamsulosin HCl (Flomax Cap) 0.4 mg HS PO 02/24/17 21:00 03/26/17 20:59 02/24/17 21:30 0.4 MG Review of Systems Constitutional: + fatigue, + weakness, + weight loss, No fever Eyes: No worsening of vision ENT: No unusual epistaxis Respiratory: No cough, No hemoptysis, No shortness of breath Cardiovascular: No chest pain Abdomen: + GI bleeding, No nausea, No pain, No vomiting Musculoskeletal: No joint pain, No muscle pain Neurologic: No numbness/tingling, No weakness Hematologic / Lymphatic: No abnormal bleeding/bruising, No night sweats Integumentary: No rash Physical Exam Date Time Temp Pulse Resp B/P Pulse Ox O2 Delivery O2 Flow Rate FiO2 02/25/17 12:00 99 Room Air 02/25/17 11:51 36.9 88 17 97/56 96 Room Air 02/25/17 11:22 78 20 96/65 93 Room Air 02/25/17 08:17 36.5 73 18 101/63 96 Room Air 02/25/17 08:00 98 Room Air 02/25/17 04:00 98 02/25/17 03:37 36.4 75 18 96/61 95 Room Air 02/25/17 00:18 36.8 77 17 108/68 97 Room Air 02/24/17 23:59 98 02/24/17 20:22 36.4 85 18 108/70 98 2.0 02/24/17 20:00 98 Nasal Cannula 2.0 02/24/17 19:03 36.5 96 18 134/83 98 Nasal Cannula 2.0 02/24/17 18:08 96 Nasal Cannula 2.0 02/24/17 16:36 81 20 129/75 98 Room Air General Appearance: + thin, + pertinent finding (ill-appearing and weak) Eyes: EOMI Respiratory/Chest: lungs clear, no accessory muscle use Cardiovascular: regular rate, rhythm, no murmur Abdomen/GI: normal bowel sounds, non tender, soft Extremities/Musculoskelatal: no pedal edema, non-tender Neurologic/Psych: alert, oriented x 3 Skin: no rash Lymphatic: no adenopathy Laboratory Results Last 24 Hours Test 02/24/17 20:56 02/25/17 00:00 02/25/17 07:04 02/25/17 07:12 Bedside Glucose 100 mg/dl 87 mg/dl Urine Color YELLOW Urine Appearance CLOUDY Urine pH 5.5 Urine Specific [place] 1.013 Urine Protein TRACE Urine Glucose (UA) NEG Urine Ketones NEG Urine Occult Blood 3+ Urine Nitrite NEG Urine Bilirubin NEG Urine Urobilinogen NEG Urine Leukocyte Esterase LARGE Urine WBC (Auto) >30 /hpf Urine RBC (Auto) >30 /hpf Urine Hyaline Casts (Auto) 1-5 /lpf Urine Epithelial Cells (Auto) >30 /lpf Urine Bacteria (Auto) NEG Urine Renal Epithelial Cells /lpf Urine Yeast (Auto) White Blood Count 3.32 K/uL Red Blood Count 3.36 M/uL Hemoglobin 9.3 g/dL Hematocrit 27.5 % Mean Corpuscular Volume 81.8 fL Mean Corpuscular Hemoglobin 27.7 pg Mean Corpuscular Hemoglobin Concent 33.8 g/dl RDW Standard Deviation 44.7 fL RDW Coefficient of Variation 15.1 % Platelet Count 298 K/uL Mean Platelet Volume 8.5 fL Sodium Level 134 mmol/L Potassium Level 3.8 mmol/L Chloride Level 100 mmol/L Carbon Dioxide Level 26 mmol/L Anion Gap 8.0 mmol/L Blood Urea Nitrogen 33 mg/dl Creatinine 1.60 mg/dl Est Creatinine Clear Calc Drug Dose 37.9 ml/min Estimated GFR () 45.5 Estimated GFR (Non- 39.3 BUN/Creatinine Ratio 20.8 Random Glucose 83 mg/dl Calcium Level 9.9 mg/dl Test 02/25/17 12:17 02/25/17 13:06 Bedside Glucose 83 mg/dl Hemoglobin 10.0 g/dL Hematocrit 29.4 % Assessment & Plan Mr. Reeder returns with continued rectal bleeding. It does not appear to be a large volume and his hemoglobin is not falling. Regardless, I think we should attempt to palliate his tumor with RT prior to considering chemo. I spoke with Dr. Trejo, who will see him later today. In the meantime, I will speak with the patient in more detail tomorrow. His performance status and nutrition continue to decline and I am worried he won't tolerate chemotherapy well. He seemed willing to try treatment when we met in the office last week, but he has continued to decline from there. One option might be to consider giving his first cycle of treatment in the hospital, to see how he responds. He had an IVC filter placed earlier today. His bleeding was not life- threatening and will hopefully resolve with palliative treatment. He will need to resume full anticoagulation and, now that he has a filter, he will need to be arranged for retrieval once his acute situation is resolved, as it will be thrombogenic itself if not removed.
--- NOTE | 2017-02-25 16:46 | Radiation Oncology Consult ---
Radiation Oncology Consult Date / Reason Feb 25, 2017. Physicians Medical Oncologist: Dr. Rolando Weber Radiation Oncologist: Dr. Aamir Trejo Other Providers: Dr. Joselito Chávez - GI Dr. Duke Jack - Hospitalist Diagnosis (1) Diffuse large B cell lymphoma Qualified Codes: C83.39 - Diffuse large b-cell lymphoma, extranodal and solid organ sites History of Present Illness I am seeing Mr. Reeder in consultation at the request of Dr. Duke Jack and Dr. Rolando Weber. The patient was seen at bedside and his was present for the entire consultation. ECOG PS: 2 Mr. Reeder is a 81-year-old gentleman who recently presented to the emergency Department for bright red per rectum. The patient presented to the emergency room in the beginning of January 2017 and did have right red bleeding. The patient did have a CT of the chest/abdomen/pelvis on 02/03/2017 which revealed: "IMPRESSION: 1. Extensive paraaortic, bilateral iliac chain and left pelvic sidewall lymphadenopathy in addition to a left perirectal mass with associated rectal wall thickening. Overall, the findings strongly suggest lymphoma. A rectal adenocarcinoma could appear similar although is considered much less likely. 2. Extensive left colon diverticulosis without convincing evidence for acute diverticulitis. 3. Mild left hydroureteronephrosis likely due to mass effect upon the distal left ureter by lymphadenopathy which extends to the left ureterovesical junction." The CT chest revealed mild enlarged distal paraesophageal lymph nodes however no other evidence of disease above the diaphragm. The patient was seen evaluated by Dr. Joselito Chávez from gastroenterology. Dr. Chávez performed a lower endoscopy on the patient on 02/06/2017 which revealed a infiltrative and ulcerated nonobstructing large mass in the rectum that was non- circumferential and measured 5 cm in length. 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 The patient was also seen evaluated by Dr. Bernabe Patel from urology due to the patient's hydronephrosis in the patient did undergo cystoscopy, retrograde pyelography and ureteral stent placement on the left ureter which occurred on 02/05/2017. Dr. Patel noted moderate left hydronephrosis due to distal ureteral obstruction as well as dense obstructive tissue at the level of the distal ureter; additionally, he did note a palpable left pelvic mass on bimanual examination which appeared extrinsic to both the bladder and rectum. Dr. Patel did obtain a biopsy of pre -ureteral tissue on the left side which revealed atypical lymphoid infiltrate consistent with the diffuse large B-cell lymphoma. The patient was referred to medical oncology and was seen by Dr. Rolando Patterson. Dr. Weber recommended age-adjusted chemotherapy for treatment of the patient's diffuse large B-cell lymphoma. The patient was scheduled to undergo PET/CT scan for staging however the patient was readmitted due to further gastrointestinal bleeding from the rectum. We have been asked to evaluate the patient for consideration of palliative radiation therapy to the rectum. Social History Smoking Status: Never Smoker Hx Tobacco Use In Past Year?: No Do You Dip or Chew Tobacco: No Hx Alcohol Use: No Hx Substance Use : No Allergies Coded Allergies: No Known Allergies (Verified , 02/24/17) Home Medications Scheduled Enoxaparin (Lovenox), 80 MG SQ Q12H Finasteride (Proscar), 5 MG PO DAILY Metoprolol Succ (Toprol Xl) (Toprol-Xl), 50 MG PO DAILY Tamsulosin Hcl (Flomax), 0.4 MG PO HS Review of Systems Ear/Hearing: Ear Side: Bilateral Hearing Ability: Normal Hearing Aid: None Edema: Present?: Yes (L calf bigger than R) Location Body Site Modifier: Bilateral Type: Pitting Degree: 2+ Pain Management Side: Bilateral Patient Preferred Pain Scale: 0 - 10 Initial Pain Intensity: 0.0 Physical Exam Height: 6 (Feet) 1.00 (Inches) 185.4 (Centimeters) 1.8542 (Meters) Weight: 168 (Pounds) 10.4 (Ounces) 76.500 (Kilograms) 56662.000 (Grams) Date Time Temp Pulse Resp B/P Pulse Ox O2 Delivery O2 Flow Rate FiO2 02/25/17 16:03 98 Room Air 02/25/17 15:34 37.1 80 20 117/70 96 Room Air 02/25/17 12:00 99 Room Air 02/25/17 11:51 36.9 88 17 97/56 96 Room Air 02/25/17 11:22 78 20 96/65 93 Room Air 02/25/17 08:17 36.5 73 18 101/63 96 Room Air 02/25/17 08:00 98 Room Air 02/25/17 04:00 98 02/25/17 03:37 36.4 75 18 96/61 95 Room Air 02/25/17 00:18 36.8 77 17 108/68 97 Room Air 02/24/17 23:59 98 02/24/17 20:22 36.4 85 18 108/70 98 2.0 02/24/17 20:00 98 Nasal Cannula 2.0 02/24/17 19:03 36.5 96 18 134/83 98 Nasal Cannula 2.0 02/24/17 18:08 96 Nasal Cannula 2.0 02/24/17 16:36 81 20 129/75 98 Room Air General Appearance: WD/WN, no apparent distress Head: normocephalic, atraumatic Eyes: normal inspection, PERRL, EOMI ENT: normal ENT inspection Neck: supple, no adenopathy Respiratory/Chest: chest non-tender, lungs clear, normal breath sounds, no respiratory distress, no accessory muscle use Cardiovascular: regular rate, rhythm, no edema, no gallop, no JVD, no murmur Abdomen/GI: normal bowel sounds, non tender, soft, no organomegaly, no pulsatile mass Extremities: normal inspection, no calf tenderness 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 CECUM, TWO POLYPS, POLYPECTOMY: MULTIPLE FRAGMENTS OF TUBULAR ADENOMA. B. RECTUM, MASS, BIOPSY: 1. DIFFUSE LARGE B-CELL LYMPHOMA. 2. SEE COMMENT PRE-URETERAL TISSUE, LEFT, BIOPSY: 02/05/2017 1. ATYPICAL LYMPHOID INFILTRATE, CONSISTENT WITH DIFFUSE LARGE B-CELL LYMPHOMA. 2. SEE COMMENT. Imaging Imaging studies: were reviewed Imaging Comments CT OF THE ABDOMEN AND PELVIS WITH ORAL CONTRAST ONLY - 02/03/2017 CT DOSE: 366.30 mGy.cm CLINICAL HISTORY: Abdominal pain. TECHNIQUE: Axial images of the abdomen and pelvis were obtained without IV contrast. Oral contrast was administered. COMPARISON STUDY: None. FINDINGS: Note is made of a mildly enlarged distal paraesophageal lymph node that measures 2.3 x 1.2 cm. Evaluation of the abdomen and pelvis is suboptimal given the lack of IV contrast. Unenhanced images of liver, spleen, adrenal glands and pancreas are normal. There is a large suspected diverticulum arising from the second portion of the duodenum. There is no evidence for a bowel structure. This extensive left colon diverticulosis. There is mild pericolonic infiltration without convincing evidence for acute diverticulitis. There is mild left collecting system dilatation as well as dilatation of the left ureter to the level of the left ureterovesical junction. Note is made of numerous moderately enlarged para-aortic and bilateral iliac chain lymph nodes as well as left pelvic sidewall lymphadenopathy. There is also a left perirectal mass that measures approximately 7.3 x 4.8 cm. There is associated rectal wall thickening. Suspected adenopathy extends to the left ureterovesical junction. An index left external iliac lymph node measures 3.1 x 2.1 cm. An index left para-aortic conglomerate node measures 4.4 x 3 cm. There is mild bladder wall thickening. No suspicious osseous lesions are present. There is focal dilatation of the bilateral common iliac veins, left greater than right. IMPRESSION: 1. Extensive paraaortic, bilateral iliac chain and left pelvic sidewall lymphadenopathy in addition to a left perirectal mass with associated rectal wall thickening. Overall, the findings strongly suggest lymphoma. A rectal adenocarcinoma could appear similar although is considered much less likely. 2. Extensive left colon diverticulosis without convincing evidence for acute diverticulitis. 3. Mild left hydroureteronephrosis likely due to mass effect upon the distal left ureter by lymphadenopathy which extends to the left ureterovesical junction. CT OF THE CHEST WITHOUT IV CONTRAST - 02/03/2017 CLINICAL HISTORY: Possible mass. COMPARISON STUDY: Chest radiograph February 03, 2017. CT DOSE: 452.45 mGy.cm TECHNIQUE: Axial images of the chest were obtained without IV contrast. Images were reviewed in the axial, sagittal, and coronal planes. IV contrast was not administered for this examination. FINDINGS: The size of the heart is normal. There is no pericardial effusion. Note is made of a small hiatal hernia. There is also an enlarged distal paraesophageal lymph node that measures 2.1 x 1.3 cm. The central airways are patent. There is no consolidation to suggest pneumonia. Linear and groundglass opacities favor atelectasis. No suspicious osseous lesions are present. No suspicious pulmonary nodules are present. No significant abnormalities are identified within visualized portions of the upper abdomen with exception of mild left collecting system dilatation. This can be assessed on the abdominal CT. IMPRESSION: 1. Mildly enlarged distal paraesophageal lymph node. This lymph node is indeterminate and pathologically enlarged. Correlation with history of malignancy is recommended. 2. No consolidation to suggest pneumonia. 3. Mild left collecting system dilatation, partially imaged on this exam. 4. Small hiatal hernia. CT OF THE ABDOMEN AND PELVIS WITH ORAL CONTRAST - 02/24/2017 CT DOSE: 470.90 mGycm CLINICAL HISTORY: Lymphoma. Ureteral stent. Rectal bleeding. Fatigue. TECHNIQUE: Axial images of the abdomen and pelvis were obtained without IV contrast. Oral contrast was administered. COMPARISON STUDY: CT of the abdomen and pelvis February 03, 2017. FINDINGS: Visualized portions of the lower chest demonstrate a small right pleural effusion which has increased in size since prior CT of February 03, 2017. A right paraaortic lymph node located adjacent to the distal descending thoracic aorta has increased in size since prior exam. It now measures 3.1 x 2.3 cm. It previously measured 2.1 x 1.3 cm. Unenhanced images of liver, spleen, adrenal glands and pancreas are unremarkable. I wish of the abdomen and pelvis is suboptimal on this unenhanced exam. There has been interval placement of a left ureteral stent. Mild left hydronephrosis is slightly diminished. Bulky retroperitoneal lymphadenopathy has progressed since exam of February 03, 2017. An index left para-aortic lymph node located at the level the left renal vein measures 2.8 cm. It previously measured 2.2 cm. Extensive pelvic lymphadenopathy has also progressed. A left perirectal conglomerate mass measures 8.3 x 8 cm. It previously measured 7.5 x 7.1 cm. A left iliac chain node measures 3.6 x 2.6 cm. It previously measured 2.4 x 2.1 cm. Tumor extends along the left posterior lateral wall of the bladder at the ureteral insertion site. This has progressed. There is extensive pelvic lymphadenopathy. This has moderately progressed. Mass effect upon the rectum is noted with rightward displacement of the rectum and rectal wall thickening which suggests lymphomatous involvement of the rectum. Left thigh subcutaneous edema is noted. There is also left lower quadrant retroperitoneal edema. Extensive sigmoid diverticulosis without convincing evidence for acute diverticulitis. There is no pneumatosis, free air or portal venous gas. IMPRESSION: 1. Moderate progression of extensive abdominal, pelvic and lower thoracic lymphadenopathy since exam of February 03, 2017 consistent with progression of lymphoma. Large left perirectal conglomerate megan mass with rectal wall thickening which suggests lymphomatous involvement of the rectal wall. 2. Interval placement of a left ureteral stent. Persistent, but slightly improved, left hydroureteronephrosis. 3. Extensive left colon diverticulosis without convincing evidence for acute diverticulitis. Assessment & Recommendations Mr. Reeder is a 81-year-old gentleman with advanced diffuse large B-cell lymphoma involving the rectum and potentially left ureter as well as diffuse lymphadenopathy in the retroperitoneum and mediastinum. The patient was seen in consultation by Dr. Rolando Weber for medical oncology who was planning to treat the patient with systemic chemotherapy the outpatient setting. Unfortunate, the patient has been suffering from persistent rectal bleeding and has been readmitted to the hospital due to acute anemia and bleeding. We been asked to evaluate the patient for consideration of palliative radiation therapy to the rectal mass to reduce the bleeding so the patient may once again become a candidate for chemotherapy. Given the histology, location and history of bleeding, we do feel that it is reasonable to consider a short course of palliative external beam radiation therapy to the rectal mass to help control his bleeding which will help him symptomatically as well as potentially convert him to a potential candidate for chemotherapy underneath the supervision of Dr. Rolando Weber. I have spoken with Dr. Rolando Weber and Dr. Jack who are both in agreement with this plan. We will bring the patient down tomorrow for CT simulation to begin treatment planning. The patient will start of palliative radiation therapy at the end of this week or the beginning of the following week. In the meantime, the patient should be managed with potential blood transfusions if he does have significant bleeding. We have explained the indications, alternatives, benefits, risks and side effects of radiation therapy. We have explained the most common side effects including but are not limited to skin erythema, skin break down, hair loss, fibrosis, adhesion development, radiation pneumonitis, rib and bone fracture, heart failure and heart disease, esophagitis, bowel obstruction, urinary symptoms, thyroid disorders, mucositis, nauesea, vomiting, diarrhea, anemia, fatigue and development of secondary malignancy. We also discussed that male patients may have issues with erections (potency) and infertility issues depending on their age and area of treatment. We have explained the CT simulation process and treatment planning. We explained what to expect before, during and after treatment on a regular basis. The patient understands and would be willing to consent to treatment. The patient and family had multiple questions which were answered to their full satisfaction. Thank you for allowing us to participate in the care of this patient. This chart was completed in part utilizing [employer] Speech Voice Recognition software. Attempts were made to minimize the grammatical errors, random word insertions, pronoun errors and incomplete sentences. Any formal questions or concerns about the content, text or information contained within the body of this dictation should be directly addressed to the provider for clarification. Aamir Trejo MD Department of Radiation Oncology [facility] Total Time In Consultation I spent 25 minutes examining and counseling the patient. I spent 15 minutes completing this note. Copy To Joselito Chávez D.O.; Osmar Patel MD, Urology; Rolando Weber MD; Taco Gupta M.D.; Duke Jack D.O.
[2017-02-25] MEDS: TAMSULOSIN HCL 0.4 MG CAP PO SCH (21:13)
[2017-02-26] VITALS (11 sets, daily range): BP systolic 91–117; BP diastolic 53–74; PULSE 60–114; TEMP 36.5–37.4; O2SAT 95–99
[2017-02-26] MEDS: SODIUM CHLORIDE 0.9% 1000ML 1,000 ML IV SCH (00:21)
[2017-02-26 07:18] LABS: HEMATOCRIT 27.5 % (42-52); MEAN CELL VOLUME 84.1 fL (80-100); MEAN CORPUSCULAR HEMOGLOBIN 28.4 pg (25-34); MEAN CORPUSCULAR HGB CONC 33.8 g/dl (32-36); MEAN PLATELET VOLUME 8.7 fL (7.4-10.4); PLATELET COUNT 257 K/uL (130-400); RED BLOOD COUNT 3.27 M/uL (4.7-6.1); WHITE BLOOD COUNT 3.86 K/uL (4.8-10.8)
[2017-02-26 07:43] LABS: BUN/CREATININE RATIO 17.3 (10-20); CALCIUM 9.2 mg/dl (8.5-10.1); CREATININE 1.5 mg/dl (0.60-1.40); POTASSIUM 3.4 mmol/L (3.5-5.1)
[2017-02-26] MEDS: FINASTERIDE 5 MG TAB PO SCH (09:20)
[2017-02-26] MEDS ORDERED: POTASSIUM CHLORIDE 10 MEQ TABCR PO ONE (09:30)
[2017-02-26] MEDS ORDERED: METOPROLOL SUCC 25MG EXT REL TAB PO ONE (12:30)
--- NOTE | 2017-02-26 13:39 | Progress Note ---
Subjective Date of Service: Feb 26, 2017. Subjective Pt evaluation today including: conversation w/ patient, physical exam, lab review, conversation w/ information technology consultant, review of inpatient medication list Pain: no pain PO Intake: tolerating clears Voiding: no voiding problems patient feels better today, had a small amount of bleeding but not much tolerating clears discussed case with oncology team, had staging CT today may have radiation tomorrow if he can fit into scheduled plan for Rituxan on Friday Problem List Medical Problems: (1) Anemia Status: Acute (2) Dehydration Status: Acute (3) GI bleed Status: Acute (4) GI bleeding Status: Acute (5) Rectal mass Status: Acute Review of Systems Constitutional: + fatigue, + weakness, + weight loss Neurologic: + weakness All Other Systems: Reviewed and Negative Medications Current Inpatient Medications Medications (Trade) Dose Ordered Sig/Estevan Route Start Time Stop Time Status Last Admin Dose Admin Finasteride (Proscar Tab) 5 mg DAILY PO 02/25/17 09:00 03/27/17 08:59 02/26/17 09:20 5 MG Tamsulosin HCl (Flomax Cap) 0.4 mg HS PO 02/24/17 21:00 03/26/17 20:59 02/25/17 21:13 0.4 MG Metoprolol Succinate (Toprol Xl Tab) 25 mg DAILY PO 02/27/17 09:00 03/29/17 08:59 Objective Vital Signs Date Time Temp Pulse Resp B/P Pulse Ox O2 Delivery O2 Flow Rate FiO2 02/26/17 12:00 Room Air 02/26/17 11:20 37.0 100 18 117/74 96 Room Air 02/26/17 08:00 Room Air 02/26/17 07:37 37.4 114 18 91/53 95 Room Air 02/26/17 04:00 95 Room Air 02/26/17 02:44 36.9 96 19 106/71 95 Room Air 02/26/17 00:26 37.1 60 18 92/57 95 Room Air 02/26/17 00:00 98 Room Air 02/25/17 20:00 98 Room Air 02/25/17 19:20 37.2 71 18 100/61 95 Room Air 02/25/17 16:03 98 Room Air 02/25/17 15:34 37.1 80 20 117/70 96 Room Air Physical Exam General Appearance: no apparent distress, + thin Eyes: normal inspection, EOMI, sclerae normal ENT: normal ENT inspection, hearing grossly normal, pharynx normal Neck: supple, no adenopathy, no JVD, trachea midline Respiratory/Chest: chest non-tender, lungs clear, normal breath sounds, no respiratory distress, no accessory muscle use Cardiovascular: no edema, no gallop, no JVD, no murmur, + tachycardia Abdomen: normal bowel sounds, non tender, soft, no organomegaly Extremities: normal range of motion, non-tender, normal inspection, no pedal edema, no calf tenderness 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: 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, no motor/sensory deficits, alert, normal mood/affect, oriented x 3 Skin: normal color, warm/dry, no rash Lymphatic: no adenopathy Laboratory Results Last 24 Hours Test 02/25/17 16:35 02/26/17 06:54 02/26/17 07:03 02/26/17 11:21 Bedside Glucose 97 mg/dl 104 mg/dl 111 mg/dl White Blood Count 3.86 K/uL Red Blood Count 3.27 M/uL Hemoglobin 9.3 g/dL Hematocrit 27.5 % Mean Corpuscular Volume 84.1 fL Mean Corpuscular Hemoglobin 28.4 pg Mean Corpuscular Hemoglobin Concent 33.8 g/dl RDW Standard Deviation 48.0 fL RDW Coefficient of Variation 15.6 % Platelet Count 257 K/uL Mean Platelet Volume 8.7 fL Sodium Level 138 mmol/L Potassium Level 3.4 mmol/L Chloride Level 105 mmol/L Carbon Dioxide Level 25 mmol/L Anion Gap 8.0 mmol/L Blood Urea Nitrogen 26 mg/dl Creatinine 1.50 mg/dl Est Creatinine Clear Calc Drug Dose 41.5 ml/min Estimated GFR () 49.2 Estimated GFR (Non- 42.4 BUN/Creatinine Ratio 17.3 Random Glucose 101 mg/dl Calcium Level 9.2 mg/dl Assessment and Plan 81 y/o male with a history of permanent a-fib, recent DVT on therapeutic lovenox , , HTN, DM II (managed off medications), CKD stage III, HLD, and recent GI bleeding from rectal invasion of Lymphoma. 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 Infiltrative and ulcerated non-obstructing large mass at rectum measuring 5 x 21 cm which was biopsied and showed lymphoma small amount of blood today with BM, otherwise stable, H/H at 9.3 again today , BP was low normal now higher, no need for transfusion, monitor H/H staging CT done today possible radiation tomorrow, palliative, if not tomorrow then Friday - Acute proximal DVT in left lower extremity--present on admission, stable, no evidence of PE LLE Doppler U/S positive for DVT in the left common femoral vein and proximal superficial femoral vein IVC filter placed 02/25 since he is bleeding and cannot have anticoagulation - 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 Mild left hydroureteronephrosis likely due to mass effect of LAD. Also enlarged, 2.1 x 1.3 cm distal paraesophageal lymph node medical oncology consulted for recommendations plan for Rituxan on Friday, transfer to [facility] echo in January 2017 showed EF of 55% will check hepatitis panel prior to Rituxan - Acute on chronic renal failure, h/o Left moderate hydroureteronephrosis secondary to mass effect of extensive lymphadenopathy in pelvis,--s/p left ureteral stent placement and cystoscopy on 02/05 Cr improved to 1.5 from 2.2 on admission, good urine output today stop IV fluids, making more than adequate urine - Permanent Atrial fibrillation-- tachycardic today from holding his Toprol on admission due to bleeding and low normal BP start Toprol but at 25mg daily and may end up continuing this dose ECHO (01/28/17) with EF of 50-55%. Right ventricle mild to moderate dilation, moderate MR no anticoagulation due to bleeding - Hypokalemia: 20mEq PO today Code Status FULL RESUSCITATION STATUS will discuss this further during admission Plan: transfer to oncology floor, possible radiation tomorrow, Rituxan on Friday discussed with patient and , interested in [place] for SNF/rehab if he needs, will get PT/OT
--- NOTE | 2017-02-26 15:27 | Radiation Oncology Progress Nt ---
Radiation Oncology Progress Nt Date of Service Date of Service: Feb 26, 2017. Subjective Pt evaluation today including: conversation w/ consumer experience consultant Objective Vital Signs Date Time Temp Pulse Resp B/P Pulse Ox O2 Delivery O2 Flow Rate FiO2 02/26/17 14:00 36.5 85 18 101/64 96 Room Air 02/26/17 14:00 Room Air 02/26/17 12:00 Room Air 02/26/17 11:20 37.0 100 18 117/74 96 Room Air 02/26/17 08:00 Room Air 02/26/17 07:37 37.4 114 18 91/53 95 Room Air 02/26/17 04:00 95 Room Air 02/26/17 02:44 36.9 96 19 106/71 95 Room Air 02/26/17 00:26 37.1 60 18 92/57 95 Room Air 02/26/17 00:00 98 Room Air 02/25/17 20:00 98 Room Air 02/25/17 19:20 37.2 71 18 100/61 95 Room Air 02/25/17 16:03 98 Room Air 02/25/17 15:34 37.1 80 20 117/70 96 Room Air Laboratory Results Last 24 Hours Test 02/25/17 16:35 02/26/17 06:54 02/26/17 07:03 02/26/17 11:21 Bedside Glucose 97 mg/dl 104 mg/dl 111 mg/dl White Blood Count 3.86 K/uL Red Blood Count 3.27 M/uL Hemoglobin 9.3 g/dL Hematocrit 27.5 % Mean Corpuscular Volume 84.1 fL Mean Corpuscular Hemoglobin 28.4 pg Mean Corpuscular Hemoglobin Concent 33.8 g/dl RDW Standard Deviation 48.0 fL RDW Coefficient of Variation 15.6 % Platelet Count 257 K/uL Mean Platelet Volume 8.7 fL Sodium Level 138 mmol/L Potassium Level 3.4 mmol/L Chloride Level 105 mmol/L Carbon Dioxide Level 25 mmol/L Anion Gap 8.0 mmol/L Blood Urea Nitrogen 26 mg/dl Creatinine 1.50 mg/dl Est Creatinine Clear Calc Drug Dose 41.5 ml/min Estimated GFR () 49.2 Estimated GFR (Non- 42.4 BUN/Creatinine Ratio 17.3 Random Glucose 101 mg/dl Calcium Level 9.2 mg/dl Test 02/26/17 13:28 Assessment and Plan Today, I have spoken with Dr. Weber and Dr. Whitley from medical oncology. After further discussion, Dr. Weber has recommended consideration of forgoing radiation therapy and initiating chemotherapy while the patient is in the hospital. They feel he may have a durable response to chemotherapy and he is safe to proceed with chemotherapy. We have agreed with these recommendations. We will hold off on radiation therapy. We have offered to consider palliative radiation therapy if the patient continues to bleed despite chemotherapy. Additionally, I did recommend that Dr. Weber should consider consolidative radiation therapy if the patient does have an adequate response to chemotherapy (after completion of his full course of treatment) for his bulky mass in the pelvis as there has been robust evidence showing a benefit to consolidative radiation therapy for patients with DLBCL with bulky disease. Dr. Weber agreed this may be a reasonable consideration if the patient does tolerate chemotherapy and respond well overall. Dr. Weber will speak with the patient regarding these recommendations. If the patient needs further explanation after their conversation, please contact us and I am happy to speak with the patient and his .
--- NOTE | 2017-02-26 15:50 | Hematology/Oncology Prog Note ---
Hematology/Onc Progress Note Date of Service Feb 26, 2017. Diagnoses DLBCL Rectal bleeding Medications Medications Administered Medications (Trade) Dose Ordered Sig/Estevan Route Start Time Stop Time Status Last Admin Dose Admin Sodium Chloride 1,000 ml @ 999 mls/hr Q1H1M STAT IV 02/24/17 14:02 02/24/17 15:02 DC 02/24/17 14:02 999 MLS/HR Sodium Chloride 1,000 ml @ 999 mls/hr Q1H1M STAT IV 02/24/17 15:25 02/24/17 16:25 DC 02/24/17 16:35 999 MLS/HR Sodium Chloride (Nss 1000ml) 1,000 ml @ 125 mls/hr Q8H IV 02/24/17 16:06 02/26/17 08:56 DC 02/26/17 00:21 125 MLS/HR Finasteride (Proscar Tab) 5 mg DAILY PO 02/25/17 09:00 03/27/17 08:59 02/26/17 09:20 5 MG Tamsulosin HCl 0.4 mg 0.4 mg HS PO 02/24/17 21:00 03/26/17 20:59 02/25/17 21:13 0.4 MG Cefazolin Sodium (Ancef 1000mg/55 ml D5W) 55 ml @ 100 mls/hr PRE-SPECIALS IV 02/25/17 09:45 02/25/17 12:02 DC 02/25/17 11:35 100 MLS/HR Lidocaine HCl (Xylocaine 1% Inj (Local)) 9 ml ONE ONCE SQ 02/25/17 11:55 02/25/17 11:56 DC 02/25/17 11:55 9 ML Iodixanol (Visipaque 50ml) 15 mg ONE ONCE FLUSH 02/25/17 11:55 02/25/17 11:56 DC 02/25/17 11:55 15 MG Potassium Chloride (Klor-Con M10) 20 meq NOW ONCE PO 02/26/17 09:30 02/26/17 09:31 DC 02/26/17 09:20 20 MEQ Metoprolol Succinate (Toprol Xl Tab) 25 mg NOW ONCE PO 02/26/17 12:30 02/26/17 12:31 DC 02/26/17 12:12 25 MG Subjective Mr. Reeder continues to note scant amounts of blood with his stool. Otherwise , he is largely unchanged from yesterday. Review of Systems: Constitutional: + fatigue, + weakness, No chills, No fever Eyes: No worsening of vision ENT: No unusual epistaxis Respiratory: No hemoptysis, No shortness of breath Cardiovascular: No chest pain Abdomen: + GI bleeding, No nausea, No pain Musculoskeletal: No joint pain, No muscle pain Neurologic: No numbness/tingling, No weakness Heme: No abnormal bleeding/bruising Endo: + fatigue Skin: No bleeding Vital Signs Vital Signs Past 12 Hours Date Time Temp Pulse Resp B/P Pulse Ox O2 Delivery O2 Flow Rate FiO2 02/26/17 14:00 36.5 85 18 101/64 96 Room Air 02/26/17 14:00 Room Air 02/26/17 12:00 Room Air 02/26/17 11:20 37.0 100 18 117/74 96 Room Air 02/26/17 08:00 Room Air 02/26/17 07:37 37.4 114 18 91/53 95 Room Air 02/26/17 04:00 95 Room Air Physical Exam Constitutional: General Apperance: too thin Level of Distress: chronically ill Psychiatric: Mental Status: active & alert Orientation: oriented except where noted Lungs: Respiratory Effort: no dyspnea Auscuitation: breath sounds normal Cardiovascular: Heart Auscultation: RRR, no murmurs Abdomen: Inspection & Palpation: soft, no tenderness, guarding & rebound Laboratory Last 24 Hours Test 02/25/17 16:35 02/26/17 06:54 02/26/17 07:03 02/26/17 11:21 Bedside Glucose 97 mg/dl 104 mg/dl 111 mg/dl White Blood Count 3.86 K/uL Red Blood Count 3.27 M/uL Hemoglobin 9.3 g/dL Hematocrit 27.5 % Mean Corpuscular Volume 84.1 fL Mean Corpuscular Hemoglobin 28.4 pg Mean Corpuscular Hemoglobin Concent 33.8 g/dl RDW Standard Deviation 48.0 fL RDW Coefficient of Variation 15.6 % Platelet Count 257 K/uL Mean Platelet Volume 8.7 fL Sodium Level 138 mmol/L Potassium Level 3.4 mmol/L Chloride Level 105 mmol/L Carbon Dioxide Level 25 mmol/L Anion Gap 8.0 mmol/L Blood Urea Nitrogen 26 mg/dl Creatinine 1.50 mg/dl Est Creatinine Clear Calc Drug Dose 41.5 ml/min Estimated GFR () 49.2 Estimated GFR (Non- 42.4 BUN/Creatinine Ratio 17.3 Random Glucose 101 mg/dl Calcium Level 9.2 mg/dl Test 02/26/17 15:20 Assessment & Plan I reviewed his situation carefully with Dr. Trejo and Dr. Whitley, my colleague. We all agreed that he is continuing to deteriorate clinically and that we should not delay the initiation of treatment. Due to some planned downtime for the equipment in radiation oncology, I think our best approach would be to start chemotherapy and to consider RT as consolidative or palliative therapy in the appropriate context down the road. We were planning on [facility] as an outpatient. Dr. Jack tracked down an echocardiogram from last month, revealing an EF of 55%. I would like to give Rituxan tomorrow followed by the rest of the treatment on Friday, prior to the weekend. I will provide orders tomorrow. In the meantime, please check viral hepatitis serologies, as we can see reactivation with Rituxan. We will need daily labs ( CBC, CMP, uric acid, Mg, phos, LDH) during chemo. We should also start allopurinol 300 mg daily as prophylaxis for tumor lysis syndrome.
[2017-02-26 16:14] LABS: HEPATITIS B AB NEG
[2017-02-26] MEDS: TAMSULOSIN HCL 0.4 MG CAP PO SCH (20:51)
[2017-02-27] VITALS (15 sets, daily range): BP systolic 92–110; BP diastolic 59–69; PULSE 78–93; TEMP 36.2–36.8; O2SAT 95–97
[2017-02-27 06:51] LABS: HEMATOCRIT 26.4 % (42-52); MEAN CELL VOLUME 83.8 fL (80-100); MEAN CORPUSCULAR HEMOGLOBIN 28.6 pg (25-34); MEAN CORPUSCULAR HGB CONC 34.1 g/dl (32-36); PLATELET COUNT 228 K/uL (130-400); RED BLOOD COUNT 3.15 M/uL (4.7-6.1)
[2017-02-27 07:02] LABS: CALCIUM 9.1 mg/dl (8.5-10.1); CREATININE 1.4 mg/dl (0.60-1.40); POTASSIUM 3.8 mmol/L (3.5-5.1)
[2017-02-27] MEDS: FINASTERIDE 5 MG TAB PO SCH (08:44)
[2017-02-27] MEDS: METOPROLOL SUCC 25MG EXT REL TAB PO SCH (08:44)
[2017-02-27] MEDS ORDERED: SODIUM CHLORIDE 0.9% 1000ML IV PRN (13:30)
[2017-02-27] MEDS ORDERED: MEPERIDINE HCL 25 MG/ML CARP IV PRN (13:30)
[2017-02-27] MEDS ORDERED: ACETAMINOPHEN 325 MG TAB PO SCH (13:30)
[2017-02-27] MEDS ORDERED: DEXAMETHASONE 4 MG TAB PO SCH (13:30)
[2017-02-27] MEDS ORDERED: DEXAMETHASONE IV PRN (13:30)
[2017-02-27] MEDS ORDERED: DIPHENHYDRAMINE IV PRN (13:30)
[2017-02-27] MEDS ORDERED: SODIUM CHLORIDE 0.9% IV PRN ×2 (13:30)
[2017-02-27] MEDS ORDERED: DiphenhydrAMINE HCL 50 MG/ML VIAL IV PRN (13:30)
--- NOTE | 2017-02-27 13:47 | Hematology/Oncology Prog Note ---
Hematology/Onc Progress Note Date of Service Feb 27, 2017. Diagnoses DLBCL Rectal bleeding Medications Medications Administered Medications (Trade) Dose Ordered Sig/Estevan Route Start Time Stop Time Status Last Admin Dose Admin Sodium Chloride 1,000 ml @ 999 mls/hr Q1H1M STAT IV 02/24/17 14:02 02/24/17 15:02 DC 02/24/17 14:02 999 MLS/HR Sodium Chloride 1,000 ml @ 999 mls/hr Q1H1M STAT IV 02/24/17 15:25 02/24/17 16:25 DC 02/24/17 16:35 999 MLS/HR Sodium Chloride (Nss 1000ml) 1,000 ml @ 125 mls/hr Q8H IV 02/24/17 16:06 02/26/17 08:56 DC 02/26/17 00:21 125 MLS/HR Finasteride (Proscar Tab) 5 mg DAILY PO 02/25/17 09:00 03/27/17 08:59 02/27/17 08:44 5 MG Tamsulosin HCl 0.4 mg 0.4 mg HS PO 02/24/17 21:00 03/26/17 20:59 02/26/17 20:51 0.4 MG Cefazolin Sodium (Ancef 1000mg/55 ml D5W) 55 ml @ 100 mls/hr PRE-SPECIALS IV 02/25/17 09:45 02/25/17 12:02 DC 02/25/17 11:35 100 MLS/HR Lidocaine HCl (Xylocaine 1% Inj (Local)) 9 ml ONE ONCE SQ 02/25/17 11:55 02/25/17 11:56 DC 02/25/17 11:55 9 ML Iodixanol (Visipaque 50ml) 15 mg ONE ONCE FLUSH 02/25/17 11:55 02/25/17 11:56 DC 02/25/17 11:55 15 MG Potassium Chloride (Klor-Con M10) 20 meq NOW ONCE PO 02/26/17 09:30 02/26/17 09:31 DC 02/26/17 09:20 20 MEQ Metoprolol Succinate (Toprol Xl Tab) 25 mg NOW ONCE PO 02/26/17 12:30 02/26/17 12:31 DC 02/26/17 12:12 25 MG Metoprolol Succinate (Toprol Xl Tab) 25 mg DAILY PO 02/27/17 08:00 03/29/17 08:59 02/27/17 08:44 25 MG Subjective Mr. Reeder feels about the same today. He is ready to try chemotherapy. His bleeding remains minimal. Review of Systems: Constitutional: + fatigue, No chills, No fever Eyes: No worsening of vision ENT: No unusual epistaxis Respiratory: No cough, No shortness of breath Cardiovascular: No chest pain Abdomen: + GI bleeding, No nausea, No pain Musculoskeletal: No joint pain, No muscle pain Male : No dysuria Heme: No abnormal bleeding/bruising Vital Signs Vital Signs Past 12 Hours Date Time Temp Pulse Resp B/P Pulse Ox O2 Delivery O2 Flow Rate FiO2 02/27/17 11:22 36.6 84 16 92/59 95 Room Air 02/27/17 10:16 Room Air 02/27/17 08:00 Room Air 02/27/17 07:57 36.3 93 16 106/68 95 Room Air Physical Exam Constitutional: General Apperance: too thin Level of Distress: chronically ill Psychiatric: Mental Status: active & alert Orientation: oriented except where noted Lungs: Respiratory Effort: no dyspnea Auscuitation: breath sounds normal Cardiovascular: Heart Auscultation: RRR, no murmurs Abdomen: Inspection & Palpation: soft, no tenderness, guarding & rebound Extremities: edema (improving bilateral pedal edema) Laboratory Last 24 Hours Test 02/26/17 15:20 02/27/17 06:07 Hepatitis B Surface Antibody NEG Hepatitis C Antibody NEG White Blood Count 5.30 K/uL Red Blood Count 3.15 M/uL Hemoglobin 9.0 g/dL Hematocrit 26.4 % Mean Corpuscular Volume 83.8 fL Mean Corpuscular Hemoglobin 28.6 pg Mean Corpuscular Hemoglobin Concent 34.1 g/dl RDW Standard Deviation 48.6 fL RDW Coefficient of Variation 15.9 % Platelet Count 228 K/uL Mean Platelet Volume 9.0 fL Sodium Level 136 mmol/L Potassium Level 3.8 mmol/L Chloride Level 104 mmol/L Carbon Dioxide Level 24 mmol/L Anion Gap 8.0 mmol/L Blood Urea Nitrogen 22 mg/dl Creatinine 1.40 mg/dl Est Creatinine Clear Calc Drug Dose 44.5 ml/min Estimated GFR () 53.5 Estimated GFR (Non- 46.1 BUN/Creatinine Ratio 16.0 Random Glucose 103 mg/dl Calcium Level 9.1 mg/dl Assessment & Plan We will proceed with chemotherapy today. He signed consent, which is on the chart. He will receive his Rituxan today and then will receive chemo tomorrow. As noted yesterday, please continue with daily labs, including uric acid, LDH, and mag/phos. He will also need allopurinol, though we should use 200 mg rather than 300 mg due to his renal function.
[2017-02-27] MEDS ORDERED: RITUXIMAB IV SCH (14:00)
[2017-02-27] MEDS ORDERED: SODIUM CHLORIDE 0.9% IV SCH (14:00)
--- NOTE | 2017-02-27 14:34 | Progress Note ---
Subjective Date of Service: Feb 27, 2017. Subjective Pt evaluation today including: conversation w/ patient, conversation w/ family (), physical exam, lab review, review of studies, conversation w/ lean consultant (Dr. Hillman), review of inpatient medication list Pain: denies pain PO Intake: adequate Voiding: no voiding problems patient resting today, no issues plan for Rituxan today then chemo starting tomorrow discussed with Dr. Weber updated at bedside Problem List Medical Problems: (1) Anemia Status: Acute (2) Dehydration Status: Acute (3) GI bleed Status: Acute (4) GI bleeding Status: Acute (5) Rectal mass Status: Acute Review of Systems Constitutional: + fatigue, + weakness Abdomen: + GI bleeding (some more rectal bleeding last night, not severe) Neurologic: + weakness All Other Systems: Reviewed and Negative Medications Current Inpatient Medications Medications (Trade) Dose Ordered Sig/Estevan Route Start Time Stop Time Status Last Admin Dose Admin Finasteride (Proscar Tab) 5 mg DAILY PO 02/25/17 09:00 03/27/17 08:59 02/27/17 08:44 5 MG Tamsulosin HCl (Flomax Cap) 0.4 mg HS PO 02/24/17 21:00 03/26/17 20:59 02/26/17 20:51 0.4 MG Metoprolol Succinate (Toprol Xl Tab) 25 mg DAILY PO 02/27/17 08:00 03/29/17 08:59 02/27/17 08:44 25 MG Acetaminophen 650 mg 650 mg TODAY@1330 PO 02/27/17 13:30 02/27/17 16:00 02/27/17 13:41 650 MG Rituximab 500 mg/ Rituximab 250 mg/ Sodium Chloride 375 ml @ 25 mls/hr TODAY@1400 IV 02/27/17 14:00 02/27/17 22:00 02/27/17 14:13 25 MLS/HR Sodium Chloride (Nss 1000ml) 1,000 ml @ 100 mls/hr PRN PRN IV 02/27/17 13:30 02/28/17 13:29 Meperidine HCl (Demerol Inj) 25 mg PRN PRN IV 02/27/17 13:30 02/28/17 13:29 Diphenhydramine HCl 25 mg 25 mg PRN PRN IV 02/27/17 13:30 02/28/17 13:29 Dexamethasone Sodium Phosphate 20 mg/Sodium Chloride 52 ml @ 208 mls/hr PRN PRN IV 02/27/17 13:30 02/28/17 13:29 Diphenhydramine HCl/Sodium Chloride (Benadryl Inj/ Nss 50ml) 50.5 ml @ 202 mls/hr TODAY@ PRN IV 02/27/17 13:30 02/28/17 13:29 Diphenhydramine HCl (Benadryl Cap) 50 mg TODAY@1330 PO 02/27/17 13:30 02/27/17 16:00 02/27/17 13:40 50 MG Dexamethasone 20 mg 20 mg TODAY@1330 PO 02/27/17 13:30 02/27/17 16:00 02/27/17 13:41 20 MG Cyclophosphamide 800 mg/Sodium Chloride 590 ml @ 1,180 mls/hr TODAY@1115 IV 02/28/17 11:15 02/28/17 16:30 Doxorubicin HCl 50 mg/Syringe 25 ml @ 5 mls/min TODAY@1045 IV 02/28/17 10:45 02/28/17 15:00 Vincristine Sulfate/Syringe (Vincasar Pfs/ Syringe) 20 ml @ 120 mls/hr TODAY@1100 IV 02/28/17 11:00 02/28/17 15:00 Prednisone (PredniSONE TAB) 100 mg DAILY PO 02/28/17 08:00 03/04/17 08:01 Dexamethasone (Decadron Tab) 20 mg TODAY@1000 PO 02/28/17 10:00 02/28/17 14:00 Ondansetron HCl (Zofran Tab) 16 mg TODAY@1000 PO 02/28/17 10:00 02/28/17 14:00 Objective Vital Signs Date Time Temp Pulse Resp B/P Pulse Ox O2 Delivery O2 Flow Rate FiO2 02/27/17 14:15 36.5 88 18 98/65 96 Room Air 02/27/17 11:22 36.6 84 16 92/59 95 Room Air 02/27/17 10:16 Room Air 02/27/17 08:00 Room Air 02/27/17 07:57 36.3 93 16 106/68 95 Room Air 02/27/17 00:33 Room Air 02/26/17 23:58 37.4 96 20 101/62 95 Room Air 02/26/17 19:36 36.8 85 16 98/63 97 Room Air 02/26/17 16:16 37.2 89 17 106/64 99 Room Air 02/26/17 15:45 97 Room Air Physical Exam General Appearance: no apparent distress, + thin Eyes: normal inspection, EOMI, sclerae normal ENT: normal ENT inspection, hearing grossly normal, pharynx normal Neck: supple, no adenopathy, no JVD, trachea midline Respiratory/Chest: chest non-tender, lungs clear, normal breath sounds, no respiratory distress, no accessory muscle use Cardiovascular: regular rate, rhythm, no edema, no gallop, no JVD, no murmur Abdomen: normal bowel sounds, non tender, soft, no organomegaly Extremities: normal range of motion, non-tender, normal inspection, no pedal edema, no calf tenderness 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: balancer scale II-XII nml as tested, alert, normal mood/affect, oriented x 3, + motor weakness (generalized) Skin: normal color, warm/dry, no rash Laboratory Results Last 24 Hours Test 02/26/17 15:20 02/27/17 06:07 Hepatitis B Surface Antibody NEG Hepatitis C Antibody NEG White Blood Count 5.30 K/uL Red Blood Count 3.15 M/uL Hemoglobin 9.0 g/dL Hematocrit 26.4 % Mean Corpuscular Volume 83.8 fL Mean Corpuscular Hemoglobin 28.6 pg Mean Corpuscular Hemoglobin Concent 34.1 g/dl RDW Standard Deviation 48.6 fL RDW Coefficient of Variation 15.9 % Platelet Count 228 K/uL Mean Platelet Volume 9.0 fL Sodium Level 136 mmol/L Potassium Level 3.8 mmol/L Chloride Level 104 mmol/L Carbon Dioxide Level 24 mmol/L Anion Gap 8.0 mmol/L Blood Urea Nitrogen 22 mg/dl Creatinine 1.40 mg/dl Est Creatinine Clear Calc Drug Dose 44.5 ml/min Estimated GFR () 53.5 Estimated GFR (Non- 46.1 BUN/Creatinine Ratio 16.0 Random Glucose 103 mg/dl Calcium Level 9.1 mg/dl Assessment and Plan 81 y/o male with a history of permanent a-fib, recent DVT on therapeutic lovenox , , HTN, DM II (managed off medications), CKD stage III, HLD, and recent GI bleeding from rectal invasion of Lymphoma. 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 Mild left hydroureteronephrosis likely due to mass effect of LAD. Also enlarged, 2.1 x 1.3 cm distal paraesophageal lymph node medical oncology consulted for recommendations plan for Rituxan today and then chemo tomorrow echo in January 2017 showed EF of 55% hepatitis Ab negative check uric acid daily, started on Allopurinol 200mg daily - Acute on chronic renal failure, h/o Left moderate hydroureteronephrosis secondary to mass effect of extensive lymphadenopathy in pelvis,--s/p left ureteral stent placement and cystoscopy on 02/05 Cr continues to improve, down to 1.4 today, no further fluids at this time making more than adequate urine - Permanent Atrial fibrillation-- BP and HR better controlled with Toprol 25mg, may continue this lower dose on discharge if it works ECHO (01/28/17) with EF of 50-55%. Right ventricle mild to moderate dilation, moderate MR no anticoagulation due to bleeding - Hypokalemia: resolved, 3.8 today Code Status FULL RESUSCITATION STATUS will discuss this further during admission Plan: start chemo, keep over the weekend to monitor response and side effects, radiation therapy next week, to [place] once ready for d/c
[2017-02-27] MEDS: TAMSULOSIN HCL 0.4 MG CAP PO SCH (21:05)
[2017-02-28] VITALS (7 sets, daily range): BP systolic 103–173; BP diastolic 63–96; PULSE 77–91; TEMP 35.9–36.9; O2SAT 94–98
[2017-02-28 07:22] LABS: BUN/CREATININE RATIO 20.3 (10-20); CALCIUM 8.5 mg/dl (8.5-10.1); CREATININE 1.3 mg/dl (0.60-1.40); MAGNESIUM 1.8 mg/dl (1.8-2.4); PHOSPHORUS 2.1 mg/dl (2.5-4.9); URIC ACID 9.4 mg/dl (2.6-7.2)
[2017-02-28] MEDS: METOPROLOL SUCC 25MG EXT REL TAB PO SCH (07:51)
[2017-02-28] MEDS: FINASTERIDE 5 MG TAB PO SCH (07:51)
[2017-02-28] MEDS: ALLOPURINOL 100 MG TAB PO SCH (07:52)
[2017-02-28 08:17] LABS: BASO % 0.1 %; BASO ABS # 0.01 K/uL (0-0.2); IG% 3.6 %; LYMPH % 7.3 %; LYMPH ABS # 0.63 K/uL (1.2-3.4); MEAN CELL VOLUME 82.8 fL (80-100); MEAN CORPUSCULAR HEMOGLOBIN 28.4 pg (25-34); MEAN PLATELET VOLUME 9.2 fL (7.4-10.4); MONO % 5.2 %; NEUT % 83.8 %; PLATELET COUNT 240 K/uL (130-400); RED BLOOD COUNT 3.38 M/uL (4.7-6.1); WHITE BLOOD COUNT 8.65 K/uL (4.8-10.8)
[2017-02-28] MEDS ORDERED: SODIUM PHOSPHATE 3 MMOL/1 ML INFUSION IV STA (08:19)
[2017-02-28 08:23] LABS: COMPLETE YES; MEAN CORPUSCULAR HGB CONC 34.3 g/dl (32-36)
[2017-02-28] MEDS ORDERED: SODIUM PHOSPHATE INJ 15 MMOL in SODIUM CHLORIDE 0.9% 250ML 250 ML IV ONE (09:00)
[2017-02-28] MEDS ORDERED: DEXAMETHASONE 4 MG TAB PO SCH (10:00)
[2017-02-28] MEDS ORDERED: ONDANSETRON 8 MG TAB PO SCH (10:00)
--- NOTE | 2017-02-28 10:01 | Progress Note ---
Subjective Date of Service: Feb 28, 2017. Subjective Pt evaluation today including: conversation w/ patient, physical exam, lab review, conversation w/ risk consultant, review of inpatient medication list Pain: no pain PO Intake: adequate Voiding: no voiding problems patient feeling well, resting in bed currently tolerated Rituxan yesterday, plan for chemotherapy today uric acid high at 9.4 today and phosphorus low at 1.9, will replace renal function improving patient denies any rectal bleeding in the past 24 hours Problem List Medical Problems: (1) Anemia Status: Acute (2) Dehydration Status: Acute (3) GI bleed Status: Acute (4) GI bleeding Status: Acute (5) Rectal mass Status: Acute Review of Systems Constitutional: + fatigue, + weakness Abdomen: + GI bleeding (resolved for 24 hours) Neurologic: + weakness All Other Systems: Reviewed and Negative Medications Current Inpatient Medications Medications (Trade) Dose Ordered Sig/Estevan Route Start Time Stop Time Status Last Admin Dose Admin Finasteride (Proscar Tab) 5 mg DAILY PO 02/25/17 09:00 03/27/17 08:59 02/28/17 07:51 5 MG Tamsulosin HCl (Flomax Cap) 0.4 mg HS PO 02/24/17 21:00 03/26/17 20:59 02/27/17 21:05 0.4 MG Metoprolol Succinate 25 mg 25 mg DAILY PO 02/27/17 08:00 03/29/17 08:59 02/28/17 07:51 25 MG Sodium Chloride (Nss 1000ml) 1,000 ml @ 100 mls/hr PRN PRN IV 02/27/17 13:30 02/28/17 13:29 Meperidine HCl (Demerol Inj) 25 mg PRN PRN IV 02/27/17 13:30 02/28/17 13:29 Diphenhydramine HCl 25 mg 25 mg PRN PRN IV 02/27/17 13:30 02/28/17 13:29 Dexamethasone Sodium Phosphate 20 mg/Sodium Chloride 52 ml @ 208 mls/hr PRN PRN IV 02/27/17 13:30 02/28/17 13:29 Diphenhydramine HCl 25 mg/Sodium Chloride 50.5 ml @ 202 mls/hr TODAY@ PRN IV 02/27/17 13:30 02/28/17 13:29 Cyclophosphamide 800 mg/Sodium Chloride 590 ml @ 1,180 mls/hr TODAY@1115 IV 02/28/17 11:15 02/28/17 16:30 Doxorubicin HCl 50 mg/Syringe 25 ml @ 5 mls/min TODAY@1045 IV 02/28/17 10:45 02/28/17 15:00 Vincristine Sulfate/Syringe (Vincasar Pfs/ Syringe) 20 ml @ 120 mls/hr TODAY@1100 IV 02/28/17 11:00 02/28/17 15:00 Prednisone (PredniSONE TAB) 100 mg DAILY PO 02/28/17 08:00 03/04/17 08:01 02/28/17 07:51 100 MG Dexamethasone (Decadron Tab) 20 mg TODAY@1000 PO 02/28/17 10:00 02/28/17 14:00 Ondansetron HCl (Zofran Tab) 16 mg TODAY@1000 PO 02/28/17 10:00 02/28/17 14:00 Allopurinol 200 mg 200 mg DAILY PO 02/28/17 08:00 03/30/17 07:59 02/28/17 07:52 200 MG Sodium Phosphate/ Sodium Chloride (Sodium Phosphate Inj/Nss 250ml) 255 ml @ 88 mls/hr TODAY@0900 ONCE IV 02/28/17 09:00 02/28/17 11:53 02/28/17 09:07 88 MLS/HR Objective Vital Signs Date Time Temp Pulse Resp B/P Pulse Ox O2 Delivery O2 Flow Rate FiO2 02/28/17 08:00 Room Air 02/28/17 07:59 36.4 87 18 107/69 98 Room Air 02/28/17 04:27 36.5 80 20 104/63 97 Room Air 02/28/17 01:17 35.9 77 20 111/74 94 Room Air 02/28/17 00:45 Room Air 02/27/17 17:58 36.8 87 20 98/64 97 Room Air 02/27/17 17:15 36.4 87 18 104/64 97 02/27/17 17:00 36.3 82 18 106/66 97 Room Air 02/27/17 16:45 36.4 85 18 103/68 97 Room Air 02/27/17 16:30 36.6 83 18 110/67 96 Room Air 02/27/17 16:15 36.4 89 18 107/67 96 Room Air 02/27/17 16:00 97 Room Air 02/27/17 16:00 36.8 87 18 106/69 97 Room Air 02/27/17 15:45 36.3 84 18 106/67 95 Room Air 02/27/17 15:40 36.2 78 18 100/62 96 Room Air 02/27/17 15:30 36.8 83 18 100/65 95 Room Air 02/27/17 14:45 36.7 88 18 97/63 95 Room Air 02/27/17 14:25 82 18 95/61 96 02/27/17 14:15 36.5 88 18 98/65 96 Room Air 02/27/17 11:22 36.6 84 16 92/59 95 Room Air 02/27/17 10:16 Room Air Physical Exam General Appearance: no apparent distress, + thin Eyes: normal inspection, EOMI, sclerae normal ENT: normal ENT inspection, hearing grossly normal, pharynx normal Neck: supple, no adenopathy, no JVD, trachea midline Respiratory/Chest: chest non-tender, lungs clear, normal breath sounds, no respiratory distress, no accessory muscle use Cardiovascular: regular rate, rhythm, no gallop, no JVD, no murmur Abdomen: normal bowel sounds, non tender, soft, no organomegaly Extremities: normal range of motion, non-tender, normal inspection, no calf tenderness, + pedal edema (left greater than right) 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: obstetric assistant II-XII nml as tested, alert, normal mood/affect, oriented x 3, + motor weakness (generalized) Skin: normal color, warm/dry, no rash Laboratory Results Last 24 Hours Test 02/28/17 06:31 White Blood Count 8.65 K/uL Red Blood Count 3.38 M/uL Hemoglobin 9.6 g/dL Hematocrit 28.0 % Mean Corpuscular Volume 82.8 fL Mean Corpuscular Hemoglobin 28.4 pg Mean Corpuscular Hemoglobin Concent 34.3 g/dl Platelet Count 240 K/uL Mean Platelet Volume 9.2 fL Neutrophils (%) (Auto) 83.8 % Lymphocytes (%) (Auto) 7.3 % Monocytes (%) (Auto) 5.2 % Eosinophils (%) (Auto) 0.0 % Basophils (%) (Auto) 0.1 % Neutrophils # (Auto) 7.25 K/uL Lymphocytes # (Auto) 0.63 K/uL Monocytes # (Auto) 0.45 K/uL Eosinophils # (Auto) 0.00 K/uL Basophils # (Auto) 0.01 K/uL RDW Standard Deviation 47.4 fL RDW Coefficient of Variation 15.9 % Immature Granulocyte % (Auto) 3.6 % Immature Granulocyte # (Auto) 0.31 K/uL Sodium Level 135 mmol/L Potassium Level 4.0 mmol/L Chloride Level 103 mmol/L Carbon Dioxide Level 23 mmol/L Anion Gap 9.0 mmol/L Blood Urea Nitrogen 26 mg/dl Creatinine 1.30 mg/dl Est Creatinine Clear Calc Drug Dose 46.2 ml/min Estimated GFR () 58.5 Estimated GFR (Non- 50.5 BUN/Creatinine Ratio 20.3 Random Glucose 125 mg/dl Uric Acid 9.4 mg/dl Calcium Level 8.5 mg/dl Phosphorus Level 2.1 mg/dl Magnesium Level 1.8 mg/dl Assessment and Plan 81 y/o male with a history of permanent a-fib, recent DVT on therapeutic lovenox , , HTN, DM II (managed off medications), CKD stage III, HLD, and recent GI bleeding from rectal invasion of Lymphoma. 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 Mild left hydroureteronephrosis likely due to mass effect of LAD. Also enlarged, 2.1 x 1.3 cm distal paraesophageal lymph node medical oncology consulted for recommendations, spoke again with Dr. Wallace Patterson today received Rituxan yesterday, plan for chemotherapy today echo in January 2017 showed EF of 55% hepatitis Ab negative uric acid high at 9.4, started on Allopurinol 200mg daily - Hypophosphatemia: in setting of lymphoma, could be a degree of tumor lysis syndrome, replace with NaPhos today - Acute on chronic renal failure, h/o Left moderate hydroureteronephrosis secondary to mass effect of extensive lymphadenopathy in pelvis,--s/p left ureteral stent placement and cystoscopy on 02/05 Cr continues to improve, down to 1.2 today, no further fluids at this time making more than adequate urine likely at baseline and the acute component resolved need to watch closely for tumor lysis syndrome now that chemo starting - Permanent Atrial fibrillation-- BP and HR better controlled with Toprol 25mg, going to recommend to continue this dose on discharge ECHO (01/28/17) with EF of 50-55%. Right ventricle mild to moderate dilation, moderate MR no anticoagulation due to bleeding - Hypokalemia: resolved, 4.0 today Code Status FULL RESUSCITATION STATUS will discuss this further during admission Plan: start chemo, keep over the weekend to monitor response and side effects, radiation therapy next week, to [place] once ready for d/c
[2017-02-28] MEDS ORDERED: DOXORUBICIN HCL IV SCH (10:45)
[2017-02-28] MEDS ORDERED: VINCRISTINE SULFATE IV SCH (11:00)
[2017-02-28] MEDS ORDERED: CYCLOPHOSPHAMIDE IV SCH (11:15)
[2017-02-28] MEDS ORDERED: SODIUM CHLORIDE 0.9% IV SCH (11:15)
[2017-02-28] MEDS: TAMSULOSIN HCL 0.4 MG CAP PO SCH (20:52)
[2017-03-01] VITALS (7 sets, daily range): BP systolic 97–174; BP diastolic 62–106; PULSE 78–92; TEMP 36.3–36.8; O2SAT 95–99
[2017-03-01 07:32] LABS: HEMATOCRIT 27.7 % (42-52); MEAN CELL VOLUME 83.4 fL (80-100); MEAN CORPUSCULAR HEMOGLOBIN 28.9 pg (25-34); MEAN CORPUSCULAR HGB CONC 34.7 g/dl (32-36); MEAN PLATELET VOLUME 9.2 fL (7.4-10.4); PLATELET COUNT 236 K/uL (130-400); RED BLOOD COUNT 3.32 M/uL (4.7-6.1); WHITE BLOOD COUNT 10.18 K/uL (4.8-10.8)
[2017-03-01 08:19] LABS: BUN/CREATININE RATIO 24.3 (10-20); CALCIUM 8.5 mg/dl (8.5-10.1); CREATININE 1.4 mg/dl (0.60-1.40); MAGNESIUM 1.9 mg/dl (1.8-2.4); PHOSPHORUS 2.9 mg/dl (2.5-4.9); URIC ACID 9.7 mg/dl (2.6-7.2)
[2017-03-01] MEDS: METOPROLOL SUCC 25MG EXT REL TAB PO SCH (08:24)
[2017-03-01] MEDS: ALLOPURINOL 100 MG TAB PO SCH (08:24)
[2017-03-01] MEDS: FINASTERIDE 5 MG TAB PO SCH (08:25)
[2017-03-01] MEDS: BOOST PLUS VANILLA PO SCH ×2 (08:26)
--- NOTE | 2017-03-01 13:51 | Hematology/Oncology Prog Note ---
Hematology/Onc Progress Note Date of Service Mar 01, 2017. Diagnoses DLBCL Rectal bleeding Medications Medications Administered Medications (Trade) Dose Ordered Sig/Estevan Route Start Time Stop Time Status Last Admin Dose Admin Sodium Chloride 1,000 ml @ 999 mls/hr Q1H1M STAT IV 02/24/17 14:02 02/24/17 15:02 DC 02/24/17 14:02 999 MLS/HR Sodium Chloride 1,000 ml @ 999 mls/hr Q1H1M STAT IV 02/24/17 15:25 02/24/17 16:25 DC 02/24/17 16:35 999 MLS/HR Sodium Chloride (Nss 1000ml) 1,000 ml @ 125 mls/hr Q8H IV 02/24/17 16:06 02/26/17 08:56 DC 02/26/17 00:21 125 MLS/HR Finasteride (Proscar Tab) 5 mg DAILY PO 02/25/17 09:00 03/27/17 08:59 03/01/17 08:25 5 MG Tamsulosin HCl 0.4 mg 0.4 mg HS PO 02/24/17 21:00 03/26/17 20:59 02/28/17 20:52 0.4 MG Cefazolin Sodium (Ancef 1000mg/55 ml D5W) 55 ml @ 100 mls/hr PRE-SPECIALS IV 02/25/17 09:45 02/25/17 12:02 DC 02/25/17 11:35 100 MLS/HR Lidocaine HCl (Xylocaine 1% Inj (Local)) 9 ml ONE ONCE SQ 02/25/17 11:55 02/25/17 11:56 DC 02/25/17 11:55 9 ML Iodixanol (Visipaque 50ml) 15 mg ONE ONCE FLUSH 02/25/17 11:55 02/25/17 11:56 DC 02/25/17 11:55 15 MG Potassium Chloride (Klor-Con M10) 20 meq NOW ONCE PO 02/26/17 09:30 02/26/17 09:31 DC 02/26/17 09:20 20 MEQ Metoprolol Succinate (Toprol Xl Tab) 25 mg NOW ONCE PO 02/26/17 12:30 02/26/17 12:31 DC 02/26/17 12:12 25 MG Metoprolol Succinate (Toprol Xl Tab) 25 mg DAILY PO 02/27/17 08:00 03/29/17 08:59 03/01/17 08:24 25 MG Acetaminophen 650 mg 650 mg TODAY@1330 PO 02/27/17 13:30 02/27/17 16:00 DC 02/27/17 13:41 650 MG Rituximab/ Rituximab/Sodium Chloride (Rituxan Inj/ Rituxan Inj/Nss 500ml) 375 ml @ 25 mls/hr TODAY@1400 IV 02/27/17 14:00 02/27/17 22:00 DC 02/27/17 14:13 25 MLS/HR Diphenhydramine HCl (Benadryl Cap) 50 mg TODAY@1330 PO 02/27/17 13:30 02/27/17 16:00 DC 02/27/17 13:40 50 MG Dexamethasone 20 mg 20 mg TODAY@1330 PO 02/27/17 13:30 02/27/17 16:00 DC 02/27/17 13:41 20 MG Cyclophosphamide 800 mg/Sodium Chloride 590 ml @ 1,180 mls/hr TODAY@1115 IV 02/28/17 11:15 02/28/17 16:30 DC 02/28/17 11:52 1,180 MLS/HR Doxorubicin HCl 50 mg/Syringe 25 ml @ 5 mls/min TODAY@1045 IV 02/28/17 10:45 02/28/17 15:00 DC 02/28/17 11:27 5 MLS/MIN Vincristine Sulfate/Syringe (Vincasar Pfs/ Syringe) 20 ml @ 120 mls/hr TODAY@1100 IV 02/28/17 11:00 02/28/17 15:00 DC 02/28/17 11:39 120 MLS/HR Prednisone (PredniSONE TAB) 100 mg DAILY PO 02/28/17 08:00 03/04/17 08:01 03/01/17 08:25 100 MG Dexamethasone (Decadron Tab) 20 mg TODAY@1000 PO 02/28/17 10:00 02/28/17 14:00 DC 02/28/17 10:10 20 MG Ondansetron HCl (Zofran Tab) 16 mg TODAY@1000 PO 02/28/17 10:00 02/28/17 14:00 DC 02/28/17 10:09 16 MG Allopurinol 200 mg 200 mg DAILY PO 02/28/17 08:00 5/7/17 07:59 03/01/17 08:24 200 MG Sodium Phosphate/ Sodium Chloride (Sodium Phosphate Inj/Nss 250ml) 255 ml @ 88 mls/hr TODAY@0900 ONCE IV 02/28/17 09:00 02/28/17 11:53 DC 02/28/17 09:07 88 MLS/HR Enteral Nutritional Formula (Boost Plus Vanilla) 1 can DAILY PO 03/01/17 08:00 03/31/17 07:59 03/01/17 08:26 1 CAN Subjective Mr. Reeder did well with treatment. He had no issues with Rituxan or the chemo yesterday. He hasn't noted much change in his clinical status, but denies nausea. He has not had what he considers a normal bowel movement since Friday; he has passed some small amounts of blood since then, but not anything of note in the last 48 hours. He denies abdominal bloating or pain. Review of Systems: Constitutional: + fatigue, No chills, No fever Eyes: No worsening of vision ENT: + problem reported (no mucositis), No unusual epistaxis Respiratory: No shortness of breath Cardiovascular: No chest pain Abdomen: + constipation, No nausea, No pain, No vomiting Musculoskeletal: No joint pain, No muscle pain Neurologic: No numbness/tingling, No weakness Heme: No abnormal bleeding/bruising, No night sweats Skin: No rash Vital Signs Vital Signs Past 12 Hours Date Time Temp Pulse Resp B/P Pulse Ox O2 Delivery O2 Flow Rate FiO2 03/01/17 12:45 36.3 85 16 105/64 99 03/01/17 11:30 98 Room Air 03/01/17 08:36 36.4 83 16 104/71 98 03/01/17 05:40 36.8 81 20 103/66 97 Room Air Physical Exam Constitutional: General Apperance: too thin Level of Distress: chronically ill Psychiatric: Mental Status: active & alert Orientation: oriented except where noted Lungs: Respiratory Effort: no dyspnea Auscuitation: breath sounds normal Cardiovascular: Heart Auscultation: RRR, no murmurs Abdomen: Inspection & Palpation: soft, no tenderness, guarding & rebound Extremities: edema (improving bilateral pedal edema) Laboratory Last 24 Hours Test 4/8/17 07:11 White Blood Count 10.18 K/uL Red Blood Count 3.32 M/uL Hemoglobin 9.6 g/dL Hematocrit 27.7 % Mean Corpuscular Volume 83.4 fL Mean Corpuscular Hemoglobin 28.9 pg Mean Corpuscular Hemoglobin Concent 34.7 g/dl RDW Standard Deviation 48.4 fL RDW Coefficient of Variation 16.0 % Platelet Count 236 K/uL Mean Platelet Volume 9.2 fL Sodium Level 135 mmol/L Potassium Level 4.0 mmol/L Chloride Level 103 mmol/L Carbon Dioxide Level 22 mmol/L Anion Gap 10.0 mmol/L Blood Urea Nitrogen 34 mg/dl Creatinine 1.40 mg/dl Est Creatinine Clear Calc Drug Dose 45.2 ml/min Estimated GFR () 53.5 Estimated GFR (Non- 46.1 BUN/Creatinine Ratio 24.3 Random Glucose 117 mg/dl Uric Acid 9.7 mg/dl Calcium Level 8.5 mg/dl Phosphorus Level 2.9 mg/dl Magnesium Level 1.9 mg/dl Assessment & Plan He did well with chemotherapy. I would like to keep monitoring his tumor lysis labs for a few more days. His uric acid is not rising, but it is not really falling either. I would like to keep him on some IV fluids for a bit longer, to protect his kidneys. He also needs some laxatives or stool softeners for his constipation, particularly as vincristine can make that issue worse. On another note, he was due to see Dr. Patel from Urology last week for a ureteral stent change. He missed this appointment due to his hospitalization. Please consult Urology to discuss the need for a stent change.
[2017-03-01] MEDS ORDERED: POLYETHYLENE (MIRALAX) 17 GM PACK PO PRN (14:30)
[2017-03-01] MEDS: SODIUM CHLORIDE 0.9% 1000ML 1,000 ML IV SCH (14:54)
--- NOTE | 2017-03-01 15:30 | Progress Note ---
Subjective Date of Service: Mar 01, 2017. Subjective Pt evaluation today including: conversation w/ patient, conversation w/ family , physical exam, lab review, conversation w/ funeral pre need consultant, review of inpatient medication list Pain: no pain PO Intake: adequate Voiding: no voiding problems patient tolerating chemo quite well, no acute issues no BM since admission spoke with Dr. Weber about the case, plan for some fluids and consult urology Problem List Medical Problems: (1) Anemia Status: Acute (2) Dehydration Status: Acute (3) GI bleed Status: Acute (4) GI bleeding Status: Acute (5) Rectal mass Status: Acute Review of Systems Constitutional: + fatigue, + weakness Abdomen: + constipation, + problem reported (no bleeding) All Other Systems: Reviewed and Negative Medications Current Inpatient Medications Medications (Trade) Dose Ordered Sig/Estevan Route Start Time Stop Time Status Last Admin Dose Admin Finasteride (Proscar Tab) 5 mg DAILY PO 02/25/17 09:00 03/27/17 08:59 03/01/17 08:25 5 MG Tamsulosin HCl (Flomax Cap) 0.4 mg HS PO 02/24/17 21:00 03/26/17 20:59 02/28/17 20:52 0.4 MG Metoprolol Succinate (Toprol Xl Tab) 25 mg DAILY PO 02/27/17 08:00 03/29/17 08:59 03/01/17 08:24 25 MG Prednisone (PredniSONE TAB) 100 mg DAILY PO 02/28/17 08:00 03/04/17 08:01 03/01/17 08:25 100 MG Allopurinol (Zyloprim Tab) 200 mg DAILY PO 02/28/17 08:00 03/30/17 07:59 03/01/17 08:24 200 MG Enteral Nutritional Formula 1 can 1 can DAILY PO 03/01/17 08:00 03/31/17 07:59 03/01/17 08:26 1 CAN Sodium Chloride (Nss 1000ml) 1,000 ml @ 100 mls/hr Q10H IV 03/01/17 14:30 03/31/17 14:29 03/01/17 14:54 100 MLS/HR Polyethylene (Miralax Powder Packet) 17 gm DAILY PRN PO 03/01/17 14:30 03/31/17 14:29 Objective Vital Signs Date Time Temp Pulse Resp B/P Pulse Ox O2 Delivery O2 Flow Rate FiO2 03/01/17 12:45 36.3 85 16 105/64 99 03/01/17 11:30 98 Room Air 03/01/17 08:36 36.4 83 16 104/71 98 03/01/17 05:40 36.8 81 20 103/66 97 Room Air 03/01/17 00:55 Room Air 02/28/17 23:09 36.9 88 18 104/64 95 Room Air 02/28/17 20:00 Room Air 02/28/17 19:20 36.7 82 18 105/68 96 Room Air 02/28/17 16:00 Room Air Physical Exam General Appearance: no apparent distress, + cachetic Eyes: normal inspection, EOMI ENT: normal ENT inspection, hearing grossly normal, pharynx normal Neck: supple, no adenopathy, no JVD, trachea midline Respiratory/Chest: chest non-tender, lungs clear, normal breath sounds, no respiratory distress, no accessory muscle use Cardiovascular: regular rate, rhythm, no edema, no gallop, no JVD, no murmur Abdomen: normal bowel sounds, non tender, soft, no organomegaly Extremities: normal range of motion, non-tender, normal inspection, no pedal edema, no calf tenderness, pelvis stable 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: 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 as tested, no motor/sensory deficits, alert, normal mood/affect, oriented x 3 Skin: normal color, warm/dry, no rash Lymphatic: no adenopathy Laboratory Results Last 24 Hours Test 03/01/17 07:11 White Blood Count 10.18 K/uL Red Blood Count 3.32 M/uL Hemoglobin 9.6 g/dL Hematocrit 27.7 % Mean Corpuscular Volume 83.4 fL Mean Corpuscular Hemoglobin 28.9 pg Mean Corpuscular Hemoglobin Concent 34.7 g/dl RDW Standard Deviation 48.4 fL RDW Coefficient of Variation 16.0 % Platelet Count 236 K/uL Mean Platelet Volume 9.2 fL Sodium Level 135 mmol/L Potassium Level 4.0 mmol/L Chloride Level 103 mmol/L Carbon Dioxide Level 22 mmol/L Anion Gap 10.0 mmol/L Blood Urea Nitrogen 34 mg/dl Creatinine 1.40 mg/dl Est Creatinine Clear Calc Drug Dose 45.2 ml/min Estimated GFR () 53.5 Estimated GFR (Non- 46.1 BUN/Creatinine Ratio 24.3 Random Glucose 117 mg/dl Uric Acid 9.7 mg/dl Calcium Level 8.5 mg/dl Phosphorus Level 2.9 mg/dl Magnesium Level 1.9 mg/dl Assessment and Plan 81 y/o male with a history of permanent a-fib, recent DVT on therapeutic lovenox , , HTN, DM II (managed off medications), CKD stage III, HLD, and recent GI bleeding from rectal invasion of Lymphoma. 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 Mild left hydroureteronephrosis likely due to mass effect of LAD. Also enlarged, 2.1 x 1.3 cm distal paraesophageal lymph node medical oncology consulted for recommendations, spoke with Dr. Weber today, recommended IV fluids, urology consult received Rituxan 02/27, started on chemo 02/28, tolerating well echo in January 2017 showed EF of 55% hepatitis Ab negative uric acid high at 9.7, started on Allopurinol 200mg daily, will give NSS at 100cc/hr to help bring down UA - Hypophosphatemia: in setting of lymphoma, could be a degree of tumor lysis syndrome, replace with NaPhos as needed - Acute on chronic renal failure, h/o Left moderate hydroureteronephrosis secondary to mass effect of extensive lymphadenopathy in pelvis,--s/p left ureteral stent placement and cystoscopy on 02/05 acute component resolved, Cr 1.4, good urine output will give NSS in setting of chemo and high uric acid level ask urology to comment on plan for ureteral stent since he missed appointment with Dr. Patel watch for tumor lysis syndrome - Permanent Atrial fibrillation-- BP and HR stable with Toprol 25mg, going to recommend to continue this dose on discharge ECHO (01/28/17) with EF of 50-55%. Right ventricle mild to moderate dilation, moderate MR no anticoagulation due to bleeding - Hypokalemia: resolved Code Status FULL RESUSCITATION STATUS Plan: IV fluids, consult urology regarding stent, repeat labs in AM, PT/OT, plan for [place] on discharge
[2017-03-01] MEDS: TAMSULOSIN HCL 0.4 MG CAP PO SCH (20:53)
[2017-03-02] MEDS: SODIUM CHLORIDE 0.9% 1000ML 1,000 ML IV SCH ×3 (01:08→20:21)
[2017-03-02 04:07] VITALS: BP 117/77; PULSE 81; TEMP 36.6; O2SAT 97
[2017-03-02 07:02] VITALS: BP 111/66; PULSE 82; TEMP 36.4; O2SAT 94
[2017-03-02 07:17] LABS: PHOSPHORUS 2.9 mg/dl (2.5-4.9); URIC ACID 8.9 mg/dl (2.6-7.2)
[2017-03-02] MEDS: FINASTERIDE 5 MG TAB PO SCH (07:56)
[2017-03-02] MEDS: METOPROLOL SUCC 25MG EXT REL TAB PO SCH (07:56)
[2017-03-02] MEDS: ALLOPURINOL 100 MG TAB PO SCH (07:56)
[2017-03-02] MEDS: BOOST PLUS VANILLA PO SCH ×2 (07:57)
[2017-03-02 08:30] VITALS: O2SAT 97
--- NOTE | 2017-03-02 09:41 | Urology Consultation ---
History General Date of Service: Mar 02, 2017. Primary Care Physician: Juan Daniel Pettit M.D. Pt seen a urologist before?: Yes History of Present Illness Stent in place secondary to hydro from lymphadenopathy - started chemo recently - CT on arrival showing appropriate stent position and expected level of dilation around the stent - Cr was initially elevated upon arrival but has corrected to 1.4 with hydration attempted to see patient today but was being seen bathed at the time of my visit Laboratory Labs were reviewed and are within normal limits unless listed below. Labs are available in the chart and at [facility] Problem List Medical Problems: (1) Anemia Status: Acute (2) Dehydration Status: Acute (3) GI bleed Status: Acute (4) GI bleeding Status: Acute (5) Rectal mass Status: Acute Past History A Fib, BPH, diabetes, diverticulosis, gout, high cholesterol Past Surgical History: no surgical history, ureteral stent Family History FH: cancer Social History Hx Tobacco Use In Past Year?: No Smoking: non-smoker Alcohol: never Drug use: none Marital status: Housing status: lives with significant other Occupation status: retired History of MDRO No Allergies Coded Allergies: No Known Allergies (Verified , 02/24/17) Medications Home Medications: Home Meds and Scripts Medications Dose Route/Sig Max Daily Dose Days Date Category Proscar (Finasteride) 5 Mg Tab 5 Mg PO DAILY 02/24/17 Reported Flomax (Tamsulosin Hcl) 0.4 Mg Cap 0.4 Mg PO HS 02/24/17 Reported Toprol-Xl (Metoprolol Succinate) 50 Mg Tabcr 50 Mg PO DAILY 02/24/17 Reported Lovenox (Enoxaparin Sodium) 80 Mg/0.8 Ml Inj 80 Mg SQ Q12H 02/24/17 Reported Inpatient Medications: Current Inpatient Medications Medications (Trade) Dose Ordered Sig/Estevan Route Start Time Stop Time Status Last Admin Dose Admin Finasteride (Proscar Tab) 5 mg DAILY PO 02/25/17 09:00 03/27/17 08:59 03/02/17 07:56 5 MG Tamsulosin HCl (Flomax Cap) 0.4 mg HS PO 02/24/17 21:00 03/26/17 20:59 03/01/17 20:53 0.4 MG Metoprolol Succinate (Toprol Xl Tab) 25 mg DAILY PO 02/27/17 08:00 03/29/17 08:59 03/02/17 07:56 25 MG Prednisone (PredniSONE TAB) 100 mg DAILY PO 02/28/17 08:00 03/04/17 08:01 03/02/17 07:56 100 MG Allopurinol (Zyloprim Tab) 200 mg DAILY PO 02/28/17 08:00 03/30/17 07:59 03/02/17 07:56 200 MG Enteral Nutritional Formula 1 can 1 can DAILY PO 03/01/17 08:00 03/31/17 07:59 03/02/17 07:57 1 CAN Sodium Chloride (Nss 1000ml) 1,000 ml @ 100 mls/hr Q10H IV 03/01/17 14:30 03/31/17 14:29 03/02/17 01:08 100 MLS/HR Polyethylene (Miralax Powder Packet) 17 gm DAILY PRN PO 03/01/17 14:30 03/31/17 14:29 Physical Exam Vital Signs: Vital Signs Past 12 Hours Date Time Temp Pulse Resp B/P Pulse Ox O2 Delivery O2 Flow Rate FiO2 03/02/17 08:30 97 Room Air 03/02/17 07:02 36.4 82 16 111/66 94 Room Air 03/02/17 04:07 36.6 81 16 117/77 97 Room Air 03/02/17 00:40 Room Air 03/01/17 22:49 36.5 78 18 115/69 96 Room Air Assessment & Plan Assessment & Plan [place] 2/2 lymphadenopathy - stent well positioned - appropriate amount of hydro given the stent (mild) - on chemo - which will ultimately be his true treatment for the hydro - renal function adequate - leave stent for now, will be due for a change in several weeks
[2017-03-02 10:47] LABS: CALCIUM 8.3 mg/dl (8.5-10.1); CREATININE 1.5 mg/dl (0.60-1.40); POTASSIUM 4.2 mmol/L (3.5-5.1)
--- NOTE | 2017-03-02 12:22 | Hematology/Oncology Prog Note ---
Hematology/Onc Progress Note Date of Service Mar 02, 2017. Diagnoses DLBCL Rectal bleeding Medications Medications Administered Medications (Trade) Dose Ordered Sig/Estevan Route Start Time Stop Time Status Last Admin Dose Admin Sodium Chloride 1,000 ml @ 999 mls/hr Q1H1M STAT IV 02/24/17 14:02 02/24/17 15:02 DC 02/24/17 14:02 999 MLS/HR Sodium Chloride 1,000 ml @ 999 mls/hr Q1H1M STAT IV 02/24/17 15:25 02/24/17 16:25 DC 02/24/17 16:35 999 MLS/HR Sodium Chloride (Nss 1000ml) 1,000 ml @ 125 mls/hr Q8H IV 02/24/17 16:06 02/26/17 08:56 DC 02/26/17 00:21 125 MLS/HR Finasteride (Proscar Tab) 5 mg DAILY PO 02/25/17 09:00 03/27/17 08:59 03/02/17 07:56 5 MG Tamsulosin HCl 0.4 mg 0.4 mg HS PO 02/24/17 21:00 03/26/17 20:59 03/01/17 20:53 0.4 MG Cefazolin Sodium (Ancef 1000mg/55 ml D5W) 55 ml @ 100 mls/hr PRE-SPECIALS IV 02/25/17 09:45 02/25/17 12:02 DC 02/25/17 11:35 100 MLS/HR Lidocaine HCl (Xylocaine 1% Inj (Local)) 9 ml ONE ONCE SQ 02/25/17 11:55 02/25/17 11:56 DC 02/25/17 11:55 9 ML Iodixanol (Visipaque 50ml) 15 mg ONE ONCE FLUSH 02/25/17 11:55 02/25/17 11:56 DC 02/25/17 11:55 15 MG Potassium Chloride (Klor-Con M10) 20 meq NOW ONCE PO 02/26/17 09:30 02/26/17 09:31 DC 02/26/17 09:20 20 MEQ Metoprolol Succinate (Toprol Xl Tab) 25 mg NOW ONCE PO 02/26/17 12:30 02/26/17 12:31 DC 02/26/17 12:12 25 MG Metoprolol Succinate (Toprol Xl Tab) 25 mg DAILY PO 02/27/17 08:00 03/29/17 08:59 03/02/17 07:56 25 MG Acetaminophen 650 mg 650 mg TODAY@1330 PO 02/27/17 13:30 02/27/17 16:00 DC 02/27/17 13:41 650 MG Rituximab/ Rituximab/Sodium Chloride (Rituxan Inj/ Rituxan Inj/Nss 500ml) 375 ml @ 25 mls/hr TODAY@1400 IV 02/27/17 14:00 02/27/17 22:00 DC 02/27/17 14:13 25 MLS/HR Diphenhydramine HCl (Benadryl Cap) 50 mg TODAY@1330 PO 02/27/17 13:30 02/27/17 16:00 DC 02/27/17 13:40 50 MG Dexamethasone 20 mg 20 mg TODAY@1330 PO 02/27/17 13:30 02/27/17 16:00 DC 02/27/17 13:41 20 MG Cyclophosphamide 800 mg/Sodium Chloride 590 ml @ 1,180 mls/hr TODAY@1115 IV 02/28/17 11:15 02/28/17 16:30 DC 02/28/17 11:52 1,180 MLS/HR Doxorubicin HCl 50 mg/Syringe 25 ml @ 5 mls/min TODAY@1045 IV 02/28/17 10:45 02/28/17 15:00 DC 02/28/17 11:27 5 MLS/MIN Vincristine Sulfate/Syringe (Vincasar Pfs/ Syringe) 20 ml @ 120 mls/hr TODAY@1100 IV 02/28/17 11:00 02/28/17 15:00 DC 02/28/17 11:39 120 MLS/HR Prednisone (PredniSONE TAB) 100 mg DAILY PO 02/28/17 08:00 03/04/17 08:01 03/02/17 07:56 100 MG Dexamethasone (Decadron Tab) 20 mg TODAY@1000 PO 02/28/17 10:00 02/28/17 14:00 DC 02/28/17 10:10 20 MG Ondansetron HCl (Zofran Tab) 16 mg TODAY@1000 PO 02/28/17 10:00 02/28/17 14:00 DC 02/28/17 10:09 16 MG Allopurinol 200 mg 200 mg DAILY PO 02/28/17 08:00 5/7/17 07:59 03/02/17 07:56 200 MG Sodium Phosphate/ Sodium Chloride (Sodium Phosphate Inj/Nss 250ml) 255 ml @ 88 mls/hr TODAY@0900 ONCE IV 02/28/17 09:00 02/28/17 11:53 DC 02/28/17 09:07 88 MLS/HR Enteral Nutritional Formula 1 can 1 can DAILY PO 03/01/17 08:00 03/31/17 07:59 03/02/17 07:57 1 CAN Sodium Chloride (Nss 1000ml) 1,000 ml @ 100 mls/hr Q10H IV 03/01/17 14:30 03/31/17 14:29 03/02/17 10:04 100 MLS/HR Subjective Mr. Reeder continues to do well. He's a bit tired but otherwise is comfortable. He denies nausea or vomiting. He continues to be constipated despite Miralax yesterday. Review of Systems: Constitutional: + fatigue, No chills, No fever Eyes: No worsening of vision ENT: No unusual epistaxis Respiratory: No cough, No shortness of breath Cardiovascular: No chest pain Abdomen: + constipation, No nausea, No vomiting Neurologic: No numbness/tingling, No weakness Heme: No abnormal bleeding/bruising, No night sweats Skin: No rash Vital Signs Vital Signs Past 12 Hours Date Time Temp Pulse Resp B/P Pulse Ox O2 Delivery O2 Flow Rate FiO2 03/02/17 08:30 97 Room Air 03/02/17 07:02 36.4 82 16 111/66 94 Room Air 03/02/17 04:07 36.6 81 16 117/77 97 Room Air 03/02/17 00:40 Room Air Physical Exam Constitutional: General Apperance: too thin Level of Distress: chronically ill Psychiatric: Mental Status: active & alert Orientation: oriented except where noted Lungs: Respiratory Effort: no dyspnea Auscuitation: breath sounds normal Cardiovascular: Heart Auscultation: RRR, no murmurs Abdomen: Inspection & Palpation: soft, no tenderness, guarding & rebound Extremities: edema (improving bilateral pedal edema, L>R) Laboratory Last 24 Hours Test 03/02/17 05:44 03/02/17 09:53 Uric Acid 8.9 mg/dl Phosphorus Level 2.9 mg/dl Magnesium Level 2.0 mg/dl Sodium Level 139 mmol/L Potassium Level 4.2 mmol/L Chloride Level 104 mmol/L Carbon Dioxide Level 25 mmol/L Anion Gap 10.0 mmol/L Blood Urea Nitrogen 36 mg/dl Creatinine 1.50 mg/dl Est Creatinine Clear Calc Drug Dose 42.2 ml/min Estimated GFR () 49.2 Estimated GFR (Non- 42.4 BUN/Creatinine Ratio 24.0 Random Glucose 111 mg/dl Calcium Level 8.3 mg/dl Assessment & Plan We should continue with IV hydration, as his creatinine is still slowly rising, but it is encouraging that his uric acid is declining. Would continue with aggressive bowel regimen, though not DC due to his mass. He will continue his prednisone until Friday. If his numbers begin to improve, we can stop daily TLS labs. His bleeding has stopped and we should resume his anticoagulation. I would start him back on Lovenox, though at a reduced dose due to his renal function. We will also need to make plans to remove his IVC filter in the future. On another note, he was due to see Dr. Patel from Urology last week for a ureteral stent change. He missed this appointment due to his hospitalization. Please consult Urology to discuss the need for a stent change.
--- NOTE | 2017-03-02 13:51 | Progress Note ---
Subjective Date of Service: Mar 02, 2017. Subjective Pt evaluation today including: conversation w/ patient, conversation w/ family (), physical exam, lab review, review of studies, conversation w/ life skills consultant , review of inpatient medication list Pain: no pain PO Intake: adequate Voiding: no voiding problems discussed case and plans with Dr. Weber today recommends continuing chemo, trying Miralax for bowels and wants patient back on Lovenox since there is no evidence of rectal bleeding patient feels well, tolerating chemo well, no vomiting reviewed labs, uric acid down slightly, Cr up slightly to 1.5, making adequate urine Problem List Medical Problems: (1) Anemia Status: Acute (2) Dehydration Status: Acute (3) GI bleed Status: Acute (4) GI bleeding Status: Acute (5) Rectal mass Status: Acute Review of Systems Constitutional: + fatigue, + weakness Abdomen: + constipation All Other Systems: Reviewed and Negative Medications Current Inpatient Medications Medications (Trade) Dose Ordered Sig/Estevan Route Start Time Stop Time Status Last Admin Dose Admin Finasteride (Proscar Tab) 5 mg DAILY PO 02/25/17 09:00 03/27/17 08:59 03/02/17 07:56 5 MG Tamsulosin HCl (Flomax Cap) 0.4 mg HS PO 02/24/17 21:00 03/26/17 20:59 03/01/17 20:53 0.4 MG Metoprolol Succinate (Toprol Xl Tab) 25 mg DAILY PO 02/27/17 08:00 03/29/17 08:59 03/02/17 07:56 25 MG Prednisone (PredniSONE TAB) 100 mg DAILY PO 02/28/17 08:00 03/04/17 08:01 03/02/17 07:56 100 MG Allopurinol (Zyloprim Tab) 200 mg DAILY PO 02/28/17 08:00 03/30/17 07:59 03/02/17 07:56 200 MG Enteral Nutritional Formula 1 can 1 can DAILY PO 03/01/17 08:00 03/31/17 07:59 03/02/17 07:57 1 CAN Sodium Chloride (Nss 1000ml) 1,000 ml @ 100 mls/hr Q10H IV 03/01/17 14:30 03/31/17 14:29 03/02/17 10:04 100 MLS/HR Polyethylene (Miralax Powder Packet) 17 gm DAILY PRN PO 03/01/17 14:30 03/03/17 08:00 Polyethylene (Miralax Powder Packet) 17 gm BID PO 03/02/17 20:00 04/01/17 19:59 Objective Vital Signs Date Time Temp Pulse Resp B/P Pulse Ox O2 Delivery O2 Flow Rate FiO2 03/02/17 08:30 97 Room Air 03/02/17 07:02 36.4 82 16 111/66 94 Room Air 03/02/17 04:07 36.6 81 16 117/77 97 Room Air 03/02/17 00:40 Room Air 03/01/17 22:49 36.5 78 18 115/69 96 Room Air 03/01/17 19:26 36.3 85 18 115/79 98 Room Air 03/01/17 19:26 36.7 92 18 174/106 95 Room Air 03/01/17 16:43 36.3 83 97/62 96 03/01/17 16:00 Room Air Physical Exam General Appearance: no apparent distress, + thin Eyes: normal inspection, EOMI, sclerae normal ENT: normal ENT inspection, hearing grossly normal, pharynx normal Neck: supple, no adenopathy, no JVD, trachea midline Respiratory/Chest: chest non-tender, lungs clear, normal breath sounds, no respiratory distress, no accessory muscle use Cardiovascular: regular rate, rhythm, no edema, no gallop, no JVD, no murmur Abdomen: normal bowel sounds, non tender, soft, no organomegaly Extremities: normal range of motion, non-tender, normal inspection, no pedal edema, no calf tenderness 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: 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, no motor/sensory deficits, alert, normal mood/affect, oriented x 3 Skin: normal color, warm/dry, no rash Laboratory Results Last 24 Hours Test 03/02/17 05:44 03/02/17 09:53 Uric Acid 8.9 mg/dl Phosphorus Level 2.9 mg/dl Magnesium Level 2.0 mg/dl Sodium Level 139 mmol/L Potassium Level 4.2 mmol/L Chloride Level 104 mmol/L Carbon Dioxide Level 25 mmol/L Anion Gap 10.0 mmol/L Blood Urea Nitrogen 36 mg/dl Creatinine 1.50 mg/dl Est Creatinine Clear Calc Drug Dose 42.2 ml/min Estimated GFR () 49.2 Estimated GFR (Non- 42.4 BUN/Creatinine Ratio 24.0 Random Glucose 111 mg/dl Calcium Level 8.3 mg/dl Assessment and Plan 81 y/o male with a history of permanent a-fib, recent DVT on therapeutic lovenox , , HTN, DM II (managed off medications), CKD stage III, HLD, and recent GI bleeding from rectal invasion of Lymphoma. 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 Infiltrative and ulcerated non-obstructing large mass at rectum measuring 5 x 21 cm which was biopsied and showed lymphoma no bleeding for the past 72 hours, H/H at 9.6 yesterday, BP stable staging CT done 02/26 holding on radiation for now, planning to see how he responds to chemotherapy , may consider radiation if he bleeds again - Acute proximal DVT in left lower extremity--present on admission, stable, no evidence of PE LLE Doppler U/S positive for DVT in the left common femoral vein and proximal superficial femoral vein IVC filter placed 02/25 since he was bleeding discussed with Dr. Weber, he would like patient back on Lovenox but at lower dose due to renal function will order 40mg BID IVC filter will need to be removed in the future, Dr. 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 Mild left hydroureteronephrosis likely due to mass effect of LAD. Also enlarged, 2.1 x 1.3 cm distal paraesophageal lymph node medical oncology consulted for recommendations, spoke with Dr. Weber today, recommended IV fluids, urology consult received Rituxan 02/27, started on chemo 02/28, tolerating well echo in January 2017 showed EF of 55% hepatitis Ab negative uric acid high trending down at 8.9 today, continue Allopurinol 200mg daily , continue NSS at 100cc/hr to help bring down UA Cr up slightly at 1.5 but still within baseline - Hypophosphatemia: in setting of lymphoma, resolved - Acute on chronic renal failure, h/o Left moderate hydroureteronephrosis secondary to mass effect of extensive lymphadenopathy in pelvis,--s/p left ureteral stent placement and cystoscopy on 02/05 acute component resolved, Cr 1.5, good urine output will give NSS in setting of chemo and high uric acid level ask urology to comment on plan for ureteral stent since he missed appointment with Dr. Patel watch for tumor lysis syndrome - Permanent Atrial fibrillation-- BP and HR stable with Toprol 25mg, going to recommend to continue this dose on discharge ECHO (01/28/17) with EF of 50-55%. Right ventricle mild to moderate dilation, moderate MR no anticoagulation due to bleeding - Hypokalemia: resolved Code Status FULL RESUSCITATION STATUS Plan: IV fluids, repeat labs in AM, PT/OT, plan for [place] on discharge, wait for oncology to say when patient ready for discharge
[2017-03-02] MEDS: ENOXAPARIN 40 MG/0.4 ML SYR SQ SCH ×2 (14:26→22:41)
[2017-03-02 17:35] VITALS: BP 121/67; PULSE 85; TEMP 36.6; O2SAT 99
[2017-03-02 19:08] VITALS: BP 115/58; PULSE 83; TEMP 36.3; O2SAT 99
[2017-03-02] MEDS: POLYETHYLENE (MIRALAX) 17 GM PACK PO SCH (20:20)
[2017-03-02] MEDS: TAMSULOSIN HCL 0.4 MG CAP PO SCH (20:21)
[2017-03-02 23:12] VITALS: BP 117/76; PULSE 72; TEMP 36.5; O2SAT 98
[2017-03-03] VITALS (9 sets, daily range): BP systolic 92–137; BP diastolic 59–83; PULSE 71–106; TEMP 36.4–36.6; O2SAT 95–100
[2017-03-03] MEDS: SODIUM CHLORIDE 0.9% 1000ML 1,000 ML IV SCH ×2 (05:41→16:09)
[2017-03-03] MEDS: FINASTERIDE 5 MG TAB PO SCH (07:49)
[2017-03-03] MEDS: METOPROLOL SUCC 25MG EXT REL TAB PO SCH (07:50)
[2017-03-03] MEDS: ENOXAPARIN 40 MG/0.4 ML SYR SQ SCH ×2 (07:50→19:56)
[2017-03-03] MEDS: ALLOPURINOL 100 MG TAB PO SCH (07:50)
[2017-03-03] MEDS: POLYETHYLENE (MIRALAX) 17 GM PACK PO SCH ×2 (07:51→19:56)
[2017-03-03] MEDS: BOOST PLUS VANILLA PO SCH ×2 (07:51)
[2017-03-03 07:54] LABS: HEMATOCRIT 25.9 % (42-52); MEAN CELL VOLUME 84.4 fL (80-100); MEAN CORPUSCULAR HGB CONC 34.4 g/dl (32-36); MEAN PLATELET VOLUME 9.1 fL (7.4-10.4); PLATELET COUNT 189 K/uL (130-400); RED BLOOD COUNT 3.07 M/uL (4.7-6.1); WHITE BLOOD COUNT 5.94 K/uL (4.8-10.8)
--- NOTE | 2017-03-03 07:56 | Progress Note ---
Subjective Date of Service: Mar 03, 2017. Subjective Pt evaluation today including: chart review, lab review 81 yo male s/p stent placement for hydro secondary to lymphoma. Pt resting soundly this morning and not disturbed. Problem List Medical Problems: (1) Anemia Status: Acute (2) Dehydration Status: Acute (3) GI bleed Status: Acute (4) GI bleeding Status: Acute (5) Rectal mass Status: Acute Review of Systems Pt resting and not disturbed. Objective Vital Signs Date Time Temp Pulse Resp B/P Pulse Ox O2 Delivery O2 Flow Rate FiO2 03/03/17 07:47 36.6 72 17 110/73 100 Room Air 03/03/17 05:12 78 03/03/17 04:17 36.5 106 18 137/83 95 Room Air 03/03/17 00:00 Room Air 03/02/17 23:12 36.5 72 18 117/76 98 Room Air 03/02/17 19:08 36.3 83 16 115/58 99 Room Air 03/02/17 17:35 36.6 85 16 121/67 99 03/02/17 16:00 Room Air 03/02/17 08:30 97 Room Air Physical Exam General Appearance: no apparent distress Neck: no JVD Respiratory/Chest: no respiratory distress, no accessory muscle use Cardiovascular: no JVD 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: + pertinent finding (pt sleeping ) Skin: normal color Laboratory Results Last 24 Hours Test 03/02/17 09:53 03/03/17 07:00 Sodium Level 139 mmol/L Potassium Level 4.2 mmol/L Chloride Level 104 mmol/L Carbon Dioxide Level 25 mmol/L Anion Gap 10.0 mmol/L Blood Urea Nitrogen 36 mg/dl Creatinine 1.50 mg/dl Est Creatinine Clear Calc Drug Dose 42.2 ml/min Estimated GFR () 49.2 Estimated GFR (Non- 42.4 BUN/Creatinine Ratio 24.0 Random Glucose 111 mg/dl Calcium Level 8.3 mg/dl Assessment and Plan A/P: Left hydro secondary to lymphoma; s/p stent placement AFVSS. - stent well positioned - appropriate amount of hydro given the stent (mild) - on chemo - which will ultimately be his true treatment for the hydro - renal function adequate. - leave stent for now, will be due for a change in several weeks - Will check bladder scans qshift to ensure his bladder is emptying appropriately. Continue finasteride and Flomax. - Will check a UC&S. - Will continue to follow along with primary service.
[2017-03-03 08:16] LABS: CALCIUM 8.4 mg/dl (8.5-10.1)
[2017-03-03 08:20] LABS: MAGNESIUM 2.1 mg/dl (1.8-2.4); PHOSPHORUS 2.6 mg/dl (2.5-4.9); URIC ACID 7.4 mg/dl (2.6-7.2)
--- NOTE | 2017-03-03 09:47 | Hematology/Oncology Prog Note ---
Hematology/Onc Progress Note Date of Service Mar 03, 2017. Diagnoses Non-Hodgkin's lymphoma Medications Medications Administered Medications (Trade) Dose Ordered Sig/Estevan Route Start Time Stop Time Status Last Admin Dose Admin Sodium Chloride 1,000 ml @ 999 mls/hr Q1H1M STAT IV 02/24/17 14:02 02/24/17 15:02 DC 02/24/17 14:02 999 MLS/HR Sodium Chloride 1,000 ml @ 999 mls/hr Q1H1M STAT IV 02/24/17 15:25 02/24/17 16:25 DC 02/24/17 16:35 999 MLS/HR Sodium Chloride (Nss 1000ml) 1,000 ml @ 125 mls/hr Q8H IV 02/24/17 16:06 02/26/17 08:56 DC 02/26/17 00:21 125 MLS/HR Finasteride (Proscar Tab) 5 mg DAILY PO 02/25/17 09:00 03/27/17 08:59 03/03/17 07:49 5 MG Tamsulosin HCl 0.4 mg 0.4 mg HS PO 02/24/17 21:00 03/26/17 20:59 03/02/17 20:21 0.4 MG Cefazolin Sodium (Ancef 1000mg/55 ml D5W) 55 ml @ 100 mls/hr PRE-SPECIALS IV 02/25/17 09:45 02/25/17 12:02 DC 02/25/17 11:35 100 MLS/HR Lidocaine HCl (Xylocaine 1% Inj (Local)) 9 ml ONE ONCE SQ 02/25/17 11:55 02/25/17 11:56 DC 02/25/17 11:55 9 ML Iodixanol (Visipaque 50ml) 15 mg ONE ONCE FLUSH 02/25/17 11:55 02/25/17 11:56 DC 02/25/17 11:55 15 MG Potassium Chloride (Klor-Con M10) 20 meq NOW ONCE PO 02/26/17 09:30 02/26/17 09:31 DC 02/26/17 09:20 20 MEQ Metoprolol Succinate (Toprol Xl Tab) 25 mg NOW ONCE PO 02/26/17 12:30 02/26/17 12:31 DC 02/26/17 12:12 25 MG Metoprolol Succinate (Toprol Xl Tab) 25 mg DAILY PO 02/27/17 08:00 03/29/17 08:59 03/03/17 07:50 25 MG Acetaminophen 650 mg 650 mg TODAY@1330 PO 02/27/17 13:30 02/27/17 16:00 DC 02/27/17 13:41 650 MG Rituximab/ Rituximab/Sodium Chloride (Rituxan Inj/ Rituxan Inj/Nss 500ml) 375 ml @ 25 mls/hr TODAY@1400 IV 02/27/17 14:00 02/27/17 22:00 DC 02/27/17 14:13 25 MLS/HR Diphenhydramine HCl (Benadryl Cap) 50 mg TODAY@1330 PO 02/27/17 13:30 02/27/17 16:00 DC 02/27/17 13:40 50 MG Dexamethasone 20 mg 20 mg TODAY@1330 PO 02/27/17 13:30 02/27/17 16:00 DC 02/27/17 13:41 20 MG Cyclophosphamide 800 mg/Sodium Chloride 590 ml @ 1,180 mls/hr TODAY@1115 IV 02/28/17 11:15 02/28/17 16:30 DC 02/28/17 11:52 1,180 MLS/HR Doxorubicin HCl 50 mg/Syringe 25 ml @ 5 mls/min TODAY@1045 IV 02/28/17 10:45 02/28/17 15:00 DC 02/28/17 11:27 5 MLS/MIN Vincristine Sulfate/Syringe (Vincasar Pfs/ Syringe) 20 ml @ 120 mls/hr TODAY@1100 IV 02/28/17 11:00 02/28/17 15:00 TX 02/28/17 11:39 120 MLS/HR Prednisone (PredniSONE TAB) 100 mg DAILY PO 02/28/17 08:00 03/04/17 08:01 03/03/17 07:50 100 MG Dexamethasone (Decadron Tab) 20 mg TODAY@1000 PO 02/28/17 10:00 02/28/17 14:00 DC 02/28/17 10:10 20 MG Ondansetron HCl (Zofran Tab) 16 mg TODAY@1000 PO 02/28/17 10:00 02/28/17 14:00 DC 02/28/17 10:09 16 MG Allopurinol 200 mg 200 mg DAILY PO 02/28/17 08:00 03/30/17 07:59 03/03/17 07:50 200 MG Sodium Phosphate/ Sodium Chloride (Sodium Phosphate Inj/Nss 250ml) 255 ml @ 88 mls/hr TODAY@0900 ONCE IV 02/28/17 09:00 02/28/17 11:53 DC 02/28/17 09:07 88 MLS/HR Enteral Nutritional Formula 1 can 1 can DAILY PO 03/01/17 08:00 03/31/17 07:59 03/03/17 07:51 1 CAN Sodium Chloride (Nss 1000ml) 1,000 ml @ 100 mls/hr Q10H IV 03/01/17 14:30 03/31/17 14:29 03/03/17 05:41 100 MLS/HR Polyethylene (Miralax Powder Packet) 17 gm BID PO 03/02/17 20:00 04/01/17 19:59 03/03/17 07:51 17 GM Enoxaparin Sodium (Lovenox Inj) 40 mg Q12 SQ 03/02/17 14:00 04/01/17 13:59 03/03/17 07:50 40 MG Subjective CC be doing quite well. He really offers no new complaints Review of Systems: Constitutional: Negative for weight loss, night sweats, or fever Eyes: Negative for event change of vision ENT: Negative for epistaxis, nasal discharge, sore throat, or deafness Cardiovascular: Negative for chest pain, palpitations, dizziness, diaphoresis Respiratory: Negative for new shortness of breath,hemoptysis, or purulent cough Gastrointestinal: Negative for diarrhea, hematemesis, melena, nausea, vomiting , or dyspepsia Integumentary (skin): Negative for rash or jaundice discoloration Genitourinary: Negative for urinary frequency, hematuria, or dysuria Neurological: Negative for weakness, seizure activity, headache, or dizziness Lymphatic/Hematologic: Negative for petechiae, bleeding or new adenopathy Musculoskeletal: Negative for new joint or back pain Allergic/Immunologic: Negative for unusual rash or pruritis. Vital Signs Vital Signs Past 12 Hours Date Time Temp Pulse Resp B/P Pulse Ox O2 Delivery O2 Flow Rate FiO2 03/03/17 07:47 36.6 72 17 110/73 100 Room Air 03/03/17 05:12 78 03/03/17 04:17 36.5 106 18 137/83 95 Room Air 03/03/17 00:00 Room Air 03/02/17 23:12 36.5 72 18 117/76 98 Room Air Physical Exam Constitutional: vitals are stable. Eyes: Eyes are SHAKEEL EOMI without conjuctival erythema or icterus. ENT: External examination was negative for masses. Neck: Negative for masses or palpable thyromegaly Respiratory: Lung sounds were generally clear bilaterally Cardiovascular: Heart was RRR without significant murmur, gallops aoe rubs Gastrointestinal: No palpable hepatic or splenomegaly. The abdomen was soft with normal bowel sounds. Lymphatic system: there was no palpable peripheral lymphadenopathy Musculoskeletal System: The musculoskeletal system seemed concordant with age. Skin: The skin was negative for jaundice. Neurologic exam: The exam was negative for any focal findings. Deep tendon reflexes were equal and symmetrical. Psychiatric exam: Was essentially negative with normal mood and effect. Extremities: Negative for edema erythema Constitutional: General Apperance: too thin Level of Distress: chronically ill Psychiatric: Mental Status: active & alert Orientation: oriented except where noted Lungs: Respiratory Effort: no dyspnea Auscuitation: breath sounds normal Cardiovascular: Heart Auscultation: RRR, no murmurs Abdomen: Inspection & Palpation: soft, no tenderness, guarding & rebound Extremities: edema (improving bilateral pedal edema, L>R) Laboratory Last 24 Hours Test 03/02/17 09:53 03/03/17 07:00 Sodium Level 139 mmol/L Potassium Level 4.2 mmol/L Chloride Level 104 mmol/L Carbon Dioxide Level 25 mmol/L Anion Gap 10.0 mmol/L Blood Urea Nitrogen 36 mg/dl Creatinine 1.50 mg/dl Est Creatinine Clear Calc Drug Dose 42.2 ml/min Estimated GFR () 49.2 Estimated GFR (Non- 42.4 BUN/Creatinine Ratio 24.0 Random Glucose 111 mg/dl Calcium Level 8.3 mg/dl 8.4 mg/dl White Blood Count 5.94 K/uL Red Blood Count 3.07 M/uL Hemoglobin 8.9 g/dL Hematocrit 25.9 % Mean Corpuscular Volume 84.4 fL Mean Corpuscular Hemoglobin 29.0 pg Mean Corpuscular Hemoglobin Concent 34.4 g/dl RDW Standard Deviation 49.4 fL RDW Coefficient of Variation 16.1 % Platelet Count 189 K/uL Mean Platelet Volume 9.1 fL Uric Acid 7.4 mg/dl Phosphorus Level 2.6 mg/dl Magnesium Level 2.1 mg/dl Assessment & Plan He has tolerated his treatment of Rituxan and chemotherapy quite well. I believe he is ready for discharge. He will have a follow-up in our clinic in about 2 weeks in preparation for his next cycle of R-mini CHOP. CBC should be done at least weekly since he is prone a rectal bleeding and will be on a blood thinner.
[2017-03-03 12:28] LABS: HEMATOCRIT 26.4 % (42-52)
[2017-03-03] MEDS ORDERED: ALL100 PO (12:53)
[2017-03-03] MEDS ORDERED: TPRSR25 PO (12:53)
[2017-03-03] MEDS ORDERED: LVNIS40 SQ (12:53)
[2017-03-03] MEDS ORDERED: MRLP17 PO (12:53)
[2017-03-03] MEDS ORDERED: PRD50 PO (12:53)
[2017-03-03] MEDS ORDERED: NUTR-977 PO (12:53)
[2017-03-03] MEDS ORDERED: DOCU-94 PO (12:54)
--- NOTE | 2017-03-03 13:01 | Discharge Instructions ---
Discharge Instructions Date of Service Mar 03, 2017. Admission Reason for Admission: Rectal Bleed Discharge Discharge Diagnosis / Problem: rectal bleeding Discharge Goals Goal(s): Improve function, Diagnostic testing Activity Recommendations Activity Limitations: as noted below Ambulate as tolerated with assistance/walker Instructions / Follow-Up Instructions / Follow-Up You had been treated in the hospital for rectal bleeding. This has dissipated. An IVC filter has been placed for the blood clot in your leg. The following changes/additions have been made to your medication list: -Allopurinol 200 mg daily -Metoprolol has been reduced to 25 mg daily -Prednisone 100 mg daily--> until follow-up with Dr. Whitley -Colace 100 mg I mouth twice daily -MiraLAX 1 packet twice daily (hold for diarrhea) -Lovenox has been reduced to 40 mg twice daily Please follow-up with Dr. Whitley in 2 weeks Please follow up with Dr. Gupta in 1 month Please follow up with Dr. Patel (urology) in 2 weeks Please follow up with your PCP in 1 week Call your doctor or return to the emergency department if you have any of the following symptoms: -Fever of 101F or greater -Persistent vomiting - Persistent diarrhea -Blood in stool -Lethargy -Chest pain -Shortness of breath -severe dizziness -weakness on one side of your body DISCHARGE SUMMARY 81 y/o male with a history of permanent a-fib, recent DVT on therapeutic lovenox , , HTN, DM II (managed off medications), CKD stage III, HLD, and recent GI bleeding from rectal invasion of Lymphoma. 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 Infiltrative and ulcerated non-obstructing large mass at rectum measuring 5 x 21 cm which was biopsied and showed lymphoma no bleeding for the past 4 days, H/H stable at 9.0 on day of d/c staging CT done 02/26 holding on radiation for now, planning to see how he responds to chemotherapy , may consider radiation if he bleeds again needs f/u with Dr. Whitley in 2 weeks - Acute proximal DVT in left lower extremity--present on admission, stable, no evidence of PE LLE Doppler U/S positive for DVT in the left common femoral vein and proximal superficial femoral vein IVC filter placed 02/25 since he was bleeding discussed with Dr. Weber, he would like patient back on Lovenox but at lower dose due to renal function Lovenox 40 mg BID upon d/c IVC filter will need to be removed in the future, Dr. 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 Mild left hydroureteronephrosis likely due to mass effect of LAD. Also enlarged, 2.1 x 1.3 cm distal paraesophageal lymph node received Rituxan 02/27, started on chemo 02/28, tolerating well echo in January 2017 showed EF of 55% uric acid high trending down at 7.4 today Cr up slightly at 1.5 but still within baseline - Hypophosphatemia: in setting of lymphoma, resolved - Acute on chronic renal failure, h/o Left moderate hydroureteronephrosis secondary to mass effect of extensive lymphadenopathy in pelvis,--s/p left ureteral stent placement and cystoscopy on 02/05 acute component resolved, Cr 1.5, good urine output Urology consult appreciated-->appropriate amount of hydro with recent stent placement - Permanent Atrial fibrillation-- BP and HR stable with Toprol 25mg ECHO (01/28/17) with EF of 50-55%. Right ventricle mild to moderate dilation, moderate MR - Hypokalemia: resolved Code Status FULL RESUSCITATION STATUS DISPO D/C to [facility] Total Time Spent: Greater than 30 minutes This includes examination of the patient, discharge planning, medication reconciliation, and communication with other providers. Discharge Instructions Please refer to the electronic Patient Visit Report (Discharge Instructions) for additional information. Follow-Up oncology 2 weeks PCP 1 week Urology 2 weeks Vascular surgery 1 month Current Hospital Diet Patient's current hospital diet: Regular Diet Discharge Diet Recommended Diet: Regular Diet Procedures Procedures Performed: Insertion fo Vena Cava Filter, Right Femoral Approach, Ultrasound Localization of Right Femoral Vein, Fluoroscopy for positioning Pending Studies Studies pending at discharge: no Laboratory Results 03/03/17 07:00 03/03/17 12:13 Test 03/03/17 07:00 Red Blood Count 3.07 M/uL (4.7-6.1) Mean Corpuscular Volume 84.4 fL (80-100) Mean Corpuscular Hemoglobin 29.0 pg (25-34) Mean Corpuscular Hemoglobin Concent 34.4 g/dl (32-36) RDW Standard Deviation 49.4 fL (36.4-46.3) RDW Coefficient of Variation 16.1 % (11.5-14.5) Mean Platelet Volume 9.1 fL (7.4-10.4) Uric Acid 7.4 mg/dl (2.6-7.2) Calcium Level 8.4 mg/dl (8.5-10.1) Phosphorus Level 2.6 mg/dl (2.5-4.9) Magnesium Level 2.1 mg/dl (1.8-2.4) Hemoglobin A1c Test 02/03/17 08:01 Range/Units Estimated Average Glucose 128 mg/dl Hemoglobin A1c 6.1 H 4.5-5.6 % Lipid Panel Test 02/03/17 08:01 Range/Units Triglycerides Level 139 0-150 mg/dl Cholesterol Level 122 0-200 mg/dl HDL Cholesterol 32 mg/dl Cholesterol/HDL Ratio 3.8 LDL Cholesterol, Calculated 62 mg/dl Medical Emergencies . Who to Call and When: Medical Emergencies: If at any time you feel your situation is an emergency, please call 911 immediately. . Non-Emergent Contact Non-Emergency issues call your: Primary Care Provider . . "Provider Documentation" section prepared by Barbara Rawls. VTE Core Measure Inpt VTE Proph given/why not?: Enoxaparin (Lovenox)SQ
--- NOTE | 2017-03-03 13:25 | Discharge Summary ---
Discharge Summary Date of Service Mar 03, 2017. Discharge Summary Admission Date: Feb 24, 2017 at 16:13 Discharge Date: Mar 03, 2017 [facility] Principal Diagnosis: rectal bleeding Problems/Secondary Diagnoses: A. fib DVT Diabetes Hypertension Chronic kidney disease stage III B-cell lymphoma Procedures: IVC filter placement on 02/25/17 CT ABD/PELVIS 1. Moderate progression of extensive abdominal, pelvic and lower thoracic lymphadenopathy since exam of February 03, 2017 consistent with progression of lymphoma. Large left perirectal conglomerate megan mass with rectal wall thickening which suggests lymphomatous involvement of the rectal wall. 2. Interval placement of a left ureteral stent. Persistent, but slightly improved, left hydroureteronephrosis. 3. Extensive left colon diverticulosis without convincing evidence for acute diverticulitis. Consultations: Hematology Vascular surgery Urology Medication Reconciliation New Medications: Docusate Sodium (Colace) 100 Mg Cap 1 CAP PO BID for 30 Days, #60 CAP 2 Refills Allopurinol (Allopurinol) 100 Mg Tab 200 MG PO DAILY for 30 Days, #60 TAB Enoxaparin (Enoxaparin Sodium) 40 Mg/0.4 Ml Inj 40 MG SQ Q12 for 30 Days, #60 DOSE Enteral Nutrition Formula (Ensure Plus Vanilla) 1 Can Liqd 1 CAN PO DAILY for 30 Days, #30 DOSE Metoprolol Succinate (Metoprolol Succinate ER) 25 Mg Tabcr 25 MG PO DAILY for 30 Days, #30 TAB Polyethylene (Miralax) 17 Gm Pow 17 GM PO BID for 30 Days, #60 DOSE hold for diarrhea Prednisone (Prednisone) 50 Mg Tab 100 MG PO DAILY for 14 Days, #28 TAB Continued Medications: Finasteride (Proscar) 5 Mg Tab 5 MG PO DAILY, TAB Tamsulosin Hcl (Flomax) 0.4 Mg Cap 0.4 MG PO HS, CAP Discontinued Medications: Enoxaparin (Lovenox) 80 Mg/0.8 Ml Inj 80 MG SQ Q12H, SYR Metoprolol Succ (Toprol Xl) (Toprol-Xl) 50 Mg Tabcr 50 MG PO DAILY, #30 TAB Referrals At Discharge Follow up Referrals: Physician Referral - Within 2 Weeks with Emanuel Whitley D.O. Physician Referral - Within 1 Week with Juan Daniel Pettit M.D. Surgery Referral - Within a Month with Taco Gupta M.D. Discharge Exam Patient reports feeling well this morning. Denies any abdominal pain. No further blood in stool. Denies any nausea. Does feel somewhat constipated. No chest pain or pressure. No heart palpitations or shortness of breath. Denies any dizziness. Review of Systems: Constitutional: No fever Respiratory: No shortness of breath Cardiovascular: No chest pain Abdomen: No nausea, No pain Genitourinary - Male: No dysuria Neurologic: No weakness Physical Exam: General Appearance: no apparent distress (sitting up in a chair. Resting comfortably.) Eyes: EOMI ENT: + pertinent finding (oral mucosa slightly dry. No exudate noted.) Neck: no JVD Respiratory/Chest: lungs clear Cardiovascular: no murmur, + irregularly irregular Abdomen / GI: normal bowel sounds, non tender, soft Extremities: + pertinent finding (+2 pitting edema noted in the lower extremities. Large amount of edema in the left lower extremity in particular. Also some erythema noted to the left lower extremity.) 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: no motor/sensory deficits, oriented x 3 Skin: warm/dry Hospital Course 81 y/o male with a history of permanent a-fib, recent DVT on therapeutic lovenox , , HTN, DM II (managed off medications), CKD stage III, HLD, and recent GI bleeding from rectal invasion of Lymphoma. 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 Infiltrative and ulcerated non-obstructing large mass at rectum measuring 5 x 21 cm which was biopsied and showed lymphoma no bleeding for the past 4 days, H/H stable at 9.0 on day of d/c staging CT done 02/26 holding on radiation for now, planning to see how he responds to chemotherapy , may consider radiation if he bleeds again needs f/u with Dr. Whitley in 2 weeks - Acute proximal DVT in left lower extremity--present on admission, stable, no evidence of PE LLE Doppler U/S positive for DVT in the left common femoral vein and proximal superficial femoral vein IVC filter placed 02/25 since he was bleeding discussed with Dr. Weber, he would like patient back on Lovenox but at lower dose due to renal function Lovenox 40 mg BID upon d/c IVC filter will need to be removed in the future, Dr. 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 Mild left hydroureteronephrosis likely due to mass effect of LAD. Also enlarged, 2.1 x 1.3 cm distal paraesophageal lymph node received Rituxan 02/27, started on chemo 02/28, tolerating well echo in January 2017 showed EF of 55% uric acid high trending down at 7.4 today Cr up slightly at 1.5 but still within baseline - Hypophosphatemia: in setting of lymphoma, resolved - Acute on chronic renal failure, h/o Left moderate hydroureteronephrosis secondary to mass effect of extensive lymphadenopathy in pelvis,--s/p left ureteral stent placement and cystoscopy on 02/05 acute component resolved, Cr 1.5, good urine output Urology consult appreciated-->appropriate amount of hydro with recent stent placement - Permanent Atrial fibrillation-- BP and HR stable with Toprol 25mg ECHO (01/28/17) with EF of 50-55%. Right ventricle mild to moderate dilation, moderate MR - Hypokalemia: resolved Code Status FULL RESUSCITATION STATUS DISPO D/C to [facility] Total Time Spent: Greater than 30 minutes This includes examination of the patient, discharge planning, medication reconciliation, and communication with other providers. Discharge Instructions Please refer to the electronic Patient Visit Report (Discharge Instructions) for additional information. Follow-Up oncology 2 weeks PCP 1 week Urology 2 weeks Vascular surgery 1 month Additional Copies To Emanuel Whitley D.O.; Osmar Patel MD, Urology; Pro,Juan Daniel Reagan M.D.; Taco Gupta M.D.
--- NOTE | 2017-03-03 14:29 | Discharge Summary ---
Discharge Summary Date of Service Mar 03, 2017. Discharge Summary Admission Date: Feb 24, 2017 at 16:13 Discharge Date: Mar 03, 2017 [facility] Principal Diagnosis: rectal bleeding Problems/Secondary Diagnoses: Chronic kidney disease A. fib Left lower extremity DVT Acute blood loss anemia B-cell lymphoma Procedures: IVC filter placement on 02/25/17 CT abdomen and pelvis IMPRESSION: 1. Moderate progression of extensive abdominal, pelvic and lower thoracic lymphadenopathy since exam of February 03, 2017 consistent with progression of lymphoma. Large left perirectal conglomerate megan mass with rectal wall thickening which suggests lymphomatous involvement of the rectal wall. 2. Interval placement of a left ureteral stent. Persistent, but slightly improved, left hydroureteronephrosis. 3. Extensive left colon diverticulosis without convincing evidence for acute diverticulitis. Electronically signed by: Luciano Owusu M.D. 02/24/2017 7:26 PM Dictated Date/Time: 02/24/2017 7:16 PM Consultations: Urology Vascular surgery Oncology Medication Reconciliation New Medications: Docusate Sodium (Colace) 100 Mg Cap 1 CAP PO BID for 30 Days, #60 CAP 2 Refills Allopurinol (Allopurinol) 100 Mg Tab 200 MG PO DAILY for 30 Days, #60 TAB Enoxaparin (Enoxaparin Sodium) 40 Mg/0.4 Ml Inj 40 MG SQ Q12 for 30 Days, #60 DOSE Enteral Nutrition Formula (Ensure Plus Vanilla) 1 Can Liqd 1 CAN PO DAILY for 30 Days, #30 DOSE Metoprolol Succinate (Metoprolol Succinate ER) 25 Mg Tabcr 25 MG PO DAILY for 30 Days, #30 TAB Polyethylene (Miralax) 17 Gm Pow 17 GM PO BID for 30 Days, #60 DOSE hold for diarrhea Prednisone (Prednisone) 50 Mg Tab 100 MG PO DAILY for 14 Days, #28 TAB Continued Medications: Finasteride (Proscar) 5 Mg Tab 5 MG PO DAILY, TAB Tamsulosin Hcl (Flomax) 0.4 Mg Cap 0.4 MG PO HS, CAP Discontinued Medications: Enoxaparin (Lovenox) 80 Mg/0.8 Ml Inj 80 MG SQ Q12H, SYR Metoprolol Succ (Toprol Xl) (Toprol-Xl) 50 Mg Tabcr 50 MG PO DAILY, #30 TAB Referrals At Discharge Follow up Referrals: Physician Referral - Within 2 Weeks with Emanuel Whitley D.O. Physician Referral - Within 1 Week with Juan Daniel Pettit M.D. Surgery Referral - Within a Month with Taco Gupta M.D. Urologist Referral - Within 2 Weeks with Osmar Patel MD, Urology Discharge Exam Patient denies any further bloody or dark stools. He does feel somewhat constipated. He denies any abdominal pain. No nausea. Denies any dizziness or lightheadedness. No chest pain or pressure. Review of Systems: Constitutional: No fever Respiratory: No cough, No shortness of breath Cardiovascular: No chest pain Abdomen: No nausea Genitourinary - Male: No dysuria Physical Exam: General Appearance: no apparent distress (sitting in a chair) Eyes: EOMI ENT: + pertinent finding (oral mucosa slightly dry. No exudate noted.) Neck: no JVD Respiratory/Chest: lungs clear Cardiovascular: + pertinent finding (occasionally irregular. No murmur.) Abdomen / GI: non tender, soft, + pertinent finding (bowel sounds present, but hypoactive) Extremities: + pertinent finding (significant left lower extremity edema and erythema. No tenderness noted. Trace pitting edema in the right lower extremity.) 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: no motor/sensory deficits, oriented x 3 Skin: warm/dry Hospital Course 81 y/o male with a history of permanent a-fib, recent DVT on therapeutic lovenox , , HTN, DM II (managed off medications), CKD stage III, HLD, and recent GI bleeding from rectal invasion of Lymphoma. 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 Infiltrative and ulcerated non-obstructing large mass at rectum measuring 5 x 21 cm which was biopsied and showed lymphoma no bleeding for the past 4 days, H/H stable at 9.0 on day of d/c staging CT done 02/26 holding on radiation for now, planning to see how he responds to chemotherapy , may consider radiation if he bleeds again needs f/u with Dr. Whitley in 2 weeks - Acute proximal DVT in left lower extremity--present on admission, stable, no evidence of PE LLE Doppler U/S positive for DVT in the left common femoral vein and proximal superficial femoral vein IVC filter placed 02/25 since he was bleeding discussed with Dr. Weber, he would like patient back on Lovenox but at lower dose due to renal function Lovenox 40 mg BID upon d/c IVC filter will need to be removed in the future, Dr. 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 Mild left hydroureteronephrosis likely due to mass effect of LAD. Also enlarged, 2.1 x 1.3 cm distal paraesophageal lymph node received Rituxan 02/27, started on chemo 02/28, tolerating well echo in January 2017 showed EF of 55% uric acid high trending down at 7.4 today Cr up slightly at 1.5 but still within baseline - Hypophosphatemia: in setting of lymphoma, resolved - Acute on chronic renal failure, h/o Left moderate hydroureteronephrosis secondary to mass effect of extensive lymphadenopathy in pelvis,--s/p left ureteral stent placement and cystoscopy on 02/05 acute component resolved, Cr 1.5, good urine output Urology consult appreciated-->appropriate amount of hydro with recent stent placement - Permanent Atrial fibrillation-- BP and HR stable with Toprol 25mg ECHO (01/28/17) with EF of 50-55%. Right ventricle mild to moderate dilation, moderate MR - Hypokalemia: resolved Code Status FULL RESUSCITATION STATUS DISPO D/C to [facility] Total Time Spent: Greater than 30 minutes This includes examination of the patient, discharge planning, medication reconciliation, and communication with other providers. Discharge Instructions Please refer to the electronic Patient Visit Report (Discharge Instructions) for additional information. Follow-Up Urology, Dr. Patel Oncology, Dr. Whitley Primary care physician, Dr. Pettit Additional Copies To Emanuel Whitley D.O.; Osmar Patel MD, Urology; Pro,Juan Daniel Reagan M.D.; Taco Gupta M.D.
--- NOTE | 2017-03-03 14:34 | Hospitalist Progress Note ---
Hospitalist Progress Note Date of Service Mar 03, 2017. (Barbara Rawls PA-C) Subjective Pt evaluation today including: conversation w/ patient, physical exam, chart review, lab review, review of studies, review of inpatient medication list No complaints today. Denies any further bleeding. Does not remember having a bowel movement in the last several days. No abdominal pain or nausea. Denies any dizziness. Additional Comments: 6 system review negative. Please see pertinent positives in the history of present illness section. (Barbara Rawls PA-C) Objective Vital Signs Date Time Temp Pulse Resp B/P Pulse Ox O2 Delivery O2 Flow Rate FiO2 03/03/17 13:31 36.4 76 18 98 Room Air 03/03/17 12:23 36.4 76 18 92/59 98 Room Air 03/03/17 08:30 97 Room Air 03/03/17 07:47 36.6 72 17 110/73 100 Room Air 03/03/17 05:12 78 03/03/17 04:17 36.5 106 18 137/83 95 Room Air 03/03/17 00:00 Room Air 03/02/17 23:12 36.5 72 18 117/76 98 Room Air 03/02/17 19:08 36.3 83 16 115/58 99 Room Air 03/02/17 17:35 36.6 85 16 121/67 99 03/02/17 16:00 Room Air (Barbara Rawls PA-C) Physical Exam General Appearance: no apparent distress Eyes: EOMI ENT: + pertinent finding (oral mucosa fairly dry) Neck: no JVD Respiratory/Chest: lungs clear Cardiovascular: + irregularly irregular Abdomen: non tender, soft, + pertinent finding (bowel sounds present, but hypoactive) Extremities: + pertinent finding (significant left lower extremity edema and erythema noted) 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: no motor/sensory deficits, oriented x 3 Skin: warm/dry (Barbara Rawls PA-C) Laboratory Results 03/03/17 07:00 03/03/17 12:13 Test 03/03/17 07:00 Red Blood Count 3.07 M/uL (4.7-6.1) Mean Corpuscular Volume 84.4 fL (80-100) Mean Corpuscular Hemoglobin 29.0 pg (25-34) Mean Corpuscular Hemoglobin Concent 34.4 g/dl (32-36) RDW Standard Deviation 49.4 fL (36.4-46.3) RDW Coefficient of Variation 16.1 % (11.5-14.5) Mean Platelet Volume 9.1 fL (7.4-10.4) Uric Acid 7.4 mg/dl (2.6-7.2) Calcium Level 8.4 mg/dl (8.5-10.1) Phosphorus Level 2.6 mg/dl (2.5-4.9) Magnesium Level 2.1 mg/dl (1.8-2.4) Last 24 Hours Test 03/03/17 07:00 03/03/17 12:13 White Blood Count 5.94 K/uL Red Blood Count 3.07 M/uL Hemoglobin 8.9 g/dL 9.0 g/dL Hematocrit 25.9 % 26.4 % Mean Corpuscular Volume 84.4 fL Mean Corpuscular Hemoglobin 29.0 pg Mean Corpuscular Hemoglobin Concent 34.4 g/dl RDW Standard Deviation 49.4 fL RDW Coefficient of Variation 16.1 % Platelet Count 189 K/uL Mean Platelet Volume 9.1 fL Uric Acid 7.4 mg/dl Calcium Level 8.4 mg/dl Phosphorus Level 2.6 mg/dl Magnesium Level 2.1 mg/dl (Barbara Rawls, CARL) Assessment and Plan 81 y/o male with a history of permanent a-fib, recent DVT on therapeutic lovenox , , HTN, DM II (managed off medications), CKD stage III, HLD, and recent GI bleeding from rectal invasion of Lymphoma. 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 Infiltrative and ulcerated non-obstructing large mass at rectum measuring 5 x 21 cm which was biopsied and showed lymphoma no bleeding for the past 4 days, H/H stable today staging CT done 02/26 holding on radiation for now, planning to see how he responds to chemotherapy , may consider radiation if he bleeds again needs f/u with Dr. Whitley in 2 weeks Constipation-pt reports no BM for several days, but one is documented yesterday Colace 100 mg po BID MiraLAX 1 packet po BID--> hold for diarrhea - Acute proximal DVT in left lower extremity--present on admission, stable, no evidence of PE LLE Doppler U/S positive for DVT in the left common femoral vein and proximal superficial femoral vein IVC filter placed 02/25 since he was bleeding discussed with Dr. Weber, he would like patient back on Lovenox but at lower dose due to renal function Lovenox 40 mg BID upon d/c IVC filter will need to be removed in the future, Dr. 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 Mild left hydroureteronephrosis likely due to mass effect of LAD. Also enlarged, 2.1 x 1.3 cm distal paraesophageal lymph node received Rituxan 02/27, started on chemo 02/28, tolerating well echo in January 2017 showed EF of 55% uric acid high trending down at 7.4 today Cr up slightly at 1.5 but still within baseline - Hypophosphatemia: in setting of lymphoma, resolved - Acute on chronic renal failure, h/o Left moderate hydroureteronephrosis secondary to mass effect of extensive lymphadenopathy in pelvis,--s/p left ureteral stent placement and cystoscopy on 02/05 acute component resolved, Cr 1.5, good urine output Urology consult appreciated-->appropriate amount of hydro with recent stent placement - Permanent Atrial fibrillation-- BP and HR stable with Toprol 25mg ECHO (01/28/17) with EF of 50-55%. Right ventricle mild to moderate dilation, moderate MR - Hypokalemia: resolved Code Status FULL RESUSCITATION STATUS DISPO D/C to [facility] (Barbara Rawls, PA-C) I agree with PA assessment and plan and have seen and examined pt myself Acute blood loss anemia likely resolved Repeat HH stable No worsening pain Appreciate heme/onc recs, will follow as outpt Agreeable to DC to [facility] (Ced Potter, D.O.)
[2017-03-03] MEDS: TAMSULOSIN HCL 0.4 MG CAP PO SCH (19:56)
[2017-03-04] VITALS (8 sets, daily range): BP systolic 111–134; BP diastolic 66–78; PULSE 63–89; TEMP 36.3–36.8; O2SAT 90–99
[2017-03-04] MEDS: SODIUM CHLORIDE 0.9% 1000ML 1,000 ML IV SCH ×3 (02:15→20:16)
[2017-03-04 07:38] LABS: HEMATOCRIT 24.8 % (42-52); IG% 0.2 %; LYMPH % 9.4 %; LYMPH ABS # 0.47 K/uL (1.2-3.4); MEAN CELL VOLUME 82.4 fL (80-100); MEAN CORPUSCULAR HEMOGLOBIN 28.6 pg (25-34); MEAN CORPUSCULAR HGB CONC 34.7 g/dl (32-36); MEAN PLATELET VOLUME 8.6 fL (7.4-10.4); MONO % 3.8 %; NEUT % 86.6 %; PLATELET COUNT 180 K/uL (130-400); RED BLOOD COUNT 3.01 M/uL (4.7-6.1); WHITE BLOOD COUNT 5.01 K/uL (4.8-10.8)
[2017-03-04] MEDS: POLYETHYLENE (MIRALAX) 17 GM PACK PO SCH ×2 (07:38→20:14)
[2017-03-04] MEDS: FINASTERIDE 5 MG TAB PO SCH (07:39)
[2017-03-04] MEDS: ALLOPURINOL 100 MG TAB PO SCH (07:40)
[2017-03-04] MEDS: METOPROLOL SUCC 25MG EXT REL TAB PO SCH (07:40)
[2017-03-04] MEDS: ENOXAPARIN 40 MG/0.4 ML SYR SQ SCH ×2 (07:42→20:15)
[2017-03-04] MEDS: BOOST PLUS VANILLA PO SCH ×2 (07:42)
[2017-03-04 07:56] LABS: BUN/CREATININE RATIO 29.6 (10-20); CREATININE 1.1 mg/dl (0.60-1.40)
[2017-03-04 07:57] LABS: URIC ACID 6.1 mg/dl (2.6-7.2)
[2017-03-04 08:02] LABS: COMPLETE YES
--- NOTE | 2017-03-04 08:43 | Progress Note ---
Subjective Date of Service: Mar 04, 2017. Subjective Pt evaluation today including: conversation w/ patient, chart review, lab review Voiding: no voiding problems Pt denies pain this morning. Denies dysuria or hematuria. Cr has improved to 1.1. UC&S preliminarily growing gram negative bacilli. Problem List Medical Problems: (1) Anemia Status: Acute (2) Dehydration Status: Acute (3) GI bleed Status: Acute (4) GI bleeding Status: Acute (5) Rectal mass Status: Acute Review of Systems Constitutional: No chills, No fever Respiratory: No shortness of breath Cardiac: No chest pain Abdomen: No nausea, No pain, No vomiting Male : No dysuria, No hematuria Heme: No abnormal bleeding/bruising Objective Vital Signs Date Time Temp Pulse Resp B/P Pulse Ox O2 Delivery O2 Flow Rate FiO2 03/04/17 07:13 36.4 63 18 111/66 95 Room Air 03/04/17 04:08 36.3 89 20 115/71 90 Room Air 03/04/17 01:42 Room Air 03/04/17 00:36 36.8 66 18 121/78 99 Room Air 03/03/17 21:15 Room Air 03/03/17 20:44 36.5 71 16 115/68 98 Room Air 03/03/17 16:00 Room Air 03/03/17 15:45 36.5 82 18 100/65 99 Room Air 03/03/17 15:01 86 100 03/03/17 13:31 36.4 76 18 98 Room Air 03/03/17 12:23 36.4 76 18 92/59 98 Room Air Physical Exam General Appearance: no apparent distress Eyes: normal inspection ENT: hearing grossly normal Neck: no JVD Respiratory/Chest: no respiratory distress, no accessory muscle use Cardiovascular: no JVD Extremities: normal inspection 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: alert, normal mood/affect, oriented x 3 Skin: normal color Laboratory Results Last 24 Hours Test 03/03/17 12:13 03/04/17 07:30 Hemoglobin 9.0 g/dL 8.6 g/dL Hematocrit 26.4 % 24.8 % White Blood Count 5.01 K/uL Red Blood Count 3.01 M/uL Mean Corpuscular Volume 82.4 fL Mean Corpuscular Hemoglobin 28.6 pg Mean Corpuscular Hemoglobin Concent 34.7 g/dl Platelet Count 180 K/uL Mean Platelet Volume 8.6 fL Neutrophils (%) (Auto) 86.6 % Lymphocytes (%) (Auto) 9.4 % Monocytes (%) (Auto) 3.8 % Eosinophils (%) (Auto) 0.0 % Basophils (%) (Auto) 0.0 % Neutrophils # (Auto) 4.34 K/uL Lymphocytes # (Auto) 0.47 K/uL Monocytes # (Auto) 0.19 K/uL Eosinophils # (Auto) 0.00 K/uL Basophils # (Auto) 0.00 K/uL RDW Standard Deviation 47.4 fL RDW Coefficient of Variation 15.7 % Immature Granulocyte % (Auto) 0.2 % Immature Granulocyte # (Auto) 0.01 K/uL Red Blood Cell Morphology Unremarkable Sodium Level 137 mmol/L Potassium Level 4.0 mmol/L Chloride Level 107 mmol/L Carbon Dioxide Level 24 mmol/L Anion Gap 6.0 mmol/L Blood Urea Nitrogen 33 mg/dl Creatinine 1.10 mg/dl Est Creatinine Clear Calc Drug Dose 57.5 ml/min Estimated GFR () 71.6 Estimated GFR (Non- 61.8 BUN/Creatinine Ratio 29.6 Random Glucose 92 mg/dl Uric Acid 6.1 mg/dl Calcium Level 8.0 mg/dl Assessment and Plan A/P: Left hydro secondary to lymphoma; s/p stent placement AFVSS. - stent well positioned - appropriate amount of hydro given the stent (mild) - on chemo - which will ultimately be his true treatment for the hydro - renal function adequate. - leave stent for now, will be due for a change in several weeks - Acceptable PVR at 66ml. Continue to check bladder scans qshift to ensure his bladder is emptying appropriately. Continue finasteride and Flomax. - UC&S preliminarily positive. Recommend placing him on a 10 day course of appropriate abx when sensitivities return. - Will continue to follow along with primary service.
--- NOTE | 2017-03-04 10:52 | Hematology/Oncology Prog Note ---
Hematology/Onc Progress Note Date of Service Mar 04, 2017. Diagnoses Non-Hodgkin's lymphoma Medications Medications Administered Medications (Trade) Dose Ordered Sig/Estevan Route Start Time Stop Time Status Last Admin Dose Admin Sodium Chloride 1,000 ml @ 999 mls/hr Q1H1M STAT IV 02/24/17 14:02 02/24/17 15:02 DC 02/24/17 14:02 999 MLS/HR Sodium Chloride 1,000 ml @ 999 mls/hr Q1H1M STAT IV 02/24/17 15:25 02/24/17 16:25 DC 02/24/17 16:35 999 MLS/HR Sodium Chloride (Nss 1000ml) 1,000 ml @ 125 mls/hr Q8H IV 02/24/17 16:06 02/26/17 08:56 DC 02/26/17 00:21 125 MLS/HR Finasteride (Proscar Tab) 5 mg DAILY PO 02/25/17 09:00 03/27/17 08:59 03/04/17 07:39 5 MG Tamsulosin HCl 0.4 mg 0.4 mg HS PO 02/24/17 21:00 03/26/17 20:59 03/03/17 19:56 0.4 MG Cefazolin Sodium (Ancef 1000mg/55 ml D5W) 55 ml @ 100 mls/hr PRE-SPECIALS IV 02/25/17 09:45 02/25/17 12:02 DC 02/25/17 11:35 100 MLS/HR Lidocaine HCl (Xylocaine 1% Inj (Local)) 9 ml ONE ONCE SQ 02/25/17 11:55 02/25/17 11:56 DC 02/25/17 11:55 9 ML Iodixanol (Visipaque 50ml) 15 mg ONE ONCE FLUSH 02/25/17 11:55 02/25/17 11:56 DC 02/25/17 11:55 15 MG Potassium Chloride (Klor-Con M10) 20 meq NOW ONCE PO 02/26/17 09:30 02/26/17 09:31 DC 02/26/17 09:20 20 MEQ Metoprolol Succinate (Toprol Xl Tab) 25 mg NOW ONCE PO 02/26/17 12:30 02/26/17 12:31 DC 02/26/17 12:12 25 MG Metoprolol Succinate (Toprol Xl Tab) 25 mg DAILY PO 02/27/17 08:00 03/29/17 08:59 03/04/17 07:40 25 MG Acetaminophen 650 mg 650 mg TODAY@1330 PO 02/27/17 13:30 02/27/17 16:00 DC 02/27/17 13:41 650 MG Rituximab/ Rituximab/Sodium Chloride (Rituxan Inj/ Rituxan Inj/Nss 500ml) 375 ml @ 25 mls/hr TODAY@1400 IV 02/27/17 14:00 02/27/17 22:00 DC 02/27/17 14:13 25 MLS/HR Diphenhydramine HCl (Benadryl Cap) 50 mg TODAY@1330 PO 02/27/17 13:30 02/27/17 16:00 DC 02/27/17 13:40 50 MG Dexamethasone 20 mg 20 mg TODAY@1330 PO 02/27/17 13:30 02/27/17 16:00 DC 02/27/17 13:41 20 MG Cyclophosphamide 800 mg/Sodium Chloride 590 ml @ 1,180 mls/hr TODAY@1115 IV 02/28/17 11:15 02/28/17 16:30 DC 02/28/17 11:52 1,180 MLS/HR Doxorubicin HCl 50 mg/Syringe 25 ml @ 5 mls/min TODAY@1045 IV 02/28/17 10:45 02/28/17 15:00 DC 02/28/17 11:27 5 MLS/MIN Vincristine Sulfate/Syringe (Vincasar Pfs/ Syringe) 20 ml @ 120 mls/hr TODAY@1100 IV 02/28/17 11:00 02/28/17 15:00 TN 02/28/17 11:39 120 MLS/HR Prednisone (PredniSONE TAB) 100 mg DAILY PO 02/28/17 08:00 03/04/17 08:01 DC 03/04/17 07:39 100 MG Dexamethasone (Decadron Tab) 20 mg TODAY@1000 PO 02/28/17 10:00 02/28/17 14:00 DC 02/28/17 10:10 20 MG Ondansetron HCl (Zofran Tab) 16 mg TODAY@1000 PO 02/28/17 10:00 02/28/17 14:00 DC 02/28/17 10:09 16 MG Allopurinol 200 mg 200 mg DAILY PO 02/28/17 08:00 03/30/17 07:59 03/04/17 07:40 200 MG Sodium Phosphate/ Sodium Chloride (Sodium Phosphate Inj/Nss 250ml) 255 ml @ 88 mls/hr TODAY@0900 ONCE IV 02/28/17 09:00 02/28/17 11:53 DC 02/28/17 09:07 88 MLS/HR Enteral Nutritional Formula 1 can 1 can DAILY PO 03/01/17 08:00 03/31/17 07:59 03/04/17 07:42 1 CAN Sodium Chloride (Nss 1000ml) 1,000 ml @ 100 mls/hr Q10H IV 03/01/17 14:30 03/31/17 14:29 03/04/17 02:15 100 MLS/HR Polyethylene (Miralax Powder Packet) 17 gm BID PO 03/02/17 20:00 04/01/17 19:59 03/04/17 07:38 17 GM Enoxaparin Sodium (Lovenox Inj) 40 mg Q12 SQ 03/02/17 14:00 04/01/17 13:59 03/04/17 07:42 40 MG Subjective He appears quite comfortable. Really offers no new complaints. Review of Systems: Constitutional: Negative for night sweats, or fever Eyes: Negative for event change of vision ENT: Negative for epistaxis, nasal discharge, sore throat, or deafness Cardiovascular: Negative for chest pain, palpitations, dizziness, diaphoresis Respiratory: Negative for new shortness of breath,hemoptysis, or purulent cough Gastrointestinal: Negative for diarrhea, hematemesis, melena, nausea, vomiting , or dyspepsia Integumentary (skin): Negative for rash or jaundice discoloration Genitourinary: Negative for urinary frequency, hematuria, or dysuria Neurological: Negative for weakness, seizure activity, headache, or dizziness Lymphatic/Hematologic: Negative for petechiae, bleeding or new adenopathy Musculoskeletal: Negative for new joint or back pain Allergic/Immunologic: Negative for unusual rash or pruritis. Vital Signs Vital Signs Past 12 Hours Date Time Temp Pulse Resp B/P Pulse Ox O2 Delivery O2 Flow Rate FiO2 03/04/17 07:45 Room Air 03/04/17 07:13 36.4 63 18 111/66 95 Room Air 03/04/17 04:08 36.3 89 20 115/71 90 Room Air 03/04/17 01:42 Room Air 03/04/17 00:36 36.8 66 18 121/78 99 Room Air Physical Exam Constitutional: vitals are stable. Eyes: Eyes are SHAKEEL EOMI without conjuctival erythema or icterus. ENT: External examination was negative for masses. Neck: Negative for masses or palpable thyromegaly Respiratory: Lung sounds were generally clear bilaterally Cardiovascular: Heart was RRR without significant murmur, gallops aoe rubs Gastrointestinal: No palpable hepatic or splenomegaly. The abdomen was soft with normal bowel sounds. Lymphatic system: there was no palpable peripheral lymphadenopathy Musculoskeletal System: The musculoskeletal system seemed concordant with age. Skin: The skin was negative for jaundice. Neurologic exam: The exam was negative for any focal findings. Deep tendon reflexes were equal and symmetrical. Psychiatric exam: Was essentially negative with normal mood and effect. Extremities: Bilateral lower extremity nontender edema 1-2+ Constitutional: General Apperance: too thin Level of Distress: chronically ill Psychiatric: Mental Status: active & alert Orientation: oriented except where noted Lungs: Respiratory Effort: no dyspnea Auscuitation: breath sounds normal Cardiovascular: Heart Auscultation: RRR, no murmurs Abdomen: Inspection & Palpation: soft, no tenderness, guarding & rebound Extremities: edema (improving bilateral pedal edema, L>R) Laboratory Last 24 Hours Test 03/03/17 12:13 03/04/17 07:30 Hemoglobin 9.0 g/dL 8.6 g/dL Hematocrit 26.4 % 24.8 % White Blood Count 5.01 K/uL Red Blood Count 3.01 M/uL Mean Corpuscular Volume 82.4 fL Mean Corpuscular Hemoglobin 28.6 pg Mean Corpuscular Hemoglobin Concent 34.7 g/dl Platelet Count 180 K/uL Mean Platelet Volume 8.6 fL Neutrophils (%) (Auto) 86.6 % Lymphocytes (%) (Auto) 9.4 % Monocytes (%) (Auto) 3.8 % Eosinophils (%) (Auto) 0.0 % Basophils (%) (Auto) 0.0 % Neutrophils # (Auto) 4.34 K/uL Lymphocytes # (Auto) 0.47 K/uL Monocytes # (Auto) 0.19 K/uL Eosinophils # (Auto) 0.00 K/uL Basophils # (Auto) 0.00 K/uL RDW Standard Deviation 47.4 fL RDW Coefficient of Variation 15.7 % Immature Granulocyte % (Auto) 0.2 % Immature Granulocyte # (Auto) 0.01 K/uL Red Blood Cell Morphology Unremarkable Sodium Level 137 mmol/L Potassium Level 4.0 mmol/L Chloride Level 107 mmol/L Carbon Dioxide Level 24 mmol/L Anion Gap 6.0 mmol/L Blood Urea Nitrogen 33 mg/dl Creatinine 1.10 mg/dl Est Creatinine Clear Calc Drug Dose 57.5 ml/min Estimated GFR () 71.6 Estimated GFR (Non- 61.8 BUN/Creatinine Ratio 29.6 Random Glucose 92 mg/dl Uric Acid 6.1 mg/dl Calcium Level 8.0 mg/dl Assessment & Plan He is not seeing any blood in his stool. He appears ready to be discharged. He will have a follow-up in our clinic in about 2 weeks
--- NOTE | 2017-03-04 14:29 | Hospitalist Progress Note ---
Hospitalist Progress Note Date of Service Mar 04, 2017. Subjective Pt evaluation today including: conversation w/ patient, physical exam, chart review, lab review, review of inpatient medication list Patient overall feels okay today. Denies any dizziness, chest pain, heart palpitations, chest pressure or shortness of breath. No abdominal pain. Still no bowel movement. The patient denies any urinary symptoms. He is however occasionally incontinent according to nursing notes. Additional Comments: 6 system review negative. Please see pertinent positives in the history of present illness section. Objective Vital Signs Date Time Temp Pulse Resp B/P Pulse Ox O2 Delivery O2 Flow Rate FiO2 03/04/17 11:38 36.5 75 18 114/76 97 03/04/17 07:45 Room Air 03/04/17 07:13 36.4 63 18 111/66 95 Room Air 03/04/17 04:08 36.3 89 20 115/71 90 Room Air 03/04/17 01:42 Room Air 03/04/17 00:36 36.8 66 18 121/78 99 Room Air 03/03/17 21:15 Room Air 03/03/17 20:44 36.5 71 16 115/68 98 Room Air 03/03/17 16:00 Room Air 03/03/17 15:45 36.5 82 18 100/65 99 Room Air 03/03/17 15:01 86 100 Physical Exam General Appearance: no apparent distress Eyes: EOMI Neck: no JVD Respiratory/Chest: lungs clear Cardiovascular: + pertinent finding (occasionally irregular. No murmurs auscultated.) Abdomen: normal bowel sounds, non tender, soft Extremities: + pertinent finding (lower extremity edema slightly improved from yesterday. No tenderness appreciated.) 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: no motor/sensory deficits, oriented x 3 Skin: warm/dry Laboratory Results 03/04/17 07:30 Red Blood Count 3.01, Mean Corpuscular Volume 82.4, Mean Corpuscular Hemoglobin 28.6, Mean Corpuscular Hemoglobin Concent 34.7, Mean Platelet Volume 8.6, Neutrophils (%) (Auto) 86.6, Lymphocytes (%) (Auto) 9.4, Monocytes (%) (Auto) 3.8, Eosinophils (%) (Auto) 0.0, Basophils (%) (Auto) 0.0, Neutrophils # (Auto) 4.34, Lymphocytes # (Auto) 0.47, Monocytes # (Auto) 0.19, Eosinophils # (Auto) 0.00, Basophils # (Auto) 0.00 03/04/17 07:30 Test 03/04/17 07:30 White Blood Count 5.01 K/uL (4.8-10.8) Red Blood Count 3.01 M/uL (4.7-6.1) Hemoglobin 8.6 g/dL (14.0-18.0) Hematocrit 24.8 % (42-52) Mean Corpuscular Volume 82.4 fL (80-100) Mean Corpuscular Hemoglobin 28.6 pg (25-34) Mean Corpuscular Hemoglobin Concent 34.7 g/dl (32-36) Platelet Count 180 K/uL (130-400) Mean Platelet Volume 8.6 fL (7.4-10.4) Neutrophils (%) (Auto) 86.6 % Lymphocytes (%) (Auto) 9.4 % Monocytes (%) (Auto) 3.8 % Eosinophils (%) (Auto) 0.0 % Basophils (%) (Auto) 0.0 % Neutrophils # (Auto) 4.34 K/uL (1.4-6.5) Lymphocytes # (Auto) 0.47 K/uL (1.2-3.4) Monocytes # (Auto) 0.19 K/uL (0.11-0.59) Eosinophils # (Auto) 0.00 K/uL (0-0.5) Basophils # (Auto) 0.00 K/uL (0-0.2) RDW Standard Deviation 47.4 fL (36.4-46.3) RDW Coefficient of Variation 15.7 % (11.5-14.5) Immature Granulocyte % (Auto) 0.2 % Immature Granulocyte # (Auto) 0.01 K/uL (0.00-0.02) Red Blood Cell Morphology Unremarkable Anion Gap 6.0 mmol/L (3-11) Est Creatinine Clear Calc Drug Dose 57.5 ml/min Estimated GFR () 71.6 Estimated GFR (Non- 61.8 BUN/Creatinine Ratio 29.6 (10-20) Uric Acid 6.1 mg/dl (2.6-7.2) Calcium Level 8.0 mg/dl (8.5-10.1) Last 24 Hours Test 03/04/17 07:30 White Blood Count 5.01 K/uL Red Blood Count 3.01 M/uL Hemoglobin 8.6 g/dL Hematocrit 24.8 % Mean Corpuscular Volume 82.4 fL Mean Corpuscular Hemoglobin 28.6 pg Mean Corpuscular Hemoglobin Concent 34.7 g/dl Platelet Count 180 K/uL Mean Platelet Volume 8.6 fL Neutrophils (%) (Auto) 86.6 % Lymphocytes (%) (Auto) 9.4 % Monocytes (%) (Auto) 3.8 % Eosinophils (%) (Auto) 0.0 % Basophils (%) (Auto) 0.0 % Neutrophils # (Auto) 4.34 K/uL Lymphocytes # (Auto) 0.47 K/uL Monocytes # (Auto) 0.19 K/uL Eosinophils # (Auto) 0.00 K/uL Basophils # (Auto) 0.00 K/uL RDW Standard Deviation 47.4 fL RDW Coefficient of Variation 15.7 % Immature Granulocyte % (Auto) 0.2 % Immature Granulocyte # (Auto) 0.01 K/uL Red Blood Cell Morphology Unremarkable Sodium Level 137 mmol/L Potassium Level 4.0 mmol/L Chloride Level 107 mmol/L Carbon Dioxide Level 24 mmol/L Anion Gap 6.0 mmol/L Blood Urea Nitrogen 33 mg/dl Creatinine 1.10 mg/dl Est Creatinine Clear Calc Drug Dose 57.5 ml/min Estimated GFR () 71.6 Estimated GFR (Non- 61.8 BUN/Creatinine Ratio 29.6 Random Glucose 92 mg/dl Uric Acid 6.1 mg/dl Calcium Level 8.0 mg/dl Assessment and Plan 81 y/o male with a history of permanent a-fib, recent DVT on therapeutic lovenox , , HTN, DM II (managed off medications), CKD stage III, HLD, and recent GI bleeding from rectal invasion of Lymphoma. 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 Infiltrative and ulcerated non-obstructing large mass at rectum measuring 5 x 21 cm which was biopsied and showed lymphoma. Hgb 8.6 today. no further bleeding holding on radiation for now, planning to see how he responds to chemotherapy , may consider radiation if he bleeds again needs f/u with Dr. Whitley in 2 weeks UTI-gram + cocci and gram - bacilli begin cipro for gram neg coverage begin bactrim for gram +/ MRSA coverage total course 10 days f/u sens tomorrow Constipation-pt reports no BM for 3 days Colace 100 mg po BID MiraLAX 1 packet po BID--> hold for diarrhea avoid agents from below given bleeding - Acute proximal DVT in left lower extremity--present on admission, stable, no evidence of PE LLE Doppler U/S positive for DVT in the left common femoral vein and proximal superficial femoral vein IVC filter placed 02/25 since he was bleeding Lovenox restarted at lower dose--> 40 mg BID - 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 Mild left hydroureteronephrosis likely due to mass effect LAD. Also enlarged, 2.1 x 1.3 cm distal paraesophageal lymph node received Rituxan 02/27, started on chemo 02/28, tolerating well Cr better today at 1.0 urology following - Permanent Atrial fibrillation-- BP and HR stable with Toprol 25mg ECHO (01/28/17) with EF of 50-55%. Right ventricle mild to moderate dilation, moderate MR Code Status FULL RESUSCITATION STATUS DISPO await sens-->then d/c to [facility]
--- NOTE | 2017-03-04 17:42 | Progress Note ---
Progress Note Date of Service Mar 04, 2017. Progress Note pt seen and examed, d/w PA about arguello points of dignosis and care plan, agreed current management, for details please referral to PA's note
[2017-03-04] MEDS: CIPROFLOXACIN 500 MG TAB PO SCH ×2 (17:44→23:27)
[2017-03-04] MEDS: CLINDAMYCIN IV 600 MG in DEXTROSE 5% ADD-VANTAGE 50ML 50 ML IV SCH ×2 (17:44→23:27)
[2017-03-04] MEDS: LACTOBACILLUS ACIDOPHILUS (FLORANEX) TAB PO SCH (17:44)
[2017-03-04] MEDS: TAMSULOSIN HCL 0.4 MG CAP PO SCH (20:14)
[2017-03-04] MEDS ORDERED: SULFAMETHOXAZOLE/TRIMETHOPRIM DS 800/160MG TAB PO SCH (21:00)
[2017-03-05 04:04] VITALS: BP 121/81; PULSE 78; TEMP 36.2; O2SAT 99
[2017-03-05 06:24] LABS: HEMATOCRIT 25.4 % (42-52); IG% 0.2 %; LYMPH % 9.6 %; LYMPH ABS # 0.43 K/uL (1.2-3.4); MEAN CELL VOLUME 83.8 fL (80-100); MEAN CORPUSCULAR HEMOGLOBIN 28.7 pg (25-34); MEAN CORPUSCULAR HGB CONC 34.3 g/dl (32-36); MEAN PLATELET VOLUME 8.9 fL (7.4-10.4); MONO % 2.9 %; NEUT % 87.3 %; PLATELET COUNT 203 K/uL (130-400); RED BLOOD COUNT 3.03 M/uL (4.7-6.1); WHITE BLOOD COUNT 4.46 K/uL (4.8-10.8)
[2017-03-05 06:43] LABS: BUN/CREATININE RATIO 26.6 (10-20); CALCIUM 7.9 mg/dl (8.5-10.1); POTASSIUM 3.9 mmol/L (3.5-5.1)
[2017-03-05 06:47] LABS: COMPLETE YES
[2017-03-05] MEDS: SODIUM CHLORIDE 0.9% 1000ML 1,000 ML IV SCH (07:05)
--- NOTE | 2017-03-05 07:53 | Progress Note ---
Subjective Date of Service: Mar 05, 2017. Subjective Pt evaluation today including: chart review, lab review Pt sleeping this morning and not disturbed. UC&S growing pseudomonas. He has been started on Cipro. Problem List Medical Problems: (1) Anemia Status: Acute (2) Dehydration Status: Acute (3) GI bleed Status: Acute (4) GI bleeding Status: Acute (5) Rectal mass Status: Acute Review of Systems Pt sleeping and not disturbed. Objective Vital Signs Date Time Temp Pulse Resp B/P Pulse Ox O2 Delivery O2 Flow Rate FiO2 03/05/17 04:04 36.2 78 18 121/81 99 Room Air 03/05/17 00:40 Room Air 03/04/17 23:45 36.3 72 18 134/74 99 Room Air 03/04/17 20:21 36.5 82 20 122/69 99 Room Air 03/04/17 16:00 98 Room Air 2.0 03/04/17 15:59 36.4 77 18 122/73 98 Room Air 03/04/17 11:38 36.5 75 18 114/76 97 Physical Exam General Appearance: no apparent distress Neck: no JVD Respiratory/Chest: no respiratory distress, no accessory muscle use Cardiovascular: no JVD 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: + pertinent finding (Pt sleeping. ) Skin: normal color Laboratory Results Last 24 Hours Test 03/05/17 05:55 White Blood Count 4.46 K/uL Red Blood Count 3.03 M/uL Hemoglobin 8.7 g/dL Hematocrit 25.4 % Mean Corpuscular Volume 83.8 fL Mean Corpuscular Hemoglobin 28.7 pg Mean Corpuscular Hemoglobin Concent 34.3 g/dl Platelet Count 203 K/uL Mean Platelet Volume 8.9 fL Neutrophils (%) (Auto) 87.3 % Lymphocytes (%) (Auto) 9.6 % Monocytes (%) (Auto) 2.9 % Eosinophils (%) (Auto) 0.0 % Basophils (%) (Auto) 0.0 % Neutrophils # (Auto) 3.89 K/uL Lymphocytes # (Auto) 0.43 K/uL Monocytes # (Auto) 0.13 K/uL Eosinophils # (Auto) 0.00 K/uL Basophils # (Auto) 0.00 K/uL RDW Standard Deviation 47.9 fL RDW Coefficient of Variation 15.7 % Immature Granulocyte % (Auto) 0.2 % Immature Granulocyte # (Auto) 0.01 K/uL Red Blood Cell Morphology Unremarkable Sodium Level 138 mmol/L Potassium Level 3.9 mmol/L Chloride Level 106 mmol/L Carbon Dioxide Level 24 mmol/L Anion Gap 8.0 mmol/L Blood Urea Nitrogen 27 mg/dl Creatinine 1.00 mg/dl Est Creatinine Clear Calc Drug Dose 63.3 ml/min Estimated GFR () 80.3 Estimated GFR (Non- 69.3 BUN/Creatinine Ratio 26.6 Random Glucose 92 mg/dl Calcium Level 7.9 mg/dl Assessment and Plan A/P: Left hydro secondary to lymphoma; s/p stent placement AFVSS. - stent well positioned - appropriate amount of hydro given the stent (mild) - on chemo - which will ultimately be his true treatment for the hydro - renal function adequate. - leave stent for now, will be due for a change in several weeks - PVRs remain acceptable. Continue finasteride and Flomax. - UC&S growing Pseudomonas. Sensitive to Cipro. Continue for 10 days of therapy. - No further management at this time. Pt OK for discharge from [facility]. Will arrange for outpatient f/u with Dr. Patel. Recall PRN issues.
[2017-03-05 07:59] VITALS: BP 119/72; PULSE 76; TEMP 36.7; O2SAT 99
[2017-03-05] MEDS: CIPROFLOXACIN 500 MG TAB PO SCH ×2 (08:06→21:08)
[2017-03-05] MEDS: POLYETHYLENE (MIRALAX) 17 GM PACK PO SCH ×2 (08:06→21:08)
[2017-03-05] MEDS: BOOST PLUS VANILLA PO SCH ×2 (08:06)
[2017-03-05] MEDS: CLINDAMYCIN IV 600 MG in DEXTROSE 5% ADD-VANTAGE 50ML 50 ML IV SCH (08:06)
[2017-03-05] MEDS: METOPROLOL SUCC 25MG EXT REL TAB PO SCH (08:07)
[2017-03-05] MEDS: FINASTERIDE 5 MG TAB PO SCH (08:07)
[2017-03-05] MEDS: ENOXAPARIN 40 MG/0.4 ML SYR SQ SCH ×2 (08:08→21:09)
[2017-03-05] MEDS: ALLOPURINOL 100 MG TAB PO SCH (08:08)
[2017-03-05] MEDS ORDERED: CEPHALEXIN MONOHYDRATE 500 MG CAP PO ONE (09:15)
--- NOTE | 2017-03-05 10:03 | Progress Note ---
Subjective Date of Service: Mar 05, 2017. Subjective Pt evaluation today including: conversation w/ patient, physical exam, chart review, lab review, review of studies, review of inpatient medication list doing well, eating, and drinking, no c/o was having BM yesterday, no problem of urination Problem List Medical Problems: (1) Anemia Status: Acute (2) Dehydration Status: Acute (3) GI bleed Status: Acute (4) GI bleeding Status: Acute (5) Rectal mass Status: Acute Review of Systems Constitutional: No chills, No fatigue, No fever, No problem reported, No sweats , No weakness, No weight loss Eyes: No diplopia, No discharge, No eye pain, No redness, No worsening of vision ENT: No dental problems, No hearing loss, No nasal symptoms, No sore throat, No tinnitus, No trouble swallowing, No unusual epistaxis Respiratory: No cough, No dyspnea at rest, No dyspnea on exertion, No hemoptysis, No shortness of breath, No sputum, No wheezing Cardiac: No PND, No chest pain, No claudication, No edema, No orthopnea, No palpitations Abdomen: No constipation, No diarrhea, No nausea, No pain, No vomiting Musculoskeletal: No calf pain, No joint pain, No muscle pain, No swelling Male : No dysuria, No hematuria, No incontinence, No nocturia more than once/ night, No slowing stream, No urinary frequency Neurologic: No balance problems, No memory loss, No numbness/tingling, No paralysis, No vertigo, No weakness Psychiatric: No anhedonism, No anxiety, No depression symptoms, No insomnia, No substance abuse Heme: No abnormal bleeding/bruising, No clotting problems, No night sweats, No swollen lymph nodes Endo: No excessive thirst, No excessive urination, No fatigue Skin: No bleeding, No color change, No itch, No new/changing skin lesions, No rash Objective Vital Signs Date Time Temp Pulse Resp B/P Pulse Ox O2 Delivery O2 Flow Rate FiO2 03/05/17 07:59 36.7 76 18 119/72 99 Room Air 03/05/17 04:04 36.2 78 18 121/81 99 Room Air 03/05/17 00:40 Room Air 03/04/17 23:45 36.3 72 18 134/74 99 Room Air 4/11/17 20:21 36.5 82 20 122/69 99 Room Air 03/04/17 16:00 98 Room Air 2.0 03/04/17 15:59 36.4 77 18 122/73 98 Room Air 03/04/17 11:38 36.5 75 18 114/76 97 Physical Exam General Appearance: WD/WN, no apparent distress, + thin, + pertinent finding ( color pink, not pale) Eyes: normal inspection, PERRL, EOMI, sclerae normal ENT: normal ENT inspection, hearing grossly normal, pharynx normal Neck: supple, no adenopathy, thyroid normal, no JVD, no carotid bruits, trachea midline Respiratory/Chest: chest non-tender, normal breath sounds, no respiratory distress, no accessory muscle use, + decreased breath sounds Cardiovascular: regular rate, rhythm, no edema, no gallop, no JVD, no murmur Abdomen: normal bowel sounds, non tender, soft, no organomegaly, no pulsatile mass Extremities: normal range of motion, non-tender, normal inspection, no pedal edema, no calf tenderness, normal capillary refill, pelvis stable, + pertinent finding (pleasant and conversational) 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, no motor/sensory deficits, alert, normal mood/affect, oriented x 3 Skin: normal color, warm/dry, no rash Lymphatic: no adenopathy Laboratory Results Last 24 Hours Test 03/05/17 05:55 White Blood Count 4.46 K/uL Red Blood Count 3.03 M/uL Hemoglobin 8.7 g/dL Hematocrit 25.4 % Mean Corpuscular Volume 83.8 fL Mean Corpuscular Hemoglobin 28.7 pg Mean Corpuscular Hemoglobin Concent 34.3 g/dl Platelet Count 203 K/uL Mean Platelet Volume 8.9 fL Neutrophils (%) (Auto) 87.3 % Lymphocytes (%) (Auto) 9.6 % Monocytes (%) (Auto) 2.9 % Eosinophils (%) (Auto) 0.0 % Basophils (%) (Auto) 0.0 % Neutrophils # (Auto) 3.89 K/uL Lymphocytes # (Auto) 0.43 K/uL Monocytes # (Auto) 0.13 K/uL Eosinophils # (Auto) 0.00 K/uL Basophils # (Auto) 0.00 K/uL RDW Standard Deviation 47.9 fL RDW Coefficient of Variation 15.7 % Immature Granulocyte % (Auto) 0.2 % Immature Granulocyte # (Auto) 0.01 K/uL Red Blood Cell Morphology Unremarkable Sodium Level 138 mmol/L Potassium Level 3.9 mmol/L Chloride Level 106 mmol/L Carbon Dioxide Level 24 mmol/L Anion Gap 8.0 mmol/L Blood Urea Nitrogen 27 mg/dl Creatinine 1.00 mg/dl Est Creatinine Clear Calc Drug Dose 63.3 ml/min Estimated GFR () 80.3 Estimated GFR (Non- 69.3 BUN/Creatinine Ratio 26.6 Random Glucose 92 mg/dl Calcium Level 7.9 mg/dl Assessment and Plan 81 y/o male with a history of permanent a-fib, recent DVT on therapeutic lovenox , , HTN, DM II (managed off medications), CKD stage III, HLD, and recent GI bleeding from rectal invasion of Lymphoma. 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 Infiltrative and ulcerated non-obstructing large mass at rectum measuring 5 x 21 cm which was biopsied and showed lymphoma. Hgb 8.6 to 8.7 today no further bleeding holding on radiation for now, planning to see how he responds to chemotherapy , may consider radiation if he bleeds again needs f/u with Dr. Whitley in 2 weeks UTI-gram + cocci and plus pseudoma, bone sensitive include cipro cont cipro for gram neg coverage, 01/03 start Keflex for gram +/ MRSA coverage, DC clindamycin, ( was on Cefazolin from 02/25/, therefore today is /10 total course 10 days [place] 2/2 lymphadenopathy, urologist Dr. Petersen saw pt, stent well positioned, appropriate amount of hydro given the stent (mild), renal function adequate leave stent for now, will be due for a change in several weeks in follow up visit with Dr. 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 Mild left hydroureteronephrosis likely due to mass effect LAD. Also enlarged, 2.1 x 1.3 cm distal paraesophageal lymph node received Rituxan 02/27, started on chemo 02/28, tolerating well Cr better today at 1.0 urology following - Permanent Atrial fibrillation-- BP and HR stable with Toprol 25mg ECHO (01/28/17) with EF of 50-55%. Right ventricle mild to moderate dilation, moderate MR Code Status FULL RESUSCITATION STATUS DISPO Denies by insurance to TEMI lyle on the case Continued [facility] stay due to: home environment unsafe for pt Discharge planning: half-way facility
[2017-03-05 11:29] VITALS: BP 98/59; PULSE 90; TEMP 36.5; O2SAT 94
[2017-03-05] MEDS: CEPHALEXIN MONOHYDRATE 500 MG CAP PO SCH ×3 (12:07→21:08)
[2017-03-05 15:18] VITALS: BP 103/62; PULSE 81; TEMP 36.8; O2SAT 97
[2017-03-05] MEDS: LACTOBACILLUS ACIDOPHILUS (FLORANEX) TAB PO SCH (17:29)
[2017-03-05] MEDS: TAMSULOSIN HCL 0.4 MG CAP PO SCH (21:09)
[2017-03-06 00:22] VITALS: BP 128/75; PULSE 81; TEMP 36.6; O2SAT 99
[2017-03-06 04:42] VITALS: BP 114/75; PULSE 85; TEMP 36.3; O2SAT 100
[2017-03-06 06:55] LABS: COMPLETE YES; EOS % 1.2 %; HEMATOCRIT 27.2 % (42-52); IG% 0.6 %; LYMPH ABS # 0.36 K/uL (1.2-3.4); MEAN CELL VOLUME 84.2 fL (80-100); MEAN CORPUSCULAR HEMOGLOBIN 29.1 pg (25-34); MEAN CORPUSCULAR HGB CONC 34.6 g/dl (32-36); NEUT % 90.2 %; PLATELET COUNT 217 K/uL (130-400); RED BLOOD COUNT 3.23 M/uL (4.7-6.1); WHITE BLOOD COUNT 5.14 K/uL (4.8-10.8)
[2017-03-06 07:40] VITALS: BP 109/69; PULSE 80; TEMP 36.5; O2SAT 99
[2017-03-06] MEDS: CIPROFLOXACIN 500 MG TAB PO SCH (07:58)
[2017-03-06] MEDS: CEPHALEXIN MONOHYDRATE 500 MG CAP PO SCH (07:58)
[2017-03-06] MEDS: FINASTERIDE 5 MG TAB PO SCH (07:58)
[2017-03-06] MEDS: POLYETHYLENE (MIRALAX) 17 GM PACK PO SCH (07:58)
[2017-03-06] MEDS: METOPROLOL SUCC 25MG EXT REL TAB PO SCH (07:58)
[2017-03-06] MEDS: ENOXAPARIN 40 MG/0.4 ML SYR SQ SCH (07:59)
[2017-03-06] MEDS: ALLOPURINOL 100 MG TAB PO SCH (07:59)
[2017-03-06] MEDS: BOOST PLUS VANILLA PO SCH ×2 (08:19)
--- NOTE | 2017-03-06 09:37 | Hematology/Oncology Prog Note ---
Hematology/Onc Progress Note Date of Service Mar 06, 2017. Diagnoses Non-Hodgkin's lymphoma Medications Medications Administered Medications (Trade) Dose Ordered Sig/Estevan Route Start Time Stop Time Status Last Admin Dose Admin Sodium Chloride 1,000 ml @ 999 mls/hr Q1H1M STAT IV 02/24/17 14:02 02/24/17 15:02 DC 02/24/17 14:02 999 MLS/HR Sodium Chloride 1,000 ml @ 999 mls/hr Q1H1M STAT IV 02/24/17 15:25 02/24/17 16:25 DC 02/24/17 16:35 999 MLS/HR Sodium Chloride (Nss 1000ml) 1,000 ml @ 125 mls/hr Q8H IV 02/24/17 16:06 02/26/17 08:56 DC 02/26/17 00:21 125 MLS/HR Finasteride (Proscar Tab) 5 mg DAILY PO 02/25/17 09:00 03/27/17 08:59 03/06/17 07:58 5 MG Tamsulosin HCl 0.4 mg 0.4 mg HS PO 02/24/17 21:00 03/26/17 20:59 03/05/17 21:09 0.4 MG Cefazolin Sodium (Ancef 1000mg/55 ml D5W) 55 ml @ 100 mls/hr PRE-SPECIALS IV 02/25/17 09:45 02/25/17 12:02 DC 02/25/17 11:35 100 MLS/HR Lidocaine HCl (Xylocaine 1% Inj (Local)) 9 ml ONE ONCE SQ 02/25/17 11:55 02/25/17 11:56 DC 02/25/17 11:55 9 ML Iodixanol (Visipaque 50ml) 15 mg ONE ONCE FLUSH 02/25/17 11:55 02/25/17 11:56 DC 02/25/17 11:55 15 MG Potassium Chloride (Klor-Con M10) 20 meq NOW ONCE PO 02/26/17 09:30 02/26/17 09:31 DC 02/26/17 09:20 20 MEQ Metoprolol Succinate (Toprol Xl Tab) 25 mg NOW ONCE PO 02/26/17 12:30 02/26/17 12:31 DC 02/26/17 12:12 25 MG Metoprolol Succinate (Toprol Xl Tab) 25 mg DAILY PO 02/27/17 08:00 03/29/17 08:59 03/06/17 07:58 25 MG Acetaminophen 650 mg 650 mg TODAY@1330 PO 02/27/17 13:30 02/27/17 16:00 DC 02/27/17 13:41 650 MG Rituximab/ Rituximab/Sodium Chloride (Rituxan Inj/ Rituxan Inj/Nss 500ml) 375 ml @ 25 mls/hr TODAY@1400 IV 02/27/17 14:00 02/27/17 22:00 DC 02/27/17 14:13 25 MLS/HR Diphenhydramine HCl (Benadryl Cap) 50 mg TODAY@1330 PO 02/27/17 13:30 02/27/17 16:00 DC 02/27/17 13:40 50 MG Dexamethasone 20 mg 20 mg TODAY@1330 PO 02/27/17 13:30 02/27/17 16:00 DC 02/27/17 13:41 20 MG Cyclophosphamide 800 mg/Sodium Chloride 590 ml @ 1,180 mls/hr TODAY@1115 IV 02/28/17 11:15 02/28/17 16:30 DC 02/28/17 11:52 1,180 MLS/HR Doxorubicin HCl 50 mg/Syringe 25 ml @ 5 mls/min TODAY@1045 IV 02/28/17 10:45 02/28/17 15:00 DC 02/28/17 11:27 5 MLS/MIN Vincristine Sulfate/Syringe (Vincasar Pfs/ Syringe) 20 ml @ 120 mls/hr TODAY@1100 IV 02/28/17 11:00 02/28/17 15:00 MA 02/28/17 11:39 120 MLS/HR Prednisone (PredniSONE TAB) 100 mg DAILY PO 02/28/17 08:00 03/04/17 08:01 DC 03/04/17 07:39 100 MG Dexamethasone (Decadron Tab) 20 mg TODAY@1000 PO 02/28/17 10:00 02/28/17 14:00 DC 02/28/17 10:10 20 MG Ondansetron HCl (Zofran Tab) 16 mg TODAY@1000 PO 02/28/17 10:00 02/28/17 14:00 DC 02/28/17 10:09 16 MG Allopurinol 200 mg 200 mg DAILY PO 02/28/17 08:00 03/30/17 07:59 03/06/17 07:59 200 MG Sodium Phosphate/ Sodium Chloride (Sodium Phosphate Inj/Nss 250ml) 255 ml @ 88 mls/hr TODAY@0900 ONCE IV 02/28/17 09:00 02/28/17 11:53 DC 02/28/17 09:07 88 MLS/HR Enteral Nutritional Formula 1 can 1 can DAILY PO 03/01/17 08:00 03/31/17 07:59 03/06/17 08:19 1 CAN Sodium Chloride (Nss 1000ml) 1,000 ml @ 100 mls/hr Q10H IV 03/01/17 14:30 03/05/17 09:19 DC 03/05/17 07:05 100 MLS/HR Polyethylene (Miralax Powder Packet) 17 gm BID PO 03/02/17 20:00 04/01/17 19:59 03/06/17 07:58 17 GM Enoxaparin Sodium (Lovenox Inj) 40 mg Q12 SQ 03/02/17 14:00 04/01/17 13:59 03/06/17 07:59 40 MG Ciprofloxacin 500 mg 500 mg BID PO 03/04/17 16:00 03/14/17 15:59 03/06/17 07:58 500 MG Clindamycin Phosphate/Dextrose (Cleocin Iv/ Dextrose Add-[place] 50ML) 54 ml @ 108 mls/hr Q8@00,08,16 IV 03/04/17 16:00 03/05/17 09:19 DC 03/05/17 08:06 108 MLS/HR Lactobacillus Acidophilus (Floranex Tab) 4 tab DAILY@1800 PO 03/04/17 18:00 04/03/17 17:59 03/05/17 17:29 4 TAB Cephalexin Monohydrate (Keflex Cap) 500 mg NOW ONCE PO 03/05/17 09:15 03/05/17 09:25 DC 03/05/17 09:41 500 MG Cephalexin Monohydrate (Keflex Cap) 500 mg QID PO 03/05/17 12:00 03/10/17 11:59 03/06/17 07:58 500 MG Subjective He does not see any blood in his stool. He is quite comfortable. Review of Systems: Constitutional: Negative for night sweats, or fever Eyes: Negative for event change of vision ENT: Negative for epistaxis, nasal discharge, sore throat, or deafness Cardiovascular: Negative for chest pain, palpitations, dizziness, diaphoresis Respiratory: Negative for new shortness of breath,hemoptysis, or purulent cough Gastrointestinal: Negative for diarrhea, hematemesis, melena, nausea, vomiting , or dyspepsia Integumentary (skin): Negative for rash or jaundice discoloration Genitourinary: Negative for urinary frequency, hematuria, or dysuria Neurological: Negative for weakness, seizure activity, headache, or dizziness Lymphatic/Hematologic: Negative for petechiae, bleeding or new adenopathy Musculoskeletal: Negative for new joint or back pain Allergic/Immunologic: Negative for unusual rash or pruritis. Vital Signs Vital Signs Past 12 Hours Date Time Temp Pulse Resp B/P Pulse Ox O2 Delivery O2 Flow Rate FiO2 03/06/17 08:00 Room Air 03/06/17 07:40 36.5 80 18 109/69 99 Room Air 03/06/17 04:42 36.3 85 20 114/75 100 Room Air 03/06/17 00:22 36.6 81 20 128/75 99 Room Air 03/06/17 00:00 Room Air Physical Exam Constitutional: vitals are stable. Eyes: Eyes are SHAKEEL EOMI without conjuctival erythema or icterus. ENT: External examination was negative for masses. Neck: Negative for masses or palpable thyromegaly Respiratory: Lung sounds were generally clear bilaterally Cardiovascular: Heart was RRR without significant murmur, gallops aoe rubs Gastrointestinal: No palpable hepatic or splenomegaly. The abdomen was soft with normal bowel sounds. Lymphatic system: there was no palpable peripheral lymphadenopathy Musculoskeletal System: The musculoskeletal system seemed concordant with age. Skin: The skin was negative for jaundice. Neurologic exam: The exam was negative for any focal findings. Deep tendon reflexes were equal and symmetrical. Psychiatric exam: Was essentially negative with normal mood and effect. Extremities bilateral 1-2+ dependent leg edema nontender Constitutional: General Apperance: too thin Level of Distress: chronically ill Psychiatric: Mental Status: active & alert Orientation: oriented except where noted Lungs: Respiratory Effort: no dyspnea Auscuitation: breath sounds normal Cardiovascular: Heart Auscultation: RRR, no murmurs Abdomen: Inspection & Palpation: soft, no tenderness, guarding & rebound Extremities: edema (improving bilateral pedal edema, L>R) Laboratory Last 24 Hours Test 03/06/17 06:34 White Blood Count 5.14 K/uL Red Blood Count 3.23 M/uL Hemoglobin 9.4 g/dL Hematocrit 27.2 % Mean Corpuscular Volume 84.2 fL Mean Corpuscular Hemoglobin 29.1 pg Mean Corpuscular Hemoglobin Concent 34.6 g/dl Platelet Count 217 K/uL Mean Platelet Volume 9.0 fL Neutrophils (%) (Auto) 90.2 % Lymphocytes (%) (Auto) 7.0 % Monocytes (%) (Auto) 1.0 % Eosinophils (%) (Auto) 1.2 % Basophils (%) (Auto) 0.0 % Neutrophils # (Auto) 4.64 K/uL Lymphocytes # (Auto) 0.36 K/uL Monocytes # (Auto) 0.05 K/uL Eosinophils # (Auto) 0.06 K/uL Basophils # (Auto) 0.00 K/uL RDW Standard Deviation 47.7 fL RDW Coefficient of Variation 15.4 % Immature Granulocyte % (Auto) 0.6 % Immature Granulocyte # (Auto) 0.03 K/uL Assessment & Plan He is not seeing any blood in his stool. He appears ready for discharge. He'll have a follow-up in our clinic in 2 weeks for his next course of systemic therapy. Thank you we will sign off for now but please don't hesitate to reconsult us if necessary.
[2017-03-06] MEDS ORDERED: BISACODYL 10 MG SUPP PR STA (10:48)
--- NOTE | 2017-03-06 10:56 | Progress Note ---
Subjective Date of Service: Mar 06, 2017. Subjective Pt evaluation today including: conversation w/ patient, physical exam, chart review, lab review, review of studies, conversation w/ consultants intern, review of inpatient medication list Doing okay, feeling stronger, has no bowel movement for 3-4 days, no blood in the stool Problem List Medical Problems: (1) Anemia Status: Acute (2) Dehydration Status: Acute (3) GI bleed Status: Acute (4) GI bleeding Status: Acute (5) Rectal mass Status: Acute Review of Systems Constitutional: + fatigue, No chills, No fever, No problem reported, No sweats , No weakness, No weight loss Eyes: No diplopia, No discharge, No eye pain, No redness, No worsening of vision ENT: No dental problems, No hearing loss, No nasal symptoms, No sore throat, No tinnitus, No trouble swallowing, No unusual epistaxis Respiratory: No cough, No dyspnea at rest, No dyspnea on exertion, No hemoptysis, No shortness of breath, No sputum, No wheezing Cardiac: No PND, No chest pain, No claudication, No edema, No orthopnea, No palpitations Abdomen: No constipation, No diarrhea, No nausea, No pain, No vomiting Musculoskeletal: No calf pain, No joint pain, No muscle pain, No swelling Male : No dysuria, No hematuria, No incontinence, No nocturia more than once/ night, No slowing stream, No urinary frequency Neurologic: No balance problems, No memory loss, No numbness/tingling, No paralysis, No vertigo, No weakness Psychiatric: No anhedonism, No anxiety, No depression symptoms, No insomnia, No substance abuse Heme: No abnormal bleeding/bruising, No clotting problems, No night sweats, No swollen lymph nodes Endo: No excessive thirst, No excessive urination, No fatigue Skin: No bleeding, No color change, No itch, No new/changing skin lesions, No rash Objective Vital Signs Date Time Temp Pulse Resp B/P Pulse Ox O2 Delivery O2 Flow Rate FiO2 03/06/17 08:00 Room Air 03/06/17 07:40 36.5 80 18 109/69 99 Room Air 03/06/17 04:42 36.3 85 20 114/75 100 Room Air 03/06/17 00:22 36.6 81 20 128/75 99 Room Air 03/06/17 00:00 Room Air 03/05/17 16:15 Room Air 03/05/17 15:18 36.8 81 16 103/62 97 Room Air 03/05/17 11:29 36.5 90 20 98/59 94 Physical Exam General Appearance: WD/WN, no apparent distress, + thin Eyes: normal inspection, PERRL, EOMI, sclerae normal ENT: normal ENT inspection, hearing grossly normal, pharynx normal Neck: supple, no adenopathy, thyroid normal, no JVD, no carotid bruits, trachea midline Respiratory/Chest: chest non-tender, lungs clear, normal breath sounds, no respiratory distress, no accessory muscle use Cardiovascular: regular rate, rhythm, no edema, no gallop, no JVD, no murmur Abdomen: normal bowel sounds, non tender, soft, no organomegaly, no pulsatile mass Extremities: normal range of motion, non-tender, normal inspection, no pedal edema, no calf tenderness, normal capillary refill, pelvis stable 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: 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, no motor/sensory deficits, alert, normal mood/affect, oriented x 3 Skin: normal color, warm/dry, no rash Lymphatic: no adenopathy Laboratory Results Last 24 Hours Test 03/06/17 06:34 White Blood Count 5.14 K/uL Red Blood Count 3.23 M/uL Hemoglobin 9.4 g/dL Hematocrit 27.2 % Mean Corpuscular Volume 84.2 fL Mean Corpuscular Hemoglobin 29.1 pg Mean Corpuscular Hemoglobin Concent 34.6 g/dl Platelet Count 217 K/uL Mean Platelet Volume 9.0 fL Neutrophils (%) (Auto) 90.2 % Lymphocytes (%) (Auto) 7.0 % Monocytes (%) (Auto) 1.0 % Eosinophils (%) (Auto) 1.2 % Basophils (%) (Auto) 0.0 % Neutrophils # (Auto) 4.64 K/uL Lymphocytes # (Auto) 0.36 K/uL Monocytes # (Auto) 0.05 K/uL Eosinophils # (Auto) 0.06 K/uL Basophils # (Auto) 0.00 K/uL RDW Standard Deviation 47.7 fL RDW Coefficient of Variation 15.4 % Immature Granulocyte % (Auto) 0.6 % Immature Granulocyte # (Auto) 0.03 K/uL Assessment and Plan 81 y/o male with a history of permanent a-fib, recent DVT on therapeutic lovenox , , HTN, DM II (managed off medications), CKD stage III, HLD, and recent GI bleeding from rectal invasion of Lymphoma. 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 Infiltrative and ulcerated non-obstructing large mass at rectum measuring 5 x 21 cm which was biopsied and showed lymphoma. Hemoglobin stable no further bleeding holding on radiation for now, planning to see how he responds to chemotherapy , may consider radiation if he bleeds again needs f/u with Dr. Whitley in 2 weeks Enterococcus UTI and plus pseudoma, bone sensitive include cipro cont cipro for Pseudomonas 01/31 start Keflex for enterococcus UTI, ( was on Cefazolin from , therefore today is 9/10 days total course 10 days [employer] / lymphadenopathy, urologist Dr. Petersen saw pt, stent well positioned, appropriate amount of hydro given the stent (mild), renal function adequate leave stent for now, will be due for a change in several weeks in follow up visit with Dr. 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 Mild left hydroureteronephrosis likely due to mass effect LAD. Also enlarged, 2.1 x 1.3 cm distal paraesophageal lymph node received Rituxan 02/27, started on chemo 02/28, tolerating well Cr better today at 1.0 urology following - Permanent Atrial fibrillation-- BP and HR stable with Toprol 25mg ECHO (01/28/17) with EF of 50-55%. Right ventricle mild to moderate dilation, moderate MR Code Status FULL RESUSCITATION STATUS DISPO Denies by insurance to valdo, patient noted to discharged pending disability case manager , TEMI on the case Continued [facility] stay due to: home environment unsafe for pt Discharge planning: senior living facility
[2017-03-06] MEDS ORDERED: MAGNESIUM CITRATE 296 ML/BTL PO ONE (11:00)
[2017-03-06] MEDS ORDERED: BISACODYL 10 MG SUPP PR PRN (11:00)
[2017-03-06] MEDS ORDERED: SOD PHOSPHATE/SOD BIPHOSPHATE ENEMA 132 ML BTL PR PRN (11:00)
[2017-03-06] MEDS ORDERED: CPR500 PO (11:16)
[2017-03-06] MEDS ORDERED: KFL500 PO (11:16)
[2017-03-06] MEDS ORDERED: LCTX PO (11:16)
--- NOTE | 2017-03-06 11:18 | Discharge Instructions ---
Discharge Instructions Date of Service Mar 06, 2017. 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 Petersen you have Constipation, you need to continue bowel regimen and avoid agents from below given bleeding, such as no suppository of free in edema, you have Acute proximal DVT in left lower extremity--present on admission, LLE Doppler U/S positive for DVT in the left common femoral vein and proximal superficial femoral vein IVC filter placed 02/25 since he was bleeding Lovenox restarted at lower dose--> 40 mg BID - you need to follow up with your primary care physician in 1 week, - take medication as instructed, never overdose or any misuse, or take with alcohol, because misuse of medicine may cause organ damage or , call your primary care physician if have questions of medicaitons. - call your primary care physician OR go to local emergency room if has any fever/chill, chest pain, shortness of breathing, nausea/vomiting/abdominal pain , facial droop/slurry speech/local weakness, or if has any questions. - fall precaution - diet as instructed - you need to follow up with your subspecialists Current Hospital Diet Patient's current hospital diet: Regular Diet Discharge Diet Recommended Diet: Low Sodium Diet (2gm Na) Procedures Procedures Performed: Insertion fo Vena Cava Filter, Right Femoral Approach, Ultrasound Localization of Right Femoral Vein, Fluoroscopy for positioning Pending Studies Studies pending at discharge: no Laboratory Results Hemoglobin A1c Test 02/03/17 08:01 Range/Units Estimated Average Glucose 128 mg/dl Hemoglobin A1c 6.1 H 4.5-5.6 % Lipid Panel Test 02/03/17 08:01 Range/Units Triglycerides Level 139 0-150 mg/dl Cholesterol Level 122 0-200 mg/dl HDL Cholesterol 32 mg/dl Cholesterol/HDL Ratio 3.8 LDL Cholesterol, Calculated 62 mg/dl Medical Emergencies . Who to Call and When: Medical Emergencies: If at any time you feel your situation is an emergency, please call 911 immediately. . Non-Emergent Contact Non-Emergency issues call your: Primary Care Provider, Oncologist, Urologist . . "Provider Documentation" section prepared by Artie Edge. VTE Core Measure Inpt VTE Proph given/why not?: Enoxaparin (Lovenox)SQ
--- NOTE | 2017-03-06 11:35 | Discharge Summary ---
Discharge Summary Date of Service Mar 06, 2017. 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, acute blood loss anemia: Problems/Secondary Diagnoses: Enterococcus UTI and plus pseudinoma, UTI Hydronephrosis, 2/2 lymphadenopathy, stent well positioned, Acute proximal DVT in left lower extremity--present on admission, Procedures: IVC filter Consultations: Urologist, oncologist consultation Medication Reconciliation New Medications: Docusate Sodium (Colace) 100 Mg Cap 1 CAP PO BID for 30 Days, #60 CAP 2 Refills Allopurinol (Allopurinol) 100 Mg Tab 200 MG PO DAILY for 30 Days, #60 TAB Cephalexin Monohydrate (Cephalexin) 500 Mg Cap 500 MG PO QID for 5 Days, CAP Ciprofloxacin (Ciprofloxacin HCl) 500 Mg Tab 500 MG PO BID for 7 Days, TAB Enoxaparin (Enoxaparin Sodium) 40 Mg/0.4 Ml Inj 40 MG SQ Q12 for 30 Days, #60 DOSE Enteral Nutrition Formula (Ensure Plus Vanilla) 1 Can Liqd 1 CAN PO DAILY for 30 Days, #30 DOSE Lactobacillus Acidophilus (Floranex) 1 Tab Tab 4 TAB PO DAILY@1800 for 7 Days, TAB Metoprolol Succinate (Metoprolol Succinate ER) 25 Mg Tabcr 25 MG PO DAILY for 30 Days, #30 TAB Polyethylene (Miralax) 17 Gm Pow 17 GM PO BID for 30 Days, #60 DOSE hold for diarrhea Prednisone (Prednisone) 50 Mg Tab 100 MG PO DAILY for 14 Days, #28 TAB Continued Medications: Finasteride (Proscar) 5 Mg Tab 5 MG PO DAILY, TAB Tamsulosin Hcl (Flomax) 0.4 Mg Cap 0.4 MG PO HS, CAP Discontinued Medications: Enoxaparin (Lovenox) 80 Mg/0.8 Ml Inj 80 MG SQ Q12H, SYR Metoprolol Succ (Toprol Xl) (Toprol-Xl) 50 Mg Tabcr 50 MG PO DAILY, #30 TAB Discharge Exam See today's progress note patient has bowel movement already Review of Systems: Constitutional: + problem reported (see today's progress note) Physical Exam: General Appearance: + pertinent finding (see today's progress note) Hospital Course 81 y/o male with a history of permanent a-fib, recent DVT on therapeutic lovenox , , HTN, DM II (managed off medications), CKD stage III, HLD, and recent GI bleeding from rectal invasion of Lymphoma. 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 Infiltrative and ulcerated non-obstructing large mass at rectum measuring 5 x 21 cm which was biopsied and showed lymphoma. Hemoglobin stable no further bleeding holding on radiation for now, planning to see how he responds to chemotherapy , may consider radiation if he bleeds again needs f/u with Dr. Whitley in 2 weeks Enterococcus UTI and plus pseudoma, bone sensitive include cipro cont cipro for Pseudomonas 01/31, need 7 days start Keflex for enterococcus UTI, ( was on Cefazolin from 02/25/, will give 5 days more [place] 2/ lymphadenopathy, urologist Dr. Petersen saw pt, stent well positioned, appropriate amount of hydro given the stent (mild), renal function adequate leave stent for now, will be due for a change in several weeks in follow up visit with Dr. 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 Mild left hydroureteronephrosis likely due to mass effect LAD. Also enlarged, 2.1 x 1.3 cm distal paraesophageal lymph node received Rituxan 02/27, started on chemo 02/28, tolerating well Cr better today at 1.0 urology following - Permanent Atrial fibrillation-- BP and HR stable with Toprol 25mg ECHO (01/28/17) with EF of 50-55%. 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 Petersen you have Constipation, you need to continue bowel regimen and avoid agents from below given bleeding, such as no suppository of free in edema, you have Acute proximal DVT in left lower extremity--present on admission, LLE Doppler U/S positive for DVT in the left common femoral vein and proximal superficial femoral vein IVC filter placed / since he was bleeding Lovenox restarted at lower dose--> 40 mg BID - you need to follow up with your primary care physician in 1 week, - take medication as instructed, never overdose or any misuse, or take with alcohol, because misuse of medicine may cause organ damage or , call your primary care physician if have questions of medicaitons. - call your primary care physician OR go to local emergency room if has any fever/chill, chest pain, shortness of breathing, nausea/vomiting/abdominal pain , facial droop/slurry speech/local weakness, or if has any questions. - fall precaution - diet as instructed - you need to follow up with your subspecialists Total Time Spent: Greater than 30 minutes This includes examination of the patient, discharge planning, medication reconciliation, and communication with other providers. Discharge Instructions Please refer to the electronic Patient Visit Report (Discharge Instructions) for additional information. Additional Copies To Osmar Patel MD, Urology; Rolando Weber MD; Pro,Juan Daniel Reagan M.D.
[2017-03-06] MEDS ORDERED: AMOXICILLIN/CLAVULANATE TAB 875 MG TAB PO ONE (11:45)
[2017-03-06] MEDS ORDERED: AMOX1TAB43 PO (11:45)
[2017-03-06 11:57] VITALS: BP 96/59; PULSE 82; TEMP 36.7; O2SAT 99
[2017-03-17] MEDS ORDERED: BISA10SU38 PR (10:44)
[2017-03-17] MEDS ORDERED: ACET325T96 PO (10:44)
[2017-03-17] MEDS ORDERED: MOML PO (10:44)
[2017-03-17] MEDS ORDERED: SODIENE PR (10:44)
[2017-03-17] MEDS ORDERED: DOCU-94 PO (10:44)
[2017-03-17] MEDS ORDERED: POTA10CA28 PO (10:44)
[2017-03-17] MEDS ORDERED: POLY335019 PO (10:44)
[2017-03-17] MEDS ORDERED: TAMS0.4C38 PO (10:44)
[2017-03-17] MEDS ORDERED: ALLO100T PO (10:44)
[2017-03-17] MEDS ORDERED: METO-478 PO (10:44)
[2017-03-17] MEDS ORDERED: FINA5TAB PO (10:44)
[2017-03-17] MEDS ORDERED: LACT1TAB4 PO (10:44)
[2017-03-31] MEDS ORDERED: HYDR-5688 PO (13:13)
[2017-04-30] MEDS ORDERED: NUTR-977 PO (13:14)
[2017-04-30] MEDS ORDERED: ACET-1311 PO (13:14)
[2017-05-15] MEDS ORDERED: SULF800T23 PO (12:54)
[2017-05-15] MEDS ORDERED: PHEN-939 PO (12:54)
[2017-09-01] MEDS ORDERED: TAMS0.4C38 PO (14:50)
[2017-09-08] MEDS ORDERED: PSYL48.59 PO (11:51)
[2017-09-15] MEDS ORDERED: PSYL48.59 PO (11:50)
== END 2017-03-06 15:38 | DRG 823 ==
LOC: CANRESERV → ENRESERVDT → ENRESERVTM → C.EDB 13:09 → C.2T 16:13 → EDBEDREQ 02-26 12:45 → EDBEDREQSVC 02-26 12:46 → C.4E 02-26 13:59
PROVIDERS: ADMIT Internal Medicine; ATTEND Hospitalist
PROC: 06H03DZ Insertion of Intraluminal Device into Inferior Vena Cava, Percutaneous Approach (ICD-10-PCS; principal; 2017-02-25 11:30)
PROC: 3E0 Administration, Physiological Systems and Anatomical Regions, Introduction (ICD-10-PCS; 2017-02-27)
PROC: 3E0 Administration, Physiological Systems and Anatomical Regions, Introduction (ICD-10-PCS; 2017-02-28)
DX: C83.36 Diffuse large B-cell lymphoma, intrapelvic lymph nodes (principal); E88.3 Tumor lysis syndrome; D62 Acute posthemorrhagic anemia; I82.412 Acute embolism and thrombosis of left femoral vein; N13.39 Other hydronephrosis; K62.5 Hemorrhage of anus and rectum; N17.9 Acute kidney failure, unspecified; R64 Cachexia; N39.0 Urinary tract infection, site not specified; B95.2 Enterococcus as the cause of diseases classified elsewhere; B96.5 Pseudomonas (aeruginosa) (mallei) (pseudomallei) as the cause of diseases classified elsewhere; C83.39 Diffuse large B-cell lymphoma, extranodal and solid organ sites; E83.52 Hypercalcemia; E87.6 Hypokalemia; E83.39 Other disorders of phosphorus metabolism; K59.00 Constipation, unspecified; I48.2 Chronic atrial fibrillation; E11.9 Type 2 diabetes mellitus without complications; N18.3 Chronic kidney disease, stage 3 (moderate); N40.0 Benign prostatic hyperplasia without lower urinary tract symptoms; K57.90 Diverticulosis of intestine, part unspecified, without perforation or abscess without bleeding; I12.9 Hypertensive chronic kidney disease with stage 1 through stage 4 chronic kidney disease, or unspecified chronic kidney disease; M10.9 Gout, unspecified; Z79.899 Other long term (current) drug therapy; Z79.01 Long term (current) use of anticoagulants; Z86.718 Personal history of other venous thrombosis and embolism; Z86.010 Personal history of colon polyps; Z68.21 Body mass index [BMI] 21.0-21.9, adult

== ENCOUNTER → 2017-03-24 | Outpatient (CLI) | payer BC ==
[~2017-03-24] MED LIST changes: +ACET-1311 PO; +ACET325T96 PO; +ALLO100T PO; +BISA10SU38 PR; +DOCU-94 PO; +ENOX60IN SQ; +FINA5TAB PO; -FLM4 PO; +HYDR-5688 PO; -HYDR1OIN EXT; +LACT1TAB4 PO; -LVNIS80 SQ; +METO-478 PO; +METO25TA56 PO; +MOML PO; +NUTR-977 PO; +OXYC-57 PO; +PHEN-939 PO; +POLY335019 PO; +POTA10CA28 PO; +PRD10 PO; -PRS5 PO; +PSYL48.59 PO; -SIMV20TA2 PO; +SODIENE PR; +SULF800T23 PO; +TAMS0.4C38 PO; +TRAM-10 PO; +[UNRECOGNIZED DRUG - OTHER]
[2017-03-24 09:25] LABS: HEMATOCRIT 27.2 % (42-52); MEAN CELL VOLUME 86.6 fL (80-100); MEAN CORPUSCULAR HGB CONC 33.5 g/dl (32-36); MEAN PLATELET VOLUME 9.1 fL (7.4-10.4); PLATELET COUNT 213 K/uL (130-400); RED BLOOD COUNT 3.14 M/uL (4.7-6.1); WHITE BLOOD COUNT 21.16 K/uL (4.8-10.8)
[2017-03-24 09:30] LABS: BLOOD UREA NITROGEN 22 mg/dl (7-18); BUN/CREATININE RATIO 24.9 (10-20); CARBON DIOXIDE 23 mmol/L (21-32); CHLORIDE 104 mmol/L (98-107); GLUCOSE 104 mg/dl (70-99); POTASSIUM 3.9 mmol/L (3.5-5.1); SODIUM 137 mmol/L (136-145)
[2017-03-24 09:36] LABS: CALCIUM 7.6 mg/dl (8.5-10.1)
== END | disposition home or self-care (01) ==
LOC: C.LABFOXAE 08:57 → EDSTATUS 03-26 11:51
PROVIDERS: ATTEND Internal Medicine
DX: D64.9 Anemia, unspecified (principal)

== ENCOUNTER → 2017-03-26 | Outpatient (CLI) | payer BC ==
[2017-03-26 08:47] LABS: URINE APPEARANCE CLEAR (CLEAR); URINE BILIRUBIN NEG (NEG); URINE EPITHELIAL CELL AUTO >30 /lpf (0-5); URINE NITRITE NEG (NEG); URINE SPECIFIC GRAVITY 1.011 (1.000-1.030); UROBILINOGEN NEG (NEG)
[2017-03-26 08:52] LABS: MANUAL MICROSCOPIC REQUIRED? NO; REVIEW REQ? YES; URINE COLOR AMBER
== END ==
LOC: C.LABFOXAE 07:50 → EDSTATUS 11:52
PROVIDERS: ATTEND Internal Medicine
DX: N30.91 Cystitis, unspecified with hematuria (principal)

== ENCOUNTER → 2017-03-27 | Outpatient (CLI) | payer BC ==
[2017-03-27 10:01] LABS: HEMATOCRIT 27.6 % (42-52); MEAN CELL VOLUME 84.7 fL (80-100); MEAN CORPUSCULAR HGB CONC 31.9 g/dl (32-36); MEAN PLATELET VOLUME 9.7 fL (7.4-10.4); PLATELET COUNT 185 K/uL (130-400); RED BLOOD COUNT 3.26 M/uL (4.7-6.1)
[2017-03-27 10:09] LABS: BLOOD UREA NITROGEN 20 mg/dl (7-18); BUN/CREATININE RATIO 20.7 (10-20); CARBON DIOXIDE 26 mmol/L (21-32); CHLORIDE 103 mmol/L (98-107); CREATININE 0.94 mg/dl (0.60-1.40); GLUCOSE 89 mg/dl (70-99); POTASSIUM 4.2 mmol/L (3.5-5.1); SODIUM 137 mmol/L (136-145)
[2017-03-27 10:16] LABS: CALCIUM 8.6 mg/dl (8.5-10.1)
--- NOTE | 2017-03-28 17:11 | CODING QUERY NO DIAGNOSIS ---
TREATMENT RENDERED WITHOUT A DIAGNOSIS To promote full compliance with coding requirements relating to patient care, physician participation is requested in all cases of client liaison uncertainty. Please assist us with providing a diagnosis/symptom for the test(s) below: A diagnosis/symptom was not documented on your Order. A valid diagnosis/symptom is required to bill all insurances. Please remember that we are unable to code a diagnosis of rule out, probable, possible, questionable, or suspected. Tests that require a diagnosis: * PARTIAL RENAL PROFILE DIAGNOSIS: * CBC W/O DIFF DIAGNOSIS: Provider Signature: Date: Thank you Marine Irving [facility] Information Management Once completed, please kindly fax back to [phone] For questions please call [phone]
== END ==
LOC: C.LABFOXAE 09:31
PROVIDERS: ATTEND Internal Medicine
DX: D64.9 Anemia, unspecified (principal)

== ENCOUNTER 2017-03-31 12:04 | Day surgery (SDC) | payer BC ==
[2017-03-17 09:03] VITALS: Ht 185.4 cm; Wt 77.3 kg
--- NOTE | 2017-03-17 10:55 | PAT Medication Instructions ---
Service Date Mar 17, 2017. Current Home Medication List Acetaminophen Tab (Tylenol), 650 MG PO QID PRN for Pain Allopurinol (Zyloprim), 200 MG PO QAM Bisacodyl (Dulcolax), 1 SUPP FL DAILY PRN for CONSTIPATION Docusate Sodium (Colace), 1 CAP PO BID PRN for CONSTIPATION Finasteride (Proscar), 5 MG PO QAM Lactobacillus (Floranex), 4 TAB PO QPM Magnesium Hydroxide (Milk Of Magnesia), 30 ML PO DAILY PRN for CONSTIPATION Metoprolol Succinate (Toprol Xl), 25 MG PO QAM Polyethylene Glycol 3350 (Miralax), 17 GM PO DAILY PRN for CONSTIPATION Potassium Chloride (Micro-K Ext Rel), 10 MEQ PO QPM Sodium Phosphate/Biphosphate (Fleet Enema), 1 EA FL DAILY PRN for CONSTIPATION Tamsulosin Hcl (Flomax), 0.4 MG PO QPM Medication Instructions For Your Scheduled Surgery - Hold the following medications the morning of surgery: Sodium Phosphate/Biphosphate (Fleet Enema), 1 EA FL DAILY PRN for CONSTIPATION Polyethylene Glycol 3350 (Miralax), 17 GM PO DAILY PRN for CONSTIPATION Magnesium Hydroxide (Milk Of Magnesia), 30 ML PO DAILY PRN for CONSTIPATION Finasteride (Proscar), 5 MG PO QAM Bisacodyl (Dulcolax), 1 SUPP FL DAILY PRN for CONSTIPATION Docusate Sodium (Colace), 1 CAP PO BID PRN for CONSTIPATION - Take the following medications the morning of surgery with a sip of water: Metoprolol Succinate (Toprol Xl), 25 MG PO QAM Acetaminophen Tab (Tylenol), 650 MG PO QID PRN for Pain (if needed) Allopurinol (Zyloprim), 200 MG PO QAM - Take the following medications as scheduled the night before surgery: Sodium Phosphate/Biphosphate (Fleet Enema), 1 EA FL DAILY PRN for CONSTIPATION (if needed) Tamsulosin Hcl (Flomax), 0.4 MG PO QPM Polyethylene Glycol 3350 (Miralax), 17 GM PO DAILY PRN for CONSTIPATION (if needed) Potassium Chloride (Micro-K Ext Rel), 10 MEQ PO QPM Lactobacillus (Floranex), 4 TAB PO QPM Magnesium Hydroxide (Milk Of Magnesia), 30 ML PO DAILY PRN for CONSTIPATION ( if needed) Bisacodyl (Dulcolax), 1 SUPP FL DAILY PRN for CONSTIPATION (if needed) Docusate Sodium (Colace), 1 CAP PO BID PRN for CONSTIPATION (if needed) Acetaminophen Tab (Tylenol), 650 MG PO QID PRN for Pain (if needed) If you have any questions please call us at [phone] or [phone] or [phone]
[~2017-03-31] VITALS: Ht 185.4 cm; Wt 77.3 kg
[~2017-03-31 12:04] MED LIST changes: -ACET-1311 PO; +ATROPINE SULFATE 0.1 MG/ML 5ML SYR IV PRN; +CEFAZOLIN 2000 MG/60 ML D5W IV SCH; -ENOX60IN SQ; +EpHEDrine SULFATE INJ 50 MG/ML AMP IV PRN; +FENTANYL CITRATE INJ 50 MCG/1 ML 2 ML VIAL ONE; -HYDR-5688 PO; +LACTATED RINGER'S 1000ML 1,000 ML IV SCH; +LACTATED RINGER'S 1000ML 500 ML IV ONE; -METO25TA56 PO; +MIDAZOLAM HCL 1 MG/ML 2ML VIAL ONE; -NUTR-977 PO; -OXYC-57 PO; -PHEN-939 PO; -PRD10 PO; -PSYL48.59 PO; -SULF800T23 PO; -TRAM-10 PO; -[UNRECOGNIZED DRUG - OTHER]
[2017-03-31] MEDS ORDERED: HEPARIN SOD (PORCINE) 1000 UNIT/ML 10 ML VIAL ONE (12:23)
[2017-03-31] MEDS ORDERED: CEFAZOLIN SOD 1 GM VIAL ONE ×2 (12:23→12:59)
[2017-03-31] MEDS ORDERED: LIDOCAINE HCL 1% 20 ML VIAL ONE (12:23)
[2017-03-31] MEDS ORDERED: THROMBIN FOR SOLN 20000 UNIT KIT ONE (12:23)
[2017-03-31 12:34] LABS: HEMATOCRIT 30.7 % (42-52); MEAN CELL VOLUME 85.8 fL (80-100); MEAN CORPUSCULAR HEMOGLOBIN 28.2 pg (25-34); MEAN PLATELET VOLUME 9.7 fL (7.4-10.4); PLATELET COUNT 200 K/uL (130-400); RED BLOOD COUNT 3.58 M/uL (4.7-6.1)
[2017-03-31 12:35] LABS: MEAN CORPUSCULAR HGB CONC 32.9 g/dl (32-36)
--- NOTE | 2017-03-31 12:42 | History & Physical Bridge Note ---
H&P Re-Evaluation Bridge Note: I have examined the patient, reviewed the History & Physical and in the interval since the performance of the History & Physical I have noted the following changes of clinical significance: No changes noted
[2017-03-31 12:43] VITALS: BP 82/57; PULSE 86; TEMP 36.4; O2SAT 98
[2017-03-31] MEDS ORDERED: HYDR-5688 PO ×2 (13:13)
--- NOTE | 2017-03-31 13:16 | Discharge Instructions ---
Discharge Instructions Date of Service March 31, 2017. Visit Reason for Visit: Lymphoma Discharge Discharge Diagnosis / Problem: A-port placement Discharge Goals Goal(s): Decrease discomfort Activity Recommendations Activity Limitations: as noted below Shower/Bathe: keep incision dry (for 2 days) Driving or Machine Use: resume 3 days after discharge Anesthesia . Post Anesthesia Instructions: If you have had General Anesthesia or IV Sedation: * Do not drive today. * Resume driving when surgeon permits. * Do not make important decisions or sign legal documents today. * Call surgeon for: 1. Temperature elevations greater than 101 degrees F. 2. Uncontrollable pain. 3. Excessive bleeding. 4. Persistent nausea and vomiting. 5. Medication intolerance (nausea, vomiting or rash). * For nausea and vomiting use only clear liquids such as: tea, soda, bouillon until nausea subsides, then gradually increase diet as tolerated. * If you have any concerns or questions, call your surgeon's office. If physician is unavailable and it is an emergency, call 911 or go to the nearest emergency room. . Instructions / Follow-Up Instructions / Follow-Up Dr. Dhillon's office in 2 weeks to have sutures removed, call [phone] if you do not already have an appointment Diet Recommendations Recommended Home Diet: no limitations Pending Studies Studies pending at discharge: no Medical Emergencies . Who to Call and When: Medical Emergencies: If at any time you feel your situation is an emergency, please call 911 immediately. . Non-Emergent Contact Non-Emergency issues call your: Surgeon Call Non-Emergent contact if: you have a fever, temperature is above 101.5, your pain is not controlled, wound has increased redness . . "Provider Documentation" section prepared by Edgar Vanessa. .
[2017-03-31] MEDS ORDERED: LACTATED RINGER'S 1000ML 1,000 ML IV SCH (13:58)
[2017-03-31] MEDS ORDERED: HYDROCODONE/ACETAMOPHEN 5/325MG TAB PO PRN ×3 (14:00→14:15)
[2017-03-31] MEDS ORDERED: ONDANSETRON INJ 2 MG/ML 2 ML VIAL IV PRN (14:00)
[2017-03-31] MEDS ORDERED: MoRPHine SULFATE 2 MG/ML CARP IV PRN (14:00)
--- NOTE | 2017-03-31 14:08 | [facility] Post Operative Brief Note ---
Immediate Operative Summary Operative Date March 31, 2017. 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 Dhillon Piccolo Mechanic Surgeon(s) none Estimated Blood Loss 5 ml Findings placed via Rt subclavian vein Specimens none Anesthesia local/ sedation Complication(s) None Disposition Recovery Room / PACU
--- NOTE | 2017-03-31 14:33 | Anesthesiology Progress Note ---
Anesthesia Post Op Note Date & Time March 31, 2017 at 14:32 Vital Signs Pain Intensity: 0 Vital Signs Past 12 Hours Date Time Temp Pulse Resp B/P Pulse Ox O2 Delivery O2 Flow Rate FiO2 03/31/17 14:01 36.4 79 16 91/52 95 Room Air 03/31/17 12:43 36.4 86 20 82/57 98 Room Air Notes Mental Status: alert / awake / arousable, participated in evaluation Pt Amnestic to Procedure: Yes Nausea / Vomiting: adequately controlled Pain: adequately controlled Airway Patency, RR, SpO2: stable & adequate BP & HR: stable & adequate Hydration State: stable & adequate Anesthetic Complications: no major complications apparent Patient awake, conversant. Denies JOY, dizziness, lightheadedness, SOB, CP. BP high 80's-low 90's (preop BP low 80's). Patient appears stable enough for next phase of recovery.
--- NOTE | 2017-03-31 14:35 | DIAGNOSTIC IMAGING REPORT ---
CHEST ONE VIEW PORTABLE CLINICAL HISTORY: Port placement. COMPARISON STUDY: Chest CT February 03, 2017. FINDINGS: There is no pneumothorax status post placement of a left subclavian [id number]. Catheter tip projects over the cavoatrial junction. Catheter is intact. Cardiomediastinal silhouette is normal. There is no evidence of pulmonary edema. The patient is rotated. IMPRESSION: No pneumothorax status post placement of a left subclavian [id number]. Electronically signed by: Luciano Owusu M.D. 03/31/2017 2:33 PM Dictated Date/Time: 03/31/2017 2:32 PM
[2017-03-31 14:40] VITALS: BP 78/52; PULSE 80; TEMP 36.7; O2SAT 96
[2017-03-31 14:55] VITALS: BP 86/48; PULSE 78; O2SAT 96
--- NOTE | 2017-03-31 14:57 | OPERATIVE REPORT ---
DATE OF OPERATION: 03/31/2017 NAME OF OPERATION: Port placement. PREOPERATIVE DIAGNOSIS: Lymphoma. POSTOPERATIVE DIAGNOSIS: Same. STAFF SURGEON: Dr. Dhillon. ANESTHESIA: 1% plain lidocaine with sedation. DESCRIPTION OF PROCEDURE: The patient was brought in the operating room and placed on the operating table in supine position. His left upper chest was prepped and draped in usual fashion. Using 1% plain lidocaine, skin and subcutaneous tissue over the left deltopectoral groove were anesthetized. Incision made carrying dissection down and identifying a large cephalic vein. The vein was ligated distally and then I was unable to pass a wire or the catheter into the subclavian vein. Therefore, the cephalic vein was ligated. The patient was placed in Trendelenburg position. Using a puncture technique, the left subclavian vein was localized, a wire passed under fluoroscopy and then a dilator introducer passed over the wire. The wire and dilator were removed. The catheter then passed through the introducer, positioned appropriately in the superior vena cava. The catheter was aspirated and flushed with heparinized solution. A pocket was fashioned in the chest wall. The catheter was attached to the port. Port placed into the pocket and secured to the chest wall using 3-0 Prolene suture. The port was aspirated and flushed with heparinized solution. The subcutaneous tissue and deep tissue were irrigated with antibiotic solution. Then the subcutaneous tissue reapproximated using 2-0 chromic and plain catgut suture and then the skin reapproximated using 4-0 nylon suture. The patient was transferred to recovery room in stable condition. I attest to the content of the Intraoperative Record and any orders documented therein. Any exceptio ns are noted below.
[2017-03-31 15:45] VITALS: BP 86/64; PULSE 80; TEMP 36.7; O2SAT 96
[2017-04-30] MEDS ORDERED: ACET-1311 PO (13:14)
[2017-04-30] MEDS ORDERED: NUTR-977 PO (13:14)
[2017-05-15] MEDS ORDERED: SULF800T23 PO (12:54)
[2017-05-15] MEDS ORDERED: PHEN-939 PO (12:54)
[2017-09-01] MEDS ORDERED: TAMS0.4C38 PO (14:50)
[2017-09-08] MEDS ORDERED: PSYL48.59 PO (11:51)
[2017-09-15] MEDS ORDERED: PSYL48.59 PO (11:50)
== END 2017-03-31 15:45 | disposition home or self-care (01) ==
LOC: C.ACU 12:04
PROVIDERS: ATTEND Surgery
DX: C85.90 Non-Hodgkin lymphoma, unspecified, unspecified site (principal); I48.91 Unspecified atrial fibrillation; E78.5 Hyperlipidemia, unspecified; I10 Essential (primary) hypertension; Z86.718 Personal history of other venous thrombosis and embolism; Z80.0 Family history of malignant neoplasm of digestive organs; Z82.49 Family history of ischemic heart disease and other diseases of the circulatory system; D64.9 Anemia, unspecified

== ENCOUNTER → 2017-03-31 | Outpatient (CLI) | payer BC ==
[2017-03-31 08:42] LABS: HEMATOCRIT 27.9 % (42-52); MEAN CELL VOLUME 84.5 fL (80-100); MEAN CORPUSCULAR HEMOGLOBIN 28.5 pg (25-34); MEAN CORPUSCULAR HGB CONC 33.7 g/dl (32-36); MEAN PLATELET VOLUME 10.8 fL (7.4-10.4); PLATELET COUNT 199 K/uL (130-400); WHITE BLOOD COUNT 11.75 K/uL (4.8-10.8)
[2017-03-31 08:48] LABS: BLOOD UREA NITROGEN 16 mg/dl (7-18); BUN/CREATININE RATIO 16.7 (10-20); CARBON DIOXIDE 25 mmol/L (21-32); CHLORIDE 103 mmol/L (98-107); CREATININE 0.98 mg/dl (0.60-1.40); GLUCOSE 98 mg/dl (70-99); POTASSIUM 4.2 mmol/L (3.5-5.1); SODIUM 136 mmol/L (136-145)
[2017-03-31 08:53] LABS: CALCIUM 8.2 mg/dl (8.5-10.1)
== END | disposition home or self-care (01) ==
LOC: C.LABFOXAE 08:16
PROVIDERS: ATTEND Internal Medicine
DX: D64.9 Anemia, unspecified (principal)

== ENCOUNTER → 2017-04-07 | Outpatient (CLI) | payer BC ==
[~2017-04-07] MED LIST changes: +ACET-1311 PO; -ACET325T96 PO; -ATROPINE SULFATE 0.1 MG/ML 5ML SYR IV PRN; -CEFAZOLIN 2000 MG/60 ML D5W IV SCH; +ENOX60IN SQ; -EpHEDrine SULFATE INJ 50 MG/ML AMP IV PRN; -FENTANYL CITRATE INJ 50 MCG/1 ML 2 ML VIAL ONE; +HYDR-5688 PO; -LACTATED RINGER'S 1000ML 1,000 ML IV SCH; -LACTATED RINGER'S 1000ML 500 ML IV ONE; +METO25TA56 PO; -MIDAZOLAM HCL 1 MG/ML 2ML VIAL ONE; +NUTR-977 PO; +OXYC-57 PO; +PHEN-939 PO; +PRD10 PO; +PSYL48.59 PO; +SULF800T23 PO; +TRAM-10 PO; +[UNRECOGNIZED DRUG - OTHER]
[2017-04-07 08:45] LABS: HEMATOCRIT 28.7 % (42-52); MEAN CELL VOLUME 84.4 fL (80-100); MEAN CORPUSCULAR HEMOGLOBIN 27.6 pg (25-34); MEAN CORPUSCULAR HGB CONC 32.8 g/dl (32-36); MEAN PLATELET VOLUME 9.7 fL (7.4-10.4); PLATELET COUNT 463 K/uL (130-400); WHITE BLOOD COUNT 13.23 K/uL (4.8-10.8)
[2017-04-07 08:57] LABS: BLOOD UREA NITROGEN 13 mg/dl (7-18); BUN/CREATININE RATIO 15.8 (10-20); CARBON DIOXIDE 27 mmol/L (21-32); CHLORIDE 103 mmol/L (98-107); CREATININE 0.85 mg/dl (0.60-1.40); GLUCOSE 106 mg/dl (70-99); POTASSIUM 4.1 mmol/L (3.5-5.1); SODIUM 137 mmol/L (136-145)
[2017-04-07 09:19] LABS: CALCIUM 7.9 mg/dl (8.5-10.1)
== END | disposition home or self-care (01) ==
LOC: C.LABFOXAE 08:33
PROVIDERS: ATTEND Internal Medicine
DX: C83.30 Diffuse large B-cell lymphoma, unspecified site (principal)

== ENCOUNTER → 2017-04-10 | Outpatient (CLI) | payer BC ==
[2017-04-10 09:39] LABS: BASO % 0.9 %; BASO ABS # 0.11 K/uL (0-0.2); COMPLETE YES; EOS % 1.6 %; HEMATOCRIT 28.3 % (42-52); IG% 4.1 %; LYMPH % 8.7 %; LYMPH ABS # 1.02 K/uL (1.2-3.4); MEAN CELL VOLUME 85.8 fL (80-100); MEAN CORPUSCULAR HEMOGLOBIN 27.9 pg (25-34); MEAN CORPUSCULAR HGB CONC 32.5 g/dl (32-36); MEAN PLATELET VOLUME 9.6 fL (7.4-10.4); MONO % 10.3 %; NEUT % 74.4 %; PLATELET COUNT 510 K/uL (130-400)
[2017-04-10 09:51] LABS: ALKALINE PHOSPHATASE 87 U/L (45-117); ALT/SGPT 10 U/L (12-78); BLOOD UREA NITROGEN 15 mg/dl (7-18); BUN/CREATININE RATIO 16.4 (10-20); CALCIUM 7.8 mg/dl (8.5-10.1); CARBON DIOXIDE 26 mmol/L (21-32); CHLORIDE 108 mmol/L (98-107); CREATININE 0.92 mg/dl (0.60-1.40); GLUCOSE 99 mg/dl (70-99); SODIUM 139 mmol/L (136-145)
[2017-04-10 09:53] LABS: ALB/GLOB RATIO 0.6 (0.9-2); AST/SGOT 14 U/L (15-37)
== END ==
LOC: C.LABFOXAE 09:10
PROVIDERS: ATTEND Internal Medicine
DX: N18.3 Chronic kidney disease, stage 3 (moderate) (principal); C83.30 Diffuse large B-cell lymphoma, unspecified site

== ENCOUNTER → 2017-04-11 | Outpatient (CLI) | payer BC | LOC: C.LABFOXAE 09:05 | PROVIDERS: ATTEND Internal Medicine | DX: I95.1 Orthostatic hypotension (principal) ==

== ENCOUNTER → 2017-04-14 | Outpatient (CLI) | payer BC ==
[2017-04-14 11:22] LABS: BLOOD UREA NITROGEN 21 mg/dl (7-18); BUN/CREATININE RATIO 23.1 (10-20); CARBON DIOXIDE 26 mmol/L (21-32); CHLORIDE 107 mmol/L (98-107); CREATININE 0.92 mg/dl (0.60-1.40); GLUCOSE 77 mg/dl (70-99); HEMATOCRIT 29.7 % (42-52); MEAN CELL VOLUME 87.4 fL (80-100); MEAN CORPUSCULAR HEMOGLOBIN 29.1 pg (25-34); MEAN CORPUSCULAR HGB CONC 33.3 g/dl (32-36); MEAN PLATELET VOLUME 9.2 fL (7.4-10.4); PLATELET COUNT 443 K/uL (130-400); POTASSIUM 3.7 mmol/L (3.5-5.1); SODIUM 141 mmol/L (136-145); WHITE BLOOD COUNT 82.09 K/uL (4.8-10.8)
== END | disposition home or self-care (01) ==
LOC: C.LABFOXAE 09:05
PROVIDERS: ATTEND Internal Medicine
DX: C83.30 Diffuse large B-cell lymphoma, unspecified site (principal)

== ENCOUNTER → 2017-04-17 | Outpatient (CLI) | payer BC ==
[2017-04-17 11:46] LABS: CALCIUM 8.1 mg/dl (8.5-10.1)
[2017-04-17 12:02] LABS: BLOOD UREA NITROGEN 29 mg/dl (7-18); BUN/CREATININE RATIO 28.9 (10-20); CARBON DIOXIDE 25 mmol/L (21-32); CHLORIDE 106 mmol/L (98-107); HEMATOCRIT 26.3 % (42-52); MEAN CELL VOLUME 85.9 fL (80-100); MEAN CORPUSCULAR HEMOGLOBIN 29.1 pg (25-34); MEAN CORPUSCULAR HGB CONC 33.8 g/dl (32-36); MEAN PLATELET VOLUME 9.9 fL (7.4-10.4); PLATELET COUNT 399 K/uL (130-400); POTASSIUM 4.1 mmol/L (3.5-5.1); RED BLOOD COUNT 3.06 M/uL (4.7-6.1); SODIUM 139 mmol/L (136-145); WHITE BLOOD COUNT 33.04 K/uL (4.8-10.8)
[2017-04-17 12:10] LABS: GLUCOSE 88 mg/dl (70-99)
== END ==
LOC: C.LABFOXAE 09:28
PROVIDERS: ATTEND Internal Medicine
DX: N18.3 Chronic kidney disease, stage 3 (moderate) (principal)

== ENCOUNTER 2017-05-15 09:42 | Day surgery (SDC) | payer BC ==
[2017-04-30 13:15] VITALS: BMI 19.0
[2017-04-30 13:35] LABS: HEMATOCRIT 33.6 % (42-52); MEAN CELL VOLUME 85.9 fL (80-100); MEAN CORPUSCULAR HEMOGLOBIN 27.4 pg (25-34); MEAN CORPUSCULAR HGB CONC 31.8 g/dl (32-36); MEAN PLATELET VOLUME 9.4 fL (7.4-10.4); PLATELET COUNT 327 K/uL (130-400); RED BLOOD COUNT 3.91 M/uL (4.7-6.1); WHITE BLOOD COUNT 11.48 K/uL (4.8-10.8)
--- NOTE | 2017-04-30 13:46 | PAT Medication Instructions ---
Service Date Apr 30, 2017. Current Home Medication List Acetaminophen (Tylenol), 650 MG PO prn Allopurinol (Zyloprim), 200 MG PO QAM Docusate Sodium (Colace), 1 CAP PO BID PRN for CONSTIPATION Enteral Nutrition Formula (Ensure Plus Vanilla), 1 CAN GJT BID Finasteride (Proscar), 5 MG PO QAM Metoprolol Succinate (Toprol Xl), 25 MG PO UD Polyethylene Glycol 3350 (Miralax), 17 GM PO BID Potassium Chloride (Micro-K Ext Rel), 10 MEQ PO QAM Medication Instructions For Your Scheduled Surgery - Hold the following medications the morning of surgery: Polyethylene Glycol 3350 (Miralax), 17 GM PO BID Potassium Chloride (Micro-K Ext Rel), 10 MEQ PO QAM Finasteride (Proscar), 5 MG PO QAM Docusate Sodium (Colace), 1 CAP PO BID PRN for CONSTIPATION Enteral Nutrition Formula (Ensure Plus Vanilla), 1 CAN GJT BID - Take the following medications the morning of surgery with a sip of water: Allopurinol (Zyloprim), 200 MG PO QAM Acetaminophen (Tylenol), 650 MG PO prn (if needed) Metoprolol Succinate (Toprol Xl), 25 MG PO UD - Take the following medications as scheduled the night before surgery: Docusate Sodium (Colace), 1 CAP PO BID PRN for CONSTIPATION Acetaminophen (Tylenol), 650 MG PO prn Metoprolol Succinate (Toprol Xl), 25 MG PO UD Enteral Nutrition Formula (Ensure Plus Vanilla), 1 CAN GJT BID If you have any questions please call us at [phone] or [phone] or [phone]
[2017-04-30 14:17] LABS: BASO % 0.6 %; BASO ABS # 0.07 K/uL (0-0.2); COMPLETE YES; EOS % 0.9 %; IG% 0.9 %; LYMPH % 7.6 %; LYMPH ABS # 0.87 K/uL (1.2-3.4); MONO % 6.9 %; NEUT % 83.1 %
[2017-04-30 14:36] LABS: BUN/CREATININE RATIO 20.2 (10-20); CREATININE 1.2 mg/dl (0.60-1.40); POTASSIUM 4.3 mmol/L (3.5-5.1)
[2017-04-30 14:42] LABS: CALCIUM 8.9 mg/dl (8.5-10.1)
[2017-04-30 15:12] LABS: URINE APPEARANCE CLEAR (CLEAR); URINE BILIRUBIN NEG (NEG); URINE COLOR YELLOW; URINE EPITHELIAL CELL AUTO >30 /lpf (0-5); URINE NITRITE NEG (NEG); URINE PH 6.5 (4.5-7.5); URINE SPECIFIC GRAVITY 1.015 (1.000-1.030); UROBILINOGEN NEG (NEG)
[2017-04-30 15:17] LABS: MANUAL MICROSCOPIC REQUIRED? NO; REVIEW REQ? YES
[~2017-05-15] VITALS: Ht 185.4 cm; Wt 66.5 kg
[~2017-05-15 09:42] MED LIST changes: -BISA10SU38 PR; +CIPROFLOXACIN / D5W 400 MG IV SCH; -ENOX60IN SQ; -HYDR-5688 PO; -LACT1TAB4 PO; +LACTATED RINGER'S 1000ML 1,000 ML IV SCH; -METO25TA56 PO; -MOML PO; -OXYC-57 PO; -PHEN-939 PO; -PRD10 PO; -PSYL48.59 PO; -SODIENE PR; -SULF800T23 PO; -TAMS0.4C38 PO; -TRAM-10 PO; -[UNRECOGNIZED DRUG - OTHER]
[2017-05-15 10:00] VITALS: BP 119/72; PULSE 80; TEMP 36.3; O2SAT 96; Ht 185.4 cm; Wt 66.5 kg
[2017-05-15 10:17] LABS: HEMATOCRIT 35.1 % (42-52); MEAN CELL VOLUME 86.7 fL (80-100); MEAN CORPUSCULAR HEMOGLOBIN 28.6 pg (25-34); MEAN PLATELET VOLUME 9.4 fL (7.4-10.4); PLATELET COUNT 257 K/uL (130-400); RED BLOOD COUNT 4.05 M/uL (4.7-6.1); WHITE BLOOD COUNT 13.21 K/uL (4.8-10.8)
[2017-05-15] MEDS ORDERED: [UNRECOGNIZED DRUG - OTHER] (10:27)
[2017-05-15] MEDS ORDERED: ATROPINE SULFATE 0.1 MG/ML 5ML SYR IV PRN (10:45)
[2017-05-15] MEDS ORDERED: ONDANSETRON INJ 2 MG/ML 2 ML VIAL IV PRN (10:45)
[2017-05-15] MEDS ORDERED: EpHEDrine SULFATE INJ 50 MG/ML AMP IV PRN (10:45)
[2017-05-15] MEDS ORDERED: FENTANYL CITRATE INJ 50 MCG/1 ML 2 ML VIAL IV PRN (10:45)
[2017-05-15] MEDS ORDERED: LIDOCAINE HCL 2% 2 ML VIAL (20MG/ML) ONE (11:37)
[2017-05-15] MEDS ORDERED: PROPOFOL IV EMULSION 10 MG/ML 20 ML VIAL IV ONE (11:37)
[2017-05-15] MEDS ORDERED: ONDANSETRON INJ 2 MG/ML 2 ML VIAL ONE (11:37)
[2017-05-15] MEDS ORDERED: FENTANYL CITRATE INJ 50 MCG/1 ML 2 ML VIAL ONE (11:38)
[2017-05-15] MEDS ORDERED: CONRAY 30% 150ML BOTTLE ONE (12:22)
[2017-05-15] MEDS ORDERED: PHENYLEPHRINE HCL INJ 10 MG/ML VIAL ONE (12:47)
--- NOTE | 2017-05-15 12:49 | DIAGNOSTIC IMAGING REPORT ---
RETROGRADE INCLUDES KUB HISTORY: LT CYSTO/STENT EXCHANGE FLUOROSCOPY TIME: 47 seconds. FINDINGS: 3 fluoroscopic spot images were submitted for review. Images demonstrate a left ureteral stent followed by a stent exchange. There is a small of contrast within the left renal collecting system. IMPRESSION: Fluoroscopy provided for left ureteral stent exchange.. Electronically signed by: Masood Dupree M.D. 05/15/2017 12:47 PM Dictated Date/Time: 05/15/2017 12:40 PM
[2017-05-15] MEDS ORDERED: PHEN-939 PO (12:54)
[2017-05-15] MEDS ORDERED: SULF800T23 PO (12:54)
--- NOTE | 2017-05-15 12:55 | Discharge Instructions ---
Discharge Instructions Date of Service May 15, 2017. Admission Reason for Admission: Hydronephrosis Discharge Discharge Diagnosis / Problem: L hydro s/p stent exchange Discharge Goals Goal(s): Improve function, Therapeutic intervention Activity Recommendations Activity Limitations: per Instructions/Follow-up section Lifting Limitations: no more than 25 pounds, gradually increase as tolerated Exercise/Sports Limitations: rest today, gradually increase as tolerated May Resume Sexual Activity: after one week Shower/Bathe: no limitations Driving or Machine Use: resume 1 day after discharge . Discharge Diet Recommended Diet: Regular Diet (good fluid intake) Procedures Procedures Performed: Cystoscopy, Left Retrograde Pyelography; Left Ureteral Stent Exchange Pending Studies Studies pending at discharge: no Medical Emergencies . Who to Call and When: Medical Emergencies: If at any time you feel your situation is an emergency, please call 911 immediately. . Non-Emergent Contact Non-Emergency issues call your: Urologist Call Non-Emergent contact if: you have a fever, temperature is above 101, your pain is not controlled, your pain is worsening, your pain is unusual for you, your pain is concerning you, you have any medication questions . . "Provider Documentation" section prepared by Osmar Patel. . VTE Core Measure Inpt VTE Proph given/why not?: SCD's
--- NOTE | 2017-05-15 12:57 | [facility] Post Operative Brief Note ---
Immediate Operative Summary Operative Date May 15, 2017. Pre-Operative Diagnosis Left Hydronephrosis with indwelling ureteral stent ;Diffuse Large B-Cell Lymphoma Post-Operative Diagnosis Left Hydronephrosis with indwelling ureteral stent ;Diffuse Large B-Cell Lymphoma Procedure(s) Performed Cystoscopy, Left Retrograde Pyelography; Left Ureteral Stent Exchange Surgeon Dr. Osmar Patle Half Sole Fitter Surgeon(s) none Estimated Blood Loss 0 ml Findings Mod hydro, good stent position after completion Specimens None per surgeon Drains 6 fr 28 cm JJ L firm cook stent Anesthesia MAC Complication(s) None Disposition Recovery Room / PACU
[2017-05-15] MEDS ORDERED: OXYCODONE/ACETAMINOPHEN 5-325 TAB PO PRN (13:00)
[2017-05-15] MEDS ORDERED: PHENAZOPYRIDINE HCL 100 MG TAB PO PRN (13:00)
[2017-05-15 13:20] VITALS: BP 106/67; PULSE 71; TEMP 36.6; O2SAT 99
--- NOTE | 2017-05-15 13:25 | Anesthesiology Progress Note ---
Anesthesia Post Op Note Date & Time May 15, 2017 at 13:25 Vital Signs Pain Intensity: 0 Vital Signs Past 12 Hours Date Time Temp Pulse Resp B/P (MAP) Pulse Ox O2 Delivery O2 Flow Rate FiO2 05/15/17 13:14 73 19 99 05/15/17 13:14 73 19 05/15/17 13:13 103/56 05/15/17 13:09 78 17 05/15/17 13:09 36.5 05/15/17 13:09 78 17 99 05/15/17 13:08 76 15 05/15/17 13:08 74 15 97 05/15/17 13:05 100/70 05/15/17 13:03 76 19 98 05/15/17 13:03 73 19 05/15/17 13:00 98/63 05/15/17 12:58 79 14 05/15/17 12:58 79 14 100 05/15/17 12:57 79 25 05/15/17 12:57 76 25 100 05/15/17 12:55 94/62 05/15/17 12:52 81 13 05/15/17 12:52 85 13 100 05/15/17 12:50 91/59 05/15/17 12:47 81 14 05/15/17 12:47 79 14 100 05/15/17 12:45 91/61 05/15/17 12:44 94/58 05/15/17 12:42 90 12 85/54 100 05/15/17 12:42 92 12 05/15/17 12:42 36.4 90 12 94/58 100 Mask 10 05/15/17 10:00 36.3 80 20 119/72 (88) 96 Room Air Notes Mental Status: alert / awake / arousable, participated in evaluation Pt Amnestic to Procedure: Yes Nausea / Vomiting: adequately controlled Pain: adequately controlled Airway Patency, RR, SpO2: stable & adequate BP & HR: stable & adequate Hydration State: stable & adequate Anesthetic Complications: no major complications apparent
[2017-05-15 13:50] VITALS: BP_SYST 106; BP_SYST 130; BP_DIAS 67; BP_DIAS 76; PULSE 71; PULSE 84; TEMP 36.6; O2SAT 100; O2SAT 99
[2017-05-15 14:20] VITALS: BP 111/63; PULSE 78; TEMP 36.5; O2SAT 97
--- NOTE | 2017-05-15 21:12 | OPERATIVE REPORT ---
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 POSTOPERATIVE DIAGNOSIS: Same. PROCEDURE: Cystoscopy, left retrograde pyelography, left ureteral stent exchange. SURGEON: Dr. Osmar Patel. HAND LAMINATOR: None. ANESTHESIA: Monitored anesthesia care with sedation. COMPLICATIONS: None. ESTIMATED BLOOD LOSS: 0. DRAINS LEFT IN PLACE: Include a 6-Hungarian 28 cm double J left-sided firm Cook ureteral stent. FINDINGS: Good stent position after completion of the case, moderate left renal and calyceal fullness prior to stent exchange. BRIEF HISTORY: Mr. Reeder is a pleasant 81-year-old male, who I have seen acutely at the time of diagnosis of a left pelvic mass with obstruction of his left ureter. He underwent acute cystoscopy and stent placement in January of 2017 and was subsequently diagnosed with B-cell lymphoma for which he has been undergoing evaluation and management. He has seen that his therapy is ongoing and it has been 3 months that this stent has been indwelling. He is here today for stent exchange in the hopes that his disease will improve and allow for stent to be removed at some point in the future while preserving his renal function. Risks and benefits of intervention have been discussed with the patient and , who vocalizes good understanding of the treatment plan. Informed consent is present in the chart. Intravenous antibiotic coverage provided and SCDs used for DVT prophylaxis. Please see H&P for further details. PROCEDURE: The patient was properly identified and brought to the operative suite after identification of appropriate consent on the chart, monitored anesthesia care with sedation was initiated and the patient was prepped and draped in standard fashion for this procedure. multimedia specialist-out procedure was followed. A 22-Hungarian rigid cystoscope was passed into the bladder under direct visualization demonstrating a mildly obstructive prostate gland with no other significant worrisome findings. Grade 2 trabeculation within the bladder was present. The patient's edematous inflammation at the area of the left trigone appeared improved from his prior exam 2 months ago. A stent was present within the bladder and noted to be unencrusted. This was grasped and brought down to the level of the meatus and cannulated using a sensor tip wire. This was advanced up to the level of the left renal pelvis and stent was removed. Open ended catheter was advanced to the left renal pelvis and this was opacified to assist with identification of the anatomy and placement of stent. This demonstrated a moderate renal pelvis and calyceal fullness. Wire was replaced. This was followed with a 6-Hungarian 28 cm double-J ureteral stent with a full coil present within the bladder and a full coil present within the renal pelvis on fluoroscopic exam. Hydronephrotic drip was appreciated on this side. Bladder was drained and cystoscope was removed, anesthesia was reversed. The patient was transferred to recovery room in stable condition. FOLLOWUP CARE: The patient will be discharged home with a short course of antibiotics. A small number of antispasmodics in the form of Pyridium were provided. Outpatient appointment is confirmed. The patient is instructed to contact the service should he note any fevers, chills, nausea, vomiting or other significant difficulties in the postoperative period. I attest to the content of the Intraoperative Record and any orders documented therein. Any exceptions are noted below. RIGO
[2017-09-01] MEDS ORDERED: TAMS0.4C38 PO (14:50)
[2017-09-08] MEDS ORDERED: PSYL48.59 PO (11:51)
[2017-09-15] MEDS ORDERED: PSYL48.59 PO (11:50)
== END 2017-05-15 14:45 | disposition home or self-care (01) ==
LOC: C.ACU 09:42
PROVIDERS: ATTEND Urology
DX: C83.30 Diffuse large B-cell lymphoma, unspecified site (principal); N13.1 Hydronephrosis with ureteral stricture, not elsewhere classified; N19 Unspecified kidney failure; I48.91 Unspecified atrial fibrillation; I10 Essential (primary) hypertension; E78.5 Hyperlipidemia, unspecified; E88.9 Metabolic disorder, unspecified; R73.03 Prediabetes; I82.409 Acute embolism and thrombosis of unspecified deep veins of unspecified lower extremity; Z79.899 Other long term (current) drug therapy

== ENCOUNTER → 2017-05-21 | Outpatient (CLI) | payer BC ==
[~2017-05-21] MED LIST changes: -ALLO100T PO; -CIPROFLOXACIN / D5W 400 MG IV SCH; +ENOX60IN SQ; -LACTATED RINGER'S 1000ML 1,000 ML IV SCH; -METO-478 PO; +METO25TA56 PO; +OXYC-57 PO; +PHEN-939 PO; +PRD10 PO; +SULF800T23 PO; +TAMS0.4C38 PO; +TRAM-10 PO; +[UNRECOGNIZED DRUG - OTHER]
--- NOTE | 2017-05-21 15:19 | DIAGNOSTIC IMAGING REPORT ---
PET/CT CLINICAL HISTORY: Lymphoma. COMPARISON STUDY: Abdominal CT dated 02/24/2017. Chest CT dated 02/03/2017. TECHNIQUE: One hour following the IV administration of 8.75 mCi of F-18 FDG, PET/CT examination was performed from the orbital meatal line through the bony pelvis. Noncontrast CT is performed for the purposes of anatomic correlation and attenuation correction. Note that this does not reflect a diagnostic CT examination. Images were reviewed on a separate [employer] independent workstation. Fused images were obtained. Standard uptake values reported are maximum values within the region of interest expressed in gm/mL. FINDINGS: PET FINDINGS: Head and neck: There is expected physiologic activity within the visualized brain parenchyma at the skull base and the salivary glands. There is an enlarged and FDG avid right cervical chain lymph node seen on image #32. This measures 2.1 x 1.6 cm and demonstrates a maximum SUV of 3.5. No additional pathologically enlarged or FDG avid cervical lymph nodes are seen. Thorax: Evaluation of the thorax demonstrates expected physiologic myocardial activity. There are no pathologically enlarged or FDG avid mediastinal or axillary lymph nodes. There are indeterminant foci activities in the hilum on the right on image #87 the maximum SUV of 3.0 and on the left on image #89 with a maximum SUV of 2.9. There is no corresponding soft tissue lesion seen on the CT images and this is of indeterminant significance. Abdomen and pelvis: There is expected activity within the liver, spleen, kidneys, renal collecting system, and bladder. Low-level bowel activity is likely within physical limits. Spleen measures 8.7 cm in length. There are no pathologically enlarged or FDG avid mesenteric, upper abdominal, retroperitoneal, iliac chain, or pelvic sidewall lymph nodes. There is mild residual stranding identified along the left iliac chain. There is left perirectal soft tissue thickening/mass seen on axial image #217. This is FDG avid with a maximum SUV of 3.9, and measures up to 1.4 cm in thickness. This has significantly decreased in size from 02/03/2017. Skeletal structures: No destructive bony lesion is seen. Mild activity throughout the skeleton may be related to colony-stimulating factors. Unenhanced CT images: Partially imaged brain parenchyma the skull base is normal in appearance noting age-related involutional change. There has been banding of a right ocular globe. The visualized paranasal sinuses and the mastoid air cells are clear. The salivary and thyroid glands are normal in appearance. A left subclavian central venous infusion port is in place. There is atherosclerotic calcification of the thoracic aorta which is normal in caliber. The heart is mildly enlarged and there is trace pericardial fluid. Coronary artery calcifications are noted. Mild emphysematous change is observed. No airspace consolidation or pleural effusion is seen. Linear atelectasis versus scarring is present the lung bases. No concerning pulmonary lesion is identified. The unenhanced liver, gallbladder, spleen, pancreas, and adrenal glands are grossly normal. A left ureteral stent is in place. The kidneys are atrophic and there is only minimal left-sided hydronephrosis. The abdominal aorta is normal in caliber noting moderate to advanced atherosclerotic calcification. An infrarenal IVC filter is in place. There is no bowel obstruction. A normal appendix is identified. Moderate constipation is observed. There is moderate to advanced colonic diverticulosis without CT evidence of acute diverticulitis. No intraperitoneal free air or abdominal ascites is seen. The prostate gland is enlarged and heterogeneous, measuring up to 5.1 cm in transverse diameter. There is medial lobe hypertrophy. The bladder wall is thickened and trabeculated suggesting chronic outlet obstruction. There is likely a venous varix seen in the left common femoral vein on image #233. The skeletal structures are osteopenic. No lytic or blastic lesions are identified. Degenerative change is present throughout the spine. IMPRESSION: 1. Significant improvement in abdominal and pelvic lymphadenopathy as compared to the 02/03/[address] scan. This has almost completely resolved. 2. There is left perirectal soft tissue thickening/mass which remains FDG avid. This has significantly decreased in size as compared to 02/03/2017. 3. There is a single pathologically enlarged and FDG avid right cervical chain lymph node. 4. There are foci of FDG activity in the toy without corresponding soft tissue lesion. This may simply represent physiologic activity. Attention at follow-up is recommended. 5. The spleen is normal in size. 6. Moderate to advanced colonic diverticulosis without CT evidence of acute diverticulitis. 7. Mild emphysema. No airspace consolidation or pleural effusion is seen. 8. A left ureteral stent is in place. There is only minimal left-sided hydronephrosis. 9. Additional findings as above. Electronically signed by: Meek Baker M.D. 05/21/2017 3:18 PM Dictated Date/Time: 05/21/2017 3:00 PM
== END | disposition home or self-care (01) ==
LOC: C.PET 12:16
PROVIDERS: ATTEND Internal Medicine Hematology & Oncology
DX: C83.38 Diffuse large B-cell lymphoma, lymph nodes of multiple sites (principal)

== ENCOUNTER 2017-06-09 13:47 | Observation (INO) | payer BC ==
[~2017-06-09] VITALS: Ht 185.4 cm; Wt 66.3 kg
[~2017-06-09 13:47] MED LIST changes: -ENOX60IN SQ; -METO25TA56 PO; -OXYC-57 PO; -PHEN-939 PO; -PRD10 PO; -TAMS0.4C38 PO; -TRAM-10 PO
[2017-06-09] MEDS ORDERED: SODIUM CHLORIDE 0.9% 500ML 500 ML IV STA (14:22)
--- NOTE | 2017-06-09 15:00 | DIAGNOSTIC IMAGING REPORT ---
CHEST ONE VIEW PORTABLE HISTORY:81 yearsMale acute weakness with concern for acute pneumonia. History of lymphoma COMPARISON: Portable chest radiograph 03/31/2017, chest CT 02/03/2017 TECHNIQUE: Portable upright AP view of the chest FINDINGS: Cardiomediastinal and hilar silhouettes are within normal limits. No pneumothorax, pleural effusion or focal airspace consolidation. Left subclavian Dugyyz-y-Znbg catheter is again seen with distal tip terminating within the region of the superior cavoatrial junction. There is atherosclerosis of the aorta. The bones are grossly intact. There is an unchanged focal circumscribed 7 mm lucency of the proximal left humerus which is nonspecific. IMPRESSION: No acute cardiopulmonary process. The above report was generated using voice recognition software. It may contain grammatical, syntax or spelling errors. Electronically signed by: Guero Snyder M.D. 06/09/2017 2:59 PM Dictated Date/Time: 06/09/2017 2:56 PM
[2017-06-09 15:27] LABS: HEMATOCRIT 36.9 % (42-52); MEAN CELL VOLUME 87.4 fL (80-100); MEAN CORPUSCULAR HEMOGLOBIN 28.7 pg (25-34); MEAN CORPUSCULAR HGB CONC 32.8 g/dl (32-36); MEAN PLATELET VOLUME 9.6 fL (7.4-10.4); PLATELET COUNT 389 K/uL (130-400); RED BLOOD COUNT 4.22 M/uL (4.7-6.1); WHITE BLOOD COUNT 13.95 K/uL (4.8-10.8)
[2017-06-09 15:36] LABS: PARTIAL THROMBOPLASTIN RATIO 1.2; PROTHROMBIN TIME (PATIENT) 10.3 SECONDS (9.0-12.0)
[2017-06-09] MEDS ORDERED: ENOX60IN SQ (15:44)
[2017-06-09 15:45] LABS: ALT/SGPT 18 U/L (12-78); BLOOD UREA NITROGEN 24 mg/dl (7-18); BUN/CREATININE RATIO 19.6 (10-20); CALCIUM 9.1 mg/dl (8.5-10.1); CARBON DIOXIDE 27 mmol/L (21-32); CHLORIDE 105 mmol/L (98-107); GLUCOSE 82 mg/dl (70-99); POTASSIUM 4.4 mmol/L (3.5-5.1); SODIUM 138 mmol/L (136-145)
[2017-06-09 15:47] LABS: URINE APPEARANCE CLEAR (CLEAR); URINE BILIRUBIN NEG (NEG); URINE COLOR YELLOW; URINE EPITHELIAL CELL AUTO >30 /lpf (0-5); URINE NITRITE NEG (NEG); URINE PH 6.5 (4.5-7.5); URINE SPECIFIC GRAVITY 1.018 (1.000-1.030); UROBILINOGEN NEG (NEG)
[2017-06-09 15:53] LABS: ALKALINE PHOSPHATASE 119 U/L (45-117); AST/SGOT 17 U/L (15-37)
[2017-06-09 15:54] LABS: MANUAL MICROSCOPIC REQUIRED? NO; REVIEW REQ? YES
[2017-06-09 16:16] LABS: BASO % 0.4 %; BASO ABS # 0.05 K/uL (0-0.2); COMPLETE YES; EOS % 0.6 %; IG% 1.1 %; LYMPH % 7.1 %; LYMPH ABS # 0.99 K/uL (1.2-3.4); MONO % 10.1 %; NEUT % 80.7 %
--- NOTE | 2017-06-09 16:17 | EMERGENCY ROOM VISIT NOTE ---
History Report prepared by David: Gunner Evans Under the Supervision of: Dr. Guero Cuenca M.D. First contact with patient: 14:09 Chief Complaint: GROIN PAIN Stated Complaint: PAIN IN LEFT GROIN AND FATIGUE History of Present Illness The patient is an 81 year old male who presents to the Emergency Room with complaints of constant, left, lower extremity pain beginning 2 days ago. The patient states that moving increases his discomfort, but laying down helps to alleviate his discomfort. He reports that he gets extremely fatigue upon exertion. The patient denies new leg edema, fever, chills, abdominal pain, dysuria, chest pain, shortness of breath, and testicular pain. The patient states that he has a history of a blood clot in his left leg. He reports that he had an IVC filter placed and was going to have it removed soon. The patient notes that before having the filter removed Dr. Gupta wanted an ultrasound of his left leg performed. He states that the ultrasound was performed on Friday, and he has not received the results yet. The patient reports that he is on Lovenox. He notes that he has not had previous pain with his clot. The patient states that he thought his discomfort was from the physical therapy that he had on Friday for edema to his left foot. He reports that has a left ureteral stent that was placed in January because his lymphoma was pressing on his ureter. The patient notes that his stent was replaced last month. He states that he has had 5 doses of chemotherapy, and his last treatment was about three weeks ago. Source of History: patient Onset: 2 days ago Position: leg (left, upper) Timing: constant Modifying Factors (Worsening): exertion Modifying Factors (Relieving): other (lying down) Associated Symptoms: + fatigue, No fevers, No chills, No chest pain, No SOB , No abdominal pain Note: The patient denies new leg edema, dysuria, and testicular pain. Review of Systems See HPI for pertinent positives & negatives. A total of 10 systems reviewed and were otherwise negative. 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 (4) DIVERTICULOSIS COLON (W/O MENT OF HEMORRHAGE) (5) Gout (6) Hypercalcemia (7) HYPERLIPIDEMIA NEC/NOS (8) HYPERPLASIA OF PROSTATE (9) Rectal bleed Family History FH: cancer Social History Smoking Status: Never Smoker Alcohol Use: none Drug Use: none Marital Status: Occupation Status: retired Current/Historical Medications Scheduled Acetaminophen (Tylenol), 650 MG PO prn Enoxaparin (Lovenox), 60 MG SQ Q12H Enteral Nutrition Formula (Ensure Plus Vanilla), 1 CAN GJT BID Finasteride (Proscar), 5 MG PO QAM Polyethylene Glycol 3350 (Miralax), 17 GM PO BID Scheduled PRN Docusate Sodium (Colace), 1 CAP PO BID PRN for CONSTIPATION Miscellaneous Medications [Chemo Q 3 Weeks] Allergies Coded Allergies: No Known Allergies (Verified , 06/09/17) Physical Exam Vital Signs Date Time Temp Pulse Resp B/P (MAP) Pulse Ox O2 Delivery O2 Flow Rate FiO2 06/09/17 15:52 86 21 111/60 94 06/09/17 15:22 79 24 95 06/09/17 15:17 81 24 95 06/09/17 14:47 81 22 94 06/09/17 14:35 112 06/09/17 14:34 113/66 06/09/17 14:32 90 13 110/76 118 104/60 123 113/66 06/09/17 13:50 36.7 82 20 92/60 98 Room Air Physical Exam Constitutional: Vital signs reviewed. Eyes: Pupils are equal round reactive to light. Conjunctiva are noninjected. ENT: Pharynx is clear without erythema or exudate. Mucous membranes are moist. Neck supple without meningeal signs. Respiratory: Clear to auscultation bilaterally. Breath sounds are equal bilaterally. Cardiovascular: Regular rate and rhythm. No rubs or gallops. GI: Soft, nondistended and nontender. Bowel sounds are present. Musculoskeletal: Tenderness to the posterior, medial aspect of the left thigh - no erythema or increased warmth. Swelling to the left foot. No tenderness or increased warmth to the left hip. Distal capillary refill is brisk. No abnormal groin lymphadenopathy. Integumentary: No cyanosis. No rash to the groin or thigh. Neurological: The patient is awake and alert. No focal deficits. Psychiatric: Normal affect. Medical Decision & Procedures ER Provider Diagnostic Interpretation: X-ray results as stated below per interpretation by me and the radiologist: CHEST ONE VIEW PORTABLE HISTORY:81 yearsMale acute weakness with concern for acute pneumonia. History of lymphoma COMPARISON: Portable chest radiograph 03/31/2017, chest CT 02/03/2017 TECHNIQUE: Portable upright AP view of the chest FINDINGS: Cardiomediastinal and hilar silhouettes are within normal limits. No pneumothorax, pleural effusion or focal airspace consolidation. Left subclavian Ixbvwc-u-Jqan catheter is again seen with distal tip terminating within the region of the superior cavoatrial junction. There is atherosclerosis of the aorta. The bones are grossly intact. There is an unchanged focal circumscribed 7 mm lucency of the proximal left humerus which is nonspecific. IMPRESSION: No acute cardiopulmonary process. The above report was generated using voice recognition software. It may contain grammatical, syntax or spelling errors. Electronically signed by: Guero Snyder M.D. 06/09/2017 2:59 PM Dictated Date/Time: 06/09/2017 2:56 PM Laboratory Results 06/09/17 14:56 Red Blood Count 4.22, Mean Corpuscular Volume 87.4, Mean Corpuscular Hemoglobin 28.7, Mean Corpuscular Hemoglobin Concent 32.8, Mean Platelet Volume 9.6, Neutrophils (%) (Auto) 80.7, Lymphocytes (%) (Auto) 7.1, Monocytes (%) (Auto) 10.1, Eosinophils (%) (Auto) 0.6, Basophils (%) (Auto) 0.4, Neutrophils # (Auto ) 11.26, Lymphocytes # (Auto) 0.99, Monocytes # (Auto) 1.41, Eosinophils # (Auto ) 0.09, Basophils # (Auto) 0.05 06/09/17 14:56 Test 06/09/17 14:56 06/09/17 15:04 White Blood Count 13.95 K/uL (4.8-10.8) Red Blood Count 4.22 M/uL (4.7-6.1) Hemoglobin 12.1 g/dL (14.0-18.0) Hematocrit 36.9 % (42-52) Mean Corpuscular Volume 87.4 fL (80-100) Mean Corpuscular Hemoglobin 28.7 pg (25-34) Mean Corpuscular Hemoglobin Concent 32.8 g/dl (32-36) Platelet Count 389 K/uL (130-400) Mean Platelet Volume 9.6 fL (7.4-10.4) Neutrophils (%) (Auto) 80.7 % Lymphocytes (%) (Auto) 7.1 % Monocytes (%) (Auto) 10.1 % Eosinophils (%) (Auto) 0.6 % Basophils (%) (Auto) 0.4 % Neutrophils # (Auto) 11.26 K/uL (1.4-6.5) Lymphocytes # (Auto) 0.99 K/uL (1.2-3.4) Monocytes # (Auto) 1.41 K/uL (0.11-0.59) Eosinophils # (Auto) 0.09 K/uL (0-0.5) Basophils # (Auto) 0.05 K/uL (0-0.2) RDW Standard Deviation 59.1 fL (36.4-46.3) RDW Coefficient of Variation 18.4 % (11.5-14.5) Immature Granulocyte % (Auto) 1.1 % Immature Granulocyte # (Auto) 0.15 K/uL (0.00-0.02) Prothrombin Time 10.3 SECONDS (9.0-12.0) Prothromb Time International Ratio 1.0 (0.9-1.1) Activated Partial Thromboplast Time 30.8 SECONDS (21.0-31.0) Partial Thromboplastin Ratio 1.2 Urine Color YELLOW Urine Appearance CLEAR (CLEAR) Urine pH 6.5 (4.5-7.5) Urine Specific [place] 1.018 (1.000-1.030) Urine Protein 1+ (NEG) Urine Glucose (UA) NEG (NEG) Urine Ketones NEG (NEG) Urine Occult Blood 2+ (NEG) Urine Nitrite NEG (NEG) Urine Bilirubin NEG (NEG) Urine Urobilinogen NEG (NEG) Urine Leukocyte Esterase MODERATE (NEG) Anion Gap 6.0 mmol/L (3-11) Est Creatinine Clear Calc Drug Dose 42.9 ml/min Estimated GFR () 64.4 Estimated GFR (Non- 55.6 BUN/Creatinine Ratio 19.6 (10-20) Calcium Level 9.1 mg/dl (8.5-10.1) Total Bilirubin 0.3 mg/dl (0.2-1) Direct Bilirubin < 0.1 mg/dl (0-0.2) Aspartate Amino Transf (AST/SGOT) 17 U/L (15-37) Alanine Aminotransferase (ALT/SGPT) 18 U/L (12-78) Alkaline Phosphatase 119 U/L (45-117) Total Protein 7.1 gm/dl (6.4-8.2) Albumin 3.2 gm/dl (3.4-5.0) Thyroid Stimulating Hormone (TSH) 2.800 uIu/ml (0.300-4.500) Free Thyroxine 0.87 ng/dl (0.80-1.60) Bedside Troponin I < 0.030 ng/ml (0-0.045) Laboratory results as reviewed by me. Medications Administered Medications (Trade) Dose Ordered Sig/Estevan Route Start Time Stop Time Status Last Admin Dose Admin Sodium Chloride 500 ml @ 999 mls/hr Q31M STAT IV 06/09/17 14:22 06/09/17 14:52 DC 06/09/17 15:00 999 MLS/HR ECG Indication: weakness Rate (beats per minute): 85 Rhythm: atrial fibrillation Findings: RBBB, T-wave inversion (V1 to V3) Comparison ECG Date: 02/24/17 Change: no significant change ED Course 1411: The patient was evaluated in room B10. A complete history and physical exam was performed. 1422: Ordered Sodium Chloride 500 ml @ 999 mls/hr IV 1541: I discussed the patient's case with Dr. Gupta, Vascular Surgery. He agrees with anticoagulations with Heparin and hospitalization. 1543: I discussed the patient's case with Dr. Denis, [facility] Hospitalist. The patient will be evaluated for further treatment. 1545: I reevaluated the patient, and they are resting. I discussed their exam findings and test results. He has agreed with the treatment plan. Medical Decision This is an 81-year-old male who presents with pain to his left thigh and generalized weakness. Differential diagnosis includes DVT, superficial thrombophlebitis, strain, anemia, cardiac, infection. I did perform a limited focused review of portions of the patient's old chart on the electronic medical record. The patient has had a left ureteral stent placed by Dr. Patel on May 15. Medication Reconciliation: I attest that I have personally reviewed the patient' s current medication list. Blood Pressure Screening: Patient was found to have a hypotensive blood pressure and was referred to their primary doctor for recheck and further treatment. I did evaluate the patient as noted above. IV access was established. The patient was placed on a continuous substation designer. He does not have orthostatic hypotension but his heart rate goes up significantly when standing. I did order and personally review the patient's 12-lead EKG and chest x-ray as described above. I did order and review the patient's blood work as noted in the electronic medical record. His white blood cell count is slightly elevated. He is slightly anemic. I did obtain the ultrasound report from last week. He has extensive occlusive DVT extending from the left external iliac vein down into the popliteal vein. This is significantly more clot burden then he had on his previous ultrasound from January. I did discuss the case with Dr. Gupta. I did discuss the test results with the patient and his . They stated that originally he had the IVC filter placed because he started to have GI bleeding from the lymphoma. Once the lymphoma shrunk he was restarted back on Lovenox. The patient denies having any rectal bleeding or black stools. He will be hospitalized and placed on IV heparin. UA is pending. I did discuss the case with the hospitalist and bilingual patient support caseworker. Consults Time Called: 1535 Consulting Physician: Dr. Gupta, Vascular Surgery Returned Call: 1546 I discussed the patient's case with Dr. Gupta, Vascular Surgery. He agrees with anticoagulations with Heparin and hospitalization. Additional Consults: Time Called: 1542 Consulted Physician: Dr. Denis, [facility] Hospitalist Returned Call: 1548 Additional Comments: I discussed the patient's case with Dr. Denis, [facility] Hospitalist. The patient will be evaluated for further treatment. Impression Primary Impression: Deep venous thrombosis of pelvic vein Additional Impressions: Left leg DVT Failure of outpatient treatment Generalized weakness Scribe Attestation The scribe's documentation has been prepared under my direct and personally reviewed by me in its entirety. I confirm that the note above accurately reflects all work, treatment, procedures, and medical decision making performed by me. Departure Information Dispostion Being Evaluated By Hospitalist Referrals Juan Daniel Pettit M.D. (PCP) Patient Instructions My [facility] Problem Qualifiers Additional Impressions: Left leg DVT Affected thrombotic vein of extremity: unspecified vein of extremity Chronicity: acute Qualified Codes: I82.402 - Acute embolism and thrombosis of unspecified deep veins of left lower extremity
[2017-06-09] MEDS ORDERED: DOCUSATE SODIUM 100 MG CAP PO PRN (17:45)
[2017-06-09] MEDS ORDERED: ACETAMINOPHEN 325 MG TAB PO PRN (17:45)
[2017-06-09] MEDS ORDERED: HEPARIN SOD 5000 UNIT/0.5 ML CARP ONE (17:46)
[2017-06-09] MEDS ORDERED: HEPARIN 25000 UNIT/500 ML D5W ONE (17:46)
[2017-06-09] MEDS ORDERED: IV FLUIDS COMPLETED PRN (18:45)
[2017-06-09] MEDS ORDERED: HEPARIN 25000 UNIT/ D5W 500 ML (PHARMACY PREPARED) IV PRN ×2 (18:45)
[2017-06-09] MEDS ORDERED: HEPARIN IV BOLUS 5,000 UNIT in SYRINGE 0 ML IV ONE (18:45)
[2017-06-09 19:49] VITALS: BP 121/64; PULSE 93; TEMP 36.7; O2SAT 99; Ht 185.4 cm; Wt 66.3 kg
[2017-06-09 20:02] VITALS: BP 121/64; PULSE 93; TEMP 36.7; O2SAT 99
--- NOTE | 2017-06-09 21:23 | History and Physical ---
History & Physical Date & Time of Service: Jun 09, 2017 at 17:01 Chief Complaint: Pain In Left Groin And Fatigue Primary Care Physician: Juan Daniel Pettit M.D. History of Present Illness Source: patient, family 81 y/o male with a history of a-fib, HTN, DM II (managed off medications), CKD stage III, HLD, and B-cell lymphoma who had an acute DVT found at the time of dx of the lymphoma in 01/2017. He had an IVC filter placed at that time due to rectal bleeding from his lymphoma. He was then on Lovenox for some time into March but then it was stopped for port placement and may have not been restarted until it was noted to not be on his med reconciliation at an Oncology appt May 23. He presented to the ER with significant pain in the left groin. He apparently saw the Vascular Surgeon last week to discuss removal of his IVC filter and an US was checked which showed propagation of the DVT. Pt was not aware of this until today due to the weekend. Initially it was thought by ER MD and Vascular Surgeon consulted that he essentially "failed" Lovenox, however this turned out to not be the case as he really was only on Lovenox from February-March and then again for the last 17 days. He will be admitted overnight for IV heparin as per initial recommendation by Vascular Surgery over the phone to ER MD, but can likely be discharged back to home on Lovenox. Past Medical/Surgical History PMH: Permanent Atrial fibrillation HTN DM II (managed off medications) CKD stage III HLD B-cell lymphoma LLE DVT H/o rectal bleeding secondary to lymphoma DIVERTICULOSIS COLON (W/O MENT OF HEMORRHAGE) Gout BPH Left hydronephrosis secondary to lymphoma PSH: IVC filter placement Left ureteral stent placement and replacement Family History FH: cancer noncontributory Social History Smoking Status: Never Smoker Alcohol Use: none Drug Use: none Marital Status: Housing status: lives with significant other Occupational Status: retired Multi-Drug Resistant Organisms History of MDRO: No Allergies Coded Allergies: No Known Allergies (Verified , 06/09/17) Home Medications Scheduled Acetaminophen (Tylenol), 650 MG PO prn Enoxaparin (Lovenox), 60 MG SQ Q12H Enteral Nutrition Formula (Ensure Plus Vanilla), 1 CAN GJT BID Finasteride (Proscar), 5 MG PO QAM Polyethylene Glycol 3350 (Miralax), 17 GM PO BID Scheduled PRN Docusate Sodium (Colace), 1 CAP PO BID PRN for CONSTIPATION Miscellaneous Medications [Chemo Q 3 Weeks] Review of Systems Constitutional: + fatigue, No fever, No chills Eyes: No problem reported ENT: No problem reported Respiratory: No shortness of breath Cardiovascular: + edema (chronic in left leg and foot since acute DVT in 01/2017 ), No chest pain Abdomen: No pain, No nausea, No vomiting, No GI bleeding Musculoskeletal: + problem reported (left inner thigh pain) Genitourinary - Male: No problem reported Neurologic: No problem reported Psychiatric: No problem reported Endocrine: No problem reported Hematologic / Lymphatic: No problem reported Integumentary: No problem reported Allergic / Immunologic: No problem reported Physical Exam Vital Signs Date Time Temp Pulse Resp B/P (MAP) Pulse Ox O2 Delivery O2 Flow Rate FiO2 06/09/17 16:27 82 18 93 06/09/17 15:57 85 16 95 06/09/17 15:52 86 21 111/60 94 06/09/17 15:22 79 24 95 06/09/17 15:17 81 24 95 06/09/17 14:47 81 22 94 06/09/17 14:35 112 06/09/17 14:34 113/66 06/09/17 14:32 90 13 110/76 118 104/60 123 113/66 06/09/17 13:50 36.7 82 20 92/60 98 Room Air General Appearance: WD/WN, no apparent distress Head: normocephalic, atraumatic Eyes: normal inspection, sclerae normal ENT: hearing grossly normal, pharynx normal Neck: supple, trachea midline Respiratory/Chest: lungs clear, normal breath sounds, no respiratory distress, no accessory muscle use Cardiovascular: no gallop, no murmur, normal peripheral pulses, + irregularly irregular (with normal rate) Abdomen/GI: normal bowel sounds, non tender, soft, no organomegaly, no pulsatile mass Back: normal inspection Extremities/Musculoskelatal: no calf tenderness, + swelling (left foot and leg with 1+ pitting edema, no calf tenderness, Right leg no edema), + pertinent finding (+TTP over left upper medial thigh and groin) Neurologic/Psych: alert, oriented x 3, + depressed affect Skin: normal color, warm/dry, no rash Diagnostics Laboratory Results Results Past 24 Hours Test 06/09/17 14:56 06/09/17 15:04 Range/Units White Blood Count 13.95 4.8-10.8 K/uL Red Blood Count 4.22 4.7-6.1 M/uL Hemoglobin 12.1 14.0-18.0 g/dL Hematocrit 36.9 42-52 % Mean Corpuscular Volume 87.4 80-100 fL Mean Corpuscular Hemoglobin 28.7 25-34 pg Mean Corpuscular Hemoglobin Concent 32.8 32-36 g/dl Platelet Count 389 130-400 K/uL Mean Platelet Volume 9.6 7.4-10.4 fL Neutrophils (%) (Auto) 80.7 % Lymphocytes (%) (Auto) 7.1 % Monocytes (%) (Auto) 10.1 % Eosinophils (%) (Auto) 0.6 % Basophils (%) (Auto) 0.4 % Neutrophils # (Auto) 11.26 1.4-6.5 K/uL Lymphocytes # (Auto) 0.99 1.2-3.4 K/uL Monocytes # (Auto) 1.41 0.11-0.59 K/uL Eosinophils # (Auto) 0.09 0-0.5 K/uL Basophils # (Auto) 0.05 0-0.2 K/uL RDW Standard Deviation 59.1 36.4-46.3 fL RDW Coefficient of Variation 18.4 11.5-14.5 % Immature Granulocyte % (Auto) 1.1 % Immature Granulocyte # (Auto) 0.15 0.00-0.02 K/uL Prothrombin Time 10.3 9.0-12.0 SECONDS Prothromb Time International Ratio 1.0 0.9-1.1 Activated Partial Thromboplast Time 30.8 21.0-31.0 SECONDS Partial Thromboplastin Ratio 1.2 Urine Color YELLOW Urine Appearance CLEAR CLEAR Urine pH 6.5 4.5-7.5 Urine Specific [place] 1.018 1.000-1.030 Urine Protein 1+ NEG Urine Glucose (UA) NEG NEG Urine Ketones NEG NEG Urine Occult Blood 2+ NEG Urine Nitrite NEG NEG Urine Bilirubin NEG NEG Urine Urobilinogen NEG NEG Urine Leukocyte Esterase MODERATE NEG Urine WBC (Auto) 10-30 0-5 /hpf Urine RBC (Auto) 10-30 0-4 /hpf Urine Hyaline Casts (Auto) 1-5 0-5 /lpf Urine Epithelial Cells (Auto) >30 0-5 /lpf Urine Bacteria (Auto) NEG NEG Urine Renal Epithelial Cells 0-5 /lpf Sodium Level 138 136-145 mmol/L Potassium Level 4.4 3.5-5.1 mmol/L Chloride Level 105 98-107 mmol/L Carbon Dioxide Level 27 21-32 mmol/L Anion Gap 6.0 3-11 mmol/L Blood Urea Nitrogen 24 7-18 mg/dl Creatinine 1.20 0.60-1.40 mg/dl Est Creatinine Clear Calc Drug Dose 42.9 ml/min Estimated GFR () 64.4 Estimated GFR (Non- 55.6 BUN/Creatinine Ratio 19.6 10-20 Random Glucose 82 70-99 mg/dl Calcium Level 9.1 8.5-10.1 mg/dl Total Bilirubin 0.3 0.2-1 mg/dl Direct Bilirubin < 0.1 0-0.2 mg/dl Aspartate Amino Transf (AST/SGOT) 17 15-37 U/L Alanine Aminotransferase (ALT/SGPT) 18 12-78 U/L Alkaline Phosphatase 119 45-117 U/L Total Protein 7.1 6.4-8.2 gm/dl Albumin 3.2 3.4-5.0 gm/dl Thyroid Stimulating Hormone (TSH) 2.800 0.300-4.500 uIu/ml Free Thyroxine 0.87 0.80-1.60 ng/dl Bedside Troponin I < 0.030 0-0.045 ng/ml Diagnostic Radiology CXR no acute process Doppler Venous US from [facility] from 06/06/17 as per ER MD note showed "extensive occlusive DVT extending from the left external iliac vein down into the popliteal vein. This is significantly more clot burden then he had on his previous ultrasound from January" but [facility] EKG ECG: A-fib, RBBB, no change from previous except no longer with PVCs Impression Assessment and Plan 81 y/o male with a history of a-fib, HTN, DM II (managed off medications), CKD stage III, HLD, and B-cell lymphoma who had an acute DVT found at the time of dx of the lymphoma in 01/2017. He had an IVC filter placed at that time due to rectal bleeding from his lymphoma. He was then on Lovenox for some time into March but then it was stopped for port placement and may have not been restarted until it was noted to not be on his med reconciliation at an Oncology appt May 23. He presented to the ER with significant pain in the left groin. He apparently saw the Vascular Surgeon last week to discuss removal of his IVC filter and an US was checked which showed propagation of the DVT. Pt was not aware of this until today due to the weekend. Initially it was thought by ER MD and Vascular Surgeon consulted that he essentially "failed" Lovenox, however this turned out to not be the case as he really was only on Lovenox from February-March and then again for the last 17 days. He will be admitted overnight for IV heparin as per initial recommendation by Vascular Surgery over the phone to ER MD, but can likely be discharged back to home on Lovenox. Subacute,propagated LLE DVT: as above, not likely a Lovenox failure, just was inadvertently off Lovenox for 6-7 weeks from March-May 24 and recently restarted , -plan to keep on heparin gtt here at least overnight and then probably discharge back to home tomorrow with SQ Lovenox 1mg/kg bid. I discussed case on the phone with both Dr. Weber (Oncology) and Dr. Gupta (Vascular Surgery) -leave IVC filter in place for now--> d/w Vascular about timing of removal at this point -watch for rectal bleeding but seems to be resolved since February -Oncology and Vascular Consults appreciated B-cell lymphoma-currently undergoing chemotx, last PET/CT showed improvement 2016. With leukocytosis here of 14k may be due to stress? No other signs of infection. -to continue chemo on schedule for this Friday -Oncology consultation -follow WBC count Atrial fibrillation--rate controlled previously with metoprolol, now weaned off that by PCP due to low BPs while on chemo. On Lovenox for AC. Previously on Pradaxa until had rectal bleeding from lymphoma - ECHO (01/28/17) with EF of 50-55%. Right ventricle mild to moderate dilation, moderate MR, left atrium mildly dilated, mild to moderate TR, elevated ventricular systolic pressure at 40-50 mmHg. -IV Lopressor prn tachycardia Hyperlipidemia-currently off his previous statin possibly due to being on chemo? 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
[2017-06-09] MEDS ORDERED: METOPROLOL TARTRATE 1 MG/ML VIAL IV. PRN (21:30)
[2017-06-09] MEDS ORDERED: POLYETHYLENE (MIRALAX) 17 GM PACK PO PRN (22:15)
[2017-06-09 23:29] VITALS: BP 97/65; PULSE 86; TEMP 36.6; O2SAT 99
[2017-06-10 00:49] LABS: PARTIAL THROMBOPLASTIN RATIO 2.4
[2017-06-10 03:38] VITALS: BP 91/59; PULSE 92; TEMP 36.8; O2SAT 97
[2017-06-10 06:46] LABS: BASO % 0.5 %; BASO ABS # 0.06 K/uL (0-0.2); COMPLETE YES; EOS % 0.7 %; HEMATOCRIT 31.2 % (42-52); IG% 0.5 %; LYMPH % 6.3 %; MEAN CELL VOLUME 86.4 fL (80-100); MEAN CORPUSCULAR HGB CONC 32.4 g/dl (32-36); MEAN PLATELET VOLUME 9.8 fL (7.4-10.4); PLATELET COUNT 327 K/uL (130-400); RED BLOOD COUNT 3.61 M/uL (4.7-6.1); WHITE BLOOD COUNT 12.78 K/uL (4.8-10.8)
[2017-06-10 07:15] LABS: BUN/CREATININE RATIO 19.1 (10-20); CALCIUM 8.7 mg/dl (8.5-10.1); CREATININE 1.1 mg/dl (0.60-1.40); POTASSIUM 4.1 mmol/L (3.5-5.1)
[2017-06-10 07:28] VITALS: BP 96/57; PULSE 91; TEMP 36.8; O2SAT 98
[2017-06-10] MEDS ORDERED: FINASTERIDE 5 MG TAB PO SCH (08:00)
--- NOTE | 2017-06-10 10:23 | Oncology Consultation ---
Oncology/Heme Consultation Date of Consultation: Jun 10, 2017. Attending Physician: Ruth Denis MD Reason for Consultation: History of non-Hodgkin's lymphoma History of Present Illness Mr. Esteban has been treated with now 5 cycles of Mini R-CHOP for non-Hodgkin' s lymphoma with colonic involvement. Updated recent PET scans have shown nice reduction in his disease. At the outset he had a DVT and IVC was placed due to concerns of potential GI bleeding while on anticoagulation. He presents now with fatigue that occurred over the weekend and report of worsening DVT. That report is currently not able to be found in the EHR. He now is on heparin. He denies shortness of breath of any degree. He states when he gets fatigued he does get short of breath but is more related to the fatigue and shortness of breath leading to fatigue. He denies chest pain. He denies any blood in stool or change in bowel habits. He does admit to pain in the left thigh. Past Medical/Surgical History Medical Problems: (1) Anemia Status: Acute (2) Deep venous thrombosis of pelvic vein Status: Acute (3) Dehydration Status: Acute (4) Failure of outpatient treatment Status: Acute (5) Generalized weakness Status: Acute (6) GI bleeding Status: Acute (7) Left leg DVT Status: Acute (8) Rectal mass Status: Acute Family History FH: cancer Social History Smoking Status: Never Smoker Alcohol Use: none Drug Use: none Marital Status: Occupation Status: retired Allergies Coded Allergies: No Known Allergies (Verified , 06/09/17) Home Medications Scheduled Acetaminophen (Tylenol), 650 MG PO prn Enoxaparin (Lovenox), 60 MG SQ Q12H Enteral Nutrition Formula (Ensure Plus Vanilla), 1 CAN GJT BID Finasteride (Proscar), 5 MG PO QAM Polyethylene Glycol 3350 (Miralax), 17 GM PO BID Scheduled PRN Docusate Sodium (Colace), 1 CAP PO BID PRN for CONSTIPATION Miscellaneous Medications [Chemo Q 3 Weeks] Current Inpatient Medications Current Inpatient Medications Medications (Trade) Dose Ordered Sig/Estevan Route Start Time Stop Time Status Last Admin Dose Admin Acetaminophen (Tylenol Tab) 650 mg Q4H PRN PO 06/09/17 17:45 07/09/17 17:44 Docusate Sodium (coLACE CAP) 100 mg BID PRN PO 06/09/17 17:45 07/09/17 17:44 06/09/17 22:47 100 MG Finasteride (Proscar Tab) 5 mg QAM PO 06/10/17 08:00 07/10/17 08:59 06/10/17 07:50 5 MG Miscellaneous (Iv Fluids Completed) 1 ea PRN PRN N/A 06/09/17 18:45 06/09/18 18:44 Heparin Sodium (Porcine) 84821 unit/Dextrose 500 ml @ 23 mls/hr [id number] PRN IV 06/09/17 18:45 07/09/17 18:44 Polyethylene (Miralax Powder Packet) 17 gm HS PRN PO 06/09/17 22:15 07/09/17 22:14 06/09/17 22:47 17 GM Review of Systems Constitutional: Negative for weight loss, night sweats, or fever Eyes: Negative for event change of vision ENT: Negative for epistaxis, nasal discharge, sore throat, or deafness Cardiovascular: Negative for chest pain, palpitations, dizziness, diaphoresis Respiratory: Negative for new shortness of breath,hemoptysis, or purulent cough Gastrointestinal: Negative for diarrhea, hematemesis, melena, nausea, vomiting , or dyspepsia Integumentary (skin): Negative for rash or jaundice discoloration Genitourinary: Negative for urinary frequency, hematuria, or dysuria Neurological: Negative for weakness, seizure activity, headache, or dizziness Lymphatic/Hematologic: Negative for petechiae, bleeding or new adenopathy Musculoskeletal: Negative for new joint or back pain Allergic/Immunologic: Negative for unusual rash or pruritis. Physical Exam Date Time Temp Pulse Resp B/P (MAP) Pulse Ox O2 Delivery O2 Flow Rate FiO2 06/10/17 07:28 36.8 91 18 96/57 (70) 98 Room Air 06/10/17 03:38 36.8 92 18 91/59 (70) 97 Room Air 06/10/17 00:00 Room Air 06/09/17 23:29 36.6 86 16 97/65 (76) 99 Room Air 06/09/17 20:02 36.7 93 20 121/64 (83) 99 Room Air 06/09/17 19:49 36.7 93 20 121/64 99 Room Air 06/09/17 18:32 108/95 7/17/17 18:13 89 20 98 06/09/17 18:08 91 19 97 06/09/17 18:01 115/80 06/09/17 17:38 83 18 98 06/09/17 17:33 131/86 06/09/17 17:32 88 20 93 06/09/17 17:02 88 20 06/09/17 16:32 86 17 06/09/17 16:27 82 18 93 06/09/17 15:57 85 16 95 06/09/17 15:52 86 21 111/60 94 06/09/17 15:22 79 24 95 06/09/17 15:17 81 24 95 06/09/17 14:47 81 22 94 06/09/17 14:35 112 06/09/17 14:34 113/66 06/09/17 14:32 90 13 110/76 118 104/60 123 113/66 06/09/17 13:50 36.7 82 20 92/60 98 Room Air Constitutional: vitals are stable. Thin 81-year-old gentleman Eyes: Eyes are SHAKEEL EOMI without conjuctival erythema or icterus. ENT: External examination was negative for masses. Neck: Negative for masses or palpable thyromegaly Respiratory: Lung sounds were generally clear bilaterally Cardiovascular: Heart was RRR without significant murmur, gallops aoe rubs Gastrointestinal: No palpable hepatic or splenomegaly. The abdomen was soft with normal bowel sounds. Lymphatic system: there was no palpable peripheral lymphadenopathy Musculoskeletal System: The musculoskeletal system seemed concordant with age. Skin: The skin was negative for jaundice. Neurologic exam: The exam was negative for any focal findings. Deep tendon reflexes were equal and symmetrical. Psychiatric exam: Was essentially negative with normal mood and effect. extremities: Negative for significant edema he states he has discomfort posterior left thigh Laboratory Results Last 24 Hours Test 06/09/17 14:56 06/09/17 15:04 06/10/17 00:25 06/10/17 05:50 White Blood Count 13.95 K/uL 12.78 K/uL Red Blood Count 4.22 M/uL 3.61 M/uL Hemoglobin 12.1 g/dL 10.1 g/dL Hematocrit 36.9 % 31.2 % Mean Corpuscular Volume 87.4 fL 86.4 fL Mean Corpuscular Hemoglobin 28.7 pg 28.0 pg Mean Corpuscular Hemoglobin Concent 32.8 g/dl 32.4 g/dl Platelet Count 389 K/uL 327 K/uL Mean Platelet Volume 9.6 fL 9.8 fL Neutrophils (%) (Auto) 80.7 % 82.0 % Lymphocytes (%) (Auto) 7.1 % 6.3 % Monocytes (%) (Auto) 10.1 % 10.0 % Eosinophils (%) (Auto) 0.6 % 0.7 % Basophils (%) (Auto) 0.4 % 0.5 % Neutrophils # (Auto) 11.26 K/uL 10.48 K/uL Lymphocytes # (Auto) 0.99 K/uL 0.80 K/uL Monocytes # (Auto) 1.41 K/uL 1.28 K/uL Eosinophils # (Auto) 0.09 K/uL 0.09 K/uL Basophils # (Auto) 0.05 K/uL 0.06 K/uL RDW Standard Deviation 59.1 fL 56.8 fL RDW Coefficient of Variation 18.4 % 18.0 % Immature Granulocyte % (Auto) 1.1 % 0.5 % Immature Granulocyte # (Auto) 0.15 K/uL 0.07 K/uL Prothrombin Time 10.3 SECONDS Prothromb Time International Ratio 1.0 Activated Partial Thromboplast Time 30.8 SECONDS 62.5 SECONDS 51.9 SECONDS Partial Thromboplastin Ratio 1.2 2.4 2.0 Urine Color YELLOW Urine Appearance CLEAR Urine pH 6.5 Urine Specific [place] 1.018 Urine Protein 1+ Urine Glucose (UA) NEG Urine Ketones NEG Urine Occult Blood 2+ Urine Nitrite NEG Urine Bilirubin NEG Urine Urobilinogen NEG Urine Leukocyte Esterase MODERATE Urine WBC (Auto) 10-30 /hpf Urine RBC (Auto) 10-30 /hpf Urine Hyaline Casts (Auto) 1-5 /lpf Urine Epithelial Cells (Auto) >30 /lpf Urine Bacteria (Auto) NEG Urine Renal Epithelial Cells /lpf Sodium Level 138 mmol/L 139 mmol/L Potassium Level 4.4 mmol/L 4.1 mmol/L Chloride Level 105 mmol/L 107 mmol/L Carbon Dioxide Level 27 mmol/L 26 mmol/L Anion Gap 6.0 mmol/L 6.0 mmol/L Blood Urea Nitrogen 24 mg/dl 21 mg/dl Creatinine 1.20 mg/dl 1.10 mg/dl Est Creatinine Clear Calc Drug Dose 42.9 ml/min 47.7 ml/min Estimated GFR () 64.4 71.6 Estimated GFR (Non- 55.6 61.8 BUN/Creatinine Ratio 19.6 19.1 Random Glucose 82 mg/dl 103 mg/dl Calcium Level 9.1 mg/dl 8.7 mg/dl Total Bilirubin 0.3 mg/dl Direct Bilirubin < 0.1 mg/dl Aspartate Amino Transf (AST/SGOT) 17 U/L Alanine Aminotransferase (ALT/SGPT) 18 U/L Alkaline Phosphatase 119 U/L Total Protein 7.1 gm/dl Albumin 3.2 gm/dl Thyroid Stimulating Hormone (TSH) 2.800 uIu/ml Free Thyroxine 0.87 ng/dl Bedside Troponin I < 0.030 ng/ml Magnesium Level 2.0 mg/dl Assessment & Plan Non-Hodgkin's lymphoma DVT Patient with a history of worsening blood clot in his lower extremities according to records. The report of the recent Doppler that the patient had he states is not available. He now is on heparin to be converted to subcu Lovenox. Apparently there was at least 2 week period when he was without anticoagulation recently. Fatigue is to some degree related to deconditioning from his disease and chemotherapy.I would suggest a small dose of daily prednisone perhaps 5-10 mg a day. Blood work otherwise seems acceptable. He does have a follow-up in our clinic. Little else to add from our standpoint in his current care. Thank you for this consultation. We will sign off and follow him in our clinic pleased don't hesitate to reconsult if necessary..
[2017-06-10 11:30] VITALS: BP 105/66; PULSE 87; TEMP 36.6; O2SAT 97
[2017-06-10] MEDS ORDERED: PRD10 PO (12:44)
--- NOTE | 2017-06-10 12:48 | Discharge Instructions ---
Discharge Instructions Date of Service Jun 10, 2017. Admission Reason for Admission: Left Groin Pain, Left Leg Dvt Discharge Discharge Diagnosis / Problem: (1) Left leg DVT VTE Date & Time Date of VTE Diagnosis: Jun 09, 2017 Time of VTE Diagnosis: 14:22 Discharge Goals Goal(s): Decrease discomfort Activity Recommendations Activity Limitations: resume your previous activity . Instructions / Follow-Up Instructions / Follow-Up Medication Instructions: Your condition is typically treated with an anticoagulant. Anticoagulants will thin your blood to help prevent new clots. * You should take her medication exactly as directed. * Never skip a dose. * Never take a double dose. If you miss a dose, take it as soon as you remember. Call your Primary Care doctor if you experience any of the following: * Swelling or Pain in your leg * Sudden, continuous pain deep in a muscle * Pain that worsens when you are active or when you stand still for a long time * Chest Pain * Sudden Shortness of Breath * Rapid or pounding heart beat * Fainting * Dizziness * Cough with blood or bloody sputum * Sweating more than normal * Bruises * Heavy or uncontrolled bleeding * Blood in your urine, stool or vomit * Black or tarry stools Caring for Your Self at Home: * Avoid sitting, standing or lying down for long periods without moving your legs and feet * When traveling by car, stop to get out and move around at least once every 3 hours * On long airplane, train or bus rides, get up and move around when possible * If you can't get up, wiggle your toes and tighten your calves to keep your blood moving Follow Up: It is important for you to keep your follow up appointments with your medical provider. Current Hospital Diet Patient's current hospital diet: AHA Diet (Heart Healthy) Discharge Diet Recommended Diet: Diabetes Type 2 Diet Pending Studies Studies pending at discharge: no Medical Emergencies . Who to Call and When: Medical Emergencies: If at any time you feel your situation is an emergency, please call 911 immediately. . Non-Emergent Contact Non-Emergency issues call your: Primary Care Provider . Past History Medical & Surgical History: (1) Left leg DVT (2) Deep venous thrombosis of pelvic vein . "Provider Documentation" section prepared by Roverto Camacho. . VTE Core Measure Inpt VTE Proph given/why not?: Unfractionated heparin SQ
--- NOTE | 2017-06-10 13:50 | Medical Consult ---
Consultation Note Date of Service Jun 10, 2017. Consultation Note 81 yo m with multiple medical problems, known to Dr Smith for IVC filter insertion in 01/2017, and was seen in office on 06/05 to discuss possible removal of the IVC filter. At that time, it was decided to recheck a venous doppler and have pt return to office to discuss the findings, however, was admitted here prior to us receiving the report. According to new US report, there is age -indeterminate DVT of L iliac,femoral, and popliteal V which was not present on previous US when he had infrapopliteal DVT in January of 2017. Recommend pt to be on anticoagulation as preferred by Medicine and/or Heme/onc. Recommend pt to be seen in our office in 3 months with a new US at that time to discuss whether removal of the filter is recommended or not. Our office will call to schedule. Please call if needed.
[2017-06-10 15:17] VITALS: BP 95/55; PULSE 89; TEMP 36.7; O2SAT 98
[2017-06-10] MEDS ORDERED: OXYC-57 PO (17:51)
[2017-06-10 18:17] VITALS: BP 95/55; PULSE 89; TEMP 36.7; O2SAT 98
[2017-06-10] MEDS ORDERED: ENOXAPARIN 80 MG/0.8 ML SYR SQ ONE (19:00)
[2017-06-11] MEDS ORDERED: PRD10 PO (05:45)
[2017-06-11] MEDS ORDERED: OXYC-57 PO (05:45)
[2017-06-11] MEDS ORDERED: TRAM-10 PO (18:31)
--- NOTE | 2017-06-26 01:26 | DISCHARGE SUMMARY ---
Please see dictated H&P for full details of presentation. HISTORY OF PRESENT ILLNESS: An 81-year-old with history of atrial fibrillation, hypertension, diabetes, chronic kidney disease stage III, hyperlipidemia, B cell lymphoma who had an acute DVT found at the time of his diagnosis of lymphoma in 01/2017. He had an IVC filter placed at that time due to rectal bleeding from his lymphoma. He was then on Lovenox until March, but stopped his Lovenox for port placement and may not have restarted it until it was discovered on his appointment on May 23 for oncology. Ultrasound was checked in contemplation of removal of his filter and showed propagation of his DVT. He was originally placed on heparin with a concern that he might have failed Lovenox. Since he had a period of time for 17 days where he was not on Lovenox, he was deemed not to be a Lovenox failure and was discharged with continued Lovenox therapy on 06/10 to home with self care. The patient was seen by Dr. Whitley for oncology, who recommended small dose of prednisone secondary to his clinical deconditioning.
[2017-09-01] MEDS ORDERED: TAMS0.4C38 PO (14:50)
== END 2017-06-10 20:00 | disposition home or self-care (01) ==
LOC: C.EDB 13:49 → C.4E 17:42 → ENRESERV 18:24
PROVIDERS: ADMIT Family Medicine; ATTEND Family Medicine
DX: I82.890 Acute embolism and thrombosis of other specified veins (principal); I82.402 Acute embolism and thrombosis of unspecified deep veins of left lower extremity; I10 Essential (primary) hypertension; E11.9 Type 2 diabetes mellitus without complications; N18.3 Chronic kidney disease, stage 3 (moderate); N40.0 Benign prostatic hyperplasia without lower urinary tract symptoms; C83.30 Diffuse large B-cell lymphoma, unspecified site; I45.10 Unspecified right bundle-branch block; I48.91 Unspecified atrial fibrillation; E78.5 Hyperlipidemia, unspecified; Z66 Do not resuscitate

== ENCOUNTER 2017-06-11 05:25 | Emergency (ER) | payer BC ==
[~2017-06-11] VITALS: Ht 185.4 cm; Wt 67.0 kg
[~2017-06-11 05:25] MED LIST changes: +ENOX60IN SQ; +OXYC-57 PO; -POTA10CA28 PO; +PRD10 PO; -SULF800T23 PO
[2017-06-11 05:27] VITALS: TEMP 36.4; Ht 185.4 cm; Wt 67.0 kg
--- NOTE | 2017-06-11 05:41 | EMERGENCY ROOM VISIT NOTE ---
History Report prepared by David: Luis Quinteros Under the Supervision of: Dr. Cassidy Garcia D.O. First contact with patient: 05:27 Chief Complaint: LEG PAIN,LEG INJURY Stated Complaint: LEG PAIN History of Present Illness The patient is a 81 year old male who presents to the Emergency Room with complaints of left leg pain (medial thigh) that began this morning. After taking a Percocet 1 and a half hours ago, he began to feel better. Currently, the patient is not in any pain and feels "pretty good." He was discharged from here yesterday with a diagnosis of a blood clot in his left leg, groin area. He was put on Heparin and now on Lovenox. He does the injections himself. After he was discharged last night, he did not take any of the Percocet. He did take a Tylenol. He then could not sleep because he could not get comfortable. He denies any chest pain, shortness of breath, nausea, vomiting, abdominal pain, or any other abnormal symptoms. Source of History: patient Onset: this morning Position: leg (left) Symptom Intensity: minimal Quality: ache Timing: resolved Modifying Factors (Relieving): other (Percocet) Associated Symptoms: No chest pain, No SOB, No nausea, No vomiting, No abdominal pain Review of Systems See HPI for pertinent positives & negatives. A total of 10 systems reviewed and were otherwise negative. 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 (4) DIVERTICULOSIS COLON (W/O MENT OF HEMORRHAGE) (5) Gout (6) Hypercalcemia (7) HYPERLIPIDEMIA NEC/NOS (8) HYPERPLASIA OF PROSTATE (9) Left groin pain (10) Rectal bleed Family History FH: cancer Social History Smoking Status: Never Smoker Alcohol Use: none Drug Use: none Marital Status: Housing Status: lives with significant other Occupation Status: retired Current/Historical Medications Scheduled Acetaminophen (Tylenol), 650 MG PO prn Enoxaparin (Lovenox), 60 MG SQ Q12H Enteral Nutrition Formula (Ensure Plus Vanilla), 1 CAN GJT BID Finasteride (Proscar), 5 MG PO QAM Polyethylene Glycol 3350 (Miralax), 17 GM PO BID Prednisone (Prednisone), 10 MG PO DAILY Scheduled PRN Docusate Sodium (Colace), 1 CAP PO BID PRN for CONSTIPATION Oxycodone/Acetaminophen 5MG/325MG (Percocet 5MG/325MG), 1 TAB PO TID PRN for Pain Miscellaneous Medications [Chemo Q 3 Weeks] Allergies Coded Allergies: No Known Allergies (Verified , 06/11/17) Physical Exam Vital Signs Date Time Temp Pulse Resp B/P (MAP) Pulse Ox O2 Delivery O2 Flow Rate FiO2 06/11/17 06:57 82 18 100/69 99 06/11/17 05:27 36.4 106 20 118/76 98 Room Air Physical Exam HEENT: Head - normocephalic and atraumatic Pupils are equal, round, and reactive to light. Extraocular eye muscles are intact, and sclera are anicteric. Nose - moist nasal mucosa without discharge. Mouth - moist buccal mucosa. Oropharynx is nonerythematous and there is no tonsillar exudate or edema noted. Neck: Supple; no JVD, nuchal rigidity, cervical lymphadenopathy, or auscultated bruits. Heart: Regular rate and rhythm. There is a normal S1 and S2 with no murmurs, clicks, or gallops appreciated. Lungs: Clear to auscultation bilaterally with no wheezes, rales, or rhonchi. Abdomen: Soft, completely nontender, nondistended, with good bowel sounds. There are no palpable pulsatile masses or hepatosplenomegaly. There is no guarding, rigidity, or rebound noted. Extremities: Edema to the left foot. Peripheral vascular changes to the bilateral lower extremities. Skin: warm and dry with good turgor and no rashes. Medical Decision & Procedures ED Course 0527: Past medical records reviewed. The patient was evaluated in room A2. A complete history and physical exam was performed. The patient continued to deny any significant pain. 0549: I spoke with the patient and his at this time. We talked for a while. While the patient got up to go to the bathroom, he got dizzy. He thinks this is because of his pain medication. He is going to have a bowel movement at the beside commode. 0634: The patient had a large bowel movement. He is able to move and stand on his own with minimal discomfort. He is overall comfortable. 0649: Upon reevaluation, the patient is resting. I discussed findings and results with him. He verbalized agreement of the treatment plan. He was discharged home. Medical Decision The patient is a 81 year old male who presents to the ED with left leg pain. Differential diagnosis includes intractable groin pain and leg pain secondary to DVT. I attest that I have personally reviewed the patient's current medication list. Patient was found to have normal blood pressure on screening and does not require follow-up. The patient had been admitted into the hospital with intractable left leg/groin pain secondary to a DVT. He was discharged home last evening. He took one dose of Tylenol last night but around 3 AM he had more significant pain and could not get comfortable. The patient took a Percocet at 4 AM and called EMS. Upon his arrival here in the emergency department, the pain seemed to have subsided. I recommended the patient take the Percocet regularly every 5-6 hours. The patient was encouraged to follow up with his PCP if the pain persisted. Impression Primary Impression: Left groin pain Scribe Attestation The scribe's documentation has been prepared under my direction and personally reviewed by me in its entirety. I confirm that the note above accurately reflects all work, treatment, procedures, and medical decision making performed by me. Departure Information Dispostion Home / Self-Care Referrals Juan Daniel Pettit M.D. (PCP) Forms HOME CARE DOCUMENTATION FORM, IMPORTANT VISIT INFORMATION Patient Instructions DVT, DVT Complications, [facility] [place] [employer] Additional Instructions Rest. Take Percocet - 1 tab. every 5-6 hours for pain Follow up with PCP by Friday if pain persists Take Lovenox every 12 hours
[2017-06-11] MEDS ORDERED: PRD10 PO (05:45)
[2017-06-11] MEDS ORDERED: OXYC-57 PO (05:45)
[2017-06-11 06:57] VITALS: BP 100/69; PULSE 82; O2SAT 99
[2017-06-11] MEDS ORDERED: TRAM-10 PO (18:31)
[2017-09-01] MEDS ORDERED: TAMS0.4C38 PO (14:50)
== END 2017-06-11 06:49 | disposition home or self-care (01) ==
LOC: EDBD 05:25 → C.EDA 05:27
DX: M79.652 Pain in left thigh (principal); I82.4Y2 Acute embolism and thrombosis of unspecified deep veins of left proximal lower extremity; I48.91 Unspecified atrial fibrillation; E11.9 Type 2 diabetes mellitus without complications; Z85.72 Personal history of non-Hodgkin lymphomas; K57.30 Diverticulosis of large intestine without perforation or abscess without bleeding; E83.52 Hypercalcemia; E78.5 Hyperlipidemia, unspecified; N40.0 Benign prostatic hyperplasia without lower urinary tract symptoms; I73.9 Peripheral vascular disease, unspecified; R60.0 Localized edema; Z79.01 Long term (current) use of anticoagulants

== ENCOUNTER 2017-06-11 10:04 | Inpatient (IN) | payer BC, OTHER ==
[~2017-06-11] VITALS: Ht 185.4 cm; Wt 69.7 kg
[2017-06-11] MEDS ORDERED: SODIUM CHLORIDE 0.9% 1000ML 500 ML IV STA (10:38)
[2017-06-11] MEDS ORDERED: TRAMADOL HCL 50 MG TAB PO STA ×2 (10:38→15:59)
[2017-06-11 11:39] LABS: HEMATOCRIT 27.2 % (42-52); MEAN CELL VOLUME 84.7 fL (80-100); MEAN CORPUSCULAR HEMOGLOBIN 28.7 pg (25-34); MEAN CORPUSCULAR HGB CONC 33.8 g/dl (32-36); MEAN PLATELET VOLUME 9.4 fL (7.4-10.4); PLATELET COUNT 378 K/uL (130-400); RED BLOOD COUNT 3.21 M/uL (4.7-6.1); WHITE BLOOD COUNT 25.22 K/uL (4.8-10.8)
[2017-06-11 11:54] LABS: BUN/CREATININE RATIO 23.6 (10-20); CREATININE 1.4 mg/dl (0.60-1.40); POTASSIUM 4.6 mmol/L (3.5-5.1)
--- NOTE | 2017-06-11 12:25 | DIAGNOSTIC IMAGING REPORT ---
LEFT FEMUR 2 VIEWS ROUTINE CLINICAL HISTORY: 81 years-old Male presenting with left inner thigh pain. TECHNIQUE: Frontal and lateral views of the left femur were obtained. COMPARISON: Correlation made to PET/CT from 05/21/2017. FINDINGS: Left hip joint congruent. No acute fracture or malalignment of the left femur. Left knee joint grossly congruent. Surrounding soft tissues grossly normal. Partial visualization of a ureteral stent. Multiple phleboliths noted. IMPRESSION: 1. No acute osseous injury of the left femur. Electronically signed by: Fam Marie M.D. 06/11/2017 12:23 PM Dictated Date/Time: 06/11/2017 12:20 PM
[2017-06-11 12:31] LABS: BASO % 0.1 %; BASO ABS # 0.03 K/uL (0-0.2); COMPLETE YES; IG% 1.2 %; LYMPH % 1.8 %; LYMPH ABS # 0.46 K/uL (1.2-3.4); MONO % 3.6 %; NEUT % 93.3 %
--- NOTE | 2017-06-11 13:46 | EMERGENCY ROOM VISIT NOTE ---
History Report prepared by Rogeribchriss: Charan Castro Under the Supervision of: Dr. Elie Hedrick D.O. First contact with patient: 10:30 Chief Complaint: PAIN (GENERALIZED) Stated Complaint: PAIN-LEFT GROIN, DIZZINESS History of Present Illness The patient is a 81 year old male who presents to the Emergency Room with complaints of constant left inner thigh beginning five days ago. He was discharged from the hospital yesterday and was seen in the ED last night shortly after discharge. He has a history of lymphoma. The patient has a known blood clot in his left inner thigh. He states that his pain is worsened with movement. Per , the patient appeared very weak and tired following discharge. She states that the patient was having problems with dizziness as well. The patient denies any recent falls or trauma. He is prescribed Percocet for his pain, but states that nothing has improved his symptoms. He is on Lovenox for A-fib. The patient states that he had an IVC filter placed three months ago for rectal bleeding. Source of History: patient, spouse/significant other () Onset: five days ago Position: leg (left inner thigh) Timing: constant Modifying Factors (Worsening): movement Modifying Factors (Relieving): other (none) Associated Symptoms: + fatigue, + weakness Note: Additional symptoms: dizziness. Review of Systems See HPI for pertinent positives & negatives. A total of 10 systems reviewed and were otherwise negative. 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 (4) DIVERTICULOSIS COLON (W/O MENT OF HEMORRHAGE) (5) Gout (6) Hypercalcemia (7) HYPERLIPIDEMIA NEC/NOS (8) HYPERPLASIA OF PROSTATE (9) Left groin pain (10) Rectal bleed Family History FH: cancer Social History Smoking Status: Never Smoker Alcohol Use: none Drug Use: none Marital Status: Housing Status: lives with significant other Occupation Status: retired Current/Historical Medications Scheduled Acetaminophen (Tylenol), 650 MG PO prn Enoxaparin (Lovenox), 60 MG SQ Q12H Enteral Nutrition Formula (Ensure Plus Vanilla), 1 CAN GJT BID Finasteride (Proscar), 5 MG PO QAM Polyethylene Glycol 3350 (Miralax), 17 GM PO BID Prednisone (Prednisone), 10 MG PO DAILY Scheduled PRN Docusate Sodium (Colace), 1 CAP PO BID PRN for CONSTIPATION Oxycodone/Acetaminophen 5MG/325MG (Percocet 5MG/325MG), 1 TAB PO TID PRN for Pain Miscellaneous Medications [Chemo Q 3 Weeks] Allergies Coded Allergies: No Known Allergies (Verified , 06/11/17) Physical Exam Vital Signs Date Time Temp Pulse Resp B/P (MAP) Pulse Ox O2 Delivery O2 Flow Rate FiO2 06/11/17 16:12 118 24 105/65 96 Room Air 06/11/17 14:37 72 16 114/85 93 Room Air 06/11/17 13:12 92 16 129/84 06/11/17 12:11 70 16 113/72 06/11/17 10:19 36.4 64 22 103/62 96 Room Air Physical Exam CONSTITUTIONAL/VITAL SIGNS: Reviewed / noted above. GENERAL: Non-toxic in appearance. INTEGUMENTARY: Warm, dry, and [place]. HEAD: Normocephalic. EYES: without scleral icterus or trauma. ENT/OROPHARYNX: clear and moist. LYMPHADENOPATHY/NECK: Is supple without lymphadenopathy or meningismus. RESPIRATORY: Lungs clear and equal. CARDIOVASCULAR: Regular rate and rhythm. GI/ABDOMEN: Soft and nontender. No organomegaly or pulsatile mass. No rebound or guarding. Normal bowel sounds. RECTAL: Light brown stool. Guaiac negative. EXTREMITIES: Tenderness to palpation of the left inner thigh. No groin tenderness, hernias or masses. No rashes or redness. BACK: No CVA tenderness. NEUROLOGICAL: Intact without focal deficits. PSYCHIATRIC: normal affect. MUSCULOSKELETAL: Normally developed with good muscle tone. Medical Decision & Procedures ER Provider Diagnostic Interpretation: X ray results and stated below per my interpretation and radiology interpretation. LEFT FEMUR 2 VIEWS ROUTINE FINDINGS: Left hip joint congruent. No acute fracture or malalignment of the left femur. Left knee joint grossly congruent. Surrounding soft tissues grossly normal. Partial visualization of a ureteral stent. Multiple phleboliths noted. IMPRESSION: 1. No acute osseous injury of the left femur. Electronically signed by: Fam Marie M.D. Laboratory Results 06/11/17 11:10 Red Blood Count 3.21, Mean Corpuscular Volume 84.7, Mean Corpuscular Hemoglobin 28.7, Mean Corpuscular Hemoglobin Concent 33.8, Mean Platelet Volume 9.4, Neutrophils (%) (Auto) 93.3, Lymphocytes (%) (Auto) 1.8, Monocytes (%) (Auto) 3.6, Eosinophils (%) (Auto) 0.0, Basophils (%) (Auto) 0.1, Neutrophils # (Auto) 23.52, Lymphocytes # (Auto) 0.46, Monocytes # (Auto) 0.90, Eosinophils # (Auto) 0.00, Basophils # (Auto) 0.03 06/11/17 11:22 Test 06/11/17 11:10 06/11/17 11:22 06/11/17 13:05 White Blood Count 25.22 K/uL (4.8-10.8) Red Blood Count 3.21 M/uL (4.7-6.1) Hemoglobin 9.2 g/dL (14.0-18.0) Hematocrit 27.2 % (42-52) Mean Corpuscular Volume 84.7 fL (80-100) Mean Corpuscular Hemoglobin 28.7 pg (25-34) Mean Corpuscular Hemoglobin Concent 33.8 g/dl (32-36) Platelet Count 378 K/uL (130-400) Mean Platelet Volume 9.4 fL (7.4-10.4) Neutrophils (%) (Auto) 93.3 % Lymphocytes (%) (Auto) 1.8 % Monocytes (%) (Auto) 3.6 % Eosinophils (%) (Auto) 0.0 % Basophils (%) (Auto) 0.1 % Neutrophils # (Auto) 23.52 K/uL (1.4-6.5) Lymphocytes # (Auto) 0.46 K/uL (1.2-3.4) Monocytes # (Auto) 0.90 K/uL (0.11-0.59) Eosinophils # (Auto) 0.00 K/uL (0-0.5) Basophils # (Auto) 0.03 K/uL (0-0.2) RDW Standard Deviation 55.4 fL (36.4-46.3) RDW Coefficient of Variation 17.9 % (11.5-14.5) Immature Granulocyte % (Auto) 1.2 % Immature Granulocyte # (Auto) 0.31 K/uL (0.00-0.02) Anion Gap 9.0 mmol/L (3-11) Est Creatinine Clear Calc Drug Dose 36.8 ml/min Estimated GFR () 53.5 Estimated GFR (Non- 46.1 BUN/Creatinine Ratio 23.6 (10-20) Calcium Level 9.0 mg/dl (8.5-10.1) Total Bilirubin 0.5 mg/dl (0.2-1) Direct Bilirubin 0.1 mg/dl (0-0.2) Aspartate Amino Transf (AST/SGOT) 12 U/L (15-37) Alanine Aminotransferase (ALT/SGPT) 14 U/L (12-78) Alkaline Phosphatase 94 U/L (45-117) Total Protein 6.3 gm/dl (6.4-8.2) Albumin 2.8 gm/dl (3.4-5.0) Urine Color YELLOW Urine Appearance CLOUDY (CLEAR) Urine pH 5.5 (4.5-7.5) Urine Specific [place] 1.021 (1.000-1.030) Urine Protein 1+ (NEG) Urine Glucose (UA) NEG (NEG) Urine Ketones NEG (NEG) Urine Occult Blood 3+ (NEG) Urine Nitrite NEG (NEG) Urine Bilirubin NEG (NEG) Urine Urobilinogen NEG (NEG) Urine Leukocyte Esterase SMALL (NEG) Urine WBC (Auto) 10-30 /hpf (0-5) Urine RBC (Auto) >30 /hpf (0-4) Urine Hyaline Casts (Auto) 1-5 /lpf (0-5) Urine Epithelial Cells (Auto) >30 /lpf (0-5) Urine Bacteria (Auto) NEG (NEG) Urine Renal Epithelial Cells /lpf (0-5) Laboratory results as stated above per my review. Medications Administered Medications (Trade) Dose Ordered Sig/Estevan Route Start Time Stop Time Status Last Admin Dose Admin Sodium Chloride 500 ml @ 250 mls/hr Q2H STAT IV 06/11/17 10:38 06/11/17 12:37 DC 06/11/17 11:20 250 MLS/HR Tramadol HCl (Ultram Tab) 100 mg NOW STAT PO 06/11/17 10:38 06/11/17 10:43 DC 06/11/17 11:27 100 MG Enteral Nutritional Formula (Boost) 1 can NOW ONCE PO 06/11/17 14:45 06/11/17 14:46 DC 06/11/17 14:45 1 CAN Tramadol HCl (Ultram Tab) 100 mg NOW STAT PO 06/11/17 15:59 06/11/17 16:00 DC 06/11/17 16:15 100 MG ED Course 1030: Previous medical records were reviewed. The patient was evaluated in room A4B. A complete history and physical examination was performed. 1038: Ordered Ultram Tab 100 mg PO, Sodium Chloride 500 ml @ 250 mls/hr IV. 1300: The patient will be evaluated for PT/OT. 1445: Ordered Boost 1 can PO. 1559: Ordered Ultram Tab 100 mg PO. 1700: The patient has been evaluated. He is awaiting approval from his insurance. 1800: The patient was signed out to Dr. Rodrigez at the change of shift pending insurance approval. Medical Decision Differential diagnosis: Etiologies such as DVT, musculoskeletal, infection, joint effusion, trauma, lymphedema, idiopathic, CHF, as well as others were entertained. This is an 81-year-old male who presents to the ED with a chief complaint of left inner thigh pain. The patient states that he has had the symptoms since Friday, 5 days ago. At that time the patient had a outpatient ultrasound that revealed progression of a DVT in his left leg. This was the explanation for symptoms. He was actually admitted to the hospital for this. He was started on heparin and then placed back on Lovenox. The patient does have an IVC filter. The patient states that he was here this morning around 4 AM. He was examined and discharged after this and told to take additional pain medication. He has not been taking his Percocet regularly. The patient presents again this morning with continuance pain. The is having difficulty getting him around. He desires to go to a nursing/rehabilitation facility. The patient's evaluation revealed tenderness in the left inner thigh. There is no rashes, ecchymosis or erythema to suggest trauma or infection. There is no indication of a shingles rash. The patient's left groin was clear from any physical exam abnormalities. He has no abdominal tenderness. Denies any back pain. The patient's blood work revealed a white count 25,000 and hemoglobin 9.2. This was compared to the past couple of days and her white count has almost doubled in his hemoglobin has dropped by couple of grams. The BUN is 33. The patient' s stool was tested and is light brown and guaiac negative. Complete metabolic panel was unremarkable. X-ray of the left femur did not show any acute process. A chest x-ray was negative for acute disease. I spoke with Dr. Wallace Patterson about the patient. He reports that in absence of other abnormality suggesting infection or another cause for anemia, his chemotherapy that he received on the of last month, 20 days ago could be the cause for these abnormalities and his blood work. On reassessing the patient, the patient does not have any other findings to suggest infection or other cause for anemia. I do not suspect retroperitoneal hemorrhage, GI bleed or external bleeding. PT/ OT evaluation was performed. At this point we are awaiting insurance authorization to go to senior living rehab. If approved he will be taken there. Medication Reconcilliation Current Medication List: was personally reviewed by me Blood Pressure Screening Patient's blood pressure: Normal blood pressure Blood pressure disposition: Did not require urgent referral Consults Time Called: 1250 Consulting Physician: Dr. Hawkins Oncology Returned Call: [phone] Discussed the patient's case. Dr. Weber feels that the patient's abnormal blood counts may be related to his chemotherapy treatment that he received on May 23. Impression Primary Impression: Left thigh pain Additional Impressions: Leukocytosis Anemia Scribe Attestation The scribe's documentation has been prepared under my direction and personally reviewed by me in its entirety. I confirm that the note above accurately reflects all work, treatment, procedures, and medical decision making performed by me. Departure Information Dispostion Still a Patient Referrals Pro,Juan Daniel Reagan M.D. (PCP) Patient Instructions My [facility] Problem Qualifiers
[2017-06-11 13:47] LABS: URINE APPEARANCE CLOUDY (CLEAR); URINE BILIRUBIN NEG (NEG); URINE COLOR YELLOW; URINE EPITHELIAL CELL AUTO >30 /lpf (0-5); URINE NITRITE NEG (NEG); URINE PH 5.5 (4.5-7.5); URINE SPECIFIC GRAVITY 1.021 (1.000-1.030); UROBILINOGEN NEG (NEG); ZZUR CULT IF INDIC CLEAN CATCH YES
[2017-06-11 13:49] LABS: REVIEW REQ? YES
[2017-06-11 13:50] LABS: MANUAL MICROSCOPIC REQUIRED? NO
[2017-06-11 13:57] VITALS: BP 100/66
[2017-06-11] MEDS ORDERED: BOOST VANILLA PO ONE ×2 (14:45)
[2017-06-11] MEDS ORDERED: BOOST VANILLA PO SCH ×2 (14:45)
[2017-06-11] MEDS ORDERED: TRAM-10 PO (18:31)
--- NOTE | 2017-06-11 18:37 | EMERGENCY ROOM VISIT NOTE ---
ED Visit Note First contact with patient: 18:29 The patient was awaiting transfer to rehabilitation. It was approved. The patient had been deemed medically clear for rehabilitation. I did write a prescription for Ultram to be given as needed for pain. I did review the patient on the PDMP-no issues identified. He is being transferred by his to rehabilitation. He can return here for any fever or worsening symptoms. Please see Dr. Elie Hedrick's notes for a full history and physical.
[2017-06-11] MEDS ORDERED: METOPROLOL TARTRATE 50 MG TAB PO STA (19:41)
[2017-06-11] MEDS ORDERED: OPTIRAY 320 IV PRN (19:45)
[2017-06-11 20:36] LABS: HEMATOCRIT 23.6 % (42-52); MEAN CELL VOLUME 84.9 fL (80-100); MEAN CORPUSCULAR HEMOGLOBIN 28.8 pg (25-34); MEAN CORPUSCULAR HGB CONC 33.9 g/dl (32-36); MEAN PLATELET VOLUME 9.5 fL (7.4-10.4); PLATELET COUNT 381 K/uL (130-400); RED BLOOD COUNT 2.78 M/uL (4.7-6.1); WHITE BLOOD COUNT 22.25 K/uL (4.8-10.8)
[2017-06-11 21:01] LABS: BASO ABS # 0.01 K/uL (0-0.2); COMPLETE YES; IG% 0.7 %; LYMPH % 4.1 %; LYMPH ABS # 0.92 K/uL (1.2-3.4); MONO % 5.1 %; NEUT % 90.1 %; TEAR DROP CELLS 1+; TOXIC GRANULATION OCCASIONAL
--- NOTE | 2017-06-11 21:09 | DIAGNOSTIC IMAGING REPORT ---
LEFT LOWER EXTREMITY WITH CLINICAL HISTORY: thigh pain, possible abscess or compartment pain. Edema. TECHNIQUE: Transaxial acquisition with multi axial reformatted images COMPARISON STUDY: None FINDINGS: Findings consistent with what appears to be a large heterogeneous partially cystic mass involving the posterior left thigh. Dimensions Are approximately 30 x 10 x 8 cm musculature. This extends from the level of the knees superiorly to the level of the left hip. This potentially relates to a large heterogeneous hematoma. Transaxial image 47 suggests possible small focus of active bleeding. The left thigh subcutaneous fat shows edematous change consistent with simple edematous change versus cellulitis. The anterior as well as lateral thigh musculature appears to be unremarkable. IMPRESSION: 1. Large intramuscular mass/collection of the posterior left thigh musculature. 2. Dimensions approximate 38 x 10 x 8 cm there is perhaps a small active bleeding source from a intramuscular vessel of the mid thigh best seen transaxial image 46. 3. This extends from the left hip to a position slightly above the left knee. 4. This potentially relates to a large intramuscular hematoma, with etiology such as abscess or hemorrhagic neoplasm impossible to completely exclude although these are less likely. 5. Findings consistent with extensive deep venous thrombosis of the venous structures of the left thigh.. 6. Extensive soft tissue cellulitis versus simple edema 7. Incidental note is made of a left ureteral stent which has been described previously. The above report was generated using voice recognition software. It may contain grammatical, syntax or spelling errors. Electronically signed by: Dillon Serrato M.D. 06/11/2017 9:07 PM Dictated Date/Time: 06/11/2017 8:59 PM
--- NOTE | 2017-06-11 21:32 | EMERGENCY ROOM VISIT NOTE ---
ED Visit Note First contact with patient: 18:29 When I went to assess the patient prior to his transfer. He complained of increased left leg pain. On exam, the thigh was larger than the right and quite firm with palpation. There was soreness to palpation, no erythema. Any movement of the leg caused pain in the thigh. There was no distal neurovascular compromise. Because of the increase in his white blood cell count, I did order blood cultures. I talked to radiology and a CT of the left thigh was done with IV contrast. This demonstrated a very large mass, likely a hematoma with some scant active bleeding. Repeat CBC showed the white count to still be high at over 20,000, the patient's hemoglobin had dropped 1 point from 9 to 8. I talked to the vascular surgeon on-call. No emergent intervention required. The patient is to have his anticoagulation held. He will be brought into the hospital on the medicine service and then reevaluated tomorrow, he may require cautery if he continues to bleed. The vascular surgeon was not concerned about compartment syndrome. I did speak to the patient and his about the new findings. Diagnosis: Leukocytosis. Anemia. Left leg DVT. Left thigh hematoma.
--- NOTE | 2017-06-11 21:35 | EMERGENCY ROOM VISIT NOTE ---
ED Visit Note First contact with patient: 18:29 The patient was noted to be slightly tachycardic while in the ER. An EKG was done showing a mildly rapid A. fib, no acute ischemia. Of note, the patient does have a history of A. fib. He was in the past on Lopressor to control his rate, he has stopped using the Lopressor though. The patient was given 25 mg of oral Lopressor for rate control.
[2017-06-11] MEDS ORDERED: MAGNESIUM HYDROXIDE SUSP 30 ML UDC PO PRN (21:45)
[2017-06-11] MEDS ORDERED: POLYETHYLENE (MIRALAX) 17 GM PACK PO PRN (21:45)
[2017-06-11] MEDS ORDERED: SODIUM CHLORIDE 0.9% 1000ML 1,000 ML IV SCH (21:45)
[2017-06-11] MEDS ORDERED: ACETAMINOPHEN 325 MG TAB PO SCH (21:45)
[2017-06-11] MEDS ORDERED: OXYCODONE/ACETAMINOPHEN 5-325 TAB PO PRN (21:45)
[2017-06-11] MEDS ORDERED: ENOXAPARIN 60 MG/0.6 ML SYR SQ SCH (21:45)
[2017-06-11] MEDS ORDERED: ALUMINUM/MAGNESIUM/SIMETH (MAALOX MAX) 30 ML UDC PO PRN (21:45)
[2017-06-11] MEDS ORDERED: ONDANSETRON INJ 2 MG/ML 2 ML VIAL IV PRN (21:45)
--- NOTE | 2017-06-11 21:57 | History and Physical ---
History & Physical Date & Time of Service: Jun 11, 2017 at 21:47 Chief Complaint: Pain-Left Groin, Dizziness Primary Care Physician: Juan Daniel Pettit M.D. History of Present Illness Source: patient, family, hospital records 81 y/o M Hx chronic AF, HTN, DM, CKD III, HPL, B-cell lymphoma, acute DVT 0317 - Pt had an IVC filter placed at that time due to rectal bleeding from his lymphoma and anticoagulation. Eventually placed on Lovenox in March, which was stopped for port placement and not restarted until May 23. He apparently saw a Vascular Surgeon last week to discuss removal of his IVC. He had an US at that time which showed propagation of the DVT. It was not felt that he had failed Lovenox due to the interruption in use between March and the end of April which was likely the culprit for propagation. He presented to the ER 06/11 early AM due to increasing pain in his L thigh and D/C was arranged to rehab directly from the ER. He returned later in the afternoon due to worsening pain. An exam of the thigh revealed a large hematoma extending from the thigh to the groin. Repeat labs revealed a 1 unit drop in the pt's Hemoglobin. He was sent for a CT of the lower extremity which confirmed a large collection in the posterior left thigh musculature. The pt denies fevers, CP, SOB or dysuria. He admits to generalized weakness. It was noted that he was tachycardic on arrival to the ER - this may have been due to pain, however, he received a dose of Metoprolol which did improve his rate. . 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 Smoking Status: Never Smoker Drug Use: none Marital Status: Housing status: lives with significant other Occupational Status: retired Multi-Drug Resistant Organisms History of MDRO: No Allergies Coded Allergies: No Known Allergies (Verified , 06/11/17) Home Medications Scheduled Acetaminophen (Tylenol), 650 MG PO prn Enoxaparin (Lovenox), 60 MG SQ Q12H Enteral Nutrition Formula (Ensure Plus Vanilla), 1 CAN GJT BID Finasteride (Proscar), 5 MG PO QAM Polyethylene Glycol 3350 (Miralax), 17 GM PO BID Prednisone (Prednisone), 10 MG PO DAILY Scheduled PRN Docusate Sodium (Colace), 1 CAP PO BID PRN for CONSTIPATION Oxycodone/Acetaminophen 5MG/325MG (Percocet 5MG/325MG), 1 TAB PO TID PRN for Pain Tramadol (Ultram), 50-100 MG PO Q6H PRN for Pain Miscellaneous Medications [Chemo Q 3 Weeks] Review of Systems Constitutional: + weakness, No fever, No chills, No sweats Eyes: No worsening of vision, No eye pain ENT: No hearing loss, No nasal symptoms Respiratory: No cough, No wheezing Cardiovascular: No chest pain, No orthopnea, No PND Abdomen: No pain, No vomiting Musculoskeletal: + muscle pain, No joint pain Genitourinary - Male: No hematuria, No dysuria, No urinary frequency Neurologic: No memory loss, No weakness Psychiatric: No depression symptoms Endocrine: No fatigue Hematologic / Lymphatic: + abnormal bleeding/bruising Integumentary: No rash Allergic / Immunologic: No environmental allergies Physical Exam Vital Signs Date Time Temp Pulse Resp B/P (MAP) Pulse Ox O2 Delivery O2 Flow Rate FiO2 06/11/17 19:43 111 111/81 06/11/17 19:31 122 15 121/89 95 Room Air 06/11/17 18:10 111 16 90/66 94 Room Air 06/11/17 16:12 118 24 105/65 96 Room Air 06/11/17 14:37 72 16 114/85 93 Room Air 06/11/17 13:12 92 16 129/84 06/11/17 12:11 70 16 113/72 06/11/17 10:19 36.4 64 22 103/62 96 Room Air General Appearance: WD/WN, no apparent distress Head: normocephalic Eyes: normal inspection ENT: normal ENT inspection, hearing grossly normal, TMs normal, pharynx normal Neck: supple, no JVD Respiratory/Chest: chest non-tender, lungs clear, normal breath sounds Cardiovascular: + systolic murmur, + irregularly irregular Abdomen/GI: normal bowel sounds, non tender, soft Back: normal inspection, no CVA tenderness, no muscle spasm, normal range of motion Extremities/Musculoskelatal: + pertinent finding (taught , inflammed area on L inner thigh) Neurologic/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: 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 II-XII nml as tested, no motor/sensory deficits, alert, oriented x 3 Skin: warm/dry, no rash, + pertinent finding (hematoma as above) Diagnostics Laboratory Results Results Past 24 Hours Test 06/11/17 11:10 06/11/17 11:22 06/11/17 13:05 06/11/17 20:02 Range/Units White Blood Count 25.22 22.25 4.8-10.8 K/uL Red Blood Count 3.21 2.78 4.7-6.1 M/uL Hemoglobin 9.2 8.0 14.0-18.0 g/dL Hematocrit 27.2 23.6 42-52 % Mean Corpuscular Volume 84.7 84.9 80-100 fL Mean Corpuscular Hemoglobin 28.7 28.8 25-34 pg Mean Corpuscular Hemoglobin Concent 33.8 33.9 32-36 g/dl Platelet Count 378 381 130-400 K/uL Mean Platelet Volume 9.4 9.5 7.4-10.4 fL Neutrophils (%) (Auto) 93.3 90.1 % Lymphocytes (%) (Auto) 1.8 4.1 % Monocytes (%) (Auto) 3.6 5.1 % Eosinophils (%) (Auto) 0.0 0.0 % Basophils (%) (Auto) 0.1 0.0 % Neutrophils # (Auto) 23.52 20.02 1.4-6.5 K/uL Lymphocytes # (Auto) 0.46 0.92 1.2-3.4 K/uL Monocytes # (Auto) 0.90 1.14 0.11-0.59 K/uL Eosinophils # (Auto) 0.00 0.00 0-0.5 K/uL Basophils # (Auto) 0.03 0.01 0-0.2 K/uL RDW Standard Deviation 55.4 55.6 36.4-46.3 fL RDW Coefficient of Variation 17.9 18.0 11.5-14.5 % Immature Granulocyte % (Auto) 1.2 0.7 % Immature Granulocyte # (Auto) 0.31 0.16 0.00-0.02 K/uL Sodium Level 135 136-145 mmol/L Potassium Level 4.6 3.5-5.1 mmol/L Chloride Level 104 98-107 mmol/L Carbon Dioxide Level 22 21-32 mmol/L Anion Gap 9.0 3-11 mmol/L Blood Urea Nitrogen 33 7-18 mg/dl Creatinine 1.40 0.60-1.40 mg/dl Est Creatinine Clear Calc Drug Dose 36.8 ml/min Estimated GFR () 53.5 Estimated GFR (Non- 46.1 BUN/Creatinine Ratio 23.6 10-20 Random Glucose 145 70-99 mg/dl Calcium Level 9.0 8.5-10.1 mg/dl Total Bilirubin 0.5 0.2-1 mg/dl Direct Bilirubin 0.1 0-0.2 mg/dl Aspartate Amino Transf (AST/SGOT) 12 15-37 U/L Alanine Aminotransferase (ALT/SGPT) 14 12-78 U/L Alkaline Phosphatase 94 45-117 U/L Total Protein 6.3 6.4-8.2 gm/dl Albumin 2.8 3.4-5.0 gm/dl Urine Color YELLOW Urine Appearance CLOUDY CLEAR Urine pH 5.5 4.5-7.5 Urine Specific [place] 1.021 1.000-1.030 Urine Protein 1+ NEG Urine Glucose (UA) NEG NEG Urine Ketones NEG NEG Urine Occult Blood 3+ NEG Urine Nitrite NEG NEG Urine Bilirubin NEG NEG Urine Urobilinogen NEG NEG Urine Leukocyte Esterase SMALL NEG Urine WBC (Auto) 10-30 0-5 /hpf Urine RBC (Auto) >30 0-4 /hpf Urine Hyaline Casts (Auto) 1-5 0-5 /lpf Urine Epithelial Cells (Auto) >30 0-5 /lpf Urine Bacteria (Auto) NEG NEG Urine Renal Epithelial Cells 0-5 /lpf Toxic Granulation OCCASIONAL Tear Drop Cells 1+ Microbiology Results 06/11/17 Blood Culture, Received Pending 06/11/17 Blood Culture, Received Pending 06/11/17 Urine Culture, Received Pending Diagnostic Radiology IMPRESSION: CT LLE 1. Large intramuscular mass/collection of the posterior left thigh musculature. 2. Dimensions approximate 38 x 10 x 8 cm there is perhaps a small active bleeding source from a intramuscular vessel of the mid thigh best seen transaxial image 46. 3. This extends from the left hip to a position slightly above the left knee. 4. This potentially relates to a large intramuscular hematoma, with etiology such as abscess or hemorrhagic neoplasm impossible to completely exclude although these are less likely. 5. Findings consistent with extensive deep venous thrombosis of the venous structures of the left thigh.. 6. Extensive soft tissue cellulitis versus simple edema 7. Incidental note is made of a left ureteral stent which has been described previously. EKG AF, RVR, RBBB - no significant morphological change Impression Assessment and Plan 81 y/o M Hx chronic AF, HTN, DM, CKD III, HPL, B-cell lymphoma, acute DVT 031 - Pt had an IVC filter placed at that time due to rectal bleeding from his lymphoma and anticoagulation. Eventually placed on Lovenox in March, which was stopped for port placement and not restarted until May 23. He apparently saw a Vascular Surgeon last week to discuss removal of his IVC. He had an US at that time which showed propagation of the DVT. It was not felt that he had failed Lovenox due to the interruption in use between March and the end of April which was likely the culprit for propagation. He presented to the ER 06/11 early AM due to increasing pain in his L thigh and D/C was arranged to rehab directly from the ER. He returned later in the afternoon due to worsening pain. An exam of the thigh revealed a large hematoma extending from the thigh to the groin. Repeat labs revealed a 1 unit drop in the pt's Hemoglobin. He was sent for a CT of the lower extremity which confirmed a large collection in the posterior left thigh musculature. The pt denies fevers, CP, SOB or dysuria. He admits to generalized weakness. It was noted that he was tachycardic on arrival to the ER - this may have been due to pain, however, he received a dose of Metoprolol which did improve his rate. 1) L thigh hematoma - pts Lovenox is held. He will be admitted to telemetry and monitored overnight. Vascular surgery were contacted in the ER and have advised on the above. Anatomically, the pt apparently not at risk of a compartment syndrome. We will request lower extremity neurovascular checks overnight. Lovenox is held and can be restarted at the discretion of his intern retail. 2) Anemia - Hb has dropped 1 unit - unlikely to drop significantly from bleeding into the thigh, however, we will monitor on telemetry, obtain serial Hbs and have obtained consent for transfusion as needed. 3) AF - rate controlled following admin. of Metoprolol - monitor - all anticoagulation held due to hematoma 4) CKD - Pt received contrast for CT scan - his creat is approximately at baseline - will provide IVF and trend BMP AM 5) B cell lymphoma - receiving chemo Q 3wks - due Fri at discretion of hematology 6) Weakness - would look to transfer back to rehab pending resolution of acute issues Full code - Prophylaxis held Total time for this admit including review of labs, meds, imaging, extensive records - discussion with opt, spouse, ER attending - 45 min VTE Prophylaxis VTE Risk Assessment Done? Y/N: Yes Risk Level: High
[2017-06-11 22:36] VITALS: BP 108/69; PULSE 102; TEMP 36.4; Ht 185.4 cm; Wt 69.7 kg
[2017-06-11] MEDS ORDERED: MoRPHine SULFATE 2 MG/ML CARP IV PRN (23:00)
[2017-06-11] MEDS: TRAMADOL HCL 50 MG TAB PO PRN (23:11)
[2017-06-12] VITALS (32 sets, daily range): BP systolic 93–132; BP diastolic 49–78; PULSE 81–116; TEMP 35.7–36.9; O2SAT 92–100
[2017-06-12 01:43] LABS: HEMATOCRIT 21.7 % (42-52)
[2017-06-12 01:49] LABS: PROTHROMBIN TIME (PATIENT) 10.4 SECONDS (9.0-12.0)
[2017-06-12 06:43] LABS: BUN/CREATININE RATIO 24.6 (10-20); CALCIUM 8.3 mg/dl (8.5-10.1); CREATININE 1.6 mg/dl (0.60-1.40); POTASSIUM 4.6 mmol/L (3.5-5.1)
[2017-06-12] MEDS: POLYETHYLENE (MIRALAX) 17 GM PACK PO SCH ×2 (08:05→20:47)
[2017-06-12] MEDS: FINASTERIDE 5 MG TAB PO SCH (08:06)
[2017-06-12] MEDS: DOCUSATE SODIUM 100 MG CAP PO PRN ×2 (08:13→20:47)
--- NOTE | 2017-06-12 08:27 | Medical Student: [facility] ---
Med Student Progress Note Date of Service Jun 12, 2017. Subjective Patient reports minimal pain in left thigh, 1-2/10. Controlled with pain medication. Denies chest pain, shortness of breath, nausea, vomiting, diarrhea. Reports generalized weakness but has been chronic. No numbness or tingling. Does report difficulty in starting urinary stream and frequency but no dysuria. Review of Systems Constitutional: No fever, No chills, No sweats Respiratory: No cough, No shortness of breath Cardiac: No chest pain, No orthopnea, No palpitations Abdomen: No pain, No nausea, No vomiting Musculoskeletal: + muscle pain, + swelling Male : + urinary frequency, + slowing stream, No dysuria Neurologic: No numbness/tingling Objective Vital Signs Date Time Temp Pulse Resp B/P (MAP) Pulse Ox O2 Delivery O2 Flow Rate FiO2 06/12/17 08:00 36.7 116 20 105/69 95 06/12/17 07:45 36.7 104 18 105/69 95 06/12/17 07:30 36.6 114 20 105/69 95 06/12/17 07:15 36.6 101 20 98/64 97 06/12/17 06:58 36.0 102 16 93/61 97 06/12/17 06:53 36.1 96 16 97/65 99 06/12/17 06:48 36.2 108 16 115/78 100 06/12/17 05:56 101 100/68 (79) 06/12/17 05:02 36.4 106 16 94/61 (72) 100 Room Air 06/12/17 04:20 36.5 100 16 103/65 (78) 97 Room Air 06/12/17 04:00 Room Air 06/12/17 04:00 106 106/73 (84) 06/12/17 03:08 102 20 108/72 (84) 06/12/17 02:00 36.4 103 18 93/49 (64) 97 Room Air 06/12/17 01:35 35.7 105 20 96/58 (71) 99 Room Air 06/12/17 00:00 Room Air 06/11/17 22:36 36.4 102 20 108/69 Room Air 06/11/17 22:24 107 18 108/81 100 Room Air 06/11/17 21:39 110 20 101/77 100 Room Air 06/11/17 19:43 111 111/81 06/11/17 19:31 122 15 121/89 95 Room Air 06/11/17 18:10 111 16 90/66 94 Room Air 06/11/17 16:12 118 24 105/65 96 Room Air 06/11/17 14:37 72 16 114/85 93 Room Air 06/11/17 13:12 92 16 129/84 06/11/17 12:11 70 16 113/72 06/11/17 10:19 36.4 64 22 103/62 96 Room Air Physical Exam General Appearance: WD/WN, no apparent distress Respiratory/Chest: chest non-tender, lungs clear, normal breath sounds Cardiovascular: no murmur, + irregularly irregular Abdomen: normal bowel sounds, non tender, soft Extremities: normal range of motion, + pertinent finding (left calf and thigh larger than right, mild ecchymoses to posterior left leg) 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: no motor/sensory deficits, alert, normal mood/affect Laboratory Results Last 24 Hours Test 06/11/17 11:10 06/11/17 11:22 06/11/17 13:05 06/11/17 20:02 White Blood Count 25.22 K/uL 22.25 K/uL Red Blood Count 3.21 M/uL 2.78 M/uL Hemoglobin 9.2 g/dL 8.0 g/dL Hematocrit 27.2 % 23.6 % Mean Corpuscular Volume 84.7 fL 84.9 fL Mean Corpuscular Hemoglobin 28.7 pg 28.8 pg Mean Corpuscular Hemoglobin Concent 33.8 g/dl 33.9 g/dl Platelet Count 378 K/uL 381 K/uL Mean Platelet Volume 9.4 fL 9.5 fL Neutrophils (%) (Auto) 93.3 % 90.1 % Lymphocytes (%) (Auto) 1.8 % 4.1 % Monocytes (%) (Auto) 3.6 % 5.1 % Eosinophils (%) (Auto) 0.0 % 0.0 % Basophils (%) (Auto) 0.1 % 0.0 % Neutrophils # (Auto) 23.52 K/uL 20.02 K/uL Lymphocytes # (Auto) 0.46 K/uL 0.92 K/uL Monocytes # (Auto) 0.90 K/uL 1.14 K/uL Eosinophils # (Auto) 0.00 K/uL 0.00 K/uL Basophils # (Auto) 0.03 K/uL 0.01 K/uL RDW Standard Deviation 55.4 fL 55.6 fL RDW Coefficient of Variation 17.9 % 18.0 % Immature Granulocyte % (Auto) 1.2 % 0.7 % Immature Granulocyte # (Auto) 0.31 K/uL 0.16 K/uL Sodium Level 135 mmol/L Potassium Level 4.6 mmol/L Chloride Level 104 mmol/L Carbon Dioxide Level 22 mmol/L Anion Gap 9.0 mmol/L Blood Urea Nitrogen 33 mg/dl Creatinine 1.40 mg/dl Est Creatinine Clear Calc Drug Dose 36.8 ml/min Estimated GFR () 53.5 Estimated GFR (Non- 46.1 BUN/Creatinine Ratio 23.6 Random Glucose 145 mg/dl Calcium Level 9.0 mg/dl Total Bilirubin 0.5 mg/dl Direct Bilirubin 0.1 mg/dl Aspartate Amino Transf (AST/SGOT) 12 U/L Alanine Aminotransferase (ALT/SGPT) 14 U/L Alkaline Phosphatase 94 U/L Total Protein 6.3 gm/dl Albumin 2.8 gm/dl Urine Color YELLOW Urine Appearance CLOUDY Urine pH 5.5 Urine Specific [place] 1.021 Urine Protein 1+ Urine Glucose (UA) NEG Urine Ketones NEG Urine Occult Blood 3+ Urine Nitrite NEG Urine Bilirubin NEG Urine Urobilinogen NEG Urine Leukocyte Esterase SMALL Urine WBC (Auto) 10-30 /hpf Urine RBC (Auto) >30 /hpf Urine Hyaline Casts (Auto) 1-5 /lpf Urine Epithelial Cells (Auto) >30 /lpf Urine Bacteria (Auto) NEG Urine Renal Epithelial Cells /lpf Toxic Granulation OCCASIONAL Tear Drop Cells 1+ Test 06/12/17 00:20 06/12/17 01:27 06/12/17 05:48 Hemoglobin 7.3 g/dL 7.2 g/dL 6.6 g/dL Hematocrit 21.7 % Prothrombin Time 10.4 SECONDS Prothromb Time International Ratio 1.0 Activated Partial Thromboplast Time 25.4 SECONDS Partial Thromboplastin Ratio 1.0 Sodium Level 135 mmol/L Potassium Level 4.6 mmol/L Chloride Level 104 mmol/L Carbon Dioxide Level 21 mmol/L Anion Gap 10.0 mmol/L Blood Urea Nitrogen 39 mg/dl Creatinine 1.60 mg/dl Est Creatinine Clear Calc Drug Dose 33.5 ml/min Estimated GFR () 45.5 Estimated GFR (Non- 39.3 BUN/Creatinine Ratio 24.6 Random Glucose 145 mg/dl Calcium Level 8.3 mg/dl Medications Current Inpatient Medications Medications (Trade) Dose Ordered Sig/Estevan Route Start Time Stop Time Status Last Admin Dose Admin Ioversol (Optiray 320) 125 ml UD PRN IV 06/11/17 19:45 06/15/17 19:44 Docusate Sodium (coLACE CAP) 100 mg BID PRN PO 06/11/17 21:45 07/11/17 21:44 06/12/17 08:13 100 MG Finasteride (Proscar Tab) 5 mg QAM PO 06/12/17 09:00 07/12/17 08:59 06/12/17 08:06 5 MG Oxycodone/ Acetaminophen (Percocet 5-325mg Tab) 1 tab TID PRN PO 06/11/17 21:45 06/25/17 21:44 Prednisone (PredniSONE TAB) 10 mg DAILY PO 06/12/17 09:00 07/12/17 08:59 06/12/17 08:06 10 MG Tramadol HCl (Ultram Tab) 50 mg Q6H PRN PO 06/11/17 21:45 07/11/17 21:44 06/11/17 23:11 50 MG Polyethylene (Miralax Powder Packet) 17 gm BID PO 06/12/17 09:00 07/12/17 08:59 06/12/17 08:05 17 GM Acetaminophen (Tylenol Tab) 650 mg Q4H PRN PO 06/11/17 21:45 07/11/17 21:44 Al Hydrox/Mg Hydrox/Simethicone (Maalox Max Susp) 15 ml Q4H PRN PO 06/11/17 21:45 07/11/17 21:44 Magnesium Hydroxide (Milk Of Magnesia Susp) 30 ml Q12H PRN PO 06/11/17 21:45 07/11/17 21:44 Ondansetron HCl (Zofran Inj) 4 mg Q6H PRN IV 06/11/17 21:45 07/11/17 21:44 Polyethylene (Miralax Powder Packet) 17 gm DAILY PRN PO 06/11/17 21:45 07/11/17 21:44 Morphine Sulfate (MoRPHine SULFATE INJ) 2 mg Q3H PRN IV 06/11/17 23:00 06/25/17 22:59 Assessment and Plan Assessment and Plan: 81 year old male with a past medical history of chronic Afib, HTN, CKD III, as well as B cell lymphoma and 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 Left thigh hematoma - Lovenox held on admission, has IVC filter in place (placed 02/07 after rectal bleed on Lovenox) - CT: [id number] intramuscular mas/collection in posterior left thigh musculature extending from left hip to above the left knee - consider vascular surgery consult if H&H continues to drop, vascular surgery was contacted when patient admitted and rec holding Lovenox - Acetaminophen and Tramadol 50mg q6hr PRN for pain control Acute blood loss anemia - etiology likely due to bleeding into left thigh hematoma, stool guaiac testing negative - Hgb dropped to 6.6, now 8.4 s/p 2 units pRBCs - ordered 2 units irradiated pRBCs to be on hold due to patients immunocompromised state undergoing chemotherapy - trend H&H q6hr - transfuse pRBC for goal Hgb >7 CKD III - baseline Cr 1.5, currently 1.6 s/p contrast for CT - monitor BMP qAM B-cell lymphoma - continue prednisone - due for chemo 06/13, heme/onc aware currently inpatient and will need to reschedule Hypertension - hold metoprolol as MAPs in 70s Generalized Weakness - consider PT/OT - return to rehab on discharge History Resident Physician Supervision Note: I was present with Dr. Lanza during the history and exam. I discussed the case with the resident and agree with the findings and plan as documented in the note. Any exceptions or clarifications are listed here. Pt seen and examined at bedside. Persistent aching LLE thigh pain which is stable from previous w/ swelling which may be slightly worse than baseline (2/2 DVT). Reports no fever, n/v/d/c, melena, hematochezia, other bruising/bleeding General Appearance: WD/WN, no apparent distress Cardiovascular: normal peripheral pulses, regular rate, rhythm Gastrointestinal: normal bowel sounds, non tender, soft, no organomegaly, other (nl stool in vault on rectal w/ good tone) Extremities: other (limited ROM of the LLE at the hip and knee 2/2 pain w/ significant swelling of same TTP along quad/groin) 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: no motor/sensory deficits, alert, normal mood/affect, oriented x 3 Skin Characteristics: normal color, warm/dry Assessment/Plan 81 y/o male h/o Afib, CKD II, B cell lymphoma w/ DVT in left femoral w/ anemia and L thigh hematoma L thigh hematoma - continue pain control, t/c vascular evaluation if hgb continues to drop, likely PT 2/2 deconditioning following Anemia, acute blood loss - transfuse to goal of > 7 w/ IRRADIATED RBC - trend H/ H q6, 2 units already given CKD III - trend BMP daily B cell lymphoma - continue pred HTN - hold BP medications 2/2 current bleed
[2017-06-12] MEDS: TRAMADOL HCL 50 MG TAB PO PRN ×3 (08:53→22:32)
--- NOTE | 2017-06-12 09:00 | Family Medicine Progress Note ---
Progress Note Date of Service Jun 12, 2017. Subjective Pt evaluation today including: conversation w/ patient, physical exam, chart review, lab review, review of studies Pain: Patient states that that his pain is well-controlled this morning Voiding: no voiding problems, no incontinence The patient is resting comfortably in bed this morning with no acute complaints overnight. The patient states that the Ultram is controlling his pain. He also states that he has had some difficulties urinating, along with some hesitancy. The patient was also informed that he will not be undergoing his chemotherapy tomorrow as previously scheduled. Constitutional: No fever, No chills Respiratory: No cough, No sputum, No wheezing, No shortness of breath Cardiovascular: No chest pain, No palpitations Abdomen: No pain, No nausea, No vomiting Male : + slowing stream, No dysuria, No urinary frequency, No incontinence , No nocturia more than once/night Medications Current Inpatient Medications Medications (Trade) Dose Ordered Sig/Estevan Route Start Time Stop Time Status Last Admin Dose Admin Ioversol (Optiray 320) 125 ml UD PRN IV 06/11/17 19:45 06/15/17 19:44 Docusate Sodium (coLACE CAP) 100 mg BID PRN PO 06/11/17 21:45 07/11/17 21:44 06/12/17 08:13 100 MG Finasteride (Proscar Tab) 5 mg QAM PO 06/12/17 09:00 07/12/17 08:59 06/12/17 08:06 5 MG Oxycodone/ Acetaminophen (Percocet 5-325mg Tab) 1 tab TID PRN PO 06/11/17 21:45 06/25/17 21:44 Prednisone (PredniSONE TAB) 10 mg DAILY PO 06/12/17 09:00 07/12/17 08:59 06/12/17 08:06 10 MG Tramadol HCl (Ultram Tab) 50 mg Q6H PRN PO 06/11/17 21:45 07/11/17 21:44 06/12/17 16:19 50 MG Polyethylene (Miralax Powder Packet) 17 gm BID PO 06/12/17 09:00 07/12/17 08:59 06/12/17 08:05 17 GM Acetaminophen (Tylenol Tab) 650 mg Q4H PRN PO 06/11/17 21:45 07/11/17 21:44 Al Hydrox/Mg Hydrox/Simethicone (Maalox Max Susp) 15 ml Q4H PRN PO 06/11/17 21:45 07/11/17 21:44 Magnesium Hydroxide (Milk Of Magnesia Susp) 30 ml Q12H PRN PO 06/11/17 21:45 07/11/17 21:44 Ondansetron HCl (Zofran Inj) 4 mg Q6H PRN IV 06/11/17 21:45 07/11/17 21:44 Polyethylene (Miralax Powder Packet) 17 gm DAILY PRN PO 06/11/17 21:45 07/11/17 21:44 Morphine Sulfate (MoRPHine SULFATE INJ) 2 mg Q3H PRN IV 06/11/17 23:00 06/25/17 22:59 Enteral Nutritional Formula (Boost Plus Vanilla) 1 can BIDM PO 06/12/17 16:45 07/12/17 16:44 Objective Vital Signs Date Time Temp Pulse Resp B/P (MAP) Pulse Ox O2 Delivery O2 Flow Rate FiO2 06/12/17 15:44 36.4 81 18 113/74 (87) 98 Room Air 06/12/17 12:15 104 20 99/64 94 06/12/17 12:03 36.7 107 20 99/63 (75) 92 Room Air 06/12/17 12:00 96 Room Air 06/12/17 11:45 100 18 99/63 98 06/12/17 11:15 36.7 105 18 99/63 95 06/12/17 11:00 36.7 104 20 99/63 94 06/12/17 10:45 36.7 99 20 101/63 99 06/12/17 10:31 36.6 103 20 118/78 100 06/12/17 10:16 36.6 98 18 132/78 97 06/12/17 09:50 36.7 103 20 108/71 98 06/12/17 09:00 36.7 100 20 122/78 97 06/12/17 08:30 87 20 107/67 97 06/12/17 08:15 36.7 86 18 108/68 98 06/12/17 08:00 94 Room Air 06/12/17 08:00 36.7 116 20 105/69 95 06/12/17 07:45 36.7 104 18 105/69 95 06/12/17 07:30 36.6 114 20 105/69 95 06/12/17 07:16 36.4 106 20 98/64 (75) 94 Room Air 06/12/17 07:15 36.6 101 20 98/64 97 06/12/17 06:58 36.0 102 16 93/61 97 06/12/17 06:53 36.1 96 16 97/65 99 06/12/17 06:48 36.2 108 16 115/78 100 06/12/17 05:56 101 100/68 (79) 06/12/17 05:02 36.4 106 16 94/61 (72) 100 Room Air 06/12/17 04:20 36.5 100 16 103/65 (78) 97 Room Air 06/12/17 04:00 Room Air 06/12/17 04:00 106 106/73 (84) 06/12/17 03:08 102 20 108/72 (84) 06/12/17 02:00 36.4 103 18 93/49 (64) 97 Room Air 06/12/17 01:35 35.7 105 20 96/58 (71) 99 Room Air 06/12/17 00:00 Room Air 06/11/17 22:36 36.4 102 20 108/69 Room Air 06/11/17 22:24 107 18 108/81 100 Room Air 06/11/17 21:39 110 20 101/77 100 Room Air 06/11/17 19:43 111 111/81 06/11/17 19:31 122 15 121/89 95 Room Air 06/11/17 18:10 111 16 90/66 94 Room Air Physical Exam General Appearance: WD/WN, no apparent distress, + thin Eyes: normal inspection, sclerae normal Neck: supple, no carotid bruits Respiratory/Chest: chest non-tender, lungs clear, normal breath sounds Cardiovascular: + systolic murmur, + irregularly irregular Abdomen: normal bowel sounds, non tender, soft Extremities: + pertinent finding (Left thigh swollen end erythematous, nontender to palpation) 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: alert, normal mood/affect, oriented x 3 Laboratory Results Results Past 24 Hours Test 06/11/17 20:02 06/12/17 00:00 06/12/17 00:20 06/12/17 01:27 Range/Units White Blood Count 22.25 4.8-10.8 K/uL Red Blood Count 2.78 4.7-6.1 M/uL Hemoglobin 8.0 7.3 7.2 14.0-18.0 g/dL Hematocrit 23.6 21.7 42-52 % Mean Corpuscular Volume 84.9 80-100 fL Mean Corpuscular Hemoglobin 28.8 25-34 pg Mean Corpuscular Hemoglobin Concent 33.9 32-36 g/dl Platelet Count 381 130-400 K/uL Mean Platelet Volume 9.5 7.4-10.4 fL Neutrophils (%) (Auto) 90.1 % Lymphocytes (%) (Auto) 4.1 % Monocytes (%) (Auto) 5.1 % Eosinophils (%) (Auto) 0.0 % Basophils (%) (Auto) 0.0 % Neutrophils # (Auto) 20.02 1.4-6.5 K/uL Lymphocytes # (Auto) 0.92 1.2-3.4 K/uL Monocytes # (Auto) 1.14 0.11-0.59 K/uL Eosinophils # (Auto) 0.00 0-0.5 K/uL Basophils # (Auto) 0.01 0-0.2 K/uL RDW Standard Deviation 55.6 36.4-46.3 fL RDW Coefficient of Variation 18.0 11.5-14.5 % Immature Granulocyte % (Auto) 0.7 % Immature Granulocyte # (Auto) 0.16 0.00-0.02 K/uL Toxic Granulation OCCASIONAL Tear Drop Cells 1+ Stool Occult Blood NEGATIVE NEGATIVE Prothrombin Time 10.4 9.0-12.0 SECONDS Prothromb Time International Ratio 1.0 0.9-1.1 Activated Partial Thromboplast Time 25.4 21.0-31.0 SECONDS Partial Thromboplastin Ratio 1.0 Test 06/12/17 05:48 06/12/17 13:13 Range/Units Hemoglobin 6.6 8.4 14.0-18.0 g/dL Sodium Level 135 136-145 mmol/L Potassium Level 4.6 3.5-5.1 mmol/L Chloride Level 104 98-107 mmol/L Carbon Dioxide Level 21 21-32 mmol/L Anion Gap 10.0 3-11 mmol/L Blood Urea Nitrogen 39 7-18 mg/dl Creatinine 1.60 0.60-1.40 mg/dl Est Creatinine Clear Calc Drug Dose 33.5 ml/min Estimated GFR () 45.5 Estimated GFR (Non- 39.3 BUN/Creatinine Ratio 24.6 10-20 Random Glucose 145 70-99 mg/dl Calcium Level 8.3 8.5-10.1 mg/dl White Blood Count 22.59 4.8-10.8 K/uL Red Blood Count 2.99 4.7-6.1 M/uL Hematocrit 25.3 42-52 % Mean Corpuscular Volume 84.6 80-100 fL Mean Corpuscular Hemoglobin 28.1 25-34 pg Mean Corpuscular Hemoglobin Concent 33.2 32-36 g/dl RDW Standard Deviation 51.6 36.4-46.3 fL RDW Coefficient of Variation 16.7 11.5-14.5 % Platelet Count 267 130-400 K/uL Mean Platelet Volume 9.3 7.4-10.4 fL Microbiology Results 06/11/17 Blood Culture, Received Pending 06/11/17 Blood Culture, Received Pending Assessment and Plan Patient is an 81-year-old male presented with left groin pain to the ED last night. CT scan is found to have a large intramuscular mass/collection in the posterior left thigh musculature measuring 38 x 10 x 8 cm. The patient was previously on Lovenox at the time and that was held. The patient denies any inciting trauma that may have caused the bleed. The patient's pain has been well controlled on Ultram. His hemoglobin dropped to 6.6 and he was subsequently transfused 2 units of blood. The patient is currently undergoing chemotherapy for B-cell lymphoma, and had a scheduled session of chemotherapy for Friday. After discussion with his oncologist Dr. Whitley it was decided that the patient would have his scheduled chemotherapy next week. The patient is also been complaining of difficulty urinating and hesitancy in addition to a urinalysis that appears to have signs of a urinary tract infection in addition to microscopic growth on urine culture. 1) Left leg hematoma - Transfused 2 units of packed cells and hemoglobin increased from 6.6 to 8.2 - 2 units of packed irradiated red blood cells were ordered and placed on hold - Q6H H/H - Lovenox being held - We'll discuss resuming anticoagulation with hematology - Pain control with tramadol - CT: Large intramuscular mass/ collection in posterior left thigh muscle measuring [id number] 2) Anemia 2/2 Hematoma - 2 units of transfused PRBC - 2 units on hold (Irradiated PRBC) - Hgb currently 8.2 - q6 H/H 3) Atrial Fibrillation - Metoprolol - Lovenox currently on hold - Patient currently in Afib on EKG - Patient on Telemetry 4) CKD - Cretinine currently 1.6, 1.4 on admission - Patient received IV contrast for CT - Receiving IV Fluids - Daily BMP 5) B Cell Lymphoma - Discussed case with Heme/Onc this morning - Patient chemotherapy will be moved to next week - Hold lovenox for time being - Give Irradiated PRBC during transfusions 6) UA? - Urinary symptoms including burning on urination - Preliminary growth on urine cultures - UA may be contaminated but shows blood and leukocyte esterase 7) DVT Prophylaxis - Holding Lovenox - SCDs 8) Code Status - Full Resuscitation Resident Tracking Resident Involvement: Resident Care Provided Care Provided: Adult Hospital Medicine Assessment/Plan Resident Physician Supervision Note: I was present with Dr. Lanza during the history and exam. I discussed the case with the resident and agree with the findings and plan as documented in the note. Any exceptions or clarifications are listed here. For full attending attestation, please see accompanying note from this day.
--- NOTE | 2017-06-12 09:45 | Clinical Documentation Query ---
CLINICAL DOCUMENTATION QUERY 81-y/o male with left thigh pain. He was found to have large left thigh hematoma. Patient denies trauma. Query #1/2 In your clinical opinion is this patient being managed for: (X) Nontraumatic Left thigh hematoma due Lovenox therapy ( ) Other explanation of clinical findings (Please Explain) ( ) Unable to determine (Please Define) ( ) Need to Discuss ( ) Not Agree The medical record reflects the following clinical findings, treatment, and risk factors. Clinical Indicators: As above. CT shows a large intramuscular mass/collection of the posterior left thigh musculature. Treatment: 2 units of PRBC's, Lovenox held, Vascular consult Risk Factors: Age, Lovenox therapy, prednisone therapy, Query #2/2 In your clinical opinion is this patient being managed for: (X) Acute blood loss anemia due to hematoma and Lovenox therapy treated with 2 units of PRBC's. ( ) Other explanation of clinical findings (Please Explain) ( ) Unable to determine (Please Define) ( ) Need to Discuss ( ) Not Agree The medical record reflects the following clinical findings, treatment, and risk factors. Clinical Indicators: Hgb had fallen to 6.6. Lower extremity CT showed large intramuscular mass/collection of the posterior left thigh musculature. Treatment: 2 units of PRBC's, Lovenox held Risk Factors: Lovenox therapy Please clarify and document your clinical opinion in the progress notes and discharge summary. Terms such as "probable", "suspected", "likely", "questionable", "possible", or "still to be ruled out" are acceptable. IF IN AGREEMENT, YOU MUST DOCUMENT ABOVE DIAGNOSTIC STATEMENT IN DAILY PROGRESS NOTES AND DISCHARGE SUMMARY. This document is not part of the patient's record. Thank You, Gael Harmon, RN [phone]
[2017-06-12 13:29] LABS: HEMATOCRIT 25.3 % (42-52); MEAN CELL VOLUME 84.6 fL (80-100); MEAN CORPUSCULAR HEMOGLOBIN 28.1 pg (25-34); MEAN PLATELET VOLUME 9.3 fL (7.4-10.4); PLATELET COUNT 267 K/uL (130-400); RED BLOOD COUNT 2.99 M/uL (4.7-6.1); WHITE BLOOD COUNT 22.59 K/uL (4.8-10.8)
[2017-06-12 13:33] LABS: MEAN CORPUSCULAR HGB CONC 33.2 g/dl (32-36)
[2017-06-12] MEDS: BOOST PLUS VANILLA PO SCH ×2 (17:24)
[2017-06-12] MEDS: CEFTRIAXONE SOD INJ 1 GM in DEXTROSE 5% ADD-VANTAGE 50ML 50 ML IV SCH (18:10)
[2017-06-12 19:15] LABS: HEMATOCRIT 22.9 % (42-52); MEAN CELL VOLUME 82.4 fL (80-100); MEAN CORPUSCULAR HEMOGLOBIN 28.4 pg (25-34); MEAN CORPUSCULAR HGB CONC 34.5 g/dl (32-36); MEAN PLATELET VOLUME 9.2 fL (7.4-10.4); PLATELET COUNT 254 K/uL (130-400); RED BLOOD COUNT 2.78 M/uL (4.7-6.1); WHITE BLOOD COUNT 24.76 K/uL (4.8-10.8)
[2017-06-12] MEDS ORDERED: NURSING VERBAL MED ORDER ONE (19:15)
[2017-06-13] VITALS (17 sets, daily range): BP systolic 84–130; BP diastolic 42–73; PULSE 86–123; TEMP 36.5–36.8; O2SAT 96–100
[2017-06-13 01:06] LABS: MEAN CELL VOLUME 84.6 fL (80-100); MEAN CORPUSCULAR HEMOGLOBIN 29.2 pg (25-34); MEAN CORPUSCULAR HGB CONC 34.5 g/dl (32-36); MEAN PLATELET VOLUME 8.8 fL (7.4-10.4); PLATELET COUNT 236 K/uL (130-400); WHITE BLOOD COUNT 17.53 K/uL (4.8-10.8)
[2017-06-13] MEDS ORDERED: METOPROLOL TARTRATE 25 MG TAB PO STA (02:31)
[2017-06-13 07:16] LABS: HEMATOCRIT 22.6 % (42-52); MEAN CORPUSCULAR HEMOGLOBIN 29.3 pg (25-34); MEAN CORPUSCULAR HGB CONC 34.5 g/dl (32-36); PLATELET COUNT 242 K/uL (130-400); RED BLOOD COUNT 2.66 M/uL (4.7-6.1); WHITE BLOOD COUNT 14.39 K/uL (4.8-10.8)
--- NOTE | 2017-06-13 07:43 | Medical Student: [facility] ---
Med Student Progress Note Date of Service Jun 13, 2017. Subjective Pt evaluation today including: conversation w/ patient, physical exam, lab review Tachycardic in 120s overnight. Was given 12.5mg IV metoprolol tartrate and HR responded to 90-100. Patient denies headaches, lightheadedness, dizziness, chest pain, shortness of breath. He denies abdominal pain, nausea, vomiting. He reports his last bowel movement was 2 days ago but does not feel constipated and states he usually goes every other day at baseline. The pain in his leg is unchanged from yesterday but is controlled with tramadol. He does report some tingling sensation in his left heel. He states he noticed it while waking up this morning. It lasted about 1 minute. He denies any numbness, tingling or weakness into the toes or up the leg. Review of Systems Constitutional: No fever, No chills, No sweats Respiratory: No cough, No shortness of breath Cardiac: No chest pain, No orthopnea, No claudication Abdomen: No pain, No nausea, No vomiting Musculoskeletal: + swelling, + problem reported (pain in left groin) Male : + urinary frequency, No dysuria Neurologic: + weakness, + numbness/tingling Endo: + fatigue Objective Vital Signs Date Time Temp Pulse Resp B/P (MAP) Pulse Ox O2 Delivery O2 Flow Rate FiO2 06/13/17 04:00 Room Air 06/13/17 03:11 36.6 123 16 98/63 (75) 96 Room Air 06/13/17 01:59 122 101/61 (74) 06/12/17 23:59 Room Air 06/12/17 23:20 36.9 99 18 98/61 (73) 96 Room Air 06/12/17 20:00 98 Room Air 06/12/17 16:00 98 Room Air 06/12/17 15:44 36.4 81 18 113/74 (87) 98 Room Air 06/12/17 12:15 104 20 99/64 94 06/12/17 12:03 36.7 107 20 99/63 (75) 92 Room Air 06/12/17 12:00 96 Room Air 06/12/17 11:45 100 18 99/63 98 06/12/17 11:15 36.7 105 18 99/63 95 06/12/17 11:00 36.7 104 20 99/63 94 06/12/17 10:45 36.7 99 20 101/63 99 06/12/17 10:31 36.6 103 20 118/78 100 06/12/17 10:16 36.6 98 18 132/78 97 06/12/17 09:50 36.7 103 20 108/71 98 06/12/17 09:00 36.7 100 20 122/78 97 06/12/17 08:30 87 20 107/67 97 06/12/17 08:15 36.7 86 18 108/68 98 06/12/17 08:00 94 Room Air 06/12/17 08:00 36.7 116 20 105/69 95 06/12/17 07:45 36.7 104 18 105/69 95 Physical Exam General Appearance: WD/WN, no apparent distress Respiratory/Chest: lungs clear, normal breath sounds, no respiratory distress Cardiovascular: no gallop, no murmur, + irregularly irregular Abdomen: normal bowel sounds, non tender, soft Extremities: normal range of motion, non-tender, + inflammation (left thigh and left calf) 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: alert, normal mood/affect Skin: + pertinent finding (ecchymoses to posterior left leg from buttocks to ankle) Laboratory Results Last 24 Hours Test 06/12/17 13:13 06/12/17 18:59 06/13/17 00:53 06/13/17 06:53 White Blood Count 22.59 K/uL 24.76 K/uL 17.53 K/uL 14.39 K/uL Red Blood Count 2.99 M/uL 2.78 M/uL 2.60 M/uL 2.66 M/uL Hemoglobin 8.4 g/dL 7.9 g/dL 7.6 g/dL 7.8 g/dL Hematocrit 25.3 % 22.9 % 22.0 % 22.6 % Mean Corpuscular Volume 84.6 fL 82.4 fL 84.6 fL 85.0 fL Mean Corpuscular Hemoglobin 28.1 pg 28.4 pg 29.2 pg 29.3 pg Mean Corpuscular Hemoglobin Concent 33.2 g/dl 34.5 g/dl 34.5 g/dl 34.5 g/dl RDW Standard Deviation 51.6 fL 50.5 fL 52.7 fL 53.1 fL RDW Coefficient of Variation 16.7 % 16.9 % 17.3 % 17.4 % Platelet Count 267 K/uL 254 K/uL 236 K/uL 242 K/uL Mean Platelet Volume 9.3 fL 9.2 fL 8.8 fL 9.0 fL Assessment and Plan Assessment and Plan: Assessment and Plan: 81 year old male with a past medical history of chronic Afib, HTN, CKD III, as well as B cell lymphoma and 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 H&H stable overnight. Left thigh hematoma - Lovenox held on admission, has IVC filter in place (placed 02/07 after rectal bleed on Lovenox) - CT: [id number] intramuscular mas/collection in posterior left thigh musculature extending from left hip to above the left knee - H&H stable 7.2-7.9 overnight - Acetaminophen and Tramadol 50mg q6hr PRN for pain control - vascular surgery consulted due to hemoglobin 7.2 and for management of hematoma Acute blood loss anemia - etiology likely due to bleeding into left thigh hematoma, stool guaiac testing negative - Hgb dropped to 6.6, 8.4 s/p 2 units pRBCs, remained stable above 7 - 2 units irradiated pRBCs are ordered and on hold due to patients immunocompromised state undergoing chemotherapy - trend H&H q6hr - transfuse pRBC for goal Hgb >7 - vascular surgery consulted as per above CKD III - baseline Cr 1.2, 1.2 today - monitor BMP qAM B-cell lymphoma - continue prednisone - was due for chemo 06/13, heme/onc aware currently inpatient and will need to reschedule Hypertension - hold metoprolol as MAPs in 70s Generalized Weakness - consider PT/OT - return to rehab on discharge
[2017-06-13 07:45] LABS: BUN/CREATININE RATIO 27.3 (10-20); CALCIUM 8.4 mg/dl (8.5-10.1); CREATININE 1.2 mg/dl (0.60-1.40); POTASSIUM 4.4 mmol/L (3.5-5.1)
[2017-06-13] MEDS: POLYETHYLENE (MIRALAX) 17 GM PACK PO SCH ×2 (08:47→19:42)
[2017-06-13] MEDS: BOOST PLUS VANILLA PO SCH ×4 (08:47→17:29)
[2017-06-13] MEDS: FINASTERIDE 5 MG TAB PO SCH (08:48)
[2017-06-13] MEDS: DOCUSATE SODIUM 100 MG CAP PO PRN (08:52)
[2017-06-13] MEDS: TRAMADOL HCL 50 MG TAB PO PRN ×2 (08:52→18:41)
[2017-06-13 12:52] LABS: HEMATOCRIT 21.8 % (42-52); MEAN CELL VOLUME 84.2 fL (80-100); MEAN CORPUSCULAR HEMOGLOBIN 27.8 pg (25-34); MEAN PLATELET VOLUME 8.5 fL (7.4-10.4); PLATELET COUNT 242 K/uL (130-400); RED BLOOD COUNT 2.59 M/uL (4.7-6.1); WHITE BLOOD COUNT 14.64 K/uL (4.8-10.8)
[2017-06-13] MEDS ORDERED: CEFAZOLIN SOD 1000MG/55 ML D5W IV ONE (15:22)
[2017-06-13] MEDS ORDERED: FENTANYL CITRATE INJ 50 MCG/1 ML 2 ML VIAL ONE (15:28)
[2017-06-13] MEDS ORDERED: MIDAZOLAM HCL 1 MG/ML 2ML VIAL ONE (15:28)
[2017-06-13] MEDS ORDERED: CEFAZOLIN IV 1,000 MG in DEXTROSE 5% 50ML 50 ML IV SCH (15:30)
--- NOTE | 2017-06-13 15:39 | Medical Consult ---
Consultation Note Date of Service Jun 13, 2017. Consultation Note Chief Complaint Left leg bleeding History of Present Illness The patient is a 81 year old male with lymphoma, admitted d/t left thigh bleeding. CTA showed a suspicious area of possible bleeding. His hemoglobin continues to drop and ecchymosis is worse according to his . He was found last week to have acute propagation of his leg clot. He did have an interruption of his anticoagulation at that time. He does have a filter in place since February of this year. Denies JOY, fever, chills, chest pain, SOB, adb pain, N/V, rest pain, claudication, other complaints. Allergies Coded Allergies: No Known Allergies (Verified , 02/24/17) Home Medications Scheduled Enoxaparin (Lovenox), 80 MG SQ Q12H Finasteride (Proscar), 5 MG PO DAILY Metoprolol Succ (Toprol Xl) (Toprol-Xl), 50 MG PO DAILY Tamsulosin Hcl (Flomax), 0.4 MG PO HS Problem List Medical Problems: (1) ATRIAL FIBRILLATION (2) DIAB OBDULIA WO COMPL, TYPE II OR UNSPEC TYPE, NOT UNCNTRLD (3) DIVERTICULOSIS COLON (W/O MENT OF HEMORRHAGE) (4) Gout (5) Hypercalcemia (6) HYPERLIPIDEMIA NEC/NOS (7) HYPERPLASIA OF PROSTATE (8) Rectal bleed Surgical / Medical History Hx Cardiac Surgery: No Hx Abdominal Surgery: No Hx Cancer Surgery: No Hx Thoracic Surgery: No Hx Orthopedic: No Hx Urinary Tract Surgery: No Past Medical/Surgical History: Cancer, Hypertension Family History FH: cancer FH: cancer Social History Smoking Status: Never Smoker Hx Tobacco Use In Past Year?: No Hx Alcohol Use - Type & Amnt: No Hx Substance Use -Type & Amnt: No Review of Systems Constitutional: + malaise, No chills, No fever Skin: No change in color Eyes: No visual changes ENMT: No sore throat Respiratory: No cough, No AGUILAR, No hemoptysis, No short of breath Cardiovascular: No chest pain, No palpitations, No syncope, No edema, No intermittent claudication Gastrointestinal: No abdominal pain, No diarrhea, No nausea Neurologic: No dizziness, No lethargy, No numbness, No tingling Physical Exam Constitutional: General Apperance: well-nourished, well-developed Level of Distress: NAD, chronically ill Psychiatric: Mental Status: active & alert, normal mood, normal affect Orientation: oriented except where noted, to time, to place, to person Memory: recent memory normal, remote memory normal Head: normocephalic, atraumatic Eyes: EOM: EOMI ENMT: normal ENT inspection, hearing grossly normal Neck: supple, trachea midline Lungs: Respiratory effort: no dyspnea Auscultation: no rales/crackles, no rhonchi, decreased breath sounds Cardiovascular: Apical Impulse: not displaced Heart Auscultation: RRR, no murmurs, no rubs, no gallops Peripheral Pulses: Pulses: full and equal, in all extremities except if noted Bruits: none appreciated Carotid Pulse: normal on the left, normal on the right Brachial Pulses: normal on the left, normal on the right Radial Pulse: normal on the left, normal on the right Femoral Pulse: normal on the left, normal on the right Posterior Tibialis Pulse: decreased on the left, decreased on the right Dorsalis Pedis Pulse: decreased on the left, decreased on the right Abdomen: Bowel Sounds: normal Inspection & Palpation: soft, non-distended, no tenderness, guarding & rebound Musculoskeletal: normal strength (5/5 throughout), normal tone Extremities: Upper Right: no cyanosis, no edema, no varicosities Upper Left: no cyanosis, no edema, no varicosities Lower Right: no cyanosis, no varicosities, edema Lower Left: no cyanosis, no varicosities, hematoma left posterior thigh, ecchymosis left thigh and buttock Neurologic: Cranial Nerves: grossly intact Sensation: grossly intact ASSESSMENT and PLAN: Imp; Left thigh bleeding Plan: Recommend arteriography with possible embolization if bleeding site seen. I have discussed the risks options and benefits of the procedure with the patient. The patient understands the risks options and benefits and agrees to the procedure.
--- NOTE | 2017-06-13 15:39 | Procedure Note ---
Pre-Mod Sedation Assessment General Date of Moderate Sedation: Jun 13, 2017. Vital Signs: Vital Signs Past 12 Hours Date Time Temp Pulse Resp B/P (MAP) Pulse Ox O2 Delivery O2 Flow Rate FiO2 06/13/17 15:08 36.8 89 16 89/47 (61) 99 Room Air 84/42 (56) 06/13/17 12:00 Room Air 06/13/17 11:03 36.5 99 20 99/59 (72) 98 Room Air 06/13/17 08:00 Room Air 06/13/17 07:10 36.6 91 20 101/58 (72) 98 Room Air 06/13/17 04:00 Room Air Pre-Sedation Airway Assessment Oral Cavity: WNL Smoking Status: Never Smoker Mallampati Classification: Class I ASA Classification: Class III Notes The planned sedation has been discussed with the patient and consent obtained. I have identified the patient, determined the appropriateness of sedation and have assessed the patient immediately prior to the procedure. All medicine(s) and interventions are by my order.
[2017-06-13] MEDS ORDERED: CEFAZOLIN 1000MG/55 ML D5W IV SCH (16:00)
[2017-06-13] MEDS ORDERED: FENTANYL CITRATE INJ 50 MCG/1 ML 2 ML VIAL IV ONE (16:21)
[2017-06-13] MEDS ORDERED: MIDAZOLAM HCL 1 MG/ML 2ML VIAL IV ONE (16:21)
[2017-06-13] MEDS ORDERED: SODIUM CHLORIDE 0.9% 1000ML 1,000 ML IV SCH (16:53)
--- NOTE | 2017-06-13 16:56 | Procedure Note ---
Post-Moderate Sedation Plan General Date of Moderate Sedation Jun 13, 2017. Vital Signs: Vital Signs Past 12 Hours Date Time Temp Pulse Resp B/P (MAP) Pulse Ox O2 Delivery O2 Flow Rate FiO2 06/13/17 15:46 36.8 89 16 84/42 99 Room Air 06/13/17 15:08 36.8 89 16 89/47 (61) 99 Room Air 84/42 (56) 06/13/17 12:00 Room Air 06/13/17 11:03 36.5 99 20 99/59 (72) 98 Room Air 06/13/17 08:00 Room Air 06/13/17 07:10 36.6 91 20 101/58 (72) 98 Room Air Review - Discharge Plan Post Moderate Sedation Plan: On clinical assessment, the patient appears to have tolerated the conscious sedation without complications. Patient is recovering as anticipated. Patient will continue to be monitored by nursing and may be discharged when conscious sedation discharge criteria are met.
--- NOTE | 2017-06-13 16:57 | [facility] Post Operative Brief Note ---
Immediate Operative Summary Operative Date Jun 13, 2017. Pre-Operative Diagnosis Left Thigh Bleeding Post-Operative Diagnosis Same Procedure(s) Performed Left Leg Arteriogram, Coil Embolization of SFA Branch x 2, Mechanical Closure of Right Femoral Artery, Moderate Sedation from 162 - 4. Surgeon Dr. Gupta Advertising Analyst Surgeon(s) None Estimated Blood Loss 3 Findings slight blush seen from sfa branches Specimens None Anesthesia Local with sedation Complication(s) None Disposition
[2017-06-13] MEDS ORDERED: IODIXANOL (VISIPAQUE) 270 MG/ML 50ML FLUSH ONE (17:00)
[2017-06-13] MEDS ORDERED: LIDOCAINE HCL 1% 20 ML VIAL SQ ONE (17:00)
[2017-06-13] MEDS: CEFTRIAXONE SOD INJ 1 GM in DEXTROSE 5% ADD-VANTAGE 50ML 50 ML IV SCH (17:28)
--- NOTE | 2017-06-13 18:22 | Family Medicine Progress Note ---
Progress Note Date of Service Jun 13, 2017. Subjective Pt evaluation today including: conversation w/ patient, physical exam, chart review, lab review, review of studies Pain: Patient denies any pain this morning Voiding: no voiding problems, no incontinence Patient is resting comfortably in bed with no acute complaints overnight. He says that he is feeling well and there is no change in the level of discomfort in his leg. He denies any palpitations, shortness of breath, or chest pain Constitutional: No fever, No chills Respiratory: No cough, No sputum, No wheezing, No shortness of breath Cardiovascular: No chest pain, No palpitations Abdomen: No pain, No nausea, No vomiting Musculoskeletal: + muscle pain, + swelling, No joint pain Male : + slowing stream, No dysuria, No urinary frequency Medications Current Inpatient Medications Medications (Trade) Dose Ordered Sig/Estevan Route Start Time Stop Time Status Last Admin Dose Admin Ioversol (Optiray 320) 125 ml UD PRN IV 06/11/17 19:45 06/15/17 19:44 Docusate Sodium (coLACE CAP) 100 mg BID PRN PO 06/11/17 21:45 07/11/17 21:44 06/13/17 08:52 100 MG Finasteride (Proscar Tab) 5 mg QAM PO 06/12/17 09:00 07/12/17 08:59 06/13/17 08:48 5 MG Oxycodone/ Acetaminophen (Percocet 5-325mg Tab) 1 tab TID PRN PO 06/11/17 21:45 06/25/17 21:44 Prednisone (PredniSONE TAB) 10 mg DAILY PO 06/12/17 09:00 07/12/17 08:59 06/13/17 08:48 10 MG Tramadol HCl (Ultram Tab) 50 mg Q6H PRN PO 06/11/17 21:45 07/11/17 21:44 06/13/17 18:41 50 MG Polyethylene (Miralax Powder Packet) 17 gm BID PO 06/12/17 09:00 07/12/17 08:59 06/13/17 19:42 17 GM Acetaminophen (Tylenol Tab) 650 mg Q4H PRN PO 06/11/17 21:45 07/11/17 21:44 Al Hydrox/Mg Hydrox/Simethicone (Maalox Max Susp) 15 ml Q4H PRN PO 06/11/17 21:45 07/11/17 21:44 Magnesium Hydroxide (Milk Of Magnesia Susp) 30 ml Q12H PRN PO 06/11/17 21:45 07/11/17 21:44 Ondansetron HCl (Zofran Inj) 4 mg Q6H PRN IV 06/11/17 21:45 07/11/17 21:44 Polyethylene (Miralax Powder Packet) 17 gm DAILY PRN PO 06/11/17 21:45 07/11/17 21:44 Morphine Sulfate (MoRPHine SULFATE INJ) 2 mg Q3H PRN IV 06/11/17 23:00 06/25/17 22:59 Enteral Nutritional Formula (Boost Plus Vanilla) 1 can BIDM PO 06/12/17 16:45 07/12/17 16:44 06/13/17 17:29 1 CAN Ceftriaxone Sodium 1 gm/ Dextrose 50 ml @ 100 mls/hr Q24H IV 06/12/17 18:00 06/17/17 17:59 06/13/17 17:28 100 MLS/HR Heparin Sodium (Porcine) (Heparin 100 Unit/ml 5ml Flush) 5 ml PRN PRN FLUSH 06/12/17 19:30 07/12/17 19:29 06/12/17 20:47 5 ML Objective Vital Signs Date Time Temp Pulse Resp B/P (MAP) Pulse Ox O2 Delivery O2 Flow Rate FiO2 06/13/17 23:00 36.5 90 18 112/64 (80) 99 Room Air 06/13/17 22:04 108 16 111/69 (83) 98 Room Air 06/13/17 21:06 36.7 90 18 111/66 (81) 98 Room Air 06/13/17 20:00 102 18 110/65 (80) 96 Room Air 06/13/17 20:00 Room Air 06/13/17 19:01 36.8 88 16 119/68 (85) 98 Room Air 06/13/17 18:30 86 18 124/70 (88) 98 Room Air 06/13/17 18:00 86 18 130/70 (90) 100 Room Air 06/13/17 17:45 97 18 125/71 (89) 98 Room Air 06/13/17 17:30 96 18 116/73 (87) 98 Room Air 06/13/17 17:15 Room Air 06/13/17 17:15 36.6 90 18 119/67 (84) 99 Room Air 06/13/17 16:55 67 18 132/75 100 Room Air 06/13/17 15:46 36.8 89 16 84/42 99 Room Air 06/13/17 15:08 36.8 89 16 89/47 (61) 99 Room Air 84/42 (56) 06/13/17 12:00 Room Air 06/13/17 11:03 36.5 99 20 99/59 (72) 98 Room Air 06/13/17 08:00 Room Air 06/13/17 07:10 36.6 91 20 101/58 (72) 98 Room Air 06/13/17 04:00 Room Air 06/13/17 03:11 36.6 123 16 98/63 (75) 96 Room Air 06/13/17 01:59 122 101/61 (74) 06/12/17 23:59 Room Air Physical Exam General Appearance: WD/WN, no apparent distress Eyes: normal inspection, sclerae normal Respiratory/Chest: chest non-tender, lungs clear, normal breath sounds Cardiovascular: no edema, no JVD Abdomen: normal bowel sounds, non tender, soft Extremities: no pedal edema, no calf tenderness, + pertinent finding (swelling and hematoma posterior to the left) 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: alert, normal mood/affect, oriented x 3 Laboratory Results Results Past 24 Hours Test 06/13/17 00:53 06/13/17 06:53 06/13/17 12:41 06/13/17 19:27 Range/Units White Blood Count 17.53 14.39 14.64 16.55 4.8-10.8 K/uL Red Blood Count 2.60 2.66 2.59 2.71 4.7-6.1 M/uL Hemoglobin 7.6 7.8 7.2 7.7 14.0-18.0 g/dL Hematocrit 22.0 22.6 21.8 23.3 42-52 % Mean Corpuscular Volume 84.6 85.0 84.2 86.0 80-100 fL Mean Corpuscular Hemoglobin 29.2 29.3 27.8 28.4 25-34 pg Mean Corpuscular Hemoglobin Concent 34.5 34.5 33.0 33.0 32-36 g/dl RDW Standard Deviation 52.7 53.1 53.0 54.4 36.4-46.3 fL RDW Coefficient of Variation 17.3 17.4 17.4 17.6 11.5-14.5 % Platelet Count 236 242 242 259 130-400 K/uL Mean Platelet Volume 8.8 9.0 8.5 9.0 7.4-10.4 fL Sodium Level 136 136-145 mmol/L Potassium Level 4.4 3.5-5.1 mmol/L Chloride Level 105 98-107 mmol/L Carbon Dioxide Level 25 21-32 mmol/L Anion Gap 6.0 3-11 mmol/L Blood Urea Nitrogen 33 7-18 mg/dl Creatinine 1.20 0.60-1.40 mg/dl Est Creatinine Clear Calc Drug Dose 46.4 ml/min Estimated GFR () 64.4 Estimated GFR (Non- 55.6 BUN/Creatinine Ratio 27.3 10-20 Random Glucose 97 70-99 mg/dl Calcium Level 8.4 8.5-10.1 mg/dl Assessment and Plan Patient is an 81-year-old male presented with left groin pain to the ED last night. CT scan is found to have a large intramuscular mass/collection in the posterior left thigh musculature measuring 38 x 10 x 8 cm. The patient was previously on Lovenox at the time and that was held. The patient denies any inciting trauma that may have caused the bleed. The patient's pain has been well controlled on Ultram. His hemoglobin dropped to 6.6 and he was subsequently transfused 2 units of blood. The patient is currently undergoing chemotherapy for B-cell lymphoma, and had a scheduled session of chemotherapy for Friday. After discussion with his oncologist Dr. Whitley it was decided that the patient would have his scheduled chemotherapy next week. The patient is also been complaining of difficulty urinating and hesitancy in addition to a urinalysis that appears to have signs of a urinary tract infection in addition to microscopic growth on urine culture. 1) Left leg hematoma - Hemoglobin has continue to fall since transfusion yesterday to 7.8 - Discussed patient with Dr. Gupta who agreed to see patient and perform embolization this afternoon - Transfused 2 units of packed cells yesterday - 2 units of packed irradiated red blood cells were ordered and placed on hold - Q6H H/H - Lovenox being held - We'll discuss resuming anticoagulation with hematology - Pain control with tramadol - CT: Large intramuscular mass/ collection in posterior left thigh muscle measuring [id number] 2) Anemia 2/2 Hematoma - 2 units of transfused PRBC - 2 units on hold (Irradiated PRBC) - Hgb currently 87.8 - q6 H/H 3) Atrial Fibrillation - Metoprolol - Lovenox currently on hold - Patient currently in Afib on EKG - Patient on Telemetry 4) CKD - Cretinine improved to 1.2 today - Patient received IV contrast for CT - Daily BMP 5) B Cell Lymphoma - Discussed case with Heme/Onc - Patient chemotherapy moved to next week - Hold lovenox for time being - Give Irradiated PRBC during transfusions 6) UTI? - Day 2 Ceftriaxone IV - Urinary symptoms including burning on urination - Preliminary growth on urine cultures - UA may be contaminated but shows blood and leukocyte esterase 7) DVT Prophylaxis - Holding Lovenox - SCDs 8) Code Status - Full Resuscitation Resident Tracking Resident Involvement: Resident Care Provided Care Provided: Adult Hospital Medicine History Resident Physician Supervision Note: I was present with Dr. Hull during the history and exam. I discussed the case with the resident and agree with the findings and plan as documented in the note. Any exceptions or clarifications are listed here. Pt reports persistent fatigue stable from previous. Aching pain in leg w/ swelling remains subjectively unchanged. General Appearance: no apparent distress, cachetic Respiratory: chest non-tender, lungs clear, normal breath sounds, no respiratory distress Cardiovascular: normal peripheral pulses, no murmur, irregularly irregular Extremities: other (limited ROM 2/2 pain w/ visible swelling and posterior ecchymosis of the L thigh) Assessment/Plan 81 y/o male h/o Afib, CKD II, B cell lymphoma w/ DVT in left femoral w/ anemia and L thigh hematoma L thigh hematoma - vascular surgery consulted and recommendations appreciated - continue pain control, PT 2/2 deconditioning following Anemia, acute blood loss - transfuse to goal of > 7 w/ IRRADIATED RBC - trend H/ H q6, 2 units already given CKD III - trend BMP daily B cell lymphoma - continue pred HTN - hold BP medications 2/2 current bleed
[2017-06-13 19:42] LABS: HEMATOCRIT 23.3 % (42-52); MEAN CORPUSCULAR HEMOGLOBIN 28.4 pg (25-34); PLATELET COUNT 259 K/uL (130-400); RED BLOOD COUNT 2.71 M/uL (4.7-6.1); WHITE BLOOD COUNT 16.55 K/uL (4.8-10.8)
[2017-06-14] VITALS (9 sets, daily range): BP systolic 101–123; BP diastolic 62–72; PULSE 83–103; TEMP 36.4–37; O2SAT 94–99
[2017-06-14] MEDS: TRAMADOL HCL 50 MG TAB PO PRN ×3 (00:33→14:48)
[2017-06-14 00:53] LABS: HEMATOCRIT 23.7 % (42-52); MEAN CELL VOLUME 86.8 fL (80-100); MEAN CORPUSCULAR HEMOGLOBIN 28.9 pg (25-34); MEAN CORPUSCULAR HGB CONC 33.3 g/dl (32-36); MEAN PLATELET VOLUME 8.9 fL (7.4-10.4); PLATELET COUNT 261 K/uL (130-400); RED BLOOD COUNT 2.73 M/uL (4.7-6.1); WHITE BLOOD COUNT 18.74 K/uL (4.8-10.8)
[2017-06-14 05:57] LABS: HEMATOCRIT 22.7 % (42-52); MEAN CORPUSCULAR HEMOGLOBIN 28.5 pg (25-34); MEAN CORPUSCULAR HGB CONC 33.5 g/dl (32-36); MEAN PLATELET VOLUME 8.2 fL (7.4-10.4); PLATELET COUNT 250 K/uL (130-400); RED BLOOD COUNT 2.67 M/uL (4.7-6.1); WHITE BLOOD COUNT 15.31 K/uL (4.8-10.8)
[2017-06-14 06:32] LABS: CALCIUM 8.5 mg/dl (8.5-10.1); CREATININE 1.1 mg/dl (0.60-1.40); POTASSIUM 3.8 mmol/L (3.5-5.1)
--- NOTE | 2017-06-14 07:01 | DIAGNOSTIC IMAGING REPORT ---
DATE OF PROCEDURE: 06/13/2017 PREOPERATIVE DIAGNOSIS: Left thigh bleeding. POSTOPERATIVE DIAGNOSIS: Same. PROCEDURE: Left lower extremity arteriogram, coil embolization of superficial femoral artery branches x2, mechanical closure right femoral artery, and moderate sedation 32 minutes. SURGEON: Dr. Gupta. ANESTHETIC: Local with sedation. PROCEDURE INDICATIONS: The patient is an 81-year-old gentleman who was admitted with bleeding through his left thigh. He was on Xarelto. On CTA that was done at the time of admission, there was a slight blush seen on the left thigh, just above the knee. Since he was admitted, his hemoglobin had dropped to 6.6, he was transfused, and now it has dropped back down to 7.2, it was 7.9 yesterday and 7.8 this morning. Six hours later, it had dropped to 7.2. At this point, we recommended arteriography and possible embolization. The patient and understood and agreed to have this procedure. The patient was taken to the angiogram suite and placed in supine position. After the groins were prepped and draped in a sterile manner, local anesthetic was administered. A percutaneous puncture was made of the right common femoral artery. 0.035 wire was inserted and 5-[place] sheath was inserted over the wire. Next, the 0.035 Glidewire and a RIM catheter was used. The left side was cannulated from the right. The catheter was passed down to the distal external iliac artery. Arteriography was performed. There was no bleeding seen from the profunda femoral artery branches. There was suggestion of a slight mild blush on the delayed films from 2 branches of the distal superficial femoral artery. It was decided to try to embolize these branches. The wire was then reinserted, passed down through the superficial femoral artery. 5-Citizen [place] sheath was exchanged to a 6-Citizen [place] Destination. Using an angled Cushing catheter, 2 branches in the distal superficial femoral artery were cannulated. 4 mm coils were placed in each. The branches embolized nicely. There was no further flow seen through these 2 branches. I could not appreciate any further blushing in the tissues. At that point, the sheath was pulled back to the left side. The sheath was pulled and the puncture on the right side was closed using the Star closure device. Adequate hemostasis was noted. Sterile dressings were applied and the patient left the angio suite in good condition and tolerated the procedure well.
[2017-06-14] MEDS: POLYETHYLENE (MIRALAX) 17 GM PACK PO SCH ×2 (07:46→19:07)
[2017-06-14] MEDS: BOOST PLUS VANILLA PO SCH ×4 (07:50→17:21)
[2017-06-14] MEDS: FINASTERIDE 5 MG TAB PO SCH (07:51)
[2017-06-14] MEDS: DOCUSATE SODIUM 100 MG CAP PO PRN (07:52)
[2017-06-14] MEDS ORDERED: METOPROLOL TARTRATE 25 MG TAB PO ONE (08:28)
--- NOTE | 2017-06-14 16:22 | Family Medicine Progress Note ---
Progress Note Date of Service Jun 14, 2017. Subjective Pt evaluation today including: conversation w/ patient, conversation w/ family , physical exam, chart review, lab review Pt seen and examined at bedside. No acute events overnight. Tolerating low dose metoprolol well for atrial fibrillation w/o lightheadedness, or fatigue. Reports continued pain of the L thigh which precludes meaningful ambulation from bed, previous evaluation rec'd PT inpatient placement. Reports no numbness , tingling, other joint pain or swelling, JOY, lightheadedness, chest pain, SOB. Constitutional: No fever, No chills, No sweats Respiratory: No cough, No sputum, No wheezing, No shortness of breath Cardiovascular: + edema, No chest pain, No palpitations Abdomen: No pain, No nausea, No vomiting, No diarrhea Musculoskeletal: + muscle pain, + swelling, No joint pain Neurologic: No weakness, No numbness/tingling Heme: + abnormal bleeding/bruising, No clotting problems Medications Current Inpatient Medications Medications (Trade) Dose Ordered Sig/Estevan Route Start Time Stop Time Status Last Admin Dose Admin Ioversol (Optiray 320) 125 ml UD PRN IV 06/11/17 19:45 06/15/17 19:44 Docusate Sodium (coLACE CAP) 100 mg BID PRN PO 06/11/17 21:45 07/11/17 21:44 06/14/17 07:52 100 MG Finasteride (Proscar Tab) 5 mg QAM PO 06/12/17 09:00 07/12/17 08:59 06/14/17 07:51 5 MG Oxycodone/ Acetaminophen (Percocet 5-325mg Tab) 1 tab TID PRN PO 06/11/17 21:45 06/25/17 21:44 Prednisone (PredniSONE TAB) 10 mg DAILY PO 06/12/17 09:00 07/12/17 08:59 06/14/17 07:51 10 MG Tramadol HCl (Ultram Tab) 50 mg Q6H PRN PO 06/11/17 21:45 07/11/17 21:44 06/14/17 14:48 50 MG Polyethylene (Miralax Powder Packet) 17 gm BID PO 06/12/17 09:00 07/12/17 08:59 06/14/17 07:46 17 GM Acetaminophen (Tylenol Tab) 650 mg Q4H PRN PO 06/11/17 21:45 07/11/17 21:44 Al Hydrox/Mg Hydrox/Simethicone (Maalox Max Susp) 15 ml Q4H PRN PO 06/11/17 21:45 07/11/17 21:44 Magnesium Hydroxide (Milk Of Magnesia Susp) 30 ml Q12H PRN PO 06/11/17 21:45 07/11/17 21:44 Ondansetron HCl (Zofran Inj) 4 mg Q6H PRN IV 06/11/17 21:45 07/11/17 21:44 Polyethylene (Miralax Powder Packet) 17 gm DAILY PRN PO 06/11/17 21:45 07/11/17 21:44 Morphine Sulfate (MoRPHine SULFATE INJ) 2 mg Q3H PRN IV 06/11/17 23:00 06/25/17 22:59 Enteral Nutritional Formula (Boost Plus Vanilla) 1 can BIDM PO 06/12/17 16:45 07/12/17 16:44 06/14/17 07:50 1 CAN Ceftriaxone Sodium 1 gm/ Dextrose 50 ml @ 100 mls/hr Q24H IV 06/12/17 18:00 06/17/17 17:59 06/13/17 17:28 100 MLS/HR Heparin Sodium (Porcine) (Heparin 100 Unit/ml 5ml Flush) 5 ml PRN PRN FLUSH 06/12/17 19:30 07/12/17 19:29 06/12/17 20:47 5 ML Metoprolol Tartrate (Lopressor Tab) 12.5 mg BID PO 06/14/17 21:00 07/14/17 20:59 Objective Vital Signs Date Time Temp Pulse Resp B/P (MAP) Pulse Ox O2 Delivery O2 Flow Rate FiO2 06/14/17 12:08 37.0 91 16 117/72 (87) 99 Room Air 06/14/17 12:00 95 Room Air 06/14/17 08:24 36.7 103 16 116/64 (81) 98 Room Air 06/14/17 08:00 98 Room Air 06/14/17 04:00 Room Air 06/14/17 03:17 36.9 97 18 123/65 (84) 98 Room Air 06/13/17 23:59 Room Air 06/13/17 23:00 36.5 90 18 112/64 (80) 99 Room Air 06/13/17 22:04 108 16 111/69 (83) 98 Room Air 06/13/17 21:06 36.7 90 18 111/66 (81) 98 Room Air 06/13/17 20:00 102 18 110/65 (80) 96 Room Air 06/13/17 20:00 Room Air 06/13/17 19:01 36.8 88 16 119/68 (85) 98 Room Air 06/13/17 18:30 86 18 124/70 (88) 98 Room Air 06/13/17 18:00 86 18 130/70 (90) 100 Room Air 06/13/17 17:45 97 18 125/71 (89) 98 Room Air 06/13/17 17:30 96 18 116/73 (87) 98 Room Air 06/13/17 17:15 Room Air 06/13/17 17:15 36.6 90 18 119/67 (84) 99 Room Air 06/13/17 16:55 67 18 132/75 100 Room Air Physical Exam General Appearance: no apparent distress, + cachetic Respiratory/Chest: chest non-tender, lungs clear, normal breath sounds, no respiratory distress Cardiovascular: no murmur, + irregularly irregular Abdomen: normal bowel sounds, non tender, soft, no organomegaly Extremities: + pertinent finding (unchanged LLE ecchymosis and swelling of the left thigh w/ distal swelling chronically 2/2 DVT) Skin: normal color, warm/dry Laboratory Results 06/14/17 05:50 06/14/17 05:50 Test 06/14/17 05:50 Red Blood Count 2.67 M/uL (4.7-6.1) Mean Corpuscular Volume 85.0 fL (80-100) Mean Corpuscular Hemoglobin 28.5 pg (25-34) Mean Corpuscular Hemoglobin Concent 33.5 g/dl (32-36) RDW Standard Deviation 52.2 fL (36.4-46.3) RDW Coefficient of Variation 17.5 % (11.5-14.5) Mean Platelet Volume 8.2 fL (7.4-10.4) Anion Gap 6.0 mmol/L (3-11) Est Creatinine Clear Calc Drug Dose 50.7 ml/min Estimated GFR () 71.6 Estimated GFR (Non- 61.8 BUN/Creatinine Ratio 28.0 (10-20) Calcium Level 8.5 mg/dl (8.5-10.1) Assessment/Plan 81 y/o male h/o Afib, CKD II, B cell lymphoma w/ DVT in left femoral w/ anemia and L thigh hematoma L thigh hematoma - s/p embolisation on 06.13 by vascular surgery - continue pain control, PT recommended inpatient rehab but will likely require re-eval for auth Anemia, acute blood loss - transfuse to goal of > 7 w/ IRRADIATED RBC - stable for 24 hrs @ ~ 7.5, trend CBC q12, FeSO4 BID Atrial fibrillation - rate controlled now w/ metoprolol 12.5mg BID, tolerated well. Off AC for present 2/2 recent significant bleeding event CKD III - trend BMP daily B cell lymphoma - continue pred HTN - hold BP medications 2/2 current bleed
[2017-06-14] MEDS: FERROUS SULFATE 325 MG TAB PO SCH (17:21)
[2017-06-14] MEDS: CEFTRIAXONE SOD INJ 1 GM in DEXTROSE 5% ADD-VANTAGE 50ML 50 ML IV SCH (17:21)
[2017-06-14 19:29] LABS: HEMATOCRIT 22.9 % (42-52); MEAN CELL VOLUME 87.4 fL (80-100); MEAN CORPUSCULAR HEMOGLOBIN 29.4 pg (25-34); MEAN CORPUSCULAR HGB CONC 33.6 g/dl (32-36); MEAN PLATELET VOLUME 9.6 fL (7.4-10.4); PLATELET COUNT 297 K/uL (130-400); RED BLOOD COUNT 2.62 M/uL (4.7-6.1); WHITE BLOOD COUNT 18.32 K/uL (4.8-10.8)
[2017-06-14] MEDS: METOPROLOL TARTRATE 25 MG TAB PO SCH (20:24)
[2017-06-15] VITALS (9 sets, daily range): BP systolic 98–115; BP diastolic 56–72; PULSE 62–92; TEMP 36.3–37.2; O2SAT 95–99
[2017-06-15 07:16] LABS: HEMATOCRIT 22.6 % (42-52); MEAN CELL VOLUME 85.9 fL (80-100); MEAN CORPUSCULAR HEMOGLOBIN 28.1 pg (25-34); MEAN CORPUSCULAR HGB CONC 32.7 g/dl (32-36); MEAN PLATELET VOLUME 8.7 fL (7.4-10.4); PLATELET COUNT 282 K/uL (130-400); RED BLOOD COUNT 2.63 M/uL (4.7-6.1); WHITE BLOOD COUNT 12.58 K/uL (4.8-10.8)
[2017-06-15 07:43] LABS: BUN/CREATININE RATIO 29.6 (10-20); CALCIUM 8.5 mg/dl (8.5-10.1); CREATININE 0.96 mg/dl (0.60-1.40); POTASSIUM 3.7 mmol/L (3.5-5.1)
[2017-06-15] MEDS: POLYETHYLENE (MIRALAX) 17 GM PACK PO SCH ×2 (08:11→20:00)
[2017-06-15] MEDS: BOOST PLUS VANILLA PO SCH ×4 (08:11→17:20)
[2017-06-15] MEDS: DOCUSATE SODIUM 100 MG CAP PO PRN (08:12)
[2017-06-15] MEDS: FERROUS SULFATE 325 MG TAB PO SCH ×2 (08:13→17:20)
[2017-06-15] MEDS: METOPROLOL TARTRATE 25 MG TAB PO SCH ×2 (08:13→20:00)
[2017-06-15] MEDS: FINASTERIDE 5 MG TAB PO SCH (08:14)
[2017-06-15] MEDS: ACETAMINOPHEN 325 MG TAB PO PRN ×2 (08:24→20:08)
--- NOTE | 2017-06-15 17:16 | Family Medicine Progress Note ---
Progress Note Date of Service Jun 15, 2017. Subjective Pt seen and examined at bedside. Persistent aching pain of the left thigh which is stable from previous and worsened with direct pressure or ambulation. He reports no lightheadedness, chest pain, SOB, palpitations, numbness/tingling, weakness of the LLE or abd pain. Constitutional: No fever, No chills, No sweats Respiratory: No cough, No wheezing, No shortness of breath Cardiovascular: No chest pain, No edema, No palpitations Abdomen: No pain, No nausea, No vomiting, No diarrhea Neurologic: No weakness, No numbness/tingling Medications Current Inpatient Medications Medications (Trade) Dose Ordered Sig/Estevan Route Start Time Stop Time Status Last Admin Dose Admin Ioversol (Optiray 320) 125 ml UD PRN IV 06/11/17 19:45 06/15/17 19:44 Docusate Sodium (coLACE CAP) 100 mg BID PRN PO 06/11/17 21:45 07/11/17 21:44 06/15/17 08:12 100 MG Finasteride (Proscar Tab) 5 mg QAM PO 06/12/17 09:00 07/12/17 08:59 06/15/17 08:14 5 MG Oxycodone/ Acetaminophen (Percocet 5-325mg Tab) 1 tab TID PRN PO 06/11/17 21:45 06/25/17 21:44 Prednisone (PredniSONE TAB) 10 mg DAILY PO 06/12/17 09:00 07/12/17 08:59 06/15/17 08:13 10 MG Tramadol HCl (Ultram Tab) 50 mg Q6H PRN PO 06/11/17 21:45 07/11/17 21:44 06/14/17 14:48 50 MG Polyethylene (Miralax Powder Packet) 17 gm BID PO 06/12/17 09:00 07/12/17 08:59 06/15/17 08:11 17 GM Acetaminophen (Tylenol Tab) 650 mg Q4H PRN PO 06/11/17 21:45 07/11/17 21:44 06/15/17 08:24 650 MG Al Hydrox/Mg Hydrox/Simethicone (Maalox Max Susp) 15 ml Q4H PRN PO 06/11/17 21:45 07/11/17 21:44 Magnesium Hydroxide (Milk Of Magnesia Susp) 30 ml Q12H PRN PO 06/11/17 21:45 07/11/17 21:44 Ondansetron HCl (Zofran Inj) 4 mg Q6H PRN IV 06/11/17 21:45 07/11/17 21:44 Polyethylene (Miralax Powder Packet) 17 gm DAILY PRN PO 06/11/17 21:45 07/11/17 21:44 Morphine Sulfate (MoRPHine SULFATE INJ) 2 mg Q3H PRN IV 06/11/17 23:00 06/25/17 22:59 Enteral Nutritional Formula (Boost Plus Vanilla) 1 can BIDM PO 06/12/17 16:45 07/12/17 16:44 06/15/17 08:11 1 CAN Ceftriaxone Sodium 1 gm/ Dextrose 50 ml @ 100 mls/hr Q24H IV 06/12/17 18:00 06/17/17 17:59 06/14/17 17:21 100 MLS/HR Heparin Sodium (Porcine) (Heparin 100 Unit/ml 5ml Flush) 5 ml PRN PRN FLUSH 06/12/17 19:30 07/12/17 19:29 06/12/17 20:47 5 ML Metoprolol Tartrate (Lopressor Tab) 12.5 mg BID PO 06/14/17 21:00 07/14/17 20:59 06/15/17 08:13 12.5 MG Ferrous Sulfate (Feosol Tab) 325 mg BIDM PO 06/14/17 16:45 07/14/17 16:44 06/15/17 08:13 325 MG Objective Vital Signs Date Time Temp Pulse Resp B/P (MAP) Pulse Ox O2 Delivery O2 Flow Rate FiO2 06/15/17 16:00 95 Room Air 06/15/17 12:22 36.4 88 18 98/56 (70) 97 Room Air 06/15/17 12:00 96 Room Air 06/15/17 08:10 36.7 87 16 100/66 (77) 98 Room Air 06/15/17 08:00 98 Room Air 06/15/17 04:00 Room Air 06/15/17 04:00 36.6 78 16 115/72 (86) 98 Room Air 06/15/17 00:50 36.3 79 20 113/72 (86) 97 Room Air 06/15/17 00:00 Room Air 06/14/17 20:00 99 Room Air 06/14/17 19:11 36.6 98 18 102/62 (75) 99 Room Air 06/14/17 17:57 36.4 83 18 101/62 (75) 98 Physical Exam General Appearance: WD/WN, no apparent distress Respiratory/Chest: chest non-tender, lungs clear, normal breath sounds, no respiratory distress Cardiovascular: regular rate, rhythm, no murmur, + pertinent finding (stable LLE edema unchanged from previous) Abdomen: normal bowel sounds, non tender, soft, no organomegaly Extremities: + pertinent finding (left thigh swelling with ecchymosis now spreading dependently toward the foot and buttock whcih is warm and TTP) 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: no motor/sensory deficits, alert, normal mood/affect, oriented x 3 Laboratory Results 06/15/17 06:53 06/15/17 06:53 Test 06/15/17 06:53 Red Blood Count 2.63 M/uL (4.7-6.1) Mean Corpuscular Volume 85.9 fL (80-100) Mean Corpuscular Hemoglobin 28.1 pg (25-34) Mean Corpuscular Hemoglobin Concent 32.7 g/dl (32-36) RDW Standard Deviation 54.1 fL (36.4-46.3) RDW Coefficient of Variation 17.6 % (11.5-14.5) Mean Platelet Volume 8.7 fL (7.4-10.4) Anion Gap 6.0 mmol/L (3-11) Est Creatinine Clear Calc Drug Dose 57.5 ml/min Estimated GFR () 84.4 Estimated GFR (Non- 72.8 BUN/Creatinine Ratio 29.6 (10-20) Calcium Level 8.5 mg/dl (8.5-10.1) Assessment/Plan 81 y/o male h/o Afib, CKD II, B cell lymphoma w/ DVT in left femoral w/ anemia and L thigh hematoma L thigh hematoma - s/p embolisation on 06.13 by vascular surgery - continue pain control, PT recommended inpatient rehab but will likely require re-eval for auth Anemia, acute blood loss - transfused to goal of > 7 w/ IRRADIATED RBC - stable for 48 hrs @ ~ 7.5, trend CBC daily, FeSO4 BID Atrial fibrillation - rate controlled now w/ metoprolol 12.5mg BID, tolerated well. Off AC for present 2/2 recent significant bleeding event reviewed pros/ cons with patient in detail CKD III - stable - trend BMP daily, avoid nephrotoxic medications B cell lymphoma - continue pred HTN - continue metorpolol
[2017-06-15] MEDS: CEFTRIAXONE SOD INJ 1 GM in DEXTROSE 5% ADD-VANTAGE 50ML 50 ML IV SCH (17:20)
[2017-06-15 19:55] LABS: HEMATOCRIT 23.1 % (42-52); MEAN CELL VOLUME 87.5 fL (80-100); MEAN CORPUSCULAR HEMOGLOBIN 28.4 pg (25-34); MEAN CORPUSCULAR HGB CONC 32.5 g/dl (32-36); MEAN PLATELET VOLUME 8.5 fL (7.4-10.4); PLATELET COUNT 286 K/uL (130-400); RED BLOOD COUNT 2.64 M/uL (4.7-6.1); WHITE BLOOD COUNT 15.81 K/uL (4.8-10.8)
[2017-06-16] VITALS: O2SAT 95
[2017-06-16 06:18] LABS: BUN/CREATININE RATIO 28.8 (10-20); CALCIUM 8.1 mg/dl (8.5-10.1); POTASSIUM 3.8 mmol/L (3.5-5.1)
[2017-06-16 07:33] LABS: BASO % 0.5 %; BASO ABS # 0.06 K/uL (0-0.2); HEMATOCRIT 22.9 % (42-52); IG% 0.8 %; LYMPH ABS # 0.76 K/uL (1.2-3.4); MEAN CELL VOLUME 88.1 fL (80-100); MEAN CORPUSCULAR HEMOGLOBIN 28.8 pg (25-34); MEAN CORPUSCULAR HGB CONC 32.8 g/dl (32-36); MONO % 10.9 %; NEUT % 80.8 %; PLATELET COUNT 302 K/uL (130-400); WHITE BLOOD COUNT 12.63 K/uL (4.8-10.8)
[2017-06-16 07:42] VITALS: BP 123/72; PULSE 87; TEMP 36.4; O2SAT 93
[2017-06-16] MEDS: BOOST PLUS VANILLA PO SCH ×4 (07:45→18:00)
[2017-06-16] MEDS: FERROUS SULFATE 325 MG TAB PO SCH ×2 (07:45→18:01)
[2017-06-16] MEDS: FINASTERIDE 5 MG TAB PO SCH (07:45)
[2017-06-16] MEDS: POLYETHYLENE (MIRALAX) 17 GM PACK PO SCH ×2 (07:45→20:00)
[2017-06-16] MEDS: METOPROLOL TARTRATE 25 MG TAB PO SCH ×2 (07:45→20:00)
[2017-06-16] MEDS: ACETAMINOPHEN 325 MG TAB PO PRN ×3 (07:49→18:59)
[2017-06-16 08:02] LABS: COMPLETE YES; POLYCHROMASIA 1+
--- NOTE | 2017-06-16 15:34 | Family Medicine Progress Note ---
Progress Note Date of Service Jun 16, 2017. Subjective Pt evaluation today including: conversation w/ patient, physical exam, chart review, lab review, review of studies Pain: No pain reported this morning Voiding: no voiding problems, no incontinence She is resting comfortably in bed this morning with no acute complaints overnight. The patient states that he does not notice a difference in the bruising or swelling behind his left leg. He is still had difficulty getting out of bed, but denies any acute pain when resting. The patient denies any numbness, tingling, spasms, or any pain in his left lower extremity. Constitutional: No fever, No chills Respiratory: No cough, No wheezing, No shortness of breath Cardiovascular: No chest pain Abdomen: No pain, No nausea, No vomiting Male : No dysuria Medications Current Inpatient Medications Medications (Trade) Dose Ordered Sig/Estevan Route Start Time Stop Time Status Last Admin Dose Admin Docusate Sodium (coLACE CAP) 100 mg BID PRN PO 06/11/17 21:45 07/11/17 21:44 06/15/17 08:12 100 MG Finasteride (Proscar Tab) 5 mg QAM PO 06/12/17 09:00 07/12/17 08:59 06/16/17 07:45 5 MG Oxycodone/ Acetaminophen (Percocet 5-325mg Tab) 1 tab TID PRN PO 06/11/17 21:45 06/25/17 21:44 Prednisone (PredniSONE TAB) 10 mg DAILY PO 06/12/17 09:00 07/12/17 08:59 06/16/17 07:45 10 MG Tramadol HCl (Ultram Tab) 50 mg Q6H PRN PO 06/11/17 21:45 07/11/17 21:44 06/14/17 14:48 50 MG Polyethylene (Miralax Powder Packet) 17 gm BID PO 06/12/17 09:00 07/12/17 08:59 06/16/17 07:45 17 GM Acetaminophen (Tylenol Tab) 650 mg Q4H PRN PO 06/11/17 21:45 07/11/17 21:44 06/16/17 14:10 650 MG Al Hydrox/Mg Hydrox/Simethicone (Maalox Max Susp) 15 ml Q4H PRN PO 06/11/17 21:45 07/11/17 21:44 Magnesium Hydroxide (Milk Of Magnesia Susp) 30 ml Q12H PRN PO 06/11/17 21:45 07/11/17 21:44 Ondansetron HCl (Zofran Inj) 4 mg Q6H PRN IV 06/11/17 21:45 07/11/17 21:44 Polyethylene (Miralax Powder Packet) 17 gm DAILY PRN PO 06/11/17 21:45 07/11/17 21:44 Morphine Sulfate (MoRPHine SULFATE INJ) 2 mg Q3H PRN IV 06/11/17 23:00 06/25/17 22:59 Enteral Nutritional Formula (Boost Plus Vanilla) 1 can BIDM PO 06/12/17 16:45 07/12/17 16:44 06/16/17 07:45 1 CAN Ceftriaxone Sodium 1 gm/ Dextrose 50 ml @ 100 mls/hr Q24H IV 06/12/17 18:00 06/17/17 17:59 06/15/17 17:20 100 MLS/HR Heparin Sodium (Porcine) (Heparin 100 Unit/ml 5ml Flush) 5 ml PRN PRN FLUSH 06/12/17 19:30 07/12/17 19:29 06/16/17 05:18 5 ML Metoprolol Tartrate (Lopressor Tab) 12.5 mg BID PO 06/14/17 21:00 07/14/17 20:59 06/16/17 07:45 12.5 MG Ferrous Sulfate (Feosol Tab) 325 mg BIDM PO 06/14/17 16:45 07/14/17 16:44 06/16/17 07:45 325 MG Objective Vital Signs Date Time Temp Pulse Resp B/P (MAP) Pulse Ox O2 Delivery O2 Flow Rate FiO2 06/16/17 08:00 Room Air 06/16/17 07:42 36.4 87 17 123/72 (89) 93 Room Air 06/16/17 00:00 95 Room Air 06/15/17 23:11 37.2 92 18 100/57 (71) 99 Room Air 06/15/17 18:50 36.8 62 18 95 06/15/17 16:00 95 Room Air 06/15/17 16:00 36.8 62 18 101/62 (75) 95 Room Air Physical Exam General Appearance: WD/WN, no apparent distress Eyes: normal inspection, sclerae normal Respiratory/Chest: chest non-tender, lungs clear, normal breath sounds Cardiovascular: no edema, no gallop, + irregularly irregular Abdomen: normal bowel sounds, non tender, soft Extremities: normal range of motion, no calf tenderness, + pertinent finding ( visible hematoma posterior to the left thigh proximally at the level of the hip to the distal region of the popliteal area. Area is soft with firm area surrounding the hematoma.) 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: alert, normal mood/affect, oriented x 3 Laboratory Results Results Past 24 Hours Test 06/15/17 19:48 06/16/17 05:18 Range/Units White Blood Count 15.81 12.63 4.8-10.8 K/uL Red Blood Count 2.64 2.60 4.7-6.1 M/uL Hemoglobin 7.5 7.5 14.0-18.0 g/dL Hematocrit 23.1 22.9 42-52 % Mean Corpuscular Volume 87.5 88.1 80-100 fL Mean Corpuscular Hemoglobin 28.4 28.8 25-34 pg Mean Corpuscular Hemoglobin Concent 32.5 32.8 32-36 g/dl RDW Standard Deviation 55.2 55.7 36.4-46.3 fL RDW Coefficient of Variation 17.8 17.6 11.5-14.5 % Platelet Count 286 302 130-400 K/uL Mean Platelet Volume 8.5 9.0 7.4-10.4 fL Neutrophils (%) (Auto) 80.8 % Lymphocytes (%) (Auto) 6.0 % Monocytes (%) (Auto) 10.9 % Eosinophils (%) (Auto) 1.0 % Basophils (%) (Auto) 0.5 % Neutrophils # (Auto) 10.20 1.4-6.5 K/uL Lymphocytes # (Auto) 0.76 1.2-3.4 K/uL Monocytes # (Auto) 1.38 0.11-0.59 K/uL Eosinophils # (Auto) 0.13 0-0.5 K/uL Basophils # (Auto) 0.06 0-0.2 K/uL Immature Granulocyte % (Auto) 0.8 % Immature Granulocyte # (Auto) 0.10 0.00-0.02 K/uL Polychromasia 1+ Sodium Level 140 136-145 mmol/L Potassium Level 3.8 3.5-5.1 mmol/L Chloride Level 109 98-107 mmol/L Carbon Dioxide Level 25 21-32 mmol/L Anion Gap 6.0 3-11 mmol/L Blood Urea Nitrogen 29 7-18 mg/dl Creatinine 1.00 0.60-1.40 mg/dl Est Creatinine Clear Calc Drug Dose 55.2 ml/min Estimated GFR () 80.3 Estimated GFR (Non- 69.3 BUN/Creatinine Ratio 28.8 10-20 Random Glucose 93 70-99 mg/dl Calcium Level 8.1 8.5-10.1 mg/dl Assessment and Plan Patient is an 81-year-old male presented with left groin pain to the ED last night. CT scan is found to have a large intramuscular mass/collection in the posterior left thigh musculature measuring 38 x 10 x 8 cm. The patient was previously on Lovenox at the time and that was held. The patient denies any inciting trauma that may have caused the bleed. The patient's pain has been well controlled on Ultram. His hemoglobin dropped to 6.6 and he was subsequently transfused 2 units of blood. The patient's hemoglobin initially improved but then continue to follow once again so a consultation was made to vascular surgery and Dr. Gupta. After reviewing the patient's condition Dr. Gupta decided to take the patient to the OR and perform an embolization of the femoral artery and the left leg. Over the weekend after the embolization the patient's hemoglobin and hematocrit have remained stable in the 7s. 1) Left leg hematoma - Status post embolization of left femoral artery on 06/13 - Hemoglobin has remained stable over the weekend at 7.5 - Transfused 2 units of packed cells last week - 2 units of packed irradiated red blood cells were ordered and placed on hold - Daily hemoglobin and hematocrit - Lovenox being held - Pain control with tramadol - CT: Large intramuscular mass/ collection in posterior left thigh muscle measuring [id number] 2) Anemia 2/2 Hematoma - H&H currently stable - 2 units of transfused PRBC - 2 units on hold (Irradiated PRBC) - Hgb currently 7.5 - Daily H/H 3) Atrial Fibrillation - Patient currently rate controlled with Metoprolol - Lovenox currently on hold - Patient currently in Afib on EKG - Patient on Telemetry 4) CKD - Resolved - Cretinine 1.0 - Patient received IV contrast initially for CT - Daily BMP 5) B Cell Lymphoma - Discussed case with Heme/Onc - Patient chemotherapy moved to Friday - Hold lovenox for time being - Give Irradiated PRBC during transfusions 6) UTI? - Patient no longer complaining of urinary symptoms - Completed 3 days of ceftriaxone - Urine culture shows growth of mixed type of skin dionne likely being contaminants 7) DVT Prophylaxis - Holding Lovenox - SCDs 8) Code Status - Full Resuscitation 9) Disposition - Plan to discharge patient to [facility] Resident Physician Supervision Note: I interviewed and examined the patient. Discussed with Dr. Lanza and agree with findings and plan as documented in the note. Any exceptions or clarifications are listed here: None Documented By: Jad Wilks feeling better leg pain about the same doesn't think it's gotten any bigger for days. no other new complaints. wants to go to [facility]. all other ROS otherwise negative except for as above vitals noted nad breathing unlabored no pallor or icterus. L leg large area of bruising and fluctuance c/w hematoma. mildly tender. no areas of erythema or opening. hematoma/acute blood loss anemia - now stable. no hemodynamic instability. no evidence of ongoing blood loss. currently asymptomatic so no indications for transfusion. appearing stable for return to SNF w ongoing close monitoring. otherwise as above Resident Tracking Resident Involvement: Resident Care Provided Care Provided: Adult Hospital Medicine
[2017-06-16 15:48] VITALS: BP_SYST 89; BP_SYST 93; BP_DIAS 52; BP_DIAS 60; PULSE 88; TEMP 36.6; O2SAT 99
[2017-06-16] MEDS: CEFTRIAXONE SOD INJ 1 GM in DEXTROSE 5% ADD-VANTAGE 50ML 50 ML IV SCH (18:00)
[2017-06-16 20:22] VITALS: BP 95/62; PULSE 93
[2017-06-17 01:13] VITALS: BP 98/59; PULSE 85; TEMP 36.6; O2SAT 100
[2017-06-17] MEDS: ACETAMINOPHEN 325 MG TAB PO PRN (04:14)
[2017-06-17] MEDS: METOPROLOL TARTRATE 25 MG TAB PO SCH (07:32)
[2017-06-17] MEDS: FERROUS SULFATE 325 MG TAB PO SCH (07:32)
[2017-06-17] MEDS: BOOST PLUS VANILLA PO SCH ×2 (07:32)
[2017-06-17] MEDS: FINASTERIDE 5 MG TAB PO SCH (07:32)
[2017-06-17] MEDS: POLYETHYLENE (MIRALAX) 17 GM PACK PO SCH (07:32)
[2017-06-17 07:34] VITALS: BP 116/68; PULSE 92
[2017-06-17 07:36] VITALS: BP 113/74; PULSE 81; TEMP 36.8; O2SAT 100
--- NOTE | 2017-06-17 08:07 | Discharge Instructions ---
Discharge Instructions Date of Service Jun 17, 2017. Admission Reason for Admission: Left Thigh Pain, Weakness Discharge Discharge Diagnosis / Problem: Left Lower Extremity Bleeding Discharge Goals Goal(s): Improve function, Therapeutic intervention Activity Recommendations Activity Limitations: per Instructions/Follow-up section Lifting Limitations: gradually increase as tolerated Exercise/Sports Limitations: gradually increase as tolerated . Instructions / Follow-Up Instructions / Follow-Up - You were admitted to the hospital for left lower leg bleeding - During your admission you received a blood transfusion of 2 units in addition to a Femoral Artery Embolization by Dr. Gupta - STOP TAKING XARELTO - Please discontinue taking this blood thinner until following up with your primary care physician and your blood counts have stabilized - Take one Metorpolol 12.5 mg tab twice daily for your Atrial fibrillation - If you experience any worsening pain in your right leg or enlargement of the area surrounding the bleed, please return to the Hospital or be evaluated by a physician immediately Current Hospital Diet Patient's current hospital diet: Regular Diet Discharge Diet Recommended Diet: Regular Diet Procedures Procedures Performed: Left Leg Arteriogram, Coil Embolization of SFA Branch x 2, Mechanical Closure of Right Femoral Artery, Moderate Sedation from 1622 - 1654. Pending Studies Studies pending at discharge: no Medical Emergencies . Who to Call and When: Medical Emergencies: If at any time you feel your situation is an emergency, please call 911 immediately. . Non-Emergent Contact Non-Emergency issues call your: Primary Care Provider . . "Provider Documentation" section prepared by Alfa Lanza. . VTE Core Measure Inpt VTE Proph given/why not?: Ramona Paiz, SCD's Resident Tracking Resident Involvement: Resident Care Provided Care Provided: Adult Hospital Medicine
[2017-06-17 08:26] LABS: HEMATOCRIT 26.3 % (42-52); MEAN CELL VOLUME 88.6 fL (80-100); MEAN CORPUSCULAR HEMOGLOBIN 27.9 pg (25-34); MEAN PLATELET VOLUME 8.8 fL (7.4-10.4); PLATELET COUNT 363 K/uL (130-400); RED BLOOD COUNT 2.97 M/uL (4.7-6.1); WHITE BLOOD COUNT 13.79 K/uL (4.8-10.8)
[2017-06-17 08:49] LABS: MEAN CORPUSCULAR HGB CONC 31.6 g/dl (32-36)
--- NOTE | 2017-06-17 09:51 | Progress Note ---
Progress Note Date of Service: Jun 17, 2017. Subjective 81 yo m with multiple medical problems, s/p embolization of branches of LLE SFA d/t large hematoma, seen in f/u today. Pt admits discomfort in L thigh, but states is improving slightly. Hgb has been stable since procedure. Problem List Medical Problems: (1) Anemia Status: Acute (2) Anemia Status: Acute (3) Deep venous thrombosis of pelvic vein Status: Acute (4) Dehydration Status: Acute (5) Failure of outpatient treatment Status: Acute (6) Generalized weakness Status: Acute (7) GI bleeding Status: Acute (8) Left leg DVT Status: Acute (9) Left thigh pain Status: Acute (10) Leukocytosis Status: Acute (11) Rectal mass Status: Acute Objective Vital Signs Vital Signs Past 12 Hours Date Time Temp Pulse Resp B/P (MAP) Pulse Ox O2 Delivery O2 Flow Rate FiO2 06/17/17 08:00 Room Air 06/17/17 07:36 36.8 81 18 113/74 (87) 100 Room Air 06/17/17 07:34 92 116/68 (84) 06/17/17 01:13 36.6 85 20 98/59 (72) 100 Room Air 06/17/17 00:15 Room Air Exam CONST: A&O x4, NAD, thin, chronically ill appearing male EXT: R groin puncture site C/D/I, no erythema, ecchymosis or edema. L post thigh with large area of ecchymosis and edema. Laboratory and Microbiology Results Past 24 Hours Test 06/17/17 08:11 Range/Units White Blood Count 13.79 4.8-10.8 K/uL Red Blood Count 2.97 4.7-6.1 M/uL Hemoglobin 8.3 14.0-18.0 g/dL Hematocrit 26.3 42-52 % Mean Corpuscular Volume 88.6 80-100 fL Mean Corpuscular Hemoglobin 27.9 25-34 pg Mean Corpuscular Hemoglobin Concent 31.6 32-36 g/dl Platelet Count 363 130-400 K/uL Mean Platelet Volume 8.8 7.4-10.4 fL RDW Standard Deviation 56.8 36.4-46.3 fL RDW Coefficient of Variation 17.7 11.5-14.5 % ASSESSMENT and PLAN: s/p LLE SFA branches embolization L thigh hematoma Pt doing well postop. Will see pt in office in 3 months with venous US to possibly discuss IVC filter removal if pt is able to restart anticoagulation. Please call if needed otherwise. Ok for d/c from vascular standpoint.
[2017-06-17 11:46] LABS: ANISOCYTOSIS PRESENT; BASO % 0.5 %; BASO ABS # 0.07 K/uL (0-0.2); COMPLETE YES; EOS % 1.2 %; IG% 0.5 %; LYMPH % 5.5 %; LYMPH ABS # 0.76 K/uL (1.2-3.4); MONO % 9.4 %; NEUT % 82.9 %; POLYCHROMASIA 1+
[2017-06-17] MEDS ORDERED: OXYC-57 PO (12:33)
[2017-06-17] MEDS ORDERED: METO25TA56 PO (12:33)
[2017-06-17] MEDS ORDERED: TRAM-10 PO (12:33)
[2017-06-17 12:48] VITALS: BP 113/74; PULSE 81; TEMP 36.8; O2SAT 100
--- NOTE | 2017-06-18 22:42 | Discharge Summary ---
Discharge Summary Date of Service Jun 18, 2017. (Alfa Lanza MD) Discharge Summary Admission Date: Jun 11, 2017 at 21:45 Discharge Date: Jun 17, 2017 Discharge Disposition: Home Principal Diagnosis: Left leg hematoma (Alfa Lanza MD) Medication Reconciliation New Medications: Metoprolol Tartrate (Lopressor) (Lopressor) 25 Mg Tab 0.5 TAB PO BID for 90 Days, #180 TAB 1 Refill Continued Medications: Acetaminophen (Tylenol) 325 Mg Tab 650 MG PO prn, TAB Docusate Sodium (Colace) 100 Mg Cap 1 CAP PO BID PRN for CONSTIPATION, CAP Enteral Nutrition Formula (Ensure Plus Vanilla) 1 Can Liqd 1 CAN GJT BID, CAN Finasteride (Proscar) 5 Mg Tab 5 MG PO QAM, TAB Oxycodone/Acetaminophen 5MG/325MG (Percocet 5MG/325MG) Tab 1 TAB PO TID PRN for Pain for 30 Days, #90 TAB (This prescription has been renewed) PAIN Polyethylene Glycol 3350 (Miralax) 1 Pow Pow 17 GM PO BID, #255 GM Prednisone (Prednisone) 10 Mg Tab 10 MG PO DAILY Tramadol (Ultram) 50 Mg Tab 50-100 MG PO Q6H PRN for Pain, #25 TAB (This prescription has been renewed) [Chemo Q 3 Weeks] () Discontinued Medications: Enoxaparin (Lovenox) 60 Mg/0.6 Ml Inj 60 MG SQ Q12H, SYR Discharge Exam Review of Systems: Constitutional: No fever, No chills Respiratory: No cough, No shortness of breath Cardiovascular: No chest pain, No palpitations Abdomen: No pain, No nausea, No vomiting, No diarrhea, No constipation Musculoskeletal: No joint pain Genitourinary - Male: No dysuria, No urinary frequency, No urinary hesitancy Physical Exam: General Appearance: WD/WN, no apparent distress Eyes: normal inspection, sclerae normal Neck: supple, no carotid bruits Respiratory/Chest: chest non-tender, lungs clear, normal breath sounds Cardiovascular: regular rate, rhythm, no edema, no gallop Abdomen / GI: normal bowel sounds, non tender, soft Extremities: normal inspection, no calf tenderness 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: alert, normal mood/affect, normal reflexes Skin: + pertinent finding (Hematoma posterior to left thigh located distally at the popliteal region and approximately at the area of the left buttocks. The area is firm to touch, and appears to be improving. Not tender to palpation.) (Alfa Lanza MD) Hospital Course H&P: 81 y/o M Hx chronic AF, HTN, DM, CKD III, HPL, B-cell lymphoma, acute DVT, and IVC filter placed due to rectal bleeding from his lymphoma and anticoagulation. Eventually placed on Lovenox in March, which was stopped for port placement and not restarted until May 23. He saw Dr[address] Gupta last week to discuss removal of his IVC. He had an US at that time which showed propagation of the DVT. It was not felt that he had failed Lovenox due to the interruption in use between March and the end of April which was likely the culprit for propagation. He presented to the ER 06/11 early AM due to increasing pain in his L thigh and D/ C was arranged to rehab directly from the ER. He returned later in the afternoon due to worsening pain. An exam of the thigh revealed a large hematoma extending from the thigh to the groin. Repeat labs revealed a 1 unit drop in the pt's Hemoglobin. He was sent for a CT of the lower extremity which confirmed a large collection in the posterior left thigh musculature. Hospital Course: At the time of admission the patient had his Lovenox held and his hemoglobin and hematocrit was closely monitored. After admission his hemoglobin continued to drop until it fell to a number of 6.6. At that point we transfused 2 units of packed red blood cells and his hemoglobin teresa back up to 8.4. That afternoon we had a discussion with Dr. Whitley regarding his chemotherapy, and it was discussed that it would be pushed back to the following Friday. His hemoglobin after transfusion continued to fall once again, so a consultation was placed with Dr. Gupta who agreed to see the patient. After further evaluation it was determined that due to his continued bleeding from his left thigh, that he would be appropriate for surgical stoppage of the bleed. On Friday afternoon the patient was taken to the OR and had an embolization of his left femoral artery performed to stop the bleeding. After the embolization was performed the patient's hemoglobin and hematocrit seemed to stabilize in the mid 7 range. On Friday after a morning hemoglobin yielded a result of 8.4, [facility] was contacted and after placement was confirmed transport was provided and the patient was transferred to [facility].The patient will have his final round of chemotherapy next week with Dr. Weber, and will follow up with vascular surgery in 2 weeks. During his admission the patient was also placed on a dose of 12.5 mg metoprolol. Total Time Spent: Greater than 30 minutes This includes examination of the patient, discharge planning, medication reconciliation, and communication with other providers. (Alfa Lanza MD) Resident Physician Supervision Note: I interviewed and examined the patient. Discussed with Dr. Lanza and agree with findings and plan as documented in the note. Any exceptions or clarifications are listed here: None Documented By: Jad Wilks feeling OK ready for rehab, no new complaitns or problems. extensive d/w pt and - with multitude of questions, Dr Lanza and I answered to the best of our ability and to pt/ satisfaction. vitals noted nad breathign unlabored leg bruising unchanged no erythema acute blood loss anemia/leg hematoma requiring vascular intervention to stop bleeding - now stable. for rehab at SNF setting. stable for discharge (Jad Wilks D.O.) Discharge Instructions Please refer to the electronic Patient Visit Report (Discharge Instructions) for additional information. (Alfa Lanza MD) Additional Copies To Juan Daniel Pettit M.D. Resident Tracking Resident Involvement: Resident Care Provided Care Provided: [facility] (Alfa Lanza MD)
[2017-09-01] MEDS ORDERED: TAMS0.4C38 PO (14:50)
== END 2017-06-17 13:20 | DRG 982 ==
LOC: C.EDB 10:06 → C.2T 21:45 → ENRESERV 21:59 → C.4E 06-15 18:57
PROVIDERS: ADMIT Internal Medicine; ATTEND Family Medicine
PROC: 04LL3DZ Occlusion of Left Femoral Artery with Intraluminal Device, Percutaneous Approach (ICD-10-PCS; principal; 2017-06-13 14:30)
DX: M79.81 Nontraumatic hematoma of soft tissue (principal); I82.5Y2 Chronic embolism and thrombosis of unspecified deep veins of left proximal lower extremity; D62 Acute posthemorrhagic anemia; C85.10 Unspecified B-cell lymphoma, unspecified site; N39.0 Urinary tract infection, site not specified; I82.890 Acute embolism and thrombosis of other specified veins; C83.30 Diffuse large B-cell lymphoma, unspecified site; I82.4Y2 Acute embolism and thrombosis of unspecified deep veins of left proximal lower extremity; I48.2 Chronic atrial fibrillation; E11.22 Type 2 diabetes mellitus with diabetic chronic kidney disease; M10.9 Gout, unspecified; E78.5 Hyperlipidemia, unspecified; I12.9 Hypertensive chronic kidney disease with stage 1 through stage 4 chronic kidney disease, or unspecified chronic kidney disease; N18.3 Chronic kidney disease, stage 3 (moderate); N40.0 Benign prostatic hyperplasia without lower urinary tract symptoms; Z79.52 Long term (current) use of systemic steroids; Z79.899 Other long term (current) drug therapy; I45.10 Unspecified right bundle-branch block; Z66 Do not resuscitate; K57.30 Diverticulosis of large intestine without perforation or abscess without bleeding; E83.52 Hypercalcemia; I73.9 Peripheral vascular disease, unspecified; R60.0 Localized edema; Z79.01 Long term (current) use of anticoagulants

== ENCOUNTER → 2017-07-07 | Outpatient (CLI) | payer BC ==
[~2017-07-07] MED LIST changes: -ENOX60IN SQ; +METO25TA56 PO; +PSYL48.59 PO; +TAMS0.4C38 PO; +TRAM-10 PO
[2017-07-07 13:05] LABS: HEMATOCRIT 36.7 % (42-52); MEAN CELL VOLUME 91.1 fL (80-100); MEAN CORPUSCULAR HEMOGLOBIN 28.5 pg (25-34); MEAN CORPUSCULAR HGB CONC 31.3 g/dl (32-36); PLATELET COUNT 261 K/uL (130-400); RED BLOOD COUNT 4.03 M/uL (4.7-6.1); WHITE BLOOD COUNT 19.54 K/uL (4.8-10.8)
[2017-07-07 13:24] LABS: BLOOD UREA NITROGEN 25 mg/dl (7-18); BUN/CREATININE RATIO 23.2 (10-20); CALCIUM 8.6 mg/dl (8.5-10.1); CARBON DIOXIDE 27 mmol/L (21-32); CHLORIDE 105 mmol/L (98-107); GLUCOSE 125 mg/dl (70-99); POTASSIUM 4.1 mmol/L (3.5-5.1); SODIUM 138 mmol/L (136-145)
== END | disposition home or self-care (01) ==
LOC: C.LABSPEC 12:15
PROVIDERS: ATTEND Internal Medicine
DX: D64.9 Anemia, unspecified (principal)

== ENCOUNTER → 2017-08-06 | Outpatient (CLI) | payer BC ==
[~2017-08-06] MED LIST changes: -OXYC-57 PO
--- NOTE | 2017-08-06 11:19 | DIAGNOSTIC IMAGING REPORT ---
PET/CT SKULL-THIGH CLINICAL HISTORY: LYMPHOMA COMPARISON STUDY: 05/21/2017 FINDINGS: The patient was injected with 13.3 mCi of F 18 labeled FDG. Following the standard induction phase, PET/CT scanning is performed from the skull base the upper thigh region. Within the neck, there is a persistent right posterior cervical lymph node deep to the sternocleidomastoid measuring 21 mm. This is mildly FDG avid with an SUV maximum of 3.6. There are no additional FDG avid cervical lymph nodes. Within the thorax, there are no FDG avid lymph nodes. Foci of increased activity within the right arm, likely relate to activity secondary to patient's injection. There is no pathologic parenchymal activity. Within the abdomen and pelvis, there is no pathologic hepatic or adrenal gland activity. There is no pathologic megan activity. The spleen is not enlarged. There is prostamegaly. There is extensive diverticulosis. There is mild residual soft tissue thickening of the left perirectal region. This demonstrates decreasing FDG avidity. There are no pathologic bone bone activity. IMPRESSION: 1. Stable single enlarged right posterior cervical FDG avid lymph node measuring 21 mm with SUV maximum of 3.6 2. Decreasing left sided perirectal soft tissue thickening with decreasing FDG avidity 3. No pathologic megan activity within the abdomen or pelvis. Electronically signed by: Pramod Esteban M.D. 08/06/2017 11:18 AM Dictated Date/Time: 08/06/2017 11:07 AM
== END ==
LOC: C.PET 08:00
PROVIDERS: ATTEND Internal Medicine Hematology & Oncology
DX: C83.38 Diffuse large B-cell lymphoma, lymph nodes of multiple sites (principal)

== ENCOUNTER 2017-10-13 07:12 | Day surgery (SDC) | payer BC ==
[~2017-10-13] VITALS: Ht 185.4 cm; Wt 71.0 kg
--- NOTE | 2017-10-13 06:36 | History and Physical ---
History & Physical Date of Service Oct 13, 2017. History & Physical Chief Complaint DVT, lymphoma, rectal bleeding with insertion of IVC filter in February 2017 History of Present Illness The patient is a 81 year old male with lymphoma, admitted in February d/t rectal bleeding and DVT. He had a filter placed at that time. Denies JOY, fever, chills, chest pain, SOB, adb pain, N/V, rest pain, claudication, other complaints. Allergies Coded Allergies: No Known Allergies (Verified , 02/24/17) Home Medications Scheduled Enoxaparin (Lovenox), 80 MG SQ Q12H Finasteride (Proscar), 5 MG PO DAILY Metoprolol Succ (Toprol Xl) (Toprol-Xl), 50 MG PO DAILY Tamsulosin Hcl (Flomax), 0.4 MG PO HS Problem List Medical Problems: (1) ATRIAL FIBRILLATION (2) DIAB OBDULIA WO COMPL, TYPE II OR UNSPEC TYPE, NOT UNCNTRLD (3) DIVERTICULOSIS COLON (W/O MENT OF HEMORRHAGE) (4) Gout (5) Hypercalcemia (6) HYPERLIPIDEMIA NEC/NOS (7) HYPERPLASIA OF PROSTATE (8) Rectal bleed Surgical / Medical History Hx Cardiac Surgery: No Hx Abdominal Surgery: No Hx Cancer Surgery: No Hx Thoracic Surgery: No Hx Orthopedic: No Hx Urinary Tract Surgery: No Past Medical/Surgical History: Cancer, Hypertension Family History FH: cancer FH: cancer Social History Smoking Status: Never Smoker Hx Tobacco Use In Past Year?: No Hx Alcohol Use - Type & Amnt: No Hx Substance Use -Type & Amnt: No Review of Systems Constitutional: + malaise, No chills, No fever Skin: No change in color Eyes: No visual changes ENMT: No sore throat Respiratory: No cough, No AGUILAR, No hemoptysis, No short of breath Cardiovascular: No chest pain, No palpitations, No syncope, No edema, No intermittent claudication Gastrointestinal: No abdominal pain, No diarrhea, No nausea Neurologic: No dizziness, No lethargy, No numbness, No tingling Physical Exam Constitutional: General Apperance: well-nourished, well-developed Level of Distress: NAD, Psychiatric: Mental Status: active & alert, normal mood, normal affect Orientation: oriented except where noted, to time, to place, to person Memory: recent memory normal, remote memory normal Head: normocephalic, atraumatic Eyes: EOM: EOMI ENMT: normal ENT inspection, hearing grossly normal Neck: supple, trachea midline Lungs: Respiratory effort: no dyspnea Auscultation: no rales/crackles, no rhonchi, normal breath sounds Cardiovascular: Apical Impulse: not displaced Heart Auscultation: RRR, no murmurs, no rubs, no gallops Peripheral Pulses: Pulses: full and equal, in all extremities except if noted Bruits: none appreciated Carotid Pulse: normal on the left, normal on the right Brachial Pulses: normal on the left, normal on the right Radial Pulse: normal on the left, normal on the right Femoral Pulse: normal on the left, normal on the right Posterior Tibialis Pulse: decreased on the left, decreased on the right Dorsalis Pedis Pulse: decreased on the left, decreased on the right Abdomen: Bowel Sounds: normal Inspection & Palpation: soft, non-distended, no tenderness, guarding & rebound Musculoskeletal: normal strength (5/5 throughout), normal tone Extremities: Upper Right: no cyanosis, no edema, no varicosities Upper Left: no cyanosis, no edema, no varicosities Lower Right: no cyanosis, no varicosities, mild edema Lower Left: no cyanosis, no varicosities, mild edema Neurologic: Cranial Nerves: grossly intact Sensation: grossly intact Assessment and Plan ASSESSMENT and PLAN: Post IVC filter placement Lymphoma, Plan: Patient is admitted for removal of the IVC filter. I have discussed the risks options and benefits of the procedure with the patient. The patient understands the risks options and benefits and agrees to the procedure.
[~2017-10-13 07:12] MED LIST changes: +CEFAZOLIN 1000MG IV PUSH 5 ML IV SCH; -PRD10 PO; +SODIUM CHLORIDE 0.9% 1000ML IV SCH; -[UNRECOGNIZED DRUG - OTHER]
--- NOTE | 2017-10-13 07:59 | Procedure Note ---
Pre-Mod Sedation Assessment General Date of Moderate Sedation: Oct 13, 2017. Pre-Sedation Airway Assessment Smoking Status: Never Smoker Mallampati Classification: Class I ASA Classification: Class II Notes The planned sedation has been discussed with the patient and consent obtained. I have identified the patient, determined the appropriateness of sedation and have assessed the patient immediately prior to the procedure. All medicine(s) and interventions are by my order.
[2017-10-13 08:00] VITALS: BP 99/61; PULSE 65; TEMP 36.4; O2SAT 97; Ht 185.4 cm; Wt 71.0 kg
[2017-10-13] MEDS ORDERED: TRAM-10 PO (08:01)
[2017-10-13] MEDS ORDERED: METO25TA56 PO (08:03)
[2017-10-13 08:28] LABS: CREATININE 1.25 mg/dl (0.60-1.40)
[2017-10-13 09:45] VITALS: BP 99/61; PULSE 65; TEMP 36.4; O2SAT 97
[2017-10-13] MEDS ORDERED: FENTANYL CITRATE INJ 50 MCG/1 ML 2 ML VIAL ONE (09:45)
[2017-10-13] MEDS ORDERED: MIDAZOLAM HCL 1 MG/ML 2ML VIAL ONE (09:45)
[2017-10-13] MEDS ORDERED: LIDOCAINE HCL 1% 20 ML VIAL SQ ONE (10:07)
[2017-10-13] MEDS ORDERED: FENTANYL CITRATE INJ 50 MCG/1 ML 2 ML VIAL IV ONE (10:08)
[2017-10-13] MEDS ORDERED: MIDAZOLAM HCL 1 MG/ML 2ML VIAL IV ONE (10:08)
[2017-10-13] MEDS ORDERED: OXYCODONE/ACETAMINOPHEN 5-325 TAB PO PRN (10:15)
--- NOTE | 2017-10-13 10:19 | Procedure Note ---
Post-Moderate Sedation Plan General Date of Moderate Sedation Oct 13, 2017. Vital Signs: Vital Signs Past 12 Hours Date Time Temp Pulse Resp B/P (MAP) Pulse Ox O2 Delivery O2 Flow Rate FiO2 10/13/17 09:45 36.4 65 20 99/61 97 Room Air 10/13/17 08:00 36.4 65 20 99/61 (74) 97 Room Air Review - Discharge Plan Post Moderate Sedation Plan: On clinical assessment, the patient appears to have tolerated the conscious sedation without complications. Patient is recovering as anticipated. Patient will continue to be monitored by nursing and may be discharged when conscious sedation discharge criteria are met.
--- NOTE | 2017-10-13 10:21 | [facility] Operative Report ---
Operative Report Operative Date Oct 13, 2017. Pre-Operative Diagnosis Post Inferior Vena Cava Filter Placement, Lymphoma. Post-Operative Diagnosis Same Procedure(s) Performed Removal of Inferior Vena Cava Filter, Ultrasound Localization of Right Internal Jugular Vein, Moderate Sedation from 1008 - 1018. Surgeon Dr. Gupta Package Dye Stand Loader Surgeon(s) None Estimated Blood Loss 0 Findings no cava clot seen Specimens A: explant Vena Cava Filter Anesthesia Local with sedation Complication(s) None Disposition Indications This is an 82-year-old gentleman who had a filter placed earlier this year. He has a history of lymphoma with rectal bleeding. He has not had any further bleeding. He is here for filter removal.I have discussed the risks options and benefits of the procedure with the patient. The patient understands the risks options and benefits and agrees to the procedure. Description of Procedure The patient was brought to the angio suite and placed in the supine position. The right side of the neck was prepped and draped in the usual fashion. The right internal jugular vein was located with ultrasound. It was patent, compressed easily, and had no filling defects. The vein was then punctured under ultrasound visualization. A guidewire was then passed centrally into the inferior vena cava under fluoroscopic guidance. The puncture site was then dilated and the filter removal sheath inserted. It was passed to the infra renal vena cava above the filter. A venacavagram was done which showed no cava clot in the cava or filter. The filter removal snare was then passed through the sheath and the hook of the filter was snared.. The snare was then tightened and the sheath pushed in over the filter. It retracted easily. The filter was removed. Post removal venogram showed no extravasation of contrast. The sheath was the removed. Pressure was applied to the puncture site. Adequate hemostasis was obtained and a sterile dressing was applied. The patient left the angio suite in good condition and tolerated the procedure well. I attest to the content of the Intraoperative Record and any orders documented therein. Any exceptions are noted below.
--- NOTE | 2017-10-13 10:23 | Discharge Instructions ---
Discharge Instructions Date of Service Oct 13, 2017. Visit Reason for Visit: Status Post Filter Placement Discharge Discharge Diagnosis / Problem: Lymphoma, post filter placement Discharge Goals Goal(s): Therapeutic intervention Activity Recommendations Activity Limitations: per Instructions/Follow-up section Anesthesia . Post Anesthesia Instructions: If you have had General Anesthesia or IV Sedation: * Do not drive today. * Resume driving when surgeon permits. * Do not make important decisions or sign legal documents today. * Call surgeon for: 1. Temperature elevations greater than 101 degrees F. 2. Uncontrollable pain. 3. Excessive bleeding. 4. Persistent nausea and vomiting. 5. Medication intolerance (nausea, vomiting or rash). * For nausea and vomiting use only clear liquids such as: tea, soda, bouillon until nausea subsides, then gradually increase diet as tolerated. * If you have any concerns or questions, call your surgeon's office. If physician is unavailable and it is an emergency, call 911 or go to the nearest emergency room. . Instructions / Follow-Up Instructions / Follow-Up Call [phone] to schedule a follow up appointment if one not already scheduled. SPECIAL CARE INSTRUCTIONS: Medications: * Continue to take your medications as directed. If you have been given a prescription for Plavix, please fill it immediately and take as directed. Incision Care: * Your puncture site may have some bruising and minor swelling for about one week. * You will have a small dressing covering your puncture site. You may remove the dressing after 24 hours and shower. You may let the warm soapy water run over it, but be sure to dry the puncture site well and keep it dry. * DO NOT IMMERSE THE INCISION IN A TUB/POOL/etc. UNTIL HEALED. * Puncture sites should be kept covered with a band-aid until it begins to heal. Restrictions: * Depending on whether you leg or arm was punctured to access the arteries, you will be required to lay flat, hold your arm still, or both, for about 4 hours after the procedure to prevent bleeding. * Limit your activity for the first 48 hours. You may walk and go up and down steps. Avoid excessive bending or movement at the puncture site. Possible Complications: * Excessive Swelling - after blood flow is improved you may notice increased swelling in the lower legs. This is a normal response. This usually depends on the amount of blockages in the leg, how long they have been there prior to your procedure and how much blood flow was restored. Elevating your legs will help to improve this. Please notify our office ([phone] ) if the swelling does not go away after lying in bed overnight. * Infection/Drainage/Bleeding - Drainage or bleeding from the puncture site should be minimal. If you have excessive bleeding or drainage, call our office ([phone]) right away. * Pain - You may experience some mild pain or soreness at your puncture site. If your pain does not improve, please contact our office ([phone]). Call your doctor and seek emergent treatment if you develop: * Temperature above 101 degrees * Any fever or chills * Any redness or purulent drainage from the puncture site * Any new dusky/blue colored toes or feet with coolness or sharp or aching pain. SKIN IRRITATION: * You may experience some redness and/or swelling in the area where radiation was administered. If any skin irritation occurs, please contact your family physician. FOLLOW UP VISIT: Keep any scheduled doctor appointments. Diet Recommendations Recommended Home Diet: resume previous diet Procedures Procedures Performed: Removal of Inferior Vena Cava Filter, Ultrasound Localization of Right Internal Jugular Vein, Moderate Sedation from 1008 - 1018. Pending Studies Studies pending at discharge: no Medical Emergencies . Who to Call and When: Medical Emergencies: If at any time you feel your situation is an emergency, please call 911 immediately. . Non-Emergent Contact Non-Emergency issues call your: Surgeon . . "Provider Documentation" section prepared by Taco Gupta. .
[2017-10-13 10:30] VITALS: BP 90/61; PULSE 70; O2SAT 93
[2017-10-13 10:45] VITALS: BP 92/69; PULSE 68; O2SAT 95
[2017-10-13 11:00] VITALS: BP 92/69; PULSE 70; O2SAT 95
== END 2017-10-13 11:08 | disposition home or self-care (01) ==
LOC: C.ACU 07:12
PROVIDERS: ATTEND Surgery Vascular Surgery
DX: Z45.89 Encounter for adjustment and management of other implanted devices (principal); C83.38 Diffuse large B-cell lymphoma, lymph nodes of multiple sites; E11.9 Type 2 diabetes mellitus without complications; E83.52 Hypercalcemia; E78.5 Hyperlipidemia, unspecified; I48.91 Unspecified atrial fibrillation; N40.0 Benign prostatic hyperplasia without lower urinary tract symptoms; Z80.9 Family history of malignant neoplasm, unspecified; K57.90 Diverticulosis of intestine, part unspecified, without perforation or abscess without bleeding

== ENCOUNTER → 2017-11-05 | Outpatient (CLI) | payer BC ==
[~2017-11-05] MED LIST changes: -CEFAZOLIN 1000MG IV PUSH 5 ML IV SCH; -SODIUM CHLORIDE 0.9% 1000ML IV SCH
[2017-11-05 14:58] VITALS: BP 104/68; PULSE 64; TEMP 36.7; O2SAT 97
--- NOTE | 2017-11-05 17:00 | Radiation Oncology Follow-Up ---
Radiation Oncology Follow-Up Date of Visit Nov 05, 2017. Reason For Visit One-month follow-up Radiation Completion Date Pelvis - 09/23/17, Neck - 09/30/17 Diagnosis (1) Diffuse large B cell lymphoma Status: Acute Onset Date: 02/06/2017 Location: right neck and rectum Stage: IV Permanent Comment: Hospitalization for rectal bleeding Finding of a large rectal mass Biopsy positive for B-cell lymphoma Staging revealed extensive nodular disease stage IV Status post mini R CHOP 5 cycles began 03/04/2017 finished 05/21/2017 Near-complete response Referral for consolidation radiation therapy Status post completion of radiation therapy to the pelvis 09/23/2017 received 3600 cGy Status post completion of radiation therapy to the neck 09/30/2017 received 4500 cGy Last Edited By: Lakeisha Dorado on Oct 10, 2017 07:53 History of Present Illness Mr. Reeder presented to the emergency Department for bright red per rectum. The patient presented to the emergency room in the beginning of January 2017 and did have right red bleeding. The patient did have a CT of the chest/abdomen/pelvis on 02/03/2017 which revealed: "IMPRESSION: 1. Extensive paraaortic, bilateral iliac chain and left pelvic sidewall lymphadenopathy in addition to a left perirectal mass with associated rectal wall thickening. Overall, the findings strongly suggest lymphoma. A rectal adenocarcinoma could appear similar although is considered much less likely. 2. Extensive left colon diverticulosis without convincing evidence for acute diverticulitis. 3. Mild left hydroureteronephrosis likely due to mass effect upon the distal left ureter by lymphadenopathy which extends to the left ureterovesical junction." The CT chest revealed mild enlarged distal paraesophageal lymph nodes however no other evidence of disease above the diaphragm. The patient was seen evaluated by Dr. Joselito Chávez from gastroenterology. Dr. Chávez performed a lower endoscopy on the patient on 02/06/2017 which revealed a infiltrative and ulcerated nonobstructing large mass in the rectum that was noncircumferential and measured 5 cm in length. 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 The patient was also seen evaluated by Dr. Bernabe Patel from urology due to the patient's hydronephrosis in the patient did undergo cystoscopy, retrograde pyelography and ureteral stent placement on the left ureter which occurred on 02/05/2017. Dr. Patel noted moderate left hydronephrosis due to distal ureteral obstruction as well as dense obstructive tissue at the level of the distal ureter; additionally, he did note a palpable left pelvic mass on bimanual examination which appeared extrinsic to both the bladder and rectum. Dr. Patel did obtain a biopsy of pre- ureteral tissue on the left side which revealed atypical lymphoid infiltrate consistent with the diffuse large B-cell lymphoma. The patient was referred to medical oncology and was seen by Dr. Rolando Patterson. Dr. Weber recommended ageadjusted chemotherapy for treatment of the patient's diffuse large B-cell lymphoma. The patient was scheduled to undergo PET/CT scan for staging however the patient was readmitted due to further gastrointestinal bleeding from the rectum. We have been asked to evaluate the patient for consideration of palliative radiation therapy to the rectum. He was also noted to have a mass of the right neck. Decision was to treat both areas. He completed radiation therapy to the pelvis 09/23/2017. He received 3600 cGy. He completed radiation therapy to the neck 09/30/2017. He received 4500 cGy. Interim History He is been doing well over the past month. There has been steady decrease in the size of the mass of the right neck. He denies any pain or tenderness. He has no difficulty with swallowing. He has not had any difficulty with bowel movements. He denies any pain or pressure. No abdominal cramping. He denies pain with bowel movements. He has had no rectal bleeding. He has seen Dr. Wallace Patterson in follow-up. His plan he'll be having a recheck PET scan. Allergies Coded Allergies: No Known Allergies (Verified , 10/13/17) Home Medications Scheduled Acetaminophen (Tylenol), 650 MG PO prn Enteral Nutrition Formula (Ensure Plus Vanilla), 1 CAN PO BID Finasteride (Proscar), 5 MG PO QAM Metoprolol Tartrate (Lopressor) (Lopressor), 12.5 MG PO BID Psyllium (Metamucil), 1 TBS PO DAILY Tamsulosin Hcl (Flomax), 1 CAP PO HS Scheduled PRN Docusate Sodium (Colace), 1 CAP PO DAILY PRN for CONSTIPATION Polyethylene Glycol 3350 (Miralax), 17 GM PO DAILY PRN for Constipation Tramadol (Ultram), 50 MG PO Q6 PRN for Pain Review of Systems Gastrointestinal: Symptoms: WNL GI Comments: Continues metamucil; Oral: Symptoms: No Problems Other Oral Symptoms: Denies any trouble swallowing; Respiratory: Symptoms: WNL Urinary: Symptoms: WNL Skin: Symptoms: No Problems Other Skin Symptoms: Continues use of natural care gel to neck;skin WNL Physical Exam Vital Signs Date Time Temp Pulse Resp B/P (MAP) Pulse Ox O2 Delivery O2 Flow Rate FiO2 11/05/17 14:58 36.7 64 16 104/68 97 Fatigue: None General Appearance: no apparent distress Eyes: normal inspection, EOMI ENT: normal ENT inspection, hearing grossly normal Neck: supple, + pertinent finding (the mass of the right anterior neck is improved. This now measures 1.5 cm. There is no erythema or edema of the skin. The mass is firm and mobile.) Respiratory/Chest: lungs clear, no respiratory distress, no accessory muscle use Cardiovascular: regular rate, rhythm, no gallop, no murmur Abdomen: non tender, soft, no organomegaly Extremities: no pedal edema 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: no motor/sensory deficits, alert, normal mood/affect Skin: warm/dry Pain Management Patient Reports Pain: No Pain Management Plan He denies pain therefore requires no pain management. Laboratory Laboratory Results: not applicable Pathology Pathology Results: not applicable Imaging Imaging Studies: not applicable Assessment & Plan Plan: He is scheduled for recheck PET scan 11/26/2017. This study will be reviewed when complete. This was ordered through Dr. Weber's office. We asked him to return to our office in 3 months. He may call if he has any questions or concerns in the interim. Total Time In Follow-Up I spent 15 minutes speaking to the patient and performing examination. I spent 15 minutes reviewing information in completing this note. Copy To Joselito Chávez D.O.; Rolando Weber MD; Pro,Juan Daniel Reagan M.D. Problem Qualifiers (1) Diffuse large B cell lymphoma: Lymphoma site: extranodal excluding spleen and other solid organs Qualified Codes: C83.39 - Diffuse large b-cell lymphoma, extranodal and solid organ sites
== END | disposition home or self-care (01) ==
LOC: C.ONC 14:35
PROVIDERS: ATTEND Physician Assistant Medical
DX: Z08 Encounter for follow-up examination after completed treatment for malignant neoplasm (principal); Z92.3 Personal history of irradiation; Z85.72 Personal history of non-Hodgkin lymphomas

== ENCOUNTER → 2017-11-26 | Outpatient (CLI) | payer BC ==
--- NOTE | 2017-11-26 12:39 | DIAGNOSTIC IMAGING REPORT ---
PET/CT SKULL-THIGH HISTORY: Lymphoma LYMPHOMA TECHNIQUE: PET/CT was performed from the base of the skull through the pelvis following the intravenous administration of 14 point mCi of [id number]. Non-contrast CT imaging was performed over the same range without breath-hold for attenuation correction of PET images and anatomic correlation, but not for primary interpretation as it is not of standard diagnostic quality. CT DOSE: COMPARISON: 08/06/2017 FINDINGS: HEAD AND NECK: The moderately FDG avid node deep to the right sternocleido musculature in the prior study is unchanged. Metabolic activity characteristics including SUV characteristics are unaltered. There are no new or interval findings. CHEST: There is no FDG-avid disease in the chest. There is no axillary, mediastinal, or hilar lymphadenopathy. There is no pleural or pericardial effusion. There is no air-space disease or suspicious lung nodule. ABDOMEN/PELVIS: Below the diaphragm, tracer is distributed physiologically in the gastrointestinal and genitourinary tracts. There is no significant lymphadenopathy and no FDG-avid disease. MUSCULOSKELETAL: There is no FDG-avid or destructive bone lesion. IMPRESSION: 1. Stable unchanged PET scan compared to the prior study. 2. Unchanging mid right cervical node. Metabolic characteristics are stable. 3. The remainder of the study is unremarkable. No evidence for new interval or progressive nodular pathology. The above report was generated using voice recognition software. It may contain grammatical, syntax or spelling errors. Electronically signed by: Dillon Serrato M.D. 11/26/2017 12:38 PM Dictated Date/Time: 11/26/2017 12:27 PM
== END | disposition home or self-care (01) ==
LOC: C.PET 08:43
PROVIDERS: ATTEND Internal Medicine Hematology & Oncology
DX: C83.38 Diffuse large B-cell lymphoma, lymph nodes of multiple sites (principal)

== ENCOUNTER → 2018-02-04 | Outpatient (CLI) | payer BC ==
[2018-02-04 14:33] VITALS: BP 95/60; PULSE 61; TEMP 36.3; O2SAT 95
--- NOTE | 2018-02-04 16:07 | Radiation Oncology Follow-Up ---
Radiation Oncology Follow-Up Date of Visit Feb 04, 2018. Reason For Visit Six-month follow-up Radiation Completion Date pelvis 09/23/17,neck 09/30/17 History of Present Illness Mr. Reeder presented to the emergency Department for bright red per rectum. The patient presented to the emergency room in the beginning of January 2017 and did have right red bleeding. The patient did have a CT of the chest/abdomen/pelvis on 02/03/2017 which revealed: "IMPRESSION: 1. Extensive paraaortic, bilateral iliac chain and left pelvic sidewall lymphadenopathy in addition to a left perirectal mass with associated rectal wall thickening. Overall, the findings strongly suggest lymphoma. A rectal adenocarcinoma could appear similar although is considered much less likely. 2. Extensive left colon diverticulosis without convincing evidence for acute diverticulitis. 3. Mild left hydroureteronephrosis likely due to mass effect upon the distal left ureter by lymphadenopathy which extends to the left ureterovesical junction." The CT chest revealed mild enlarged distal paraesophageal lymph nodes however no other evidence of disease above the diaphragm. The patient was seen evaluated by Dr. Joselito Chávez from gastroenterology. Dr. Chávez performed a lower endoscopy on the patient on 02/06/2017 which revealed a infiltrative and ulcerated nonobstructing large mass in the rectum that was noncircumferential and measured 5 cm in length. 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 The patient was also seen evaluated by Dr. Bernabe Patel from urology due to the patient's hydronephrosis in the patient did undergo cystoscopy, retrograde pyelography and ureteral stent placement on the left ureter which occurred on 02/05/2017. Dr. Patel noted moderate left hydronephrosis due to distal ureteral obstruction as well as dense obstructive tissue at the level of the distal ureter; additionally, he did note a palpable left pelvic mass on bimanual examination which appeared extrinsic to both the bladder and rectum. Dr. Patel did obtain a biopsy of pre- ureteral tissue on the left side which revealed atypical lymphoid infiltrate consistent with the diffuse large B-cell lymphoma. The patient was referred to medical oncology and was seen by Dr. Rolando Patterson. Dr. Weber recommended ageadjusted chemotherapy for treatment of the patient's diffuse large B-cell lymphoma. The patient was scheduled to undergo PET/CT scan for staging however the patient was readmitted due to further gastrointestinal bleeding from the rectum. We have been asked to evaluate the patient for consideration of palliative radiation therapy to the rectum. He was also noted to have a mass of the right neck. Decision was to treat both areas. He completed radiation therapy to the pelvis 09/23/2017. He received 3600 cGy. He completed radiation therapy to the neck 09/30/2017. He received 4500 cGy. Interim History He has been doing well over the past 6 months. He denies any difficulty with bowel movements. He has had no rectal bleeding. He denies any pain with bowel movements. He has had no abdominal discomfort. His appetite is good and weight is stable. He denies any difficulty with swallowing. He feels that the palpable node of the right neck is similar to previous. There is been no changes of the overlying skin in this area. He had a recheck PET/CT November 26, 2017. This showed stable unchanged PET scan compared to prior study. Unchanged minimal right cervical node. Metabolic characteristics are stable. The remainder of the study is unremarkable. No evidence for new interval or progressive nodular pathology. Allergies Coded Allergies: No Known Allergies (Verified , 10/13/17) Home Medications Scheduled Acetaminophen (Tylenol), 650 MG PO prn Enteral Nutrition Formula (Ensure Plus Vanilla), 1 CAN PO BID Finasteride (Proscar), 5 MG PO QAM Metoprolol Tartrate (Lopressor) (Lopressor), 12.5 MG PO BID Psyllium (Metamucil), 1 TBS PO DAILY Tamsulosin Hcl (Flomax), 1 CAP PO HS Scheduled PRN Docusate Sodium (Colace), 1 CAP PO DAILY PRN for CONSTIPATION Polyethylene Glycol 3350 (Miralax), 17 GM PO DAILY PRN for Constipation Tramadol (Ultram), 50 MG PO Q6 PRN for Pain Review of Systems Gastrointestinal: Symptoms: WNL Oral: Symptoms: No Problems Respiratory: Symptoms: WNL Urinary: Symptoms: WNL Skin: Symptoms: No Problems Physical Exam Vital Signs Date Time Temp Pulse Resp B/P (MAP) Pulse Ox O2 Delivery O2 Flow Rate FiO2 02/04/18 14:33 36.3 61 20 95/60 95 Fatigue: None General Appearance: no apparent distress Eyes: normal inspection, EOMI ENT: normal ENT inspection, hearing grossly normal Neck: + pertinent finding (Palpable mood central anterior cervical chain. This measures 2 cm centrally and a periphery of 4 cm. This is soft and mobile. There is no tenderness. There are no changes of the overlying skin. There are no skin retractions.) Respiratory/Chest: lungs clear, no respiratory distress, no accessory muscle use Cardiovascular: regular rate, rhythm, no gallop, no murmur 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: no motor/sensory deficits, alert, normal mood/affect Pain Management Patient Reports Pain: No Pain Management Plan He denies pain therefore requires no pain management. Laboratory Laboratory Results: not applicable Pathology Pathology Results: and pertinent findings noted in HPI Imaging Imaging Studies: were reviewed Imaging Comments See the interim history. Assessment & Plan Plan: Continue regular follow-up with Dr. Weber and his primary care physician. He was also seen today by Dr. Trejo. Recheck scanning per Dr. Wallace Patterson. We asked him to return to our office in 6 months. He may call if he has any questions or concerns in the interim. Assessment & Plan (Attending) I agree with note created by Lakeisha Dorado PA-C. I reviewed the patient's chart and information with her. I have examined and evaluated the patient. I reviewed relevant clinical information and answered the patient's and/or family' s questions. TOOL SUPERVISOR Total Time In Follow-Up I spent 20 minutes speaking to the patient in performing examination. I spent 15 minutes reviewing information and completing this note. [place] Total Time (Attending) In Follow-Up I spent 15 minutes examining and counseling the patient. TOOL SUPERVISOR Copy To Rolando Weber MD; Pro,Juan Daniel Reagan M.D.
== END | disposition home or self-care (01) ==
LOC: C.ONC 14:19
PROVIDERS: ATTEND Physician Assistant Medical
DX: Z08 Encounter for follow-up examination after completed treatment for malignant neoplasm (principal); Z92.3 Personal history of irradiation; Z85.72 Personal history of non-Hodgkin lymphomas

== ENCOUNTER → 2018-07-15 | Outpatient (CLI) | payer BC ==
[2018-07-15 10:01] LABS: HEMOGLOBIN A1C 6.2 % (4.5-5.6)
== END | disposition home or self-care (01) ==
LOC: C.LAB1850 08:32
PROVIDERS: ATTEND Internal Medicine
DX: E78.5 Hyperlipidemia, unspecified (principal); R73.03 Prediabetes